=== PATIENT | female | born 1980 | race Caucasian/White ===

== ENCOUNTER 2023-04-17 06:26 | Outpatient (OUT) | payer OTHER, SELFPAY ==
[2023-04-17 06:48] LABS: Basophils Percent Auto 0.8 % (0.2-2.0); Eosinophils Absolute Auto 0.2 10^3/uL (0.0-0.7); Hematocrit 37.5 % (36.0-48.0); Hemoglobin 12.4 g/dL (12.0-16.0); Lymphocytes Absolute Auto 1.1 10^3/uL (1.2-3.8); Lymphocytes Percent Auto 27.8 % (20.5-60.0); Mean Corpuscular HGB Conc 33.1 g/dL (29.9-35.2); Mean Corpuscular Hemoglobin 28.5 pg (26.7-34.0); Mean Corpuscular Volume 86.2 fL (81.0-99.0); Mean Platelet Volume 9.6 fL (9.5-13.5); Monocytes Absolute Auto 0.3 10^3/uL (0.3-0.8); Monocytes Percent Auto 8.5 % (1.7-12.0); Neutrophils Absolute Auto 2.2 10^3/uL (1.4-6.5); Neutrophils Percent Auto 58.9 % (43.0-75.0); Platelet Count 246 10^3/uL (150-450); Red Blood Count 4.35 10^6/uL (4.20-5.40); Red Cell Distribution Width 13.4 % (11.0-15.0); White Blood Count 3.8 10^3/uL (4.0-11.0)
[2023-04-17 07:29] LABS: Free T3 2.07 pg/mL (2.18-3.98); Thyroid Stimulating Hormone 2.224 uIU/mL (0.358-3.740)
[2023-04-17 10:11] LABS: Free T4 1.04 ng/dL (0.76-1.46)
[2023-04-18 12:09] LABS: ANA Direct Negative (Negative)
== END 2023-04-17 06:27 | disposition home or self-care (01) ==
LOC: LAB 06:29
PROVIDERS: PCP Family Medicine
DX: R53.83 Other fatigue (principal); R63.5 Abnormal weight gain; Z13.21 Encounter for screening for nutritional disorder; M25.549 Pain in joints of unspecified hand
CPT/HCPCS: 36415; 82306; 82607; 84439; 84443; 84481; 85025

== ENCOUNTER 2023-04-25 06:26 | Outpatient (OUT) | payer OTHER, SELFPAY ==
--- NOTE | 2023-04-25 06:42 | MM_ITS ---
Patient: LATIA PETER Exam Date: 04/25/2023 : 1980 Gender:F Ordering : DR ILEANA INIGUEZ Admission #: [id number] Family : DR ALETHEA MCKEON M.D. Order #: [id number] CLICK HERE TO VIEW EXAM RADIOLOGY REPORT PROCEDURE: MM TOMOSYNTHESIS SCREENING BI COMPARISON: MG MAMM SCREEN 3D MARIUM CAD, 04/16/2022. INDICATIONS: Screening Calculator Name NCI Breast Cancer Risk Assessment Tool 5 Year Breast Cancer Risk 0.50% Lifetime Breast Cancer Risk 8.20% Personal Breast Cancer No Personal Ovarian Cancer No Treatments None Family Cancers Grandmother-paternal with breast cancer at age 53. LOCATION: [facility] BREAST COMPOSITION: Heterogeneously dense,which may obscure small masses. FINDINGS: DIAGNOSTIC CATEGORY 1--NEGATIVE. NO CHANGE FROM COMPARISON ASSESSMENT. Scattered benign-appearing calcifications are present. Scattered benign-appearing lymph nodes are present. RIGHT BREAST: No significant suspicious finding. LEFT BREAST: No significant suspicious finding. RECOMMENDATIONS: ROUTINE MAMMOGRAM AND CLINICAL EVALUATION IN 12 MONTHS. PLEASE NOTE: A NORMAL MAMMOGRAM DOES NOT EXCLUDE THE POSSIBILITY OF BREAST CANCER. A CLINICALLY SUSPICIOUS PALPABLE LUMP SHOULD BE BIOPSIED. Dictated by: Fede Ludwig MD on 04/25/2023 at 09:29 Approved by: Fede Ludwig MD on 04/25/2023 at 09:31
[2023-04-25 08:51] LABS: Alanine Aminotransferase 21 U/L (14-59); Albumin Globulin Ratio 1.4; Alkaline Phosphatase 55 U/L (46-116); Anion Gap 7.7; Aspartate Amino Transferase 13 U/L (15-37); BUN Creatinine Ratio 19.4; Bilirubin Total 0.4 mg/dL (0.2-1.0); Calcium 8.6 mg/dL (8.5-10.1); Carbon Dioxide 27.5 mmol/L (21.0-32.0); Chloride 104 mmol/L (98-107); Chol HDL Ratio 3.7; Cholesterol 190 mg/dL (<=200); Estimated GFR (African America >60 (>=60); Estimated GFR (Non-African Ame >60 (>=60); Globulin 2.9 g/dL; Glucose 87 mg/dL (74-106); HDL Cholesterol 51 mg/dL (40-60); LDL Cholesterol Calculated 125.6 mg/dL; Potassium 4.2 mmol/L (3.5-5.1); Sodium 135 mmol/L (136-145); Thyroid Stimulating Hormone 4.881 uIU/mL (0.358-3.740); Total Protein 6.9 g/dL (6.4-8.2); Triglycerides 67 mg/dL (<=150); VLDL CHOLESTEROL 13.4 mg/dL
[2023-04-25 09:13] LABS: Free T4 1.02 ng/dL (0.76-1.46)
== END 2023-04-25 06:27 | disposition home or self-care (01) ==
LOC: MAMMO 06:29
PROVIDERS: PCP Family Medicine; Visit Provider Physician Assistant
DX: Z12.31 Encounter for screening mammogram for malignant neoplasm of breast (principal); Z00.00 Encounter for general adult medical examination without abnormal findings; E78.00 Pure hypercholesterolemia, unspecified; R53.82 Chronic fatigue, unspecified; E87.6 Hypokalemia; E03.9 Hypothyroidism, unspecified; R03.0 Elevated blood-pressure reading, without diagnosis of hypertension; Z80.3 Family history of malignant neoplasm of breast
CPT/HCPCS: 36415; 77063; 77067; 80053; 80061; 84439; 84443; 85025

== ENCOUNTER 2024-06-26 12:53 | Emergency (ER) | payer OTHER, SELFPAY ==
[2024-06-26 12:58] VITALS: BP 146/98; PULSE 100; TEMP 36.8; O2SAT 96; BMI 21.9
--- NOTE | 2024-06-26 13:21 | ED_ITS ---
HPI HPI - General Adult General Chief complaint: Skin/Abscess/Foreign Body Stated complaint: DOG BITE Time Seen by Provider: 06/26/24 12:59 Source: patient Mode of arrival: walk-in Limitations: no limitations History of Present Illness HPI narrative: 42-year-old female presents to the emergency department for dog bite to her left arm. She was bitten by her own dog in her own home. 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 She is up-to-date on her immunizations, last tetanus shot was 2 to 3 years ago. No other injury was sustained. Related Data Home Medications ?Medication ?Instructions ?Recorded ?Confirmed alprazolam 0.25 mg tablet 0.25 mg PO DAILY 06/26/24 06/26/24 bupropion HCl 150 mg 24 hr tablet, 150 mg PO DAILY 06/26/24 06/26/24 extended release bupropion HCl 300 mg 24 hr tablet, 300 mg PO DAILY 06/26/24 06/26/24 extended release lamotrigine 100 mg tablet 200 mg PO DAILY 06/26/24 06/26/24 levothyroxine 137 mcg tablet 137 mcg PO DAILY 06/26/24 06/26/24 lurasidone 40 mg tablet 40 mg PO DAILY 06/26/24 06/26/24 naproxen 500 mg tablet 500 mg PO DAILY PRN pain 06/26/24 06/26/24 olmesartan 20 mg tablet 10 mg PO DAILY 06/26/24 06/26/24 Previous Rx's ?Medication ?Instructions ?Recorded doxycycline hyclate 100 mg capsule 100 mg PO BID 10 days #20 caps 06/26/24 Allergies Allergy/AdvReac Type Severity Reaction Status Date / Time amoxicillin [From Augmentin] AdvReac Severe Nausea Verified 06/26/24 12:58 clavulanic acid AdvReac Severe Nausea Verified 06/26/24 12:58 [From Augmentin] Opioid HPI Opioid Management Most Recent Opioid Data: No Data to Display Review of Systems ROS Narrative A ten point review of systems is negative except as noted above. PFSH PFSH Social History Little interest or pleasure in doing things: not at all Feeling down, depressed, or hopeless: not at all Exam Narrative Exam Narrative: Nurses note and vital signs reviewed and patient is not hypoxic. General: The patient appears well and in no apparent distress. Patient is res ting comfortably on cart. Skin: Warm, dry, no pallor noted. There is no rash noted. Head: Normocephalic, atraumatic Eye: Normal conjunctiva, no drainage Ears, Nose, Mouth, and Throat: oral mucosa is moist. Nares patent. Cardiovascular: Regular Rate and Rhythm Respiratory: Patient is in no distress, no accessory muscle use Back: non-tender, no CVA tenderness bilaterally to percussion. GI: Normal bowel sounds, no tenderness to palpation, no masses appreciated. No rebound, guarding, or rigidity noted. Musculoskeletal: Left arm is examined. There are 2 puncture montes near the elbow and some abrasions as well. Additionally there is a 2.5 cm gaping laceration near the left elbow. Left elbow has full range of motion. Neurological: A&O normal speech Psychiatric: Cooperative Constitutional Vital Signs, click to edit/add: Last Vital Signs Temp 98.3 F 06/26/24 12:58 Pulse 100 H 06/26/24 12:58 Resp 18 06/26/24 12:58 BP 146/98 H 06/26/24 12:58 Pulse Ox 96 06/26/24 12:58 O2 Del Method Room Air 06/26/24 12:58 Course Vital Signs Vital signs: Vital Signs Temperature 98.3 F 06/26/24 12:58 Pulse Rate 100 H 06/26/24 12:58 Respiratory Rate 18 06/26/24 12:58 Blood Pressure 146/98 H 06/26/24 12:58 Pulse Oximetry 96 06/26/24 12:58 Oxygen Delivery Method Room Air 06/26/24 12:58 Temperature 98.3 F 06/26/24 12:58 Pulse Rate 100 H 06/26/24 12:58 Respiratory Rate 18 06/26/24 12:58 Blood Pressure 146/98 H 06/26/24 12:58 Pulse Oximetry 96 06/26/24 12:58 Oxygen Delivery Method Room Air 06/26/24 12:58 Medical Decision Making MDM Narrative Medical decision making narrative: She is placed on prophylactic doxycycline because of her Augmentin allergy and the wound has now been closed. Sutures are to be removed in 10 days. Treatment diagnosis and follow-up were discussed with the patient. Discharge Plan Discharge Chief Complaint: Skin/Abscess/Foreign Body Clinical Impression: Dog bite Patient Disposition: Home, Self-Care Prescriptions / Home Meds: New doxycycline hyclate 100 mg capsule 100 mg PO BID 10 Days Qty: 20 0RF No Action alprazolam 0.25 mg tablet 0.25 mg PO DAILY bupropion HCl 150 mg tablet extended release 24 hr 150 mg PO DAILY bupropion HCl 300 mg tablet extended release 24 hr 300 mg PO DAILY lamotrigine 100 mg tablet 200 mg PO DAILY levothyroxine 137 mcg tablet 137 mcg PO DAILY lurasidone 40 mg tablet 40 mg PO DAILY naproxen 500 mg tablet 500 mg PO DAILY PRN (Reason: pain) olmesartan 20 mg tablet 10 mg PO DAILY Print Language: Tajik Instructions: Animal Bite (ED) Referrals: ALETHEA MCKEON [Primary Care Provider] - 1 week Procedures ED Procedure Instructions Procedures Procedures: The following procedure was performed by me. Local infiltration was carried out with 1% lidocaine without epinephrine resulting in complete skin anesthesia. The area was prepped with Betadine x 3 and draped sterilely and explored for foreign bodies none were found. The wound was then closed with two 4-0 sutures resulting in good skin reapproximation. Areas were left for drainage. She tolerated the procedure well
[2024-06-26] MEDS: LIDOCAINE HCL 1% 100 MG/10 ML MDV INJ (13:25)
== END 2024-06-26 13:36 | disposition home or self-care (01) ==
PROVIDERS: Emergency Provider Emergency Medicine; PCP Family Medicine
DX: S41.152A Open bite of left upper arm, initial encounter (principal); W54.0XXA Bitten by dog, initial encounter
CPT/HCPCS: 12001; 99283

== ENCOUNTER 2024-08-11 06:48 | Outpatient (OUT) | payer OTHER, SELFPAY ==
--- OUTSIDE RECORDS SUMMARY | 2024-08-11 06:53 | XMS_ITS | CCD ---
Author Organization [facility] CliniSyva Care Team Providers Care Coal Carrier Name Role Phone MISC, DR DOTSON Admitting Unavailable MISC, DR DOTSON Attending Unavailable MIKE, DR CLAIRE Primary Care Unavailable HEMMER, DR ILEANA Barger Consulting Unavailable HEMMER, DR ILEANA Barger Admitting Unavailable HEMMER, DR ILEANA Barger Attending Unavailable MIKE, DR CLAIRE Primary Care Unavailable ZIEBER, DR THOMAS Cm Consulting Unavailable HEMMER, DR ILEANA Barger Consulting Unavailable MISC, DR DOTSON Admitting Unavailable MISC, DR DOTSON Attending Unavailable MIKE, DR CLAIRE Primary Care Unavailable MISC, DR DOTSON Consulting Unavailable MIKE, DR CLAIRE Admitting Unavailable MIKE, DR CLAIRE Attending Unavailable MIKE, DR CLAIRE Primary Care Unavailable ZIEBER, DR THOMAS Cm Consulting Unavailable MIKE, DR CLAIRE Admitting Unavailable MIKE, DR CLAIRE Attending Unavailable MIKE, DR CLAIRE Primary Care Unavailable MIKE, DR CLAIRE Consulting Unavailable WEST, DR GINA Boyd Consulting Un[facility] [phone] STEPHANIE POON Admitting UnavailSTEPHANIE Rodriguez Attending UnavailCarolin Hutson MD Primary Care Provider ILEANA LEOS Attending Unavailable STEPHANIE RIGGS Referring Unavailable MIKE, [facility] Primary Care Unavailable OKSTEPHANIE WALKER Referring Unavailable MIKE, [facility] Primary Care Unavailable STEPHANIE RIGGS Referring Unavailable MIKE, [facility] Primary Care Unavailable OKSTEPHANIE WALKER R Referring Unavailable MIKE, [facility] Primary Care Unavailable STEPHANIE RIGGS R Referring Unavailable MIKE, [facility] Primary Care Unavailable STEPHANIE RIGGS R Referring Unavailable MIKE [facility] Primary Care Unavailable STEPHANIE RIGGS R Referring Unavailable MIKE, [facility] Primary Care Unavailable OKIN, STEPHANIE R Referring Unavailable CAROLIN MCKEON Primary Care Unavailable ALEXA RIGGSTHIA R Referring Unavailable CAROLIN MCKEON M Primary Care Unavailable SRAVANIN, STEPHANIE R Referring Unavailable CAROLIN MCKEON M Primary Care Unavailable OKIN STEPHANIE R Referring Unavailable CAROLIN MCKEON M Primary Care Unavailable SRAVANINALEXASTEPHANIE R Referring Unavailable CAROLIN MCKEON Primary Care Unavailable ALEXA RIGGSTHIA R Referring Unavailable CAROLIN MCKEON Primary Care Unavailable Allergies Allergy Classification Reported Allergen(s) Allergy Type Date of Onset Reaction(s) Facility (4 sources) Amoxicillin / Clavulanate; Translations: [AMOXICILLIN-POT CLAVULANATE] Drug Allergy 04-16-2023 [facility] (1 source) Amoxicillin Drug Allergy 03-14-2024 [facility] (1 source) Clavulanate Drug Allergy 03-14-2024 [facility] Medications Current Medications Medication Drug Class(es) Dates Sig (Normalized) Sig (Original) ALPRAZolam 0.25 mg oral tablet (7 sources) Benzodiazepine Start: 03-14-2024 take 0.25 mg by mouth three times daily Alprazolam Active 0.25 MG PO Three times daily March 14, 2024 12:00am take 0.25 mg by mout h once daily at bedtime ALPRAZolam (XANAX) 1 mg tablet TAKE ONE TABLET BY MOUTH DAILY AT BEDTIME ALONG WITH THE 0.25MG TABLET 0 Active take 1 tablet by mouth three jojo es daily ALPRAZolam (XANAX) 0.25 mg tablet TAKE ONE TABLET BY MOUTH THREE TIMES A DAY 0 Active 24 hr buPROPion hydrochloride 150 mg extended release oral tablet (8 sources) Aminoketone Start: 03-14-2024 take 150 mg by mouth once daily Bupropion Hcl Active 150 MG PO Daily March 14, 2024 12:00am Start: 03-14-2024 take 300 mg by mouth once chase y Bupropion Hcl Active 300 MG PO Daily March 14, 2024 12:00am take 1 tablet by angelina th every twenty-four hours in the morning buPROPion XL (WELLBUTRIN XL) 150 mg 24 hr tablet Take 1 tablet (150 mg total) by mouth in the morning. 0 Active take 1 tablet by angelina th every twenty-four hours in the morning buPROPion XL (WELLBUTRIN XL) 300 mg 24 hr tablet Take 1 tablet (300 mg total) by mouth in the morning. 0 Active ibuprofen 600 mg oral tablet (1 source) Nonsteroidal Anti-inflammatory Drug Start: 07-16-2020 take 600 mg by mouth every six hours Ibuprofen Active 600 MG PO Q6H July 16, 2020 12:00am lactobacillus acidophilus [id number] unt / pectin 100 mg oral tablet (3 sources) acidophilus-pect in, citrus 25 million cell -100 mg tablet Take by mouth 3 (three) times a day with meals. 0 Active lamoTRIgine 100 mg oral tablet (4 sources) Mood Stabilizer, Anti-epileptic Agent Start: 03-14-2024 take 200 mg by mouth once daily at bedtime Lamotrigine Active 200 MG PO Daily at bedtime March 14, 2024 12:00am Start: 04-22-2023 lamoTRIgine (L aMICtal) 100 mg tablet 1.5 tablets 0 04/22/2023 Active levothyroxine (4 sources) l-Thyroxine Start: 03-14-2024 take 137 ug by mouth once daily Levothyroxine Active 137 MCG PO Daily March 14, 2024 12:00am Start: 07-03-2023 take 1 tablet by angelina th in the morning levothyroxine (SYNTHROID, LEVOTHROID) 137 MCG tablet Take 1 tablet (137 mcg total) by mouth in the morning. 90 tablet 3 07/03/2023 Active loratadine 10 mg disintegrating oral tablet (3 sources) loratadine (CLAR ITIN REDITABS) 10 mg disintegrating tablet Dissolve 1 tablet (10 mg total) on tongue in the morning. 0 Active lurasidone hydrochloride 40 mg oral tablet (1 source) Atypical Antipsychotic Start: 03-14-20 take 40 mg by mouth once daily Lurasidone Active 40 MG PO Daily March 14, 2024 12:00am mirtazapine 15 mg oral tablet (1 source) Start: 07-15-20 take 1 tablet by mouth once daily Mirtazapine (Remeron) 15 mg Tablet Active 15 MG PO Daily July 15, 2020 12:00am naproxen 500 mg oral tablet (4 sources) Nonsteroidal Anti-inflammatory Drug Start: 03-14-20 take 500 mg by mouth once daily Naproxen Active 500 MG PO Daily March 14, 2024 12:00am take 1 tablet by angelina th in the morning, then take 1 tablet by mouth at mealtime naproxen (NAPROSYN) 500 mg tablet Take 1 tablet (500 mg total) by mouth in the morning and 1 tablet (500 mg total) in the evening. Take with meals. 0 Active olmesartan medoxomil 20 mg oral tablet (3 sources) Angiotensin 2 Receptor Rob take 1 tablet by mouth in the morning olmesartan (BENICAR) 20 mg tablet TAKE 1 TABLET (20 MG) BY MOUTH IN THE MORNING. 0 Active predniSONE 50 mg oral tablet (1 source) Start: 4 take 50 mg by mouth once daily Prednisone Active 50 MG PO Daily 5 5 March 14, 2024 12:00am tiZANidine 4 mg oral tablet (3 sources) Central alpha-2 Adrenergic Agonist Start: 3 tiZANidine (ZANAFLEX) 4 mg tablet TAKE ONE TABLET THREE TIMES A DAY NEEDED FOR 30 DAYS 0 05/21/2023 Active verapamil hydrochloride 240 mg extended release oral tablet (3 sources) Calcium Channel Rob verapamil SR (CALAN-SR) 240 mg CR tablet Take 375 mg by mouth in the morning. 0 Active Problems Active Problems Problem Classification Problem Date Documented Da te Episodic/Chronic Allergic reactions (2 sources) Urticaria; Translations: [Urticaria, unspecified] 03-14-2024 Episodic Genitourinary symptoms and ill-defined conditions (2 sources) Female stress incontinence; Translations: [Stress incontinence (female) (male)] Onset: 11-21-2023 09-19-2023 Chronic Hypertension complicating ; childbirth and the puerperium (1 source) -induced hypertension; Translations: [Gestational [-induced] hypertension without significant proteinuria, unspecified trimester] 07-16-2020 Episodic Malaise and fatigue (4 sources) Chronic fatigue, unspecified; Translations: [CHRONIC FATIGUE UNSPECIFIED] Onset: 05-07-2022 Chronic Nutritional deficiencies (1 source) Vitamin D deficiency, unspecified; Translations: [VITAMIN D DEFICIENCY UNSPECIFIED] Onset: 05-08-2022 Chronic Other connective tissue disease (1 source) Myalgia, unspecified site; Translations: [MYALGIA UNSPECIFIED SITE] Onset: 05-08-2022 Episodic Other gastrointestinal disorders (1 source) Fecal urgency; Translations: [Fecal urgency] Onset: 11-21-2023 Episodic Other non-traumatic joint disorders (1 source) Pain in unspecified joint; Translations: [PAIN IN UNSPECIFIED JOINT] Onset: 05-08-2022 Episodic Other screening for suspected conditions (not mental disorders or infectious disease) (4 sources) Encounter for screening mammogram for malignant neoplasm of breast; Translations: [ENC SCR MAMMO MALIG NEOPLASM BREAST] Onset: 04-16-2022 Episodic Previous (1 source) Vaginal delivery following previous section; Translations: [Maternal care for unspecified type scar from previous delivery] 07-16-2020 Episodic Residual codes; unclassified (1 source) Family history of malignant neoplasm of breast; Translations: [FAMILY HX MALIG NEOPLASM OF BREAST] Onset: 04-20-2022 Episodic Spondylosis; intervertebral disc disorders; other back problems (1 source) Unspecified thoracic, thoracolumbar and lumbosacral intervertebral disc disorder; Translations: [UNS THORACIC TL AND LS IV DISC D/O] Onset: 05-08-2022 Chronic Past or Other Problems Problem Classification Problem Date Documented Da te Episodic/Chronic Other complications of ; puerperium affecting management of mother (3 sources) Complication occurring during ; Translations: [ complicated by congenital heart disease, fetus 1] Onset: 03-28-2020 Resolved: 07-02-2023 07-02-2023 Episodic Other connective tissue disease (4 sources) Pain in right hand; Translations: [PAIN IN RIGHT HAND] Onset: 02-28-2022 Episodic Other connective tissue disease (4 sources) Other specified soft tissue disorders; Translations: [OTHER SPEC SOFT TISSUE DISORDERS] Onset: 09-13-2021 Episodic NEGATED: Highlighted row has been ruled out!Unclassified (3 sources) No known active problems 07-02-2023 Results Test Name Value Interpretation Reference Range Facility Lab Miscellaneous-LCon 08-07 Lab Miscellaneous COMMENT Invalid Interpretation Code [facility] Comment on above: Result Comment: Test Ordered: [id number] Q Fever IgG/IgM Antibody Scrn Q Fever IgG Phase I Negative E= Reference Range: Negative Q Fever IgG Phase II Positive [A ] E= Reference Range: Negative Q Fever IgM Phase I Negative E= Reference Range: Negative Q Fever IgM Phase II Negative E= Reference Range: Negative The performance characteristics of the listed assay was validated by [facility]. The [place] FDA has not approved or cleared this test. The results of this assay can be used for clinical diagnosis without FDA approval. [facility] is a CLIA certified, CAP accredited laboratory for performing high complexity assays such as this one. Testing Performed at: [facility] [address] [place] [address] Q Fever Phase II IgG Antibody 1:256 [A ] E= Reference Range: < 1:16 The performance characteristics of the listed assay was validated by [facility]. The [place] FDA has not approved or cleared this test. The results of this assay can be used for clinical diagnosis without FDA approval. [facility] is a CLIA certified, CAP accredited laboratory for performing high complexity assays such as this one. Testing Performed at: [facility] [address] [place] [address] Performed at: [facility] [id number] PhD Anuradha Seay Performed By: #### 1 [id number] #### [facility] [address] [place] [address] MTHFRon 08-01-2022 MTHFR gene targeted mutation analysis [facility] Nom (Bld/Tiss) Comment Invalid Interpretation Code [facility] Comment on above: Result Comment: Resu lt: c.665C>T (p. [id number]), legacy name: [id number] - Detected, homozygous c.1286A>C (p. [id number]), legacy name: [id number] - Not Detected Interpretation: This result may increase the risk for hyperhomocysteinemia. See Additional Clinical Information and Comments. Additional Clinical Information: Hyperhomocysteinemia is multifactorial involving genetic, clinical, and environmental risk factors. Reduced enzyme activity of methylenetetrahydrofolate reductase (MTHFR) is a genetic risk factor for hyperhomocysteinemia, particularly when serum folate levels are low. There are two common variants in the MTHFR gene that can decrease enzyme activity; c.665C>T (p. [id number]), legacy name [id number], and c.1286A>C (p. Ola414Sdh), legacy name [id number]. These variants do not independently increase risk of conditions related to hyperhomocysteinemia in the absence of elevated homocysteine levels. Measurement of total plasma homocysteine is recommended. Patients should share their MTHFR genotype with physicians who are making decisions regarding chemotherapy treatments that depend on folate, such as methotrexate. Guidelines do not recommend genotyping of these two MTHFR variants in the evaluation of venous thrombosis or obstetric risk due to limited evidence of clinical utility (PMID: 39710790). Comments: Genetic Coordinators are available for health care providers to discuss results at [phone]). Test Details: Variants Analyzed: c.665C>T (p. Zlb882Wmx), legacy name: C677T and c.1286A>C (p. Yzc466Svz), legacy name: [id number] Methods/Limitations: DNA analysis of the MTHFR gene was performed by PCR amplification followed by restriction enzyme analysis. The diagnostic sensitivity is >99%. Results must be combined with clinical information for the most accurate interpretation. Molecular-based testing is highly accurate, but as in any laboratory test, diagnostic errors may occur. False positive or false negative results may occur for reasons that include genetic variants, blood transfusions, bone marrow transplantation, somatic or tissue-specific mosaicism, mislabeled samples, or erroneous representation of family relationships. This test was developed and its performance characteristics determined by [employer]. It has not been cleared or approved by the Food and Drug Administration. References: Nicolás SE, Matt CJ, Jaclyn DACOSTA. [facility] Practice Guideline: lack of evidence for MTHFR polymorphism testing. Stormy Med. 2012;15(2):153-6. doi: 10.1038/gim.2012.165. Epub 2012Sep 24. PMID: 50919845. [place] [employer]' Committee on Practice Bulletins-Obstetrics. ACOG Practice Bulletin No. 197: Inherited Thrombophilias in . Obstet Gynecol. 2018 Mar;132(1):e18-e34. doi: 10.1097/AOG.1254989501890518. Erratum in: Obstet Gynecol. 2018 Jun;132(4):1069. PMID: 59224071. Latha Vasques, PhD, [facility] Dario Moya, PhD aJke Cornejo, PhD, [facility] Wade Mercer, PhD, [facility] Jack Foster, PhD, [facility] Joan Peoples, PhD, [facility] Nanci Mchugh, PhD, [facility] Yuliet Gonzalez, PhD, [facility] Performed at: [facility] [address] [facility] [place] [id number] [facility] [place] Performed By: #### 1 [id number] #### [facility] [address] [place] [id number] Coding Summary.on 07-31-2022 Coding Summary. CD:[id number] Gh0b Ww+PGhlYWQ+GN4NUCJyE52hb WVpbT6MS6hZVL0JAQJCYWBTC M6QVB5vxNU9HGacM9HabjZj SfskhRQrZJ46XBw6ZWB9mRyt HGlrkK3cbMOlA6g4XbJdHI78 oZ90GUqoWTFjFgO5FnYgsxrp bWFy F3bePfRhiMXnApb+PHRhYmxl IHdpZHRoPScxMDAlJyBzdHls XD3nQz4mXSFwLVGnfScnoUCm OiBj j0rfTYVuWEdxEL4sfBdjB9Co pFK8GXOoa7f3Dv80hYA+PHRk NSX5rRwlBKjwc228XpMml1fs IDM3 eBZaWKkjROF6V50vs6A7FYQe LPRtOWF1fGY9lG1kuEfskrcy C6HxgVKnKvE0YNV5hNFcaD0l bGln innrlW4uKkc+L88JPM3PQZFM GN2MUor7S6VtWwlzuRL+PC90 ZASuYI43vBIgcDOfo4vtnDj3 JzEw IVXcBRX5yNypDZujt1JyOKBa M85nhVInm9X0MXPlaTeocQOb PjBfeVT7kZ7bLIfjvslge3xc dzsn Wqlxv3eohc60aL20A15sMAsm YZYhCFU0DRSiNZNcbNvstj2c iL8vQj6+KQfbs6xyn9kbqDc6 IjIw SGIblzXkxEypMRN2p9HdOx88 Z6AudPzcc4WfAnm1jn72pJEa r9R8dCG6AXkmCRKlbJ3sNEod ZnQ6 AUPgTcRmaB35tWAdMVgrLc4m gHczpDzlNW3aEELwrcqsVLDp sK9iRUBoyGUspFbhHV4uIIGt bjtm m079XrMsTSC3PAEzhPDzP4Wr iD3fAkXbFGMbOIGfU1TrwWNc HQamW781GBpcZaL0CZIqxwEm Y2Fs FZSgePrbOfI5i6K0Uy1Ja0Sa conqTTG8OBnhVMXwVaD1SmTk LaZ9Y1HoFhm2ZGIdlKdsNL7c J3Bh FPTcybphqdfzoZN4ZTWnXYTw tJ36yGJkDHupVs6ti4Q8y393 TLQfVWKqeL73Qr2xfFhiHWMt dCBU dE8scykey6mezmbhYxXpTUNd VYk7KJz5SIHqmJplRlQyFOY2 MoX3TYG0iFXsoZ2eeZvjlaxe dG9w Oyc+K90rtY3xGFQ6OVW7zecc SKKqafYrEZ15OF48Q6PwEoud dGFibGU+HTOumdFfjMnfBT0r YmFj c9jnb5LuZCqrM5HgOHYlWMmm Bbz0YUYtXSJ2rOP2qB5fFHPv WRywc3I1kYU5B0GijbBafl7k b2xs XVHnLBdvI67nqUKtf6Q3CRZs rCH6ZCSouDpnLpFbhT99Pua+ FCPvpUyyw6XfIzzyh1omt3hu dGg9 JwKbMUFjwuObdLfrVDI6a2Nl Rz46S41iIMfeFWDiGROsIBJv XZXjiXtncm0lsL4uJz3+PGNv bCB3 dLB3kR2jXSFkJwZ6MUidY408 YyMllLLgKgwom2kpv0cglSb4 ToCfKVEcnkQydFxtJPX5j5Yz Lz48 M77cFFdbFRElRPHaYAJlYTOu rJwnqw9faK8qUm3+DN6ey3rk rl35rO63sFR+IGObUEV7lIuc PSdw TMXwyR7cMHebGkE2JPOtMxAr zK42rQUlNAvfZe7kkGptrUfi YE3bQDKervsan079BbXvx9kc IDEw cXRjVOfuYGL9Z43cy8J2UNKe CJGiHVD3tDT3tY6xtWkkpooj bGVmdDsgdmVydGljYWwtYWxp Z246 IHRvcDsnPlBhdGllbnQgTmFt AXv5W6LyFup8AVHjpRgvCC7r vUZdRQpoQe3frMvplBngLE9u NTBp tporv560UqAnt7npBGCdkMGh ECzpLYL3E52ug7J3RYTsWHFv KAF5kQI3qQ1icIfthtxfkJYc dDsg cjRgxZvrIKhbKBrrL181VJFc aTftPeZaujIbBWMxcWO0UA41 SJ48qEQuh9B8wYH5F0RbDOQa bmct szutmHL0QZChXVEfnV18Ir5v aJgiXl9yBXZwTIY0GVTlxCSb J8VpgH7jIrYmZTQcTRQwL9Rx eHQt KNojX237ZWpqBtW9KFKcmjFh C0MtAKWdgNyrWhT9l7W2Rh0D B1Y5WQ69HR56vZBlt3V8iME5 J3Bh ALRasqnmyeijsHY5ENPeSGRq mK19Md5mvTvjLl6wHXFvCMJ8 SFMixCJaW4UgcM0pYtOfLOPw MDAw M9OyxXCxCQndW095XHnlXhY0 YRMcbiYhD5JjTOPpeDqhUuV7 v6G5Vi3CQMv4WO40WV16oEFb c3R5 rZT7E2CoDPZiprzoxecpnFN3 SXQeWNCcgT62Mu0rxRzoZt9y ZFDwNBG4RBKymWVlV5EtuY9z OiAj DOJoHVPgW0ThlPStVBhrU265 KJajXeW6QWOglaYkT2EjZQUd gSlbVxV1b0R8Cd0IOPOhJJ68 IFR5 bSS5NH77DS06C0EeCtcwhUIz bGU+PHRhYmxlIHdpZHRoPScx MVJlBfUdmQajCO2dDt7jLRZo LWNv yLkfgVKyTrNyk2isQJRpMMlh GY4ftBchH8RmtZL2ZTFkg1o6 Od27G19zK5DprHN+PGNvbCB3 aWR0 xM4wKyQjOjD6NQfeT644MhAu vHLsPfkrg2bbe3jctBi5MtD6 WTCswoLjpUxlVCG0s5EwUj08 Y29s IHdpZHRoPSIxNSUiIHZhbGln yj1hiE8aQq5+KNRdtUX0rXO8 kO5mUkZsWbC2FOwnL874MjVa cCIv Gasnq3rzk6kajTp7RhCgZBCr ryZtrZgbALU2e7AlVi15Q1Ii fYssq7FnNfj7fj32iAKak9M1 bGU9 T3XxOAOljkwxsNAeiYriUZ8i RSLcwgcpRBQctO8jFUHcO6f6 JwOwBwX0IMzlL2BpbvA5FAFb cHQg TLluTWI5G76fy4Q5WKHuIWEq MJQ2zSF4bV5byKouvouviETl hOathgGvfMqvTCuxEKrxU693 IHRv eZdxIQDgeL7tGPBukRQzwQio YS4rVLAvhkdbRe1VArKRT41F DBLXZQ5EQYPBCmsoyVU+PHRk IHN0 kTvhHDtvXRZyaT4zZRQkA3z0 YaCfAyI0LFmlV1GiSENrlccy Gp08rC4mVfXiYyF0ZQkoT8Kn bnQ6 JHCarOAqKDnlKKJ2J59vj1A6 FUTdWVSqFJY6iLZ5gE3zeDyk bjogbGVmdDsgdmVydGljYWwt YWxp U155MYMdvKcbVxI9LnN3ScS9 BEK9H2QfPuy8JHMvsFesAF2w aATzBRngWn2abLnooJhvFA6t NTBp pktqCRPwbE4rLLBkpJYuxMed CM6fTNCczvqcf058LdRrORY3 HEUysEIhH1UgqZ7hVaUrVATv MDAw E1SydWLtOUuiL406WAccMvQ3 BGBrccUiN5BwFZNflQijBnW7 j0M7Df55VGBXFMCidnkrsMV+ PHRk OPB6iXajKQwpLRVgxA6yASKi B2k4WdGhGuJ4JKyuZ5BxWBJi dfvzIo30yB9iPzPtSzI7KUia O2Zv yxI1HNIvcUGdVIivACV5N04e q7Q7GCCkBLErEUY9fFJ9eG0v bGlnbjogbGVmdDsgdmVydGlj YWwt PBzwC108AURbbRqbJcMatVSc ZTwvdGQ+ZETbHVI1nMtgQUae AOIbtS2lWGRrL4r7MpWjOjK9 MGlu A5BuPTWtvgtqTe31kJ6tBmTz BlG5YSphS2TvwwD8IJSzxHZc HSxmXGB4F43li7G7AZEhORMj MDA7 sMA7qH7feStcuwhlvCBirGvk ggVutCezSHkfYRdrN926ZLOi aWpuZr27iMWcoAlwzrF8N5Ox Pjwv dHI+BA33OOItOP73xCXdqWLe o7balLl9ViBoHTBoWAM6eAci RQapq4AuAVXrQ98ewEHbe8S4 IGNv oXwpnTXjIiNwmGE7hY3bZRbb ijrej3qfhcjsXbhdp4ujsq33 vK13L40nOZyvFTFyMLGnIOOn IHZh fOnsee8hpP0tFl5+PGNvbCB3 dWK2mQ1qTkQuAbM4OScyN201 DeBkdBSvPdzzn3tns2kywFu9 IjIw ICCzfvWygFmpOJF1a1ChTu05 V75lAPlnTBNwVRZiNTVjXYFk eRjbcq7ueX5cHg8+FG3ss6jc cm91 fL62rXM+TNZgYBH1bCvlBYfi YBKagT3nMIbqYuP1ETIfMvPz mX38aVYdGStdIw2jqOariOrj MC4w KGSoogegf107IyNqo5sdEYQg jXUwCKzeCNP6Y33xj9H0SUJy NMMvFWB5kVX4bC7ydJjnasda bGVm aZbaxdMhoNrsIGxaRHseU644 WGQacTykPoZchEArC6qrzyKV LT6uEvxvpAF+ZOMuSEA8nHom PSdw MMIcpJ5dEDAkJ3o1WkDqEqU8 GCrjK8DwzlD8THHgdTEvZRFu rRNPpA3wjeksu8vlnvcbQaHu MDAw BHl1VNy7ODWiiBmwGmTjOKR3 MaZ4JLQ6sUJzgJ1slAounymr tK3zRba+RklOOjwvdGQ+PHRk IHN0 jXbaZXwvAEApwQ5cOXQfJ6m1 WhUgSkS5JGlmU2NiwcW8WARs fOZgLOZeyNMAzP8busqhj3ju cjog KnTdJXMkOPa5WIv6FUMykWnr JjWtFYF5GrR4UCD5oIPttG3b cTtjmkdkxU2cRqg+TVJOOjwv dGQ+ WLQmHIT2pKtpMMdiSGAuxX8g SONdQ4g2LkZpAzL4ONeeS3Gc ppY2FSLuvUCmQZIvgFLUsE1d cztj f7jlxarmChOeDLVeQFl9TCh7 OMEwrQwwDdSkMJG9TnV2RUP5 iRYkfO3ubIbrqtyriO4uLpf+ UGF5 BDH4ZS41ZZ34I1UmRbfnqPRd bGU+PHRhYmxlIHdpZHRoPScx TQKlYjOpxMbrQP4tHj2zJTLe LWNv bGxh (more content not included)... [facility] Coding Summary. CD:[id number] Gh0b Ww+PGhlYWQ+ZI6RZYAaP32yp WCfyM8RY9gDOR4NGXXCOWXSH W8WTT6kwHR2POxeG3UwknLd FpzsjOEeYG82OVb7INV9vKcx VCkdqY7bkVGmY3n1MdCwQL50 tW02DMgyVQKxHnP0NqQffhhl bWFy N2qsGxKmhEMdQjc+PHRhYmxl IHdpZHRoPScxMDAlJyBzdHls HU3vXp7iMXLoUMVlsPoydHEx OiBj v1hlNMYnIPghOM3haLrtJ5Oa nFX3GLPyd3j3Ka14bJV+PHRk QQR5fKizBLcgk223MuNus1up IDM3 xNGoLCajHDH2T62fq1T1GBMq IOTwCPY2hFV3kN7pbBpoxqsn I3DgoICpYgL4PCL5zWPbqB6w bGln mabrjH6zUdt+Q66ASQ1PULAU VM3EBqe1R1LlKbgosAV+PC90 IZEvOM22jVSlbCGav9ljxNe7 JzEw VDKrRCR7yWsgZWpdr7HlHUUk Y41bmEIma8S3VWGghJqepJIq BfNfwHF2lB0gJNsowrsqv6ca dzsn Edtbl9xovo00rH09K59iKRyn JIVyJAE2UKDnLAJtcWdccj1y qJ3gQy3+IIntu9xja4qvcYb9 IjIw TSHxccEuyCmmGXA1q0JqKv57 V8SpqGvwc3LoZfi1cy82mNLb v0E3gJP7HEbrHMHgbD8iOObl ZnQ6 HBZyVbQyaY02cCElQMfoDp0b kAurePrmNB0oGBGuiwydXRGx cS8zEIGixITynEroQH3sDSZc bjtm y329QpUsCGM3FXTifQAjK7Uc bP3sZfAcVQKdJSWoE7LheWGf XXcyR954GHotSyU0BZKuulFc Y2Fs VBZcgGliJvE9a2W3Au1Ua6Rq fibxFEE8ULfxXTWcGeTrCnHq IpZ5P1IfDhl5OMZjjDsbJH5n J3Bh HGRfiieyndhtrQV2DCCaQRDp tL39lIYhXAzaBo8zp5J2a411 DWEyBLLalC52Zy1noLmwHFHw dCBU tH3dhizxz9ezdmgwJeUcFSBq WYf8XSh1WYSxeOwvWgYeTXW5 DmV9NLM8eYPvgI2tmNqakesh dG9w Oyc+H62iuU6rQKQ8TPO1rxlu EDVffcTrVO27VO64K5UqZpbk dGFibGU+ETVfssYfdVusBC1l YmFj u8yuq8MuHBcbN6JdSPJtCSkw Gni1NOIzFTM9hMR7qC5bXECs FTwhy1R0uPM2J4ModwTves3b b2xs URElTLuvG44keBGni5E1NXOl kLN3VJNnyHxtTwEpvT54Rsr+ FPDfsCqjw0DzMebll4pcz8ir dGg9 EyAwKYSmsmNeaBhnSOV1t1Zg Sy07A14oANtnONNzXGYgZSTz RDTytAwnqp3hcX1jJh3+PGNv bCB3 aXE4fE1mLNCwKeF6RTiaF393 KeXhgKFaNorhb2cwn4cpoSl3 OhJmJHWolgTldZejFJZ0b0Lp Lz48 P41iUDcpHWSsRKDzRLOzOZEo kSmxye4wxV6bCy7+UO8xi4sm mf58qZ16jYA+VLEeBWE5cYlt PSdw GDMgfF9jJRfaKgK0ZBVsPkBr dF95jELdVGdoIr2ewIcetBpa HY3iXSZnnebrd165OrDrr0xw IDEw kRJaHVhpWNR0V30ra7V8JVRw DBWgZJN4uLE7rR5joHdvxptw bGVmdDsgdmVydGljYWwtYWxp Z246 IHRvcDsnPlBhdGllbnQgTmFt JUc3U1DvCsu8JDQqnQpyCS4f pJUyGAfiZy4hfFjtwPzgCJ1p NTBp hjwaz819GmJjm7swSROziAPl RVxbMSF3J49is8S9OFFwGFBm QZU7xWW0wD4fuFyukvrncHEt dDsg rvOknPjoERhfIRnfJ368XSUx qLcdBvZughCqSQFmiIX7FG37 YH11eVXoc8V4oHL9R3UfENKc bmct idsivDW4VXGgZUUooI02Hc2h bUdrKc9wIJTwBNH7YAAkpGFr G6XweZ3kEbBpTXLtRPDqH4Ja eHQt BRmmJ261BXyzUfP7GUBbbtCz D6SrJUNkvDnmRkJ2d4P7Aj2Y I7F4OP89NG39mUSal3W8bIL2 J3Bh XRFwtrlczqalaSS1QYMoFYSh wM58Ab7siWesVw0qRFMsPFZ1 WTRlsUOqB5NqoN9xIaYzCUGj MDAw Y2TkyDVaOXikO225NDoyOyA6 VWVmyxTcT0GhBRKiiVnnDzU8 v2E4Bq2JQUx5MR11VV71pLHi c3R5 eRP7A7XwPVCoizvssovqxRZ0 IMIaTKPleH43Nr3fcJaaWa4q LYPqOJB1RJDglQBuX1TtcX6d OiAj XAVsNNAzY0JhmJQhTQicH189 BVqmNyI0BTQxmlMyQ2SbNWTm aZbkZgV2e2B2Km9HGIBuIY37 IFR5 wMT1DR44IB99C7NaEvqvrWBl bGU+PHRhYmxlIHdpZHRoPScx EHFpRmEdbWrnJF1tJr5hTGYc LWNv kAclsGUlYbPik2onCXJuXJsa FQ4snEybF3KkyLS7LRLps7w8 Tw05U77qB2VpdMP+PGNvbCB3 aWR0 xZ3uMcRhLaO8OXdeY951WvLf rHFsKieqx4fgs7ngnMf6QvE8 JLMrvlMjrUzlPSG6g4ShUs87 Y29s IHdpZHRoPSIxNSUiIHZhbGln ft5kxH0dWr1+XIWbwRS9zME1 oK2iQbLnVlH5OLaoF397RaQu cCIv Larmj1bgc7iqjZo2IkFxNKJl boOmoFhlFWM5r1HtEp45Y0Rc xDyxh1ZjGgn5oi79hNRbn0O5 bGU9 E4LkJEZmhgweqLMmqElrGX0e KSCkeokyKWOofJ0oDDDxU3n0 XrPqKgK1BBzlR4BcxkC9WNOg cHQg FHbnQTV5R32ij3F0WRGlEEIt PUA4kUP5xV7umJrsgmqnkXVd pKtmpqAybOunTLqqGNssX481 IHRv iVmcVZJhyV3uLVLmuEXjzNhr VR3fPNYgkperKa1AMjLFL03T ZTEVMZ4ABJFVBogndHV+PHRk IHN0 uFsyZFzqHCPyiX4qYFPyM8l7 WbSwQdB5LSevN0JwBEMpecrb Cw20lK0oRqFtLaJ5GTprD0Vu bnQ6 MHGwwLSfGTlcEEC6C81vu6S8 OBReFPReGAN2qDS9pE3gwGfs bjogbGVmdDsgdmVydGljYWwt YWxp Q468KSFjpCzwFmP3EcH9WuG7 UNE5A1TpVru6HECpnTdpFW7a qROgAPkbOr4fsWevxUlmZL2n NTBp eetnZELrkG3iRSGajLCpzEqz OZ2dRZOjolnip981ZqBjOWX6 YZZqkSIcT9QicW8mAxUfAPGy MDAw B4XyjJLiWLfsY921RWkjOyM2 YQImceZyX3PtPAKjwHqiPlZ0 a1H1Hv41IXGFVNMsinmrdPB+ PHRk WSM9kAgdNEwxALVtsT8wPELn B6r2MnLnUgM5JVkbS6HtMNPh rgvrGt26cW2bFdVjJoG9EVlc O2Zv jaB2TRKtlDLsJHjwQVA0C05h a8N7RQMuBYLpEOZ4cCO2tZ5r bGlnbjogbGVmdDsgdmVydGlj YWwt LWelX494WXLytPgwCuFlbNFj ZTwvdGQ+UTQaWWV5iVwaBJmv WGTbpR9gIOWeV9r4MtRfAgP1 MGlu V0AmGQMaptmjPc28rA5fOoNy HjJ3IOjbP7NtbiM8BACoeVNh ZFslNXJ5N55ge3O0GFQtOYSi MDA7 kIG3lK3ebAlacvvaiEHbkKxi ucTieBaeLEhiLXyfB283JSRx jZkhKc38nGZezOrnavV5L4Rc Pjwv dHI+QJ46ZRAjEZ54oGWwpHUv d4whwWk2HyKqPMShUHX5sCee XLooh2SgBFEfV19srPEir9Y8 IGNv qKhnyTKtZyLukDU0eR3pFYts zjttv3yfjluaLmyeu6oqza80 hI59Y18iFWzuGGKgNUZzJBGo IHZh xUfuuz5ljT3tIt3+PGNvbCB3 aWJ5pZ3uTmFoNbH3GCubD480 DlYnuKQdPsvvt2dcl6vqiKz9 IjIw DQDzxvZpeDgzDEO8x2PrLy74 G88uUXprLZMuUJDjUIViGURf iGxqgq9dlJ6zDx6+YJ4ki5oj cm91 qT44tNH+YUJeLZQ7wSxkPOlh MHGbhA4tJTpuKwD6NKJzHpUc uL65lMGyUQtnJd9hsYbvuUxn MC4w IPHikctyy387OxSyf8aiCTHh zVRgZRqgJIG3D35il3Y3ZCFg XZGrURK5sEY9cB8pnOzksknj bGVm tZygfzOmbEzcUDmsWSxhD651 LRUdbBkgElEexWYpK7mupyQK EO0qUeofqQG+QFOfEWX9sYqc PSdw LNMqoV8yGFIrC9c8VwReYgI0 OZtqE8XqyqQ0KSYobHOfQAQp jLMKbT8kbzkfp3ejrjswFdSd MDAw LQr4UMb1NXRtnLjjArDeOIL9 TqF8MKB0tVHpkR7bzBxtngqp hG1uDof+RklOOjwvdGQ+PHRk IHN0 dJwwLXhmOBYkiD1oICQvZ2d0 QxCrRdR4GUpbI0VefaF9GLUh fTOdXJUgxRFHpN2kkyuuh5ab cjog CpRjBVBkUJs1JAd4WWItjAxd QwDyQZL9RjD3GXZ5gGAnvR4f gDrpktnssI8fKty+TVJOOjwv dGQ+ LNAuMTO4sWkfTFhcEOFdwO3n SONnY5o2KvRpGvK5IBktN1Ei wkS7OVFgaXAuBDPagCECkV2n cztj r6ggvliwQfWuEVFvZJe2GPk3 YMMfnWqeHjTqFUK7BkG3QZL0 gLHwcF8jrHzhwxvstX6dBmw+ UGF5 VYZ4BA94CI72V6KwZmuetKOi bGU+PHRhYmxlIHdpZHRoPScx YBUiTsYqfYryLM4jLb0aKWTr LWNv bGxh (more content not included)... Normal [facility] Lab Miscellaneous-LCon 07-31 Lab Miscellaneous COMMENT Invalid Interpretation Code [facility] Comment on above: Result Comment: Test Ordered: [id number] Complement C4a Complement C4a 502.4 ng/mL BN Reference Range: 0.0-650.0 Results for this test are for research purposes only by the assay's salsa dance instructor. The performance characteristics of this product have not been established. Results should not be used as a diagnostic procedure without confirmation of the diagnosis by another medically established diagnostic product or procedure. Performed at: [facility] [address], [place] [id number] PhD Anuradha Seay Performed By: #### 1 [id number] #### [facility] [address] [place] [address] Lab Miscellaneous COMMENT Invalid Interpretation Code [facility] Comment on above: Result Comment: Test Ordered: [id number] Dengue Virus IgG and IgM Dengue IgM 1.18 ISR EURKS Reference Range: <1.65 The DENV Detect IgM Capture LUCINDA is for the qualitative detection of IgM antibodies to DENV recombinant antigens (DENRA) in serum for the presumptive clinical laboratory diagnosis of Dengue virus infection. An Immune Status Ratio (ISR) value of less than 1.65 indicates there was no detectable IgM antibody present. The result does not rule out Dengue virus infection. An additional sample should be tested within 7-14 days if early infection is suspected. Other Dengue virus assays such as Dengue NS1 assays, PCR or culture should be performed to rule out early acute infection. ISR values between 1.65 and 2.84 indicate an equivocal result and Dengue virus IgM antibody cannot be determined, and should be repeated by an alternative method or another sample should be collected. ISR values greater than 2.84 indicate IgM antibodies were detected. Dengue-positive sera must take into account other clinical findings and be confirmed with other tests if indicated. A positive IgM result may not indicate a recent infection because IgM may persist for several months after infection. Serological cross-reactivity across the flavivirus group is common. Certain sera from patients infected with Zika, Cymro Encephalitis, West Nile, and/or Martin Viruses may give false positive results. This test has been cleared or approved for diagnostic use by the U.S. Food and Drug Administration. Dengue IgG 1.15 ISR EURKS Reference Range: <1.65 An Immune Status Ratio (ISR) value of less than 1.65 indicates there was no detectable IgG antibody present. ISR values between 1.65 and 2.84 indicate an equivocal result and we recommend a new sample be collected and tested. ISR values greater than 2.84 indicate IgG antibodies were detected. Dengue-positive sera must take into account other clinical findings and be confirmed with other tests if indicated. Serological cross-reactivity across the flavivirus group is common. Certain sera from patients infected with Zika, Cymro Encephalitis, West Nile, and/or Martin Viruses may give false positive results. The performance characteristics of this test have been determined by [employer]. This test has not been cleared or approved for diagnostic use by the U.S. Food and Drug Administration. Performed at: [address] [id number] PhD Anuradha Seay Performed By: #### 1 [id number] #### [facility] [address] [place] [address] 228[address] Lab Miscellaneous COMMENT Invalid Interpretation Code [facility] Comment on above: Result Comment: Test Ordered: [id number] Trans. Growth Fact. beta 1* Trans. Growth Fact. beta 1* 4033 pg/mL [facility] Reference Range: 867-6662 The result is reported in pg/mL. The assay range is approximately 150 to 50,000. The reference range for a healthy population is 867-6662. However it should be noted that these ranges are obtained from a limited population of apparently healthy adults and are not diagnostic thresholds. *This test was developed and its performance characteristics determined by [employer]. It has not been cleared or approved by the U.S. Food and Drug Administration. Performed at: [address] [id number] PhD Anuradha Seay Performed By: #### 1 [id number] #### [facility] [address] [place] [address] Lab Miscellaneous-LCon 07-30 Lab Miscellaneous COMMENT Invalid Interpretation Code [facility] Comment on above: Result Comment: Test Ordered: [id number] West Nile Virus Antibody,Serum West Nile Virus, IgG Negative BN Reference Range: Negative No detectable West Nile Virus IgG Antibody. If a recent infection is suspected, another specimen should be submitted for testing within 7-14 days. West Nile Virus, IgM Negative BN Reference Range: Negative No detectable West Nile Virus IgM Antibody. If a recent infection is suspected, another specimen should be submitted for testing within 7-14 days. Performed at: [facility] [address] [place] [address] [id number] PhD Anuradha Seay Performed By: #### 1 [id number] #### [facility] [address] [place] [address] 21934 Lab Miscellaneous COMMENT Invalid Interpretation Code [facility] Comment on above: Result Comment: Test Ordered: [id number] Ehrlichia Ab Panel E. chaffeensis ([facility]ME) IgG Titer Negative BN Reference Range: Neg:<1:64 E. chaffeensis (HME) IgM Titer Negative BN Reference Range: Neg:<1:20 IgG titers if 1:64 or greater indicate exposure or acute and convalescent samples showing a four-fold increase, and/or the presence of IgM indicate recent or current infection. HGE IgG Titer Negative BN Reference Range: Neg:<1:64 HGE IgG levels are detectable 7 to 10 days post infection and persist approximately one year. HGE IgM Titer Negative BN Reference Range: Neg:<1:20 Due to a reagent backorder, this test was performed using a different assay. The reference interval for this alternate assay is: Negative <1:64 Positive 1:64 or greater IgM levels usually rise 3 to 5 days post infection and fall to normal levels in approximately 30 to 60 days. Performed at: [address] [id number] PhD Anuradha Seay Performed By: #### 1 [id number] #### [facility] [address] [place] [address] Lab Miscellaneous COMMENT Invalid Interpretation Code [facility] Comment on above: Result Comment: Test Ordered: [id number] Peter Mtn Spotted Fev, IgG, Qn RMSF, IgG, EIA Negative BN Reference Range: Negative Performed at: [address] [id number] PhD Anuradha Seay Performed By: #### 1 [id number] #### [facility] [address] [place] [address] 725[address] Result Comment: Test Ordered: [id number] Peter Mtn Spotted Fever, IgM Peter Mtn Spotted Fever, IgM 0.98 [H ] index BN Reference Range: 0.00-0.89 Negative <0.90 Equivocal 0.90 - 1.10 Positive >1.10 Performed at: [address] [id number] PhD Anuradha Seay Lab Miscellaneous-LCon 07-29 Lab Miscellaneous COMMENT Invalid Interpretation Code [facility] Comment on above: Result Comment: Test Ordered: [id number] Bartonella Antibody Panel B. henselae IgG Negative titer BN Reference Range: Neg:<1:320 B. henselae IgM Negative titer BN Reference Range: Neg:<1:100 B. campos IgG Negative titer BN Reference Range: Neg:<1:320 B. campos IgM Negative titer BN Reference Range: Neg:<1:100 Note: Bartonella henselae is now regarded as the etiologic agent of Cat Scratch Disease, bacillary angiomatosis, endocarditis and fever with bacteremia. Bartonella campos also causes bacillary angiomatosis particularly among immunocompromised patients, and trench fever. This test was developed and its performance characteristics determined by [employer]. It has not been cleared or approved by the Food and Drug Administration. The FDA has determined that such clearance or approval is not necessary. Performed at: [address] [id number] PhD Anuradha Seay Performed By: #### 1 [id number] #### [facility] [address] [place] [address] Result Comment: Test Ordered: [id number] Babesia microti Antibody Panel Babesia microti IgM <1:10 BN Reference Range: Neg:<1:10 Babesia microti IgG <1:10 BN Reference Range: Neg:<1:10 This test was developed and its performance characteristics determined by [employer]. It has not been cleared or approved by the U.S. Food and Drug Administration. The FDA has determined that such clearance or approval is not necessary. This test is used for clinical purposes. It should not be regarded as investigational or research. Performed at: [address] [id number] PhD Anuradha Seay Lab Miscellaneous COMMENT Invalid Interpretation Code [facility] Comment on above: Result Comment: Test Ordered: [id number] Brucella Antibody IgM, EIA Brucella Antibody IgM, EIA Negative BN Reference Range: Negative This assay detects antibodies to Brucella abortus, melitensis, and suis. Performed at: [address] [id number] PhD Anuradha Seay Performed By: #### 1 [id number] #### [facility] [address] [place] [address] Result Comment: Test Ordered: [id number] Brucella Antibody IgG, EIA Brucella Antibody IgG, EIA Negative BN Reference Range: Negative This assay detects antibodies to Brucella abortus, melitensis, and suis. Performed at: [address] [id number] PhD Anuradha Seay Result Comment: Test Ordered: [id number] Coxsackie A IgG/IgM Antibody Coxsackie A7 IgG 1:200 [H ] titer BN Reference Range: Neg:<1:100 Coxsackie A9 IgG 1:200 [H ] titer BN Reference Range: Neg:<1:100 Coxsackie A16 IgG 1:200 [H ] titer BN Reference Range: Neg:<1:100 Coxsackie A24 IgG 1:200 [H ] titer BN Reference Range: Neg:<1:100 Coxsackie A7 IgM Negative titer BN Reference Range: Neg:<1:10 Coxsackie A9 IgM Negative titer BN Reference Range: Neg:<1:10 Coxsackie A16 IgM Negative titer BN Reference Range: Neg:<1:10 Coxsackie A24 IgM Negative titer BN Reference Range: Neg:<1:10 Performed at: [address] [id number] PhD Anuradha Seay Lab Miscellaneous-LCon 07-28 Lab Miscellaneous COMMENT Invalid Interpretation Code [facility] Comment on above: Result Comment: Test Ordered: [id number] Human Granulocytic Samantha-HGE HGE IgG Titer Negative BN Reference Range: Neg:<1:64 HGE IgG levels are detectable 7 to 10 days post infection and persist approximately one year. HGE IgM Titer Negative BN Reference Range: Neg:<1:20 Due to a reagent backorder, this test was performed using a different assay. The reference interval for this alternate assay is: Negative <1:64 Positive 1:64 or greater IgM levels usually rise 3 to 5 days post infection and fall to normal levels in approximately 30 to 60 days. Performed at: [address] [id number] PhD Anuradha Seay Performed By: #### 1 [id number] #### [facility] [address] [place] [address] Lab Miscellaneous-LCon 07-27 Lab Miscellaneous COMMENT Invalid Interpretation Code [facility] Comment on above: Result Comment: Test Ordered: [id number] Coxsackie Virus Group B Ab Coxsackie B-1 Ab 1:8 [H ] BN Reference Range: Neg:<1:8 Coxsackie B-2 Ab Negative BN Reference Range: Neg:<1:8 Coxsackie B-3 Ab Negative BN Reference Range: Neg:<1:8 Coxsackie B-4 Ab Negative BN Reference Range: Neg:<1:8 Coxsackie B-5 Ab Negative BN Reference Range: Neg:<1:8 Coxsackie B-6 Ab 1:16 [H ] BN Reference Range: Neg:<1:8 Performed at: [address] [id number] PhD Anuradha Seay Performed By: #### 1 [id number] #### [facility] [address] [place] [address] CMV IgGon 07-26-2022 CMV IgG IA Qn <0.60 Invalid Interpretation Code 0.00-0.59 [facility] Comment on above: Result Comment: Nega tive <0.60 Equivocal 0.60 - 0.69 Positive >0.69 Performed at: [address] [id number] PhD Anuradha Seay Performed By: #### 1 [id number] #### [facility] [address] [place] [address] CMV IgMon 07-26-2022 CMV IgM IA Qn <30.0 Invalid Interpretation Code 0.0-29.9 [facility] Comment on above: Result Comment: Nega tive <30.0 Equivocal 30.0 - 34.9 Positive >34.9 A positive result is generally indicative of acute infection, reactivation or persistent IgM production. [facility] [id number] PhD Anuradha Seay Performed By: #### 1 [id number] #### [facility] [address] [place] [address] Lab Miscellaneous-LCon 07-26 Lab Miscellaneous COMMENT Invalid Interpretation Code [facility] Comment on above: Result Comment: Test Ordered: [id number] HNK1 (CD57) Panel % CD8-/CD57+ Lymphs 8.9 % BN Reference Range: 2.0-17.0 This test was developed and its performance characteristics determined by [facility]. It has not been cleared or approved by the Food and Drug Administration. Abs.CD8-CD57+ Lymphs 107 /uL CB Reference Range: 60-360 This test was developed and its performance characteristics determined by [facility]. It has not been cleared or approved by the Food and Drug Administration. WBC 3.8 x10E3/uL CB Reference Range: 3.4-10.8 RBC 4.57 x10E6/uL CB Reference Range: 3.77-5.28 Hemoglobin 13.0 g/dL CB Reference Range: 11.1-15.9 Hematocrit 39.8 % CB Reference Range: 34.0-46.6 MCV 87 fL CB Reference Range: 79-97 MCH 28.4 pg CB Reference Range: 26.6-33.0 MCHC 32.7 g/dL CB Reference Range: 31.5-35.7 RDW 13.2 % CB Reference Range: 11.7-15.4 Platelets 280 x10E3/uL CB Reference Range: 150-450 Neutrophils 53 % CB Reference Range: Not Estab. Lymphs 31 % CB Reference Range: Not Estab. Monocytes 11 % CB Reference Range: Not Estab. Eos 4 % CB Reference Range: Not Estab. Basos 1 % CB Reference Range: Not Estab. Neutrophils (Absolute) 2.0 x10E3/uL CB Reference Range: 1.4-7.0 Lymphs (Absolute) 1.2 x10E3/uL CB Reference Range: 0.7-3.1 Monocytes(Absolute) 0.4 x10E3/uL CB Reference Range: 0.1-0.9 Eos (Absolute) 0.2 x10E3/uL CB Reference Range: 0.0-0.4 Baso (Absolute) 0.0 x10E3/uL CB Reference Range: 0.0-0.2 Immature Granulocytes 0 % CB Reference Range: Not Estab. Immature Grans (Abs) 0.0 x10E3/uL CB Reference Range: 0.0-0.1 Performed at: [facility] [place] [address], [place] [id number] PhD Anuradha Seay Performed By: #### 1 [id number] #### [facility] [address] [place] [address] Lab Miscellaneous-LCon 07-25 Test Code [id number] Invalid Interpretation Code [facility] Comment on above: Performed By: #### 1 [id number] #### [facility] [address] [place] [address] Test Name C4a Invalid Interpretation Code [facility] Comment on above: Performed By: #### 1 [id number] #### [facility] [address] [place] [address] Test Code [id number] Invalid Interpretation Code [facility] Comment on above: Performed By: #### 1 [id number] #### [facility] [address] [place] [address] Test Code [id number] Invalid Interpretation Code [facility] Comment on above: Performed By: #### 1 [id number] #### [facility] [address] [place] [address] Test Code [id number] Invalid Interpretation Code [facility] Comment on above: Performed By: #### 1 [id number] #### [facility] [address] [place] [address] Test Code [id number] Invalid Interpretation Code [facility] Comment on above: Performed By: #### 1 [id number] #### [facility] [address] [place] [address] Test Code 688324 Invalid Interpretation Code [facility] Comment on above: Performed By: #### 1 [id number] #### [facility] [address] [place] [address] Test Code [id number] Invalid Interpretation Code [facility] Comment on above: Performed By: #### 1 [id number] #### [facility] [address] [place] [address] Test Code [id number] Invalid Interpretation Code [facility] Comment on above: Performed By: #### 1 [id number] #### [facility] [address] [place] [address] Test Code [id number] Invalid Interpretation Code [facility] Comment on above: Performed By: #### 1 [id number] #### [facility] [address] [place] [address] Test Code [id number] Invalid Interpretation Code [facility] Comment on above: Performed By: #### 1 [id number] #### [facility] [address] [place] [address] Test Code [id number] Invalid Interpretation Code [facility] Comment on above: Performed By: #### 1 [id number] #### [facility] [address] [place] [address] Test Name RMSF IGG Invalid Interpretation Code [facility] Comment on above: Performed By: #### 1 [id number] #### [facility] [address] [place] [address] Test Name EHRLICHIOSIS Invalid Interpretation Code [facility] Comment on above: Performed By: #### 1 [id number] #### [facility] [address] [place] [address] Test Name BRUCELLA IGM Invalid Interpretation Code [facility] Comment on above: Performed By: #### 1 [id number] #### [facility] [address] [place] [address] Test Name WEST NILE Invalid Interpretation Code [facility] Comment on above: Performed By: #### 1 [id number] #### [facility] [address] [place] [address] Test Name RMSF IGM Invalid Interpretation Code [facility] Comment on above: Performed By: #### 1 [id number] #### [facility] [address] [place] [place] [address] Test Name TRNS GR BETA 1 Invalid Interpretation Code [facility] Comment on above: Performed By: #### 1 [id number] #### [facility] [address] [place] [address] Test Name DENGUE FEVER Invalid Interpretation Code [facility] Comment on above: Performed By: #### 1 [id number] #### [facility] [address] [place] [address] Test Name BRUCELLA IGG Invalid Interpretation Code [facility] Comment on above: Performed By: #### 1 [id number] #### [facility] [address] [place] [place] [address] Test Name Q FEVER IGG/IGM Invalid Interpretation Code [facility] Comment on above: Performed By: #### 1 [id number] #### [facility] [address] [place] [place] [address] Test Name HNK1 (CD57) Invalid Interpretation Code [facility] Comment on above: Performed By: #### 1 [id number] #### [facility] [address] [place] [address] Test Code [id number] Invalid Interpretation Code [facility] Comment on above: Performed By: #### 1 [id number] #### [facility] [address] [place] [address] Test Code 913565 Invalid Interpretation Code [facility] Comment on above: Performed By: #### 1 [id number] #### [facility] [address] [place] [address] Test Code [id number] Invalid Interpretation Code [facility] Comment on above: Performed By: #### 1 [id number] #### [facility] [address] [place] [address] Test Code 564195 Invalid Interpretation Code [facility] Comment on above: Performed By: #### 1 [id number] #### [facility] [address] [place] [address] Test Code 620224 Invalid Interpretation Code [facility] Comment on above: Performed By: #### 1 [id number] #### [facility] [address] [place] [address] Test Name BARTONELLA Invalid Interpretation Code [facility] Comment on above: Performed By: #### 1 [id number] #### [facility] [address] [place] [address] Test Name COXSACKIE A Invalid Interpretation Code [facility] Comment on above: Performed By: #### 1 [id number] #### [facility] [address] [place] [address] Test Name COXSACKIE B Invalid Interpretation Code [facility] Comment on above: Performed By: #### 1 [id number] #### [facility] [address] [place] [address] Test Name HGE Invalid Interpretation Code [facility] Comment on above: Performed By: #### 1 [id number] #### [facility] [address] [place] [address] Test Name BABESIA AB Invalid Interpretation Code [facility] Comment on above: Performed By: #### 1 [id number] #### [facility] [address] [place] [address] Consent for Treatmenton 06-23 Consent for Treatment [id number]: 127 Normal [facility] Physician Orderon 07-11-2022 Physician Order [id number] [id number] :127 Normal [facility] HUMAN HERPESVIRUS 6 ABS, IGM on 05-30-2022 Human Herpes Virus Type 6 IgM CANRGT Normal [facility] Comment on above: Result Comment: Test not performed. Unable to perform test due to current unavailability of reagents or discontinuation of test. Test not performed. Unable to perform test due to current unavailability of reagents or discontinuation of test. This test was developed and its performance characteristics determined by [employer]. It has not been cleared or approved by the Food and Drug Administration. Performed By: #### H [id number], [id number] #### [facility] [address] [place] [address] Dr. Dionte Omalley METHYLMALONIC ACID (MMA)on 0 05-12-2022 Methylmalonic Acid, Serum 124 nmol/L Normal 0-378 [facility] Comment on above: Performed By: #### M MA2 #### [facility] [address] [place] [address] Dr. Dionte Omalley COPPER, SERUM or PLASMAon Copper, Serum 98 ug/dL Normal 80-158 [facility] Comment on above: Result Comment: Dete ction Limit = 5 Performed By: #### C OPPER #### [facility] [address] [place] [address] Dr. Dionte Omalley HUMAN HERPESVIRUS 6 ABS, IGG on 05-10-2022 HHV-6 IgG Antibodies 3.63 index Critically high [facility] Comment on above: Result Comment: Nega tive <0.90 Equivocal 0.90 - 1.10 Positive >1.10 Results of this test are labeled for research purposes only by the assay's salsa dance instructor. The performance characteristics of this assay have not been established by the salsa dance instructor. The result should not be used for treatment or for diagnostic purposes without confirmation of the diagnosis by another medically established diagnostic product or procedure. The performance characteristics were determined by [employer]. Performed By: #### H OLESYA6, [id number] #### [facility] [address] [place] [address] Dr. Dionte Omalley ZINC SERUM OR PLASMAon 05-10 Zinc, Plasma or Serum 77 ug/dL Normal 44-115 [facility] Comment on above: Result Comment: Dete ction Limit = 5 Performed By: #### H SVIGM #### [facility] [address] [place] [address] Dr. Dionte Omalley ANTI-DNASE ANTIBODIESon 04-22 Anti-DNase B Strep Antibodies 115 U/mL Normal 0-120 [facility] Comment on above: Performed By: #### H SVIGM #### [facility] [address] [address] [address] Dionte Omalley CHLAMYDIA PNEUMONIAE IGG/IGM on 05-09-2022 Chlamydia pneumoniae IgG <1:16 Normal Neg:<1:16 [facility] Comment on above: Performed By: #### H SVIGM #### [facility] [address] [address] [address] Dionte Omalley Chlamydia pneumoniae IgM <1:10 Normal Neg:<1:10 [facility] Comment on above: Performed By: #### H SVIGM #### [facility] [address] [address] [address] Dionte Omalley MYCOPLASMA PNEUMONIA IGG/IGM on 05-09-2022 M pneumoniae IgG Abs 382 U/mL Critically high 0-99 [facility] Comment on above: Result Comment: Nega tive: <100 Indeterminate: 100 - 320 Positive: >320 The reference interval established is intended as a baseline only. Values >100 may indicate a recent infection with Mycoplasma pneumoniae and need to be confirmed either by a positive IgM result and/or an additional specimen drawn 2-4 weeks later showing a significant increase in antibody levels. Performed By: #### A SOAB #### [facility] [address] [place] [address] Dr. Dionte Omalley M pneumoniae IgM Abs <770 Normal 0-769 [facility] Comment on above: Result Comment: Nega tive <770 Clinically significant amount of M. pneumoniae antibody not detected. Low Positive 770 - 950 M. pneumoniae specific IgM presumptively detected. It is recommended that another sample be collected 1-2 weeks later to assure reactivity. Positive >950 Highly significant amount of M. pneumoniae specific IgM antibody detected. Performed By: #### A SOAB #### [facility] [address] [address] [address] Dionte Omalley MANDY EIA W/REFLEX 5 BIOMARKER Son 05-08-2022 MANDY Direct Negative Normal Negative [facility] Comment on above: Performed By: #### H SVIGM #### [facility] [address] [place] [address] Dr. Dionte Omalley ANTISTREPTOLYSIN O AB (ASO)o n 05-08-2022 Antistreptolysin O Ab 132.0 IU/mL Normal 0.0-200.0 [facility] Comment on above: Performed By: #### A SOAB #### [facility] [address] [place] [address] Dr. Dionte Omalley C-REACTIVE PROTEINS (HS)on 0 05-08-2022 C-Reactive Protein, Cardiac 0.41 mg/L Normal 0.00-3.00 [facility] Comment on above: Result Comment: Rela tive Risk for Future Cardiovascular Event Low <1.00 Average 1.00 - 3.00 High >3.00 Performed By: #### C RPHS #### [facility] [address] [place] [address] Dr. Dionte Omalley EBV EARLY ANTIGEN (IgG)on EBV Early Antigen Ab, IgG 51.9 U/mL Critically high 0.0-8.9 [facility] Comment on above: Result Comment: Hepa titis A, Hepatitis C and HIV antibodies may cross-react with this assay. Negative < 9.0 Equivocal 9.0 - 10.9 Positive >10.9 Performed By: #### H SVIGM #### [facility] [address] [place] [address] Dr. Dionet Omalley CA-ZIEGLER VIRUS (EBV) AB PROFILEon 05-08-2022 EBV Ab VCA, IgG 585.0 U/mL Critically high 0.0-17.9 [facility] Comment on above: Result Comment: Nega tive <18.0 Equivocal 18.0 - 21.9 Positive >21.9 Performed By: #### A SOAB #### [facility] [address] [place] [address] Dr. Dionte Omalley EBV Ab VCA, IgM <36.0 Normal 0.0-35.9 [facility] Comment on above: Result Comment: Nega tive <36.0 Equivocal 36.0 - 43.9 Positive >43.9 Performed By: #### A SOAB #### [facility] [address] [place] [address] Dr. Dionte Omalley EBV Nuclear Antigen Ab, IgG 591.0 U/mL Critically high 0.0-17.9 [facility] Comment on above: Result Comment: Nega tive <18.0 Equivocal 18.0 - 21.9 Positive >21.9 Performed By: #### A SOAB #### [facility] [address] [address] [address] Dionte Omalley Interpretation: Comment Normal [facility] Comment on above: Result Comment: EBV Interpretation Chart Sosa: Antibody Present + Antibody Absent - Interpretation VCA-IgM VCA-IgG EBNA-IgG . No previous infection/ - - - Susceptible Primary infection (new + + - or recent) Past Infection +or- + + See comment below* + - - *Results indicate infection with EBV at some time however cannot predict the timing of the infection since antibodies to EBNA usually develop after primary infection or, alternatively, approximately 5-10% of patients with EBV never develop antibodies to EBNA. Performed By: #### A SOAB #### [facility] [address] [place] [address] Dr. Dionte Omalley HERPES SIMPLEX 1/2 IGGon HSV 1 IgG, Type Spec 4.70 index Critically high 0.00-0.90 [facility] Comment on above: Result Comment: Nega tive <0.91 Equivocal 0.91 - 1.09 Positive >1.09 Note: Negative indicates no antibodies detected to HSV-1. Equivocal may suggest early infection. If clinically appropriate, retest at later date. Positive indicates antibodies detected to HSV-1. Performed By: #### H SVIGM #### [facility] [address] [address] [address] Dionte Omalley HSV 2 IgG Type Spec <0.91 Normal 0.00-0.90 [facility] Comment on above: Result Comment: Nega tive <0.91 Equivocal 0.91 - 1.09 Positive >1.09 Note: Negative indicates no HSV-2 antibodies detected. Positive indicates HSV-2 antibodies detected. Equivocal and low positive HSV-2 screens (Index 0.91-5.00) may be false positive and are reflexed to supplemental testing in accordance with CDC guidelines. Performed By: #### H SVIGM #### [facility] [address] [place] [address] Dr. Dionte Omalley HERPES SIMPLEX 1/2 IGMon HSV, IgM I/II Combination 1.30 Ratio Critically high 0.00-0.90 [facility] Comment on above: Result Comment: Nega tive <0.91 Equivocal 0.91 - 1.09 Positive >1.09 Effective June 17, 2022 HSV, IgM I/II Combination will be made non-orderable. [facility] offers [id number] HSV 1 and 2-Spec Ab, IgG w/Rfx and [id number] HSV [place]. Performed By: #### H SVIGM #### [facility] [address] [place] [address] Dr. Dionte Omalley HOMOCYSTEINEon 05-08-2022 Homocyst(e)ine, Plasma 7.2 umol/L Normal 0.0-14.5 [facility] Comment on above: Performed By: #### H OMCY #### [facility] [address] [place] [address] Dr. Dionte Omalley BOX TEST SENT OUTon 05-07-20 22 SENT TO REF LAB 05/07/2022 Normal [facility] Comment on above: Performed By: #### A SOAB #### [facility] [address] [place] [address] Dr. Dionte Omalley CPKon 05-07-2022 CK [Catalytic activity/Vol] 67 U/L Normal 26-192 [facility] Comment on above: Performed By: #### C K #### [facility] [address] [place] [address] Dr. Dionte Omalley SED RATE WESTERGRENon 2021 SED RATE 4 mm/hr Normal <=20 [facility] Comment on above: Performed By: #### H SVIGM #### [facility] [address] [place] [address] Dr. Dionte Omalley VITAMIN B12on 05-07-2022 Cobalamin (Vitamin B12) [Mass/Vol] 803.0 pg/mL Normal 193.0-986.0 [facility] Comment on above: Performed By: #### V ITB12 #### [facility] [address] [place] [address] Dr. Dionte Omalley MG MAMM SCREEN 3D MARIUM CADon 04-16-2022 MG MAMM SCREEN 3D MARIUM CAD Patient: JENNYFER PETER Exam Date: 04/16/2022 : 1980 Gender:F Ordering : DR ILEANA INIGUEZ Admission #: [id number] Family : Order #: [id number] CLICK HERE TO VIEW EXAM RADIOLOGY REPORT PROCEDURE: MAMMOGRAM SCREENING 3D BILATERAL CAD COMPARISON: None. INDICATIONS: Screening for malignant neoplasm of breast Calculator Name [facility] Breast Cancer Risk Assessment Tool 5 Year Breast Cancer Risk 0.50% Lifetime Breast Cancer Risk 8.30% Personal Breast Cancer No Personal Ovarian Cancer No Treatments None Family Cancers Grandmother-paternal with breast cancer at age 53. LOCATION: [facility] BREAST COMPOSITION: Heterogeneously dense,which may obscure small masses. FINDINGS: DIAGNOSTIC CATEGORY 1--NEGATIVE. RIGHT BREAST: No significant suspicious finding. LEFT BREAST: No significant suspicious finding. RECOMMENDATIONS: ROUTINE MAMMOGRAM AND CLINICAL EVALUATION IN 12 MONTHS. PLEASE NOTE: A NORMAL MAMMOGRAM DOES NOT EXCLUDE THE POSSIBILITY OF BREAST CANCER. A CLINICALLY SUSPICIOUS PALPABLE LUMP SHOULD BE BIOPSIED. Dictated by: Thomas Owens M.D. on 04/17/2022 at 12:39 Approved by: Thomas Owens M.D. on 04/17/2022 at 12:41 Normal [facility] XR HAND MARIUM MIN 3Von 021 XR HAND MARIUM MIN 3V EXAMINATION: XR HAND MARIUM MIN 3V HISTORY: Disorder of soft tissue ; chronic bilateral hand pain and swelling COMPARISON: No relevant comparison available. FINDINGS: RIGHT FINDINGS: BONES: No significant arthropathy or acute abnormality. SOFT TISSUES: No visible soft tissue swelling. OTHER: Negative. LEFT FINDINGS: BONES: No significant arthropathy or acute abnormality. SOFT TISSUES: No visible soft tissue swelling. OTHER: Negative. IMPRESSION: RIGHT CONCLUSION: 1. No abnormal findings. No erosive changes to suggest rheumatoid arthritis. LEFT CONCLUSION: 1. No abnormal findings. No erosive changes to suggest rheumatoid arthritis. Electronically authenticated by: THOMAS OWENS Date: 2021-09-14 07:21 Normal [facility] Vital Signs Date Time Vital Sign Value Performing Clinician Faci lity 03-14-2024 12:53-0400 Body height 170.[address] [facility] 03-14-2024 12:53-0400 Body mass index (BMI) [Ratio] 21.3 kg/m2 [facility] 03-14-2024 12:53-0400 Body temperature 97.7 [degF] [facility] 03-14-2024 12:53-0400 Body weight 61.[address] [facility] 03-14-2024 12:53-0400 Diastolic blood pressure 74 mm[Hg] [facility] 03-14-2024 12:53-0400 Heart rate 66 /min [facility] 03-14-2024 12:53-0400 Respiratory rate 16 /min [facility] 03-14-2024 12:53-0400 SaO2% (BldA) [Mass fraction] 97 % [facility] 03-14-2024 12:53-0400 Systolic blood pressure 130 mm[Hg] [facility] Encounters Encounter Date Encounter Type Care Provider Facility Start: 03-14-2024 End: 03-14-[address] [facility] Work Phone: Start: 03-14-2024 End: 03-14-2024 Patient encounter procedure [facility] Work Phone: Start: 12-22-2023 End: 01-21-2024 ambulatory [facility] Start: 12-22-2023 End: 01-21-2024 ambulatory [facility]ANIE [facility] Start: 11-24-2023 End: 12-22-2023 ambulatory STEPHANIE R [facility] Start: 11-24-2023 End: 12-22-2023 ambulatory STEPHANIE R [facility] Start: 11-21-2023 End: 12-22-2023 ambulatory STEPHANIE [facility] Start: 11-13-2023 End: 11-21-2023 ambulatory STEPHANIE [facility] Start: 10-23-2023 End: 11-21-2023 ambulatory [facility] Start: 09-26-2023 End: 10-23-2023 ambulatory [facility] Start: 09-24-2023 End: 09-24-2023 ambulatory ILEANA LEOS Not Available Start: 09-23-2023 End: 10-23-2023 ambulatory [facility] Start: 09-19-2023 Orders Only Shawnee Guillen CMA [facility] Comment on above: Stress incontinence in female (Primary Dx) Start: 09-18-2023 Orders Only Shawnee [facility] Start: 09-17-2023 End: 09-22-2023 ambulatory [facility] Start: 08-26-2023 End: 09-17-2023 ambulatory [facility] Start: 08-22-2023 End: 09-22-2023 ambulatory [facility] Start: 07-25-2022 End: 07-26-2022 ambulatory STEPHANIE POON Facility:[facility] Start: 07-11-2022 End: 07-11-2022 Patient encounter procedure [facility] POON [facility] Start: 05-15-[address] DOCTOR WALLS Facility :[facility] Start: 05-07-2022 End: 05-08-[address] DOCTOR WALLS Facility:[facility] Start: 04-16-2022 End: 04-17-[address] ILEANA LEOS Facility:[facility] Start: 02-28-2022 End: 03-01-[address] CAROLIN MCKEON Facility:[facility] Start: 09-13-2021 End: 09-14-[address] CAROLIN MCKEON Facility:[facility] Plan of Treatment Date Care Activity Detail Author Start: 08-06-2024 Adult BMI Screening Adult BMI Screen ing [facility] Start: 08-06-2024 Tobacco Screening Tobacco Screening [facility] Start: 08-01-2024 DTaP,Tdap and Td Vaccines (2 - Td or Tdap) DTaP,Tdap and Td Vaccines (2 - Td or Tdap) [facility] Start: 01-28-2024 End: 01-28-2024 Patient encounter procedure [facility] Start: 09-26-2023 End: 09-26-2023 Patient encounter procedure 09/26/2023 6:00 AM EST Appointment [facility] [address] [place] [id number] [facility] Start: 05-23-2023 COVID-19 Vaccine ( season) COVID-19 Vaccine () [facility] Start: 05-23-2023 Influenza vaccination Influenza Vacc ine [facility] Start: 2003 Screening for malign ant neoplasm of cervix Pap Smear [facility] Start: 1994 Depression Screening Depression Scre ening [facility] Start: 1980 COVID-19 Vaccine (#1) COVID-19 Vacci ne (#1) [facility] Immunizations Immunization Date Immunization Notes Care Provider Fa cility 07-06-2021 influenza virus vaccine, unspecified formulation Shawnee Guillen [facility] Payers Date Payer Category Payer Unknown [employer] [place] [employer] [id number] 2020-Present [phone] [address] [place] [address] [id number] 1980 Unknown [id number] 1980 Unknown [id number] [id number] 1980 Unknown [id number] 1980 Unknown [id number] [id number] 1980 Unknown [id number] [id number] 1980 Unknown [id number] [id number] 1980 Unknown [id number] [id number] 1980 Unknown [id number] [id number] 1980 Unknown [id number] [id number] 1980 Unknown [id number] [id number] 1980 Unknown [id number] [id number] 1980 Unknown [id number] [id number] 1980 Unknown [id number] 2.16.840.1.191386.3.579.2.128 1980 Unknown [id number] [id number] 1980 Unknown [id number] [id number] 1959 Unknown [id number] Self-pay Self Pay [id number] Unknown [place] [employer] MICHELLE [id number] Social History Date Type Detail Facility Tobacco smoking status [facility] Start: 11-02-2020 End: 08-06-2023 Sex Assigned At Female [facility] Start: 07-02-2023 End: 03-14-2024 Tobacco smoking status WIIS Never smoked tobacco [facility] Start: 07-02-2023 Tobacco use and exposure Smokeless tobacco non-user [facility] Start: 08-06-2023 Alcohol intake Current drinke r of alcohol (finding) [facility] Start: 11-02-2020 End: 08-06-2023 History of Social function [facility] Housing Instability Unknown [facility] Start: 04-16-2023 Alcohol Comment 3 drinks a week [facility] Start: 1980 Sex Assigned At Not on file [facility] Start: 1980 Sex Assigned At Female [facility] NEGATED: Highlighted rowStart: NINF History of tobacco use Passive smoker [facility] Clinical Notes 03-01-2022 to 09-19-2023 Telephone Encounter - Shawnee Guillen [facility] - 09/19/2023 1:41 PM ESTTelephone Encounter - Shawnee Guillen CMA - 09/19/2023 1:41 PM ESTTelephone Encounter - Shawnee Guillen [facility] - 09/19/2023 1:41 PM EST Note Date & Type Note Facility 09-19-2023 Miscellaneous Notes Formattin g of this note might be different from the original. ----- Message from Stephanie Riggs MD sent at 09/18/2023 12:27 PM EST ----- Regarding: FW: Dry needling Contact: ----- Message ----- From: Shawnee Guillen CMA Sent: 09/18/2023 12:19 PM EST To: Stephanie Riggs MD Subject: FW: Dry needling ----- Message ----- From: Jennyfer Peter Sent: 09/18/2023 10:26 AM EST To: Olvin Riggs Subject: Dry needling I have been receiving pelvic floor PT through [facility]. The therapist had me try dry needling and it was helpful. There is a PT closer to me at [facility] in [place] but they need a referral and the [facility] PT is not able to send referrals. Would you be able to send a referral for dry needling to [facility] PT in [place]? Referral was sent to [facility] in [facility]. fax number [phone] Telephone number [phone] documented in this encounter [facility] 09-19-2023 Telephone encount er Note ----- Message from Stephanie Riggs MD sent at 09/18/2023 12:27 PM EST ----- Regarding: FW: Dry needling Contact: ----- Message ----- From: Shawnee Guillen CMA Sent: 09/18/2023 12:19 PM EST To: Stephanie Riggs MD Subject: FW: Dry needling ----- Message ----- From: Jennyfer Peter Sent: 09/18/2023 10:26 AM EST To: Olvin Riggs Subject: Dry needling I have been receiving pelvic floor PT through [facility]. The therapist had me try dry needling and it was helpful. There is a PT closer to me at [facility] in [place] but they need a referral and the [facility] PT is not able to send referrals. Would you be able to send a referral for dry needling to [facility] PT in [place]? [facility] 09-19-2023 Telephone encount er Note Referral was sent to [facility] in [facility]. fax number [phone] Telephone number [phone] [facility] 03-01-2022 Note PROCEDURE: XR HAND R T 2 V COMPARISON: None. HISTORY: Hand pain FINDINGS: BONES:No fracture, acute abnormality, or significant arthropathy. SOFT TISSUES:Negative. No visible soft tissue swelling. EFFUSION:None visible. OTHER: Negative. IMPRESSION: No acute fracture Electronically authenticated by: GINA COTTON Date: 2022-03-01 07:33 [facility] Evaluation + Plan note No data available for this section [facility] Evaluation note Diagnosis Stress incontinence in female- Primary [facility] Onset Date Resolution Status Hives acute [facility] Work Phone: Hospital Discharge instructions No data available for this section [facility] filedocumented in this encounter [facility] filedocumented in this encounter [facility] No data available for this section [facility] Summary Purpose Family History No Family History Records FoundNo Family History Records FoundNo Family History Records FoundNo Family History Records Found Advance Directives Advance Directive Response Recorded Date/ Time Advance Directives No March 14 12:37pm Reason for Referral Specialty Diagnoses / Procedures Referred By Lynn roth Referred To Contact Rehabilitation Diagnoses Stress incontinence in female Stephanie Riggs MD [address] [place] [address], [address] [place] [address] Referral ID Status Reason Start Date Expiration Date Visits Requested Visits Authorized [id number] Pending Review Patient Preference 3 09/18/2024 10 10 Chief Complaint and Reason for Visit Chief Complaint hives all over Reason for Visit Hives Additional Source Comments INFORMATION SOURCE (unrecogn ized section and content) DATE CREATED AUTHOR [facility]03[facility]2022 [facility] DATE CREATED AUTHOR AUTHOR'S ORGANIZ ATION 08/07/2022 [facility] DATE CREATED AUTHOR AUTHOR'S ORGANIZ ATION 09/25/2023 [facility] EPIC DATE CREATED AUTHOR AUTHOR'S ORGANIZ ATION 01/21/[address] 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 Start Date End Date Carolin [place] [address] PCP - General Family Medicine 02/28/20 Team Status: Active Member Role Status Dates Carolin Mckeon MD Primary Care Provider Active Team Status: Inactive Member Role Status Dates Carolin Mckeon MD Primary Care Provider Active S tart: March 14, 2024 End: March 14, 2024 Carmen Ferraro APRN Attending Provider Active S tart: March 14, 2024 End: March 14, 2024 Goals (unrecognized section and content) Goals may be documented in a n alternate section FOR RECORDS PERTAINING TO PATIENTS WHO ARE OR HAVE BEEN ENROLLED IN A CHEMICAL DEPENDENCY/SUBSTANCEABUSE PROGRAM, SOME INFORMATION MAY BE OMITTED. This clinical summary was aggregated from multiple sources. Caution should be exercised in using it in the provision of clinical care. This summary normalizes information from multiple sources, and as a consequence, information in this document may materially change the coding, format and clinical context of patient data. In addition, data may be omitted in some cases. CLINICAL DECISIONS SHOULD BE BASED ON THE PRIMARY CLINICAL RECORDS. [facility] [employer] [facility]. provides no warranty or guarantee of the accuracy or completeness of information in this document.
[2024-08-11 07:16] LABS: Basophils Percent Auto 0.7 % (0.2-2.0); Eosinophils Absolute Auto 0.1 10^3/uL (0.0-0.7); Eosinophils Percent Auto 2.5 % (0.9-7.0); Hematocrit 38.6 % (36.0-48.0); Hemoglobin 13.3 g/dL (12.0-16.0); Immature Granulocytes Abs Auto 0.01 10^3/uL (0.00-0.03); Immature Granulocytes Pct Auto 0.2 % (0.0-0.5); Lymphocytes Absolute Auto 1.2 10^3/uL (1.2-3.8); Lymphocytes Percent Auto 27.4 % (20.5-60.0); Mean Corpuscular HGB Conc 34.5 g/dL (29.9-35.2); Mean Corpuscular Hemoglobin 30.6 pg (26.7-34.0); Mean Corpuscular Volume 88.9 fL (81.0-99.0); Mean Platelet Volume 9.4 fL (9.5-13.5); Monocytes Absolute Auto 0.4 10^3/uL (0.3-0.8); Monocytes Percent Auto 9.6 % (1.7-12.0); Neutrophils Absolute Auto 2.7 10^3/uL (1.4-6.5); Neutrophils Percent Auto 59.6 % (43.0-75.0); Platelet Count 227 10^3/uL (150-450); Red Blood Count 4.34 10^6/uL (4.20-5.40); Red Cell Distribution Width 12.4 % (11.0-15.0); White Blood Count 4.5 10^3/uL (4.0-11.0)
[2024-08-11 08:08] LABS: Alanine Aminotransferase 24 U/L (14-59); Albumin Globulin Ratio 1.2; Albumin Level 3.6 g/dL (3.4-5.0); Alkaline Phosphatase 57 U/L (46-116); Anion Gap 14.5; Aspartate Amino Transferase 15 U/L (15-37); BUN Creatinine Ratio 17.1; Bilirubin Total 0.4 mg/dL (0.2-1.0); Calcium 8.7 mg/dL (8.5-10.1); Carbon Dioxide 25.7 mmol/L (21.0-32.0); Chloride 105 mmol/L (98-107); Chol HDL Ratio 3.6; Cholesterol 178 mg/dL (<=200); Estimated GFR (African America >60 (>=60 mL/min/1.73m^2); Estimated GFR (Non-African Ame >60 (>=60 mL/min/1.73m^2); Globulin 2.9 g/dL; Glucose 82 mg/dL (74-106); HDL Cholesterol 49 mg/dL (40-60); Potassium 4.2 mmol/L (3.5-5.1); Sodium 141 mmol/L (136-145); TSH W/ REFLEX FT4 0.595 uIU/mL (0.358-3.740); Total Protein 6.5 g/dL (6.4-8.2); Triglycerides 95 mg/dL (<=150)
== END 2024-08-11 06:49 | disposition home or self-care (01) ==
LOC: LAB 06:50
PROVIDERS: PCP Family Medicine; Visit Provider Family Medicine
DX: E03.9 Hypothyroidism, unspecified (principal); I10 Essential (primary) hypertension; E78.00 Pure hypercholesterolemia, unspecified
CPT/HCPCS: 36415; 80053; 80061; 84443; 85025

== ENCOUNTER 2025-04-20 06:51 | Outpatient (OUT) | payer OTHER, SELFPAY ==
--- OUTSIDE RECORDS SUMMARY | 2025-04-20 06:55 | XMS_ITS | Encounter Summary ---
Author Organization [facility] Address [facility] [id number] [address] [place] [address] Care Team Providers Care Tester Operator Name Role Phone Carolin Small MD Primary Care Provider [phone] Encounter Details Date Type Department Care Team (Late st Contact Info) Description 04/22/2023 Orders Only [facility] Obstetrics/Gynecology [address] [place] [address] [address] [place] [phone] January, Encounter for vitamin deficiency screening; Other fatigue; Weight gain; Mood changes; Acquired hypothyroidism Social History Tobacco Use Types Packs/Day Years Used Date Smoking Tobacco: Never Smokeless Tobacco: Never Alcohol Use Standard Drinks/Week Comments Yes 0 (1 standard drink = 0.6 oz pur e alcohol) 3 drinks a week Childcare Answer Date Recorded Childcare Unknown 02/17/2020 Employment Answer Date Recorded Employment Unknown 02/17/2020 Purpose - Life Answer Date Recorded Purpose and direction in life Unknown Comments No Sex and Gender Information Value Date Recorded Sex Assigned at Not on file Legal Sex Female 10:37 AM EDT Gender Identity Not on file Sexual Orientation Not on file documented as of this encounter Plan of Treatment Not on file documented as of this encounter Procedures Procedure Name Priority Date/Time Associated Diagnosis Comments VITAMIN D 25 HYDROXY Routine 04/17/2023 1:27 PM EDT WBC Routine 04/17/2023 1:27 PM EDT T3, FREE Routine 04/17/2023 1:27 PM EDT TSH Routine 04/17/2023 1:27 PM EDT T4, FREE Routine 04/17/2023 1:27 PM EDT VITAMIN B12 Routine 04/17/2023 1:27 PM EDT CBC WITH AUTO DIFFERENTIAL Routine 04/17/2023 Other fatigue VITAMIN D 25 HYDROXY Routine 04/17/2023 Encounter for vitamin deficiency screening TSH Routine 04/17/2023 Other fatigue Weight gain Mood changes Acquired hypothyroidism T4, FREE Routine 04/17/2023 Other fatigue Weight gain Mood changes Acquired hypothyroidism VITAMIN B12 Routine 04/17/2023 Other fatigue T3, FREE Routine 04/13/2023 Other fatigue Weight gain Mood changes Acquired hypothyroidism documented in this encounter Results * (ABNORMAL) WBC (04/17/2023 1:27 PM EDT) External Wbc Count 3.8(A) 4.0 - 11.0 MANUALLY TRANSCRIBED RESULTS Stephanie Riggs MD LAB BLOOD ORDERABLES Edited [facility] Performing Organization Address [facility] de Phone Number MANUALLY TRANSCRIBED RESULTS * Vitamin B12 (04/17/2023 1:27 PM EDT) Vitamin B-12 851.0 193.0 - 986.0 MANUALLY TRANSCRIBED RESULTS Stephanie Riggs MD LAB BLOOD ORDERABLES Edited Re sult - Final Performing Organization Address [facility] de Phone Number MANUALLY TRANSCRIBED RESULTS * Vitamin D 25 hydroxy (04/17/2023 1:27 PM EDT) External Vitamin D 25-Hydroxy 80.7 30-100 ng/mL MANUALLY TRANSCRIBED RESULTS Comment:Vit D sufficient Result [facility] Stephanie Riggs MD LAB BLOOD ORDERABLES Edited Re [facility] Performing Organization Address [facility] de Phone Number MANUALLY TRANSCRIBED RESULTS * T4, free (04/17/2023 1:27 PM EDT) Pathologist [facility] External T4 Free 1.04 0.76 - 1.46 MANUALLY TRANSCRIBED RESULTS Result [facility] Stephanie Riggs MD LAB BLOOD ORDERABLES Edited Re [facility] Performing Organization Address [facility] de Phone Number MANUALLY TRANSCRIBED RESULTS * (ABNORMAL) T3, free (04/17/2023 1:27 PM EDT) [facility] External T3 Free 2.07(A) 2.18 - 3.98 MANUALLY TRANSCRIBED RESULTS Result [facility] Stephanie Riggs MD LAB BLOOD ORDERABLES Edited Re sult [facility] Performing Organization Address [facility] de Phone Number MANUALLY TRANSCRIBED RESULTS * TSH (04/17/2023 1:27 PM EDT) [facility] External Tsh 2.224 0.358 - 3.740 MANUALLY TRANSCRIBED RESULTS Result [facility] Stephanie Riggs MD LAB BLOOD ORDERABLES Edited [facility] Performing Organization Address [facility] de Phone Number MANUALLY TRANSCRIBED RESULTS * (ABNORMAL) CBC auto differential (04/17/2023) Pathologist [facility] External Wbc Count 3.8(A) 4.0 - 11.0 [facility] External Rbc Count 4.35 4.20 - 5.40 [facility] External Hemoglobin 12.4 12.0 - 16.0 [facility] External Hematocrit Hct 37.5 36.0 - 48.0 [facility] External Mcv 86.2 81.0 - 99.0 [facility] External MCH 28.5 26.7 - 34.0 [facility] External Mchc 33.1 29.9 - 35.2 [facility] External Rdw 13.4 11.0 - 15.0 [facility] External Platelet Count 246 150 - 450 [facility] External Mpv 9.6 9.5 - 13.5 [facility] External Band 58.9 43.0 - 75.0 [facility] External Seg Neutrophil 27.8 20.5 - 60.0 [facility] External Lymphocyte, Atypical 8.5 1.7 - 12.0 [facility] External Absolute Lymphocyte 4.0 0.9 - 7.0 [facility] External Monocytes 0.8 0.2 - 2.0 [facility] External % Basophils 0 0.0 - 0.5 [facility] External Absolute Neutrophils 2.2 1.4 - 6.5 [facility] External Absolute Lymphocyte 1.1(A) 1.2 - 3.8 [facility] External Absolute Monocytes 0.3 0.3 - 0.8 [facility] External Absolute Basophil 0.2 0.0 - 0.7 [facility] External Anisocytosis 0 0.0 - 0.1 [facility] External Hypochromia 0 0.0 - 0.03 [facility] 04/17/2023 Stephanie Riggs MD LAB BLOOD ORDERABLES Final Res ult Performing Organization Address City/[facility]/ZIP Co de Phone Number [facility] * TSH (04/17/2023) External Tsh 2.224 2.18 - 3.98 [facility] 04/17/2023 Stephanie Riggs MD LAB BLOOD ORDERABLES Final Res ult [facility] * T4, free (04/17/2023) External T4 Free 1.04 0.76 - 1.46 [facility] 04/17/2023 Stephanie Riggs MD LAB BLOOD ORDERABLES Final Res ult [facility] * Vitamin B12 (04/17/2023) Vitamin B-12 851.0 193.0 - 986.0 [facility] 04/17/2023 Stephanie Riggs MD LAB BLOOD ORDERABLES Final Res ult [facility] * Vitamin D 25 (04/17/2023) External Vitamin D 25-Hydroxy 80.7 30-100 ng/mL [facility] Comment:Vit D sufficient 04/17/2023 Stephanie Riggs MD LAB BLOOD ORDERABLES Final Res ult Performing Organization Address [facility] Co de Phone Number [facility] * (ABNORMAL) T3, free (04/13/2023) External T3 Free 2.07(A) 2.18 - 3.98 [facility] 04/13/2023 Stephanie Riggs MD LAB BLOOD ORDERABLES Final Res ult Performing Organization Address [facility] de Phone Number [facility] documented in this encounter Visit Diagnoses Diagnosis Encounter for vitamin deficiency screening Other fatigue Weight gain Other symptoms concerning nutrition, metabolism, and development Mood changes Unspecified episodic mood disorder Acquired hypothyroidism Unspecified hypothyroidism documented in this encounter Care Teams Tester Operator Relationship Specialty Start Date End Date Carolin Small MD [facility] [place] [address] PCP - General Family Medicine 02/28/20 documented as of this encounter
--- OUTSIDE RECORDS SUMMARY | 2025-04-20 06:55 | XMS_ITS | Encounter Summary ---
Author Organization [facility] [employer] [facility] Address [id number] [address] [place] [address] Care Team Providers Care Ball Points Inspector Name Role Phone Carolin Small MD Primary Care Provider [phone] Encounter Details Date Type Department Care Team (Late st Contact Info) Description 04/23/2023 Orders Only [facility] Obstetrics/Gynecology [address] [place] [address] [place] [phone] JanuaryTomás Arthralgia of hand, unspecified laterality Social History Tobacco Use Types Packs/Day Years [...] Procedure Name Priority Date/Time Associated Diagnosis Comments MARY SCREEN W/ REFLEX Routine 04/17/2023 Arthralgia of hand, unspecified laterality documented in this encounter Results * MARY Screen w/ Reflex (04/17/2023) Mary screen negative negative [facility] 04/17/2023 us Stephanie Riggs MD LAB BLOOD ORDERABLES Final Res ult [facility] documented in this encounter Visit Diagnoses Diagnosis Arthralgia of hand, unspecified laterality documented in this encounter Care Teams Ball Points Inspector Relationship Specialty Start Date End [place] [address] [place] [address] PCP - General Family Medicine 02/28/20 documented as of this encounter
--- OUTSIDE RECORDS SUMMARY | 2025-04-20 06:55 | XMS_ITS | Encounter Summary ---
Author Organization [employer] Address [facility]-[id number] [address] [place] [address] Care Team Providers Care Behavioral Therapist Name Role Phone Carolin Small MD Primary Care Provider [phone] Reason for Visit * Reason Comments Med Refill Encounter Details Date Type Department Care Team (Late st Contact Info) Description 07/21/2024 Refill Maternal Medicine [facility] [facility] [address] [place] [phone] Penelope Lubin MD [address] [place] [address] Social History Tobacco Use Types Packs/Day Years Used Date Smoking Tobacco: Never Passive Smoke Exposure: Never Smokeless Tobacco: Never Alcohol Use Standard Drinks/Week Comments Yes 0 (1 standard drink = 0.6 oz pur e alcohol) 3 drinks a week Childcare Answer Date Recorded Childcare Unknown 02/17/2020 Employment Answer Date Recorded Employment Unknown 02/17/2020 Hunger Screening Answer Date Recorded Within the past 12 months we worried whether our food would run out before we got money to buy more. Never True 08/06/2023 Within the past 12 months th e food we bought just didn't last and we didn't have money to get more. Never True 08/06/2023 Purpose - Life Answer Date Recorded Purpose and direction in life Unknown Comments No Sex and Gender Information Value Date Recorded Sex Assigned at Not on file Legal Sex Female 10:37 AM EDT Gender Identity Not on file Sexual Orientation Not on file documented as of this encounter Plan of Treatment Not on file documented as of this encounter Visit Diagnoses Not on filedocumented in this encounter Care Teams Behavioral Therapist Relationship Specialty Start Date End Date Carolin Small MD [facility] [place] [address] PCP - General Family Medicine 02/28/20 documented as of this encounter
--- OUTSIDE RECORDS SUMMARY | 2025-04-20 06:55 | XMS_ITS | Clinical Summary ---
Author Organization [employer] Address [facility]-[id number] [address] [place] [address] Care Team Providers Care Fur Examiner Name Role Phone Carolin Small MD Primary Care Provider Allergies Active Allergy Reactions Criticality Noted Date Comments Amoxicillin-Pot Clavulanate Vomiting 04/16/20 23 Medications buPROPion XL (WELLBUTRIN XL) 300 mg 24 hr tablet Take 1 tablet (300 mg total) by mouth in the morning. Active buPROPion XL (WELLBUTRIN XL) 150 mg 24 hr tablet Take 1 tablet (150 mg total) by mouth in the morning. Active verapamil SR (CALAN-SR) 240 mg CR tablet Take 375 mg by mouth in the morning. Active naproxen (NAPROSYN) 500 mg tablet Take 1 tablet (500 mg total) by mouth in the morning and 1 tablet (500 mg total) in the evening. Take with meals. Active loratadine (CLARITIN REDITABS) 10 mg disintegrating tablet Dissolve 1 tablet (10 mg total) on tongue in the morning. Active acidophilus-pectin, citrus 25 million cell -100 mg tablet Take by mouth 3 (three) times a day with meals. Active lamoTRIgine (LaMICtal) 100 mg tablet 1.5 tablets 3 Active tiZANidine (ZANAFLEX) 4 mg tablet TAKE ONE TABLET THREE TIMES A DAY NEEDED FOR 30 DAYS 3 Active levothyroxine (SYNTHROID, LEVOTHROID) 137 MCG tablet Take 1 tablet (137 mcg total) by mouth in the morning. 90 tablet 3 3 Active olmesartan (BENICAR) 20 mg tablet TAKE 1 TABLET (20 MG) BY MOUTH IN THE MORNING. Active ALPRAZolam (XANAX) 0.25 mg tablet TAKE ONE TABLET BY MOUTH THREE TIMES A DAY Active ALPRAZolam (XANAX) 1 mg tablet TAKE ONE TABLET BY MOUTH DAILY AT BEDTIME ALONG WITH THE 0.25MG TABLET Active Active Problems Patient Care Coordination No te Formatting of this note migh t be different from the original. Per NICU High Risk Meeting on 04/11/20 held in the [facility] and via skype with Dr. Peyman Hernandez, Dr. Smith, Dr. Sol, Silvia Barber [facility], Franny Koehler [facility], Key Brownlee [facility], RVT, Mary Interiano RN, Dr. Lakshmi Chappell, Dr. Denis, Dr. Vargas, Dr. Phillips, Dr. Savage, Alice Martin, and Rosa Gomez RN, the following recommendations were made: Félix Luke patient/Juni patient. Peds Cardiology saw patient on 04/07 see consult note in epic. Per Dr. Smith, patient has small VSD. Can deliver with Dr. Luke Please see [facility] notes for further recommendations No known active problems Resolved Problems Problem Noted Date Diagnosed Date Resolved Date complicated by fet al congenital heart disease, fetus 1 03/28/2020 07/02/2023 Family History Medical History Relation Name Comments Asthma Brother 1 Mental illness Brother 1 Multiple sclerosis Brother 1 Asthma Brother 2 Diabetes Father Heart disease Father High Cholesterol Father Hyperlipidemia Father Hypertension Father Heart attack Maternal Grandfather Heart disease Maternal Grandfather Sudden Maternal Grandfather Stroke Maternal Grandmother Asthma Mother Depression Mother Heart attack Mother Heart disease Mother Hyperlipidemia Mother Hypertension Mother Other Mother Cath Heart disease Paternal Grandfather Arrhythmia Neg Hx Clotting disorder Neg Hx Heart defect Neg Hx Seizures Neg Hx Thyroid Issues Neg Hx Relation Name Status Comments Brother 1 Alive Brother 2 Father Alive Maternal Grandfather Maternal Grandmother Alive Mother Alive Paternal Grandfather Social History Tobacco Use Types Packs/Day Years Used Date Smoking Tobacco: Never Passive Smoke Exposure: Never Smokeless Tobacco: Never Tobacco Cessation:Counseling Given: Not Answered Alcohol Use Standard Drinks/Week Comments Yes 0 [...] on file Sexual Orientation Not on file Last Filed Vital Signs Vital Sign Reading Time Taken Comments Blood Pressure 106/74 08/06/2023 1:15 PM EST Pulse 83 07/02/2023 1:02 PM EDT Temperature - - Respiratory Rate - - Oxygen Saturation 96% 04/07/2020 11:07 AM EDT hr - 104 Inhaled Oxygen Concentration - - Weight 62.4 kg (137 lb 8 oz) 08/06/2023 1:15 PM EST Height 170.2 cm (5' 7 ) 08/06/2023 1:15 PM EST Body Mass Index 21.54 08/06/2023 1:15 PM EST Plan of Treatment Health Maintenance Due Date Last Done Comments Depression Screening 1994 Pap Smear 2003 COVID-19 Vaccine ( - 2023-2 5 season) 2024 DTaP,Tdap and Td Vaccines (2 - Td or Tdap) 08/01/2024 08/01/2014 Adult BMI Screening 08/06/2024 08/06/2023 Tobacco Screening 08/06/2024 08/06/2023 Influenza Vaccine 05/23/2025 07/06/2021, , 07/01/2019, Additional history exists Medical Devices Not on file Insurance [employer] Care Teams Fur Examiner Relationship Specialty Start Date End Date Carolin [place] [address] [place] [address] PCP - General Family Medicine 02/28/20
--- OUTSIDE RECORDS SUMMARY | 2025-04-20 06:55 | XMS_ITS | Encounter Summary ---
Author Organization [facility] [employer] Address [facility]-[id number] [address] [place] [address] Care Team Providers Care Blasting Gang Miner Name Role Phone Carolin Small MD Primary Care Provider [phone] Encounter Details Date Type Department Care Team (Late st Contact Info) Description 04/22/2023 Orders Only [facility] Obstetrics/Gynecology [address] [place] [address] [address] [place] [phone] External, Scanning Provider Social History Tobacco Use Types Packs/Day Years [...] on filedocumented in this encounter Care Teams Blasting Gang Miner Relationship Specialty Start [place] [address] PCP - General Family Medicine 02/28/20 documented as of this encounter
--- OUTSIDE RECORDS SUMMARY | 2025-04-20 06:55 | XMS_ITS | CCD ---
Author Organization [facility] Care Team Providers Care [employer] Name Role Phone MISC, DR DOTSON Admitting Unavailable MISC, DR DOTSON Attending Unavailable MIKE, DR CLAIRE Primary Care Unavailable HEMMER, DR CRISELDA Barger Consulting Unavailable HEMMER, DR CRISELDA Barger Admitting Unavailable HEMMER, DR CRISELDA Barger Attending Unavailable MIKE, DR CLAIRE Primary Care Unavailable ZIEBER, DR THOMAS Cm Consulting Unavailable HEMMER, DR CRISELDA Barger Consulting Unavailable MISC, DR DOTSON Admitting [...] Unavailable WEST, DR GINA Boyd Consulting Unavailable MIKE, [facility] Primary Care Physician [phone] STEPHANIE POON Admitting UnavailSTEPHANIE Rodriguez Attending Unavailabl e WILL OSEI Referring Unavailable MIKE, [facility] Primary Care Unavailable OKINWILL Referring Unavailable MIKE, [facility] Primary Care Unavailable OKINWILL Referring Unavailable MIKE, [facility] Primary Care Unavailable OKINWILL R Referring Unavailable MIKE, [facility] Primary Care Unavailable OKIN, WILL R Referring Unavailable MIKE, [facility] Primary Care Unavailable OKDENISE, WILL R Referring Unavailable MIKE, [facility] Primary Care Unavailable OKDENISE, WILL R Referring Unavailable MIKE, [facility] Primary Care Unavailable OKIN, WILL R Referring Unavailable MIKE, [facility] Primary Care Unavailable SEA, WILL R Referring Unavailable CAROLIN MCKEON Primary Care Unavailable SRAVANIN, WILL R Referring Unavailable CAROLIN MCKEON M Primary Care Unavailable OKIN, WILL R Referring Unavailable CAROLIN MCKEON M Primary Care Unavailable SEA, WILL R Referring Unavailable CAROLIN MCKEON Primary Care Unavailable SRAVANDENISE, WILL R Referring Unavailable CAROLIN MCKEON Primary Care Unavailable Carolin Mckeon MD Primary Care Provider Trung Marcelo MD Unavailable DEBBY MONTES Attending Unavailable CRISELDA LEOS Attending Unavailable Allergies Allergy Classification Reported Allergen(s) Allergy Type Date of Onset Reaction(s) Facility (9 sources) AMOXICILLIN-POT CLAVULANATE; Translations: [AMOXICILLIN-PO T CLAVULANATE] Propensity to adverse reactions to drug (disorder) 3 GI intolerance [facility] (2 sources) Amoxicillin Drug Allergy 4 [facility] (2 sources) Clavulanate Drug Allergy 4 [facility] Medications Current Medications Medication Drug Class(es) Dates Sig (Normalized) Sig (Original) [id number] 200 actuat albuterol 0.09 mg/actuat metered dose inhaler (2 sources) beta2-Adrenergic Agonist Start: 03-30-2025 take 2 puff(s) by inhalation every four hours for wheezing albuterol HFA (ProAir HFA) 90 mcg/act inhaler Indications: Shortness of breath Inhale 2 puffs every 4 (four) hours if needed for wheezing or shortness of breath 8.5 g 03/30/2025 Active 24 hr buPROPion hydrochloride 150 mg extended release oral tablet (20 sources) Aminoketone Start: 03-14-2024 take 1 tablet by mouth once daily Bupropion Hcl 150 mg tablet extended release 24 hr Active 150 MG PO Daily March 13, 2024 11:00pm Start: 03-14-2024 take 1 tablet by angelina th once daily Bupropion Hcl 300 mg tablet extended release 24 hr Active 300 MG PO Daily March 13, 2024 11:00pm End: 03-30-2025 take 1 tablet by mouth every twenty-four hours in the morning buPROPion XL (Wellbutrin XL) 150 MG 24 hr tablet Take 150 mg by mouth in the morning. Do not crush, chew, or split. . 03/30/2025 Discontinued (Therapy completed) take 1 tablet by angelina th every twenty-four hours in the morning buPROPion XL (Wellbutrin XL) 300 MG 24 hr tablet Take 300 mg by mouth in the morning. Do not crush, chew, or split. . Active clobetasol propionate 0.5 mg/ml medicated shampoo (1 source) Corticosteroid Start: 10-29-2024 Clobetasol 0.05 % shampoo Active TOPICAL October 29, 2024 12:00am ibuprofen 600 mg oral tablet (2 sources) Nonsteroidal Anti-inflammatory Drug Start: 07-16-2020 take 1 tablet by mouth every six hours as needed for pain Ibuprofen 600 mg tablet Active 600 MG PO Q6H as needed for pain July 15, 2020 11:00pm lamoTRIgine 100 mg oral tablet (10 sources) Mood Stabilizer, Anti-epileptic Agent Start: 03-14-2024 take 2 tablets by mouth once daily at bedtime Lamotrigine 100 mg tablet Active 200 MG PO Daily at bedtime March 13, 2024 11:00pm Start: 03-14-2024 take 200 mg by mouth once daily at bedtime Lamotrigine Active 200 MG PO Daily at bedtime March 14, 2024 12:00am levothyroxine sodium 0.137 mg oral tablet (10 sources) l-Thyroxine Start: 08-12-2024 take 1 tablet by mouth before mealtime levothyroxine (Synthroid, Levoxyl) 137 MCG tablet Indications: Acquired hypothyroidism Take 137 mcg by mouth in the morning. Take before meals. 100 tablet 3 08/12/2024 Active Start: 03-14-2024 take 1 tablet by angelina th once daily Levothyroxine 137 mcg tablet Active 137 MCG PO Daily March 13, 2024 11:00pm Start: 03-14-2024 take 137 ug by mouth once chase y Levothyroxine Active 137 MCG PO Daily March 14, 2024 12:00am Start: 04-28-2023 take 1 tablet by angelina th before mealtime levothyroxine (Synthroid, Levoxyl) 137 MCG tablet Indications: Acquired hypothyroidism (CMS/HCC) Take 137 mcg by mouth in the morning. Take before meals. 100 tablet 1 04/28/2023 Active lurasidone hydrochloride 40 mg oral tablet (10 sources) Atypical Antipsychotic Start: 02-19-2024 take 1 tablet by mouth at mealtime lurasidone (Latuda) 40 MG tablet Take 40 mg by mouth in the morning. Take with meals. 02/19/2024 Active olmesartan medoxomil 20 mg oral tablet (10 sources) Angiotensin 2 Receptor Rob Start: 10-29-2024 take 10 mg by mouth once daily Olmesartan 20 mg tablet Active 10 MG PO Daily October 29, 2024 12:00am Start: 03-17-2024 End: 01-21-2025 take 0.5 tablet by mouth once daily olmesartan (BENIcar) 20 MG tablet Indications: Primary hypertension Take 0.5 tablets (10 mg) by mouth Daily 45 tablet 01/21/2025 Active saccharomyces boulardii 250 mg oral capsule (8 sources) take 1 capsule by mouth once daily Saccharomyces boulardii (probiotic) 250 MG capsule Take 1 capsule by mouth 1 (one) time each day. Active tiZANidine 4 mg oral tablet (9 sources) Central alpha-2 Adrenergic Agonist Start: 10-29-19 take 1 tablet by mouth every eight hours as needed Tizanidine 4 mg tablet Active 4 MG PO Every 8 hours as needed October 29, 2024 12:00am Start: 09-16-2024 tiZANidine (Za naflex) 4 MG tablet Indications: Myalgia TAKE ONE TABLET THREE TIMES A DAY NEEDED FOR 30 DAYS 90 tablet 09/16/2024 Active Start: 05-21-2023 tiZANidine (Za naflex) 4 MG tablet Indications: Myalgia TAKE ONE TABLET THREE TIMES A DAY NEEDED FOR 30 DAYS 90 tablet 05/21/2023 Active Completed/Discontinued Medications Medication Drug Class(es) Dates Sig (Normalized) Sig (Original) ALPRAZolam 1 mg oral tablet (18 sources) Benzodiazepine Start: 06-10-2023 End: 03-30-2025 ALPRAZolam (Xanax) 1 MG tablet Take 1 mg by mouth as needed at bedtime for sleep. Along with the 0.25 mg tablet 06/10/2023 03/30/2025 Discontinued (Therapy completed) Start: 04-22-2023 take 1 tablet by angelina th in the morning, then take 1 tablet by mouth in the evening, then take 1 tablet by mouth at bedtime ALPRAZolam (Xanax) 0.25 MG tablet Take 0.25 mg by mouth in the morning and 0.25 mg in the evening and 0.25 mg before bedtime. 04/22/2023 Active Amino Acids (8 sources) End: 03-30-2025 take 1 tablet by mouth once daily AMINO ACIDS PO Take 1 tablet by mouth 1 (one) time each day 03/30/2025 Discontinued (Therapy completed) take 1 tablet by mouth once chase y AMINO ACIDS PO Take 1 tablet by mouth 1 (one) time each day Active mirtazapine 15 mg oral tablet (2 sources) Start: 07-15-2020 End: 10-29-2024 take 1 tablet by mouth once daily Mirtazapine (Remeron) 15 mg Tablet Discontinued 15 MG PO Daily July 14, 2020 11:00pm October 29, 2024 2:25pm Multiple Vitamin (MULTIVITAMINS PO) (8 sources) End: 03-30-2025 take 1 tablet by mouth once daily Multiple Vitamin (MULTIVITAMINS PO) Take 1 tablet by mouth 1 (one) time each day. 03/30/2025 Discontinued (Other) take 1 tablet by mouth once chase y Multiple Vitamin (MULTIVITAMINS PO) Take 1 tablet by mouth 1 (one) time each day. Active naproxen 500 mg oral tablet (10 sources) Nonsteroidal Anti-inflammatory Drug Start: 03-23-2025 End: 03-30-2025 take 1 tablet by mouth once daily at mealtime as needed for pain naproxen (Naprosyn) 500 MG tablet Indications: Polyarthralgia TAKE ONE TABLET BY MOUTH ONCE DAILY WITH FOOD NEEDED FOR MILD PAIN 30 tablet 5 03/23/2025 03/30/2025 Discontinued (Therapy completed) Start: 01-22-2024 take 1 tablet by angelina th once daily as needed for pain naproxen (Naprosyn) 500 MG tablet Indications: Polyarthralgia Take 1 tablet (500 mg) by mouth Daily as needed for mild pain Take with food 30 tablet 5 10/21/2024 Active predniSONE 50 mg oral tablet (2 sources) Start: 03-14-2024 End: 10-29-2024 take 1 tablet by mouth once daily Prednisone 50 mg tablet Discontinued 50 MG PO Daily 5 March 13, 2024 11:00pm October 29, 2024 2:25pm 1 ml triamcinolone acetonide 40 mg/ml prefilled syringe (4 sources) Corticosteroid Start: 03-30-2025 End: 03-30-2025 triamcinolone acetonide (Kenalog-40) injection 40 mg Start: 03-30-2025 End: 03-30-2025 inject 40 mg by intramuscular injection once 40 mg, Intramuscular, Once, On Fri03/30/25 at 1415, For 1 dose Problems Active Problems Problem Classification Problem Date Documented Da te Episodic/Chronic Allergic reactions (5 sources) Urticaria; Translations: [Urticaria, unspecified] 03-14-2024 Episodic Anxiety disorders (20 sources) Generalized anxiety disorder; Translations: [Generalized anxiety disorder] Onset: 3 02-27-2023 Chronic Conditions associated with dizziness or vertigo (10 sources) Dizziness; Translations: [Dizziness and giddiness] Onset: 4 09-24-2023 Episodic Disorders of lipid metabolism (18 sources) Raised low density lipoprotein cholesterol; Translations: [Pure hypercholesterolemia, unspecified] Onset: 1 Resolved: 5 02-26-2023 Chronic Esophageal disorders (10 sources) Gastroesophageal reflux disease without esophagitis; Translations: [Gastro-esophageal reflux disease without esophagitis] Onset: 3 02-26-2023 Chronic Essential hypertension (11 sources) Essential hypertension; Translations: [Essential (primary) hypertension] Onset: 4 09-24-2023 Chronic Fluid and electrolyte disorders (10 sources) Hypokalemia; Translations: [Hypokalemia] Onset: 3 02-26-2023 Episodic Genitourinary symptoms and ill-defined conditions (1 source) Stress incontinence (female) (male); Translations: [Stress incontinence (female) (male)] Onset: 4 Chronic Genitourinary symptoms and ill-defined conditions (1 source) Scalding pain on urination ; Translations: [Dysuria] 02-16-2025 Episodic Headache; including migraine (10 sources) Migraine; Translations: [Migraine, unspecified, not intractable, without status migrainosus] Onset: 3 02-26-2023 Chronic Hypertension complicating ; childbirth and the puerperium (2 sources) -induced hypertension; Translations: [Gestational [-induced] hypertension without significant proteinuria, unspecified trimester] 07-16-2020 Episodic Malaise and fatigue (14 sources) Chronic fatigue, unspecified; Translations: [Fatigue] Onset: 2 Chronic Mood disorders (20 sources) Premenstrual dysphoric disorder; Translations: [Premenstrual dysphoric disorder] Onset: 3 Resolved: 3 02-26-2023 Chronic Nutritional deficiencies (1 source) Vitamin D deficiency, unspecified; Translations: [VITAMIN D DEFICIENCY UNSPECIFIED] Onset: 2 Chronic Other connective tissue disease (1 source) Myalgia, unspecified site; Translations: [MYALGIA UNSPECIFIED SITE] Onset: 2 Episodic Other connective tissue disease (10 sources) Muscle pain; Translations: [Myalgia, unspecified site] Onset: 3 02-26-2023 Episodic Other female genital disorders (10 sources) Premenstrual tension syndrome; Translations: [Premenstrual tension syndrome] Onset: 3 02-26-2023 Chronic Other gastrointestinal disorders (10 sources) Chronic idiopathic constipation; Translations: [Chronic idiopathic constipation] Onset: 3 02-27-2023 Chronic Other gastrointestinal disorders (1 source) Fecal urgency; Translations: [Fecal urgency] Onset: 4 Episodic Other inflammatory condition of skin (10 sources) Scalp psoriasis; Translations: [Psoriasis, unspecified] Onset: 4 03-17-2024 Chronic Other inflammatory condition of skin (2 sources) Psoriasis vulgaris; Translations: [Psoriasis vulgaris] 11-01-2024 Chronic Other lower respiratory disease (10 sources) Persistent cough; Translations: [Persistent cough] Onset: 4 09-24-2023 Episodic Other lower respiratory disease (2 sources) Dyspnea; Translations: [Shortness of breath] 03-30-2025 Episodic Other non-traumatic joint disorders (1 source) Pain in unspecified joint; Translations: [PAIN IN UNSPECIFIED JOINT] Onset: 2 Episodic Other non-traumatic joint disorders (10 sources) Multiple joint pain; Translations: [Pain in unspecified joint] Onset: 3 02-26-2023 Episodic Other nutritional; endocrine; and metabolic disorders (10 sources) H/O: hyperthyroidism; Translations: [Personal history of other endocrine, nutritional and metabolic disease] Onset: 1 06-19-2023 Episodic Other screening for suspected conditions (not mental disorders or infectious disease) (14 sources) Encounter for screening mammogram for malignant neoplasm of breast; Translations: [Shortened ID interval] Onset: 2 Episodic Other skin disorders (2 sources) Seborrheic keratosis; Translations: [Other seborrheic keratosis] 11-01-2024 Episodic Other skin disorders (2 sources) Lentiginosis; Translations: [Other melanin hyperpigmentation] 11-01-2024 Episodic Previous (2 sources) Vaginal delivery following previous section; Translations: [Maternal care for unspecified type scar from previous delivery] 07-16-2020 Episodic Residual codes; unclassified (1 source) Family history of malignant neoplasm of breast; Translations: [FAMILY HX MALIG NEOPLASM OF BREAST] Onset: 2 Episodic Residual codes; unclassified (2 sources) Generalized aches and pains; Translations: [Pain, unspecified] 11-01-2024 Episodic Spondylosis; intervertebral disc disorders; other back problems (1 source) Unspecified thoracic, thoracolumbar and lumbosacral intervertebral disc disorder; Translations: [UNS THORACIC TL AND LS IV DISC D/O] Onset: 2 Chronic Spondylosis; intervertebral disc disorders; other back problems (10 sources) Chronic low back pain; Translations: [Lumbago with sciatica, left side] Onset: 3 02-27-2023 Episodic Thyroid disorders (10 sources) Acquired hypothyroidism; Translations: [Hypothyroidism, unspecified] Onset: 3 02-26-2023 Chronic Viral infection (2 sources) Verruca vulgaris; Translations: [Other viral warts] 11-01-2024 Episodic Past or Other Problems Problem Classification Problem Date Documented Da te Episodic/Chronic Other circulatory disease (8 sources) Elevated blood pressure; Translations: [Elevated blood-pressure reading, without diagnosis of hypertension] Onset: 02-26-2023 Resolved: 09-24-2023 09-24-2023 Episodic Other complications of ; puerperium affecting management of mother (8 sources) Complication occurring during ; Translations: [ complicated by congenital heart disease, fetus 1] Onset: 03-28-2020 Resolved: 03-17-2024 03-17-2024 Episodic Other connective tissue disease (4 sources) Pain in right hand; Translations: [PAIN IN RIGHT HAND] Onset: 02-28-2022 Episodic Other connective tissue disease (4 sources) Other specified soft tissue disorders; Translations: [OTHER SPEC SOFT TISSUE DISORDERS] Onset: 09-13-2021 Episodic Pneumonia (except that caused by tuberculosis or sexually transmitted disease) (8 sources) Mycoplasma pneumonia; Translations: [Pneumonia due to Mycoplasma pneumoniae] Onset: 02-26-2023 Resolved: 02-27-2023 02-27-2023 Episodic Thyroid disorders (8 sources) Disorder of thyroid gland; Translations: [Disorder of thyroid, unspecified] Onset: 06-19-2016 Resolved: 03-17-2024 03-17-2024 Episodic Results Test Name Value Interpretation Reference Range Facility Urinalysis macro (dipstick) panel (U)on 02-16-2025 Bilirubin, UA Negative Negative - 4(70) +++ mg/dL [facility] Blood, UA Negative Negative - 50 Emir/mcL [facility] Glucose, UA Negative Negative - 1999(110) ++++ mg/dL [facility] Interpretation and review of laboratory results Normal [facility] Ketones, UA Negative Negative - 160(16) ++++ mg/dL [facility] Leukocytes, UA Negative Negative - 500+++ Baldo/mcL [facility] Nitrite, UA Negative Negative - Positive [facility] pH, UA 6.5 5 - 9 [facility] Protein, UA Negative Negative - 2000(20) ++++ mg/dL [facility] Spec Grav, UA 1.01 1 - 1.03 [facility] Urobilinogen, UA 1.0 0.2 - 12 mg/dL [facility] No Panel Informationon 11-01 [facility] ALL CBC WITH AUTO DIFFon BASOPHILS ABSOLUTE AUTO 0 [facility] Basophils/100 WBC (Bld) 0.7 % 0.2 - 2.0 % [facility] Eosinophils/100 WBC (Bld) 2.5 % 0.9 - 7.0 % [facility] Erythrocyte distribution width (RBC) [Ratio] 12.4 % 11.0 - 15.0 % [facility] Hematocrit (Bld) [Volume fraction] 38.6 % 36.0 - 48.0 % [facility] Hemoglobin (Bld) [Mass/Vol] 13.3 g/dL 12.0 - 16.0 g/dL [facility] IMMATURE GRANULOCYTES ABS AUTO 0.01 [facility] Immature granulocytes/100 WBC (Bld) 0.2 % 0.0 - 0.5 % [facility] Interpretation and review of laboratory results Abnormal [facility] LYMPHOCYTES ABSOLUTE AUTO 1.2 [facility] Lymphocytes/100 WBC (Bld) 27.4 % 20.5 - 60.0 % [facility] MCH (RBC) [Entitic mass] 30.6 pg 26.7 - 34.0 pg [facility] MCHC (RBC) [Mass/Vol] 34.5 g/dL 29.9 - 35.2 g/dL [facility] MCV (RBC) [Entitic vol] 88.9 fL 81.0 - 99.0 fL [facility] MONOCYTES ABSOLUTE AUTO 0.4 [facility] Monocytes/100 WBC (Bld) 9.6 % 1.7 - 12.0 % [facility] NEUTROPHILS ABSOLUTE AUTO 2.7 [facility] Neutrophils/100 WBC (Bld) 59.6 % 43.0 - 75.0 % [facility] Platelet mean volume (Bld) [Entitic vol] 9.4 fL Low 9.5 - 13.5 fL [facility] EO # 0.1 [facility] PLT 227 [facility] RBC 4.34 [facility] WBC 4.5 [facility] Lab Miscellaneous-LCon 08-07 Lab Miscellaneous COMMENT Invalid Interpretation Code [facility] Comment on above: Result Comment: Test Ordered: [id number] Q Fever IgG/IgM Antibody Scrn Q Fever IgG Phase I Negative E= Reference Range: Negative Q Fever IgG Phase II Positive [A ] E= Reference Range: Negative Q Fever IgM Phase I Negative E= Reference Range: Negative Q Fever IgM Phase II Negative E= Reference Range: Negative The performance characteristics of the listed assay was validated by [facility]. The [place] FDA has not approved or cleared this test. The results of this assay can be used for clinical diagnosis without FDA approval. [facility] is a CLIA certified, CAP accredited laboratory for performing high complexity assays such as this one. Testing Performed at: [facility] [address] [place] [address] Q Fever Phase II IgG Antibody 1:256 [A ] E= Reference Range: < 1:16 The performance characteristics of the listed assay was validated by [facility]. The [place] FDA has not approved or cleared this test. The results of this assay can be used for clinical diagnosis without FDA approval. [facility] is a CLIA certified, CAP accredited laboratory for performing high complexity assays such as this one. Testing Performed at: [facility] [address] [place] [address] Performed at: [facility] [id number] PhD Anuradha Seay Performed By: #### 1 [id number] #### [facility] [address] [place] [id number] MTHFRon 08-01-2022 MTHFR gene targeted mutation analysis [facility] (Bld/Tiss) Comment Invalid Interpretation Code [facility] Comment on above: Result Comment: Resu lt: c.665C>T (p. [id number]), legacy name: [id number] - Detected, homozygous c.1286A>C (p. [id number]), legacy name: [id number] - Not Detected Interpretation: This result may [...] that can decrease enzyme activity; c.665C>T (p. [id number]), legacy name [id number], and c.1286A>C (p. [id number]), legacy name [id number]. These variants do not independently increase risk [...] to limited evidence of clinical utility (PMID: 73244170). Comments: Genetic Coordinators are available for health care providers to discuss results at [phone] Test Details: Variants Analyzed: c.665C>T (p. [id number]), legacy name: [id number] and c.1286A>C (p. [id number]), legacy name: [id number] Methods/Limitations: DNA analysis of the MTHFR gene [...] developed and its performance characteristics determined by [employer]. It has not been cleared or approved by the Food and Drug Administration. References: Nicolás SE, Matt CJ, Jaclyn DACOSTA. [place] Practice Guideline: lack of evidence for MTHFR polymorphism testing. Stormy Med. 2012;15(2):153-6. doi: 10.1038/gim.2012.165. Epub 2012Sep 24. PMID: 99076785. [place] [employer]' Committee on Practice Bulletins-Obstetrics. ACOG Practice Bulletin No. 197: Inherited Thrombophilias in . Obstet Gynecol. 2018 Mar;132(1):e18-e34. doi: 10.1097/AOG.[id number]. Erratum in: Obstet Gynecol. 2018 Jun;132(4):1069. PMID: 82976549. Latha Vasques, PhD, [facility] Dario Moya, PhD Jake Cornejo, PhD, [facility] Wade Mercer, PhD, [facility] Jack Foster, PhD, [facility] Joan Peoples, PhD, [facility] Nanci Mchugh, PhD, [facility] Yuliet Gonzalez, PhD, [facility] Performed at: [facility] [address] [place], [place] [id number] [facility] Ganga Canales Performed By: #### 1 [id number] #### [facility] [address] [place] [id number] Coding Summary.on 07-31-2022 Coding Summary. CD:[id number] Gh0 bWw+PGhlYWQ+NM6EXOMyZ55 psWOuyK2WZ6zNIQ3PTIBEIZ QNPW0TES9wsLF5VHgwP2Ahk iAv CjarwOWfCP49UEq3VBT8cDi qKTfrtJ0atHQaQ2z3AwGaZP 89pK75NWevHFQoSvF2HyGwh jsgbWFy R8qcRwYcuXCsHxt+PHRhYmx lIHdpZHRoPScxMDAlJyBzdH vrSL3dEq0jMACrDBJetVhwn HNlOiBj w1hsBLSzQPdyBV8epYyqF5G wgFU4ZPPvc7r6Kk90kXN+PH AqDCS3oOhcKRhaj742IkAsy 8qhUUZ3 jHDlURrhEMB7D32gu4Q6JYP bYNYbUOH7fIW3yB7bbPbvri xyE5CgaYAfHoS0RZE4tDTcw D7zhLdt dfwahL8hLww+S42LUQ3MNMR NHB2DFfr3F6HcZitkyIF+PC 55LUNuII79cRMxdGKea2anb Qj5GoUu OCCeDLJ5zJmsGZeev6GtVSR lD31fxGHit5V4WGZhkAkntV XbDcRvxNQ0gK5vULjcjuayr 2hvdzsn Dqyzq1szdf23lW18W26kIXc gRLObCBN9DOMnGJRicKpehh 9dyP2bTb9+HMghf4ztx1cfo Ns1CyAl VBXjlcPueFziZPG1b3AeOq1 1K6TghPucq2ExHtl2au89aZ Ewc9X4nWP4ZRzuPCYpjO2nI WxlZnQ6 MYPbNlLhpK31sFJsOUxpGs5 hpUyxrWuwGK5jAJUuckodRQ OpqN1kDWPgtFSfoScdOP5pX TBpbjtm s168LvQhGOR6TPQqrFCbV3G jkT4oNnXmOGDxWLRmD6VijA UsYFukN852EUxmZhA8JJNqo jUhC7Gf SQMccOzoAcT9t8A4Ce5Ez2Y jycrlAHP3YIdxFIHhCoK2We MgGoQ1B2WlLgh2CSThwKnsH O7oQ1Fj KVYtdegdagyneIO9BXKcAKN odR65zZVaZWfuWx7dr3Y8d8 62DVXsDHVdvI36Wi7ujSscQ TBwdCBU nW5jaegev5zrwbjhAuLzMQE iDIy6MKn2WAKruAfcGdPaGM O9AqC2KJO5yJEajL6iaGkzc udwnG4j Oyc+L06qoL1jVNM1UVC0udr fZPViuqEzND94KX41R7GiMe wvdGFibGU+PGRpdiBzdHlsZ V1kPhGc e0lss9DoAVbbG1YwDMImBZx mIae7XUKhNMG5eWD8dJ3sPM KeBOxws0Q9pIU7L3OnvcBvi w1wa4iv KPQxQMcsZ42jsDYhx0F3PHJ dsMO0IRYnfIjuFqPotP65Rg c+VJKooMhju1WdTvqzf1mvk 5mpdOr5 SnFdXDYudbGtyUakHRY4z8U yLj61R07eXVaqGJWdTLYxYP UdLQCryLojie8uyH2dPa3+P GNvbCB3 wLO7zR2rBPZlUsX4KQzwM80 4HtCcaNDbGutrf2rfl0pqiU t2RjQgPLGiwqWddBudJZG4m 4IjCl78 S23cAJrlJDKiMJDdKOZaUPP aoUzjny4mdW9aGb9+PC9jb2 gyqi11hE75kIU+MSBcWKN7b WxlPSdw STCorO6lTSrmLvG4EDGyJoA avZ83sPWyXYdqAb0kjXafuJ diLI8pBINgtkkzs405LfMqx 2xkIDEw fLVvPUuvAYK9W95sc2Z1MNC mNVAaKFR9vAC5hT8mpShkas ogbGVmdDsgdmVydGljYWwtY NftH677 IHRvcDsnPlBhdGllbnQgTmF wEMd1E9CfPrf1MWEqzMxqRC 4xuDCsVQmtSo7kvEislYooX B6iGAUe exqly977NjIue4yyELCfrMT oQQuaPAJ5Z95px5E1CRKgGY PpUWV4oAZ8bY6wwGsitnfgr GVmdDsg phPfiNqyHUzpXOkbD140ZMG tkFmpZwAlmmRyFQGwwJJ4UZ 57FB27jEXjh1H8rOG3A4QqI GRpbmct pihicFZ5HOYbZIVznN68Tz3 plEqtVl6pLTZeCQN9CSBqsF ZgN3VccQ7eOqYjQSNpSNZqP 3RleHQt GLobO794JDupEsH2HDHewrB kD2GyXXFpcQocEhK0a9U4Mq 3FH7O8AS27QL77kYYyo8O6d RI0K5Pi OEHzcxhmmhlpuGI9GIYiBFW cpS39Kc4gaGlhIs1qGEPePQ K4FGGieBZcW4OfoO0bGbIpS DAwMDAw G6GbjVIgXWpfM055HWrzFmO 0FQYwdrWmZ9TmZFBptMnxPo M8t4R2Hj1EUJc2JG66SL03f VDjr0S2 pLF4M1NrJJGfkaewyutfaYB 9SCZqPMSrbK25Cn0nqUlsUz 9aBWMsLVP5XDEldNNtU8Gjw Y7iBbOn UOZsZEDaK1EbrSWsHGjvZ18 9JGvcGtQ8GVQtknIaD6YaVA XniSxsIaQ4o8N9Bh3CPCYsS X52JHR3 sGK5FJ78OY54S1EmJqpeeJC ibGU+PHRhYmxlIHdpZHRoPS oiOHVhVzHplPswYE2yKt8qH GVyLWNv oNsptQSkWkUbk6eqISZqMZw xLF9rhRaaW8EnhEE5WTHjv9 p3Sj16Y23cO4FmtVX+PGNvb YI7kUS3 vL9uRdJmJkF2DMhzE326AlP tjGChXwmjm7ltf1lhhDo6Vm E3XZLzbgImsOscTPM8l5LnS p50Y10g IHdpZHRoPSIxNSUiIHZhbGl gwo5pyB0jHp3+GNOkwTQ7cH C2qN6jVwVkBjI1TAxmA067P nRvcCIv Kjgcg9kfq3hjjRf8OdLaWQG xbmGwtVsoOLO7n5BiNp91V0 UoqGedl8IvXjy4sw65fHDrg 8P2vZL6 Z8CqZUYnqnjjjRUseTfmVA8 yMZOvtnahTTGfiD6iIBVhK9 j1NtWdKeX2XSjwH4GudwU4M DEwcHQg HOwlCRB5C08yv5F6SXMeTXP wQKN6sRC6kW4fpDygzjukuR VmdDsgdmVydGljYWwtYWxpZ 246IHRv gWetXSQfqD5bLVYryMSlnXe cID5qCUQtgvulFv1NVuETL6 4FHTNAMS8VONIQPsmbmAS+P HRkIHN0 iTklMFnyGYOigA0uLGIoS2x 2XbPdVdI5GVhlP9ZcDGOevm jvZm79iK2jVnEkXiH4EHlkP 4OekbK9 PMSwtTHdJCsgRAL8B54ju4L 0YECuTFHoPLM2lHF3eG3ahS lnbjogbGVmdDsgdmVydGljY WwtYWxp M161EIUjdFyvLzY9CxI0XrS 9OKN4J9GkZax9XZLujIcwSI 9giWXcVQxwSl3koSbzzQgoD T6yMENb nherREQcyV7oDOEzzGLfcWk rVY5bPQPwevdxs239YfVoFN K4ZFWgoQStX4OtfP3eQjMcF DAwMDAw D9OuuQHqOPkbO344HRteUeU 4PVZlviPwJ9LyOILdeNydSe F9c1H6Fi09HAZGCHUzgeynl GQ+PHRk TJT7vUrcCPnxJSEunL8mTGZ rF1n0HlZhKoR4GUaxQ1IcUA KwhxwnKi70mX3sUySqKtK2M NplW5Jh fjC8UREorOVhDBarHPG3P16 yt7J1ZGVfRXUcSJX1xCI4mC 1hbGlnbjogbGVmdDsgdmVyd GljYWwt QFfkV829BUVrfDxmTzThoSJ sZTwvdGQ+XRNhVJN6tPogBA ewRRBpoS7oQSXgA1k6QbMcL hY9UViw S6ElGTZftkmyDc61nY7jFlA uHtU8DTyxL0MovpN4URWrdD BwDPxjPZO2A15ar5E5BPEjK DAwMDA7 lWJ7mW8byYajxjopeHBhwPg yphUouWphELsmIPrfN427PL VeoDynXd00iWJgcVitzgC0J 3RkPjwv dHI+BE68VVYgMH37hOVhtAM sj8hkxHq7LsUpRHZiQAQ2uO egOOutu1ZlOMPcV46vsFKlf 1H2ZQXh wJeizUXwQnJxcTK9lC9mDTu gwywzj6lgqmxqHonyx0xfpt 72hZ83O96tGGejYRZuGSSbG CUiIHZh zKlexd2sxD0oCw4+PGNvbCB 9pQT3hD9hPgCnJcA5EDktS8 13NlKhgVTmDqqpn3wcz2ztt Gj0ZiXo PBFkeeWhuBvhKAP5s0BzGa1 5C63xQSuqEDIoIEXhHGEbGR EysQkxlv5kcL8oSt8+PC9jb 9zdbs42 lD55nXV+UXZsRSQ0mJscKWq dNEQvpM7vSGriMgP5AZKeUx HkqC13tSDsSKxnCw5fpQweo WvqYO7v ZEHijkmnq321YbHbd7drXBL ffBHmWZlzNZG0W31dv8E3KV BiWXTvAPY2sSW2yX8uiConi jogbGVm qGcwhuWdoTqlWRqsSVadU72 9PBJobBxgSsXhqXSjG8jqlb VFAT0bMrghoWS+DZHsXQX1d WxlPSdw HZQnkC3bBIRzD6q4KyHfXiJ 9EOruV8XvxjZ6LCPuwEVaVQ RjxNIUjP2cgwsyd5mdpfoxR zAwMDAw JSz2QTq2PLVodBsyIrRsFME 3IhZ9PTI7qURltN8ewLzjio gbbO5uWpp+RklOOjwvdGQ+P HRkIHN0 sWvdRUmqZMErxF7mARZdI3r 7XrYtFnP4OAcuQ3JihfP6AS FvwWPnUPLnyJEQuA9nreswb 2xvcjog VfGsTMFnSUy5LRu1HJLviCp wMhNkANN1AfK7HGS8qURmeX 5bvYeteozneK6fTdn+TVJOO jwvdGQ+ IGAhBQV1yCobCRmhWDKrjH4 rQTRmE4x2ArVyJhH3JNarL9 EcgoT0CMKmyRQvGNNvcIPBj L4jwefp n6nlpnzhUuVtPSDuZBz5NWe 5WNKxoPucXzLgHVL9SlU9TM X1oXBmyI6ctAqmrllqfQ4gJ yc+UGF5 FGI8TP55GC65Z1JqZrehyQP ibGU+PHRhYmxlIHdpZHRoPS mwCHGlHhKvhYtvRW4bFa6dI GVyLWNv bGxh (more content not included)... [facility] Coding Summary. CD:[id number]:[id number] Gh0 bWw+PGhlYWQ+FQ3UKJZaS41 uvFYpeD2OB6eGXT1BALEXAW OFLB6SVB0myOM1LGhwX1Qhq iAv MqaocJEbRT04OLg6ZZD2fUs aQXoawD1irQRgO8y7PkRtOO 18tB82RJrzLMJuNcJ3YvMbn jsgbWFy P6oaAcNmpIIoRlx+PHRhYmx lIHdpZHRoPScxMDAlJyBzdH qbUY7dMg0gOKFoBTDngZmvt HNlOiBj t5oiECOuKVpeEU1wxFviI0F haIC2OHEgg9c3Si19eZJ+PH TsNXB4bMoiXPwqt346LuKfm 7buKRA4 hDMjUHvmNAT1B37wg9L1MUC wVGFkZBN2bAT4kQ2bdRsrce xgV8EzoUFbYxW0EPP5kPTdh F9nbKaj ycaiqX8vDkz+H95WHE0VRBP ANC9EKuj3D4JcLkidaFI+PC 03VDDfKM76kECraVXow1cbp Yb7LvEe GDEpOXA7oBtcFTxko3AdDZB cQ77qmBQnw0X8ZVBlzMuenZ AiHmRzeHH7fS9hSAyvgheir 2hvdzsn Rnyyy3sijz02nK28H23yTTx uNZScXPY3USKeBIDviCjwua 8gdW3pVa1+GGzjx2kuj5mqc Ir3AxGa PMGqxuTofVcmHRP7j1QuFg4 4N3YmsUpei2ZvJke6tc44mC Nge0Y2sXH7IHioZKQyoY9vS WxlZnQ6 FDDkIlEoeG78oUVqBXmkRo9 xvZurdHmaEV4nQKEivxxhOK VpjP0fHYMejFOhrIvlHB9xP TBpbjtm q276EnPeOYP7OMLdjJOyQ5O coF4fMrEaIHFnTOWiW9JxsN GoQWznL688EHlqHlC1KWBvz aSmQ5Nt SZQkgSjnNaG6n4A7Wi2Zf8C tsygkFAI6UQoiATZpFxKsXp FtLxK7B1EaUrk6PTPrmJiyM K8bH6Yf OWPtlfxxuyvvnUL3OLQdELE cxW50bDFtQBajDv0gh2I7p8 88BXVjEWPhkQ01Oe1hbTitA TBwdCBU uZ5pkydbt7lbwdlvAhUeEQT vZYz3OAd3YVWvcTbrLhZjMQ Z2OnW8CSJ7nCKgmM2jiZuvu uhwgO2h Oyc+T48ipU5pDQA1DDE5jxd aSOEkppDxLL73OX19X8BtQl wvdGFibGU+PGRpdiBzdHlsZ E0uYcQq o7jor2WlFRumC0RkXCDjTVv iGxg3NSQwNYV4cCU1tX5oKC ZfKEbeb7A3zZY8P0NxqoDxq z5sd7je JCFdEKwzA54weQIap7Z9EXT kiRT0UMJeoCxjEiPvpK73Vo c+ZBQahNfqm9YhCrtup9fgo 2nxqYb0 PaNpEUEezbMzwYesNVC8o1X yCn70T52nWGlnOFBgMZTxSO InGGTawEhviz0afG9kCd4+P GNvbCB3 eDF7aI3iAKYyFpC8XCrxP80 4EkDmyEIuOjsac8wel9kmaR h4InHfXFEpspMxnYupJDE0p 4IlYj75 K32uEGnaHCWoTRLwJTUjZKR wuOqjbv9pxN3iKy4+PC9jb2 xvsp16uU06cRI+AQZdPTV0o WxlPSdw NPVlwL3fRYifJqF8VSQnZtO omV12fURyTXsdEo3fyDcwiU axIC2uOKIltvfnm406GyNmx 2xkIDEw sOJbTTrkGCH6N37cx9L5JDI lQGPxREK4yEM1oD6zzZixit ogbGVmdDsgdmVydGljYWwtY AmqN914 IHRvcDsnPlBhdGllbnQgTmF jDYv7Q8CvGff1CDLfjFmyZO 3egEJoLPabPu7zqMfbbPnoW F4oOWLv xxban146VyWqw9keDRSorHQ lGHavFIA3W95zv0I7ICNkDM YwRYQ1lDF3wW1tjNnkpmqxz GVmdDsg ysCcrWszBKiqPLayM331IIP vwAmcPkSwolAiBYUyuCD6LI 73FS14fTFqi1C2sYL2F0MvE GRpbmct vkkutOQ2UFLgCJEcaD08Zg4 csBryXh0iPGHeNMQ5HDBemA WqI5LbxM8xZoJvDTAgVUCcS 3RleHQt SXxaX909CLhtKlX1XNGetqQ oQ0WtGOMydFrfOfL5g1Z8Xf 7RU4U1DG92UL09gLMyb3K1q UT8C1Jg ZXBlbyuyjjwtfZG8HFVsIGP bjZ92Wl7cbAujVi0mLPXnPX I8KLDlfHMdB4RlmK2pQdJqE DAwMDAw E2ZvxVDpUHffK866TOgrFqM 0BBWquhRpG7KcJEFnhDtwNk F6c5A0Do8CQVp2RF25NH42v GIhe1B5 mVM1D4CeSYYxnztqdowfwNR 3VTAgVJEdgL18Ic1auJtqMm 4dPIGaAIJ0TDNmoWLiH8Ryv Q0aKmAm WQEoYQBlT0QxnSUvNSvxX09 4HVagWtD5BFYpxnGaA5HnBL FuxVwjQpI2b1G1Ip5BCYKaI R70JLS5 cFY0AS40RW65W6PlVskclYI ibGU+PHRhYmxlIHdpZHRoPS dbYKZwMtDhkQqjBQ5pTn2lD GVyLWNv qJscoDHuXxFnz7jjBPYpWQg pOO2tiBgaS6HjeEW6ZOWtd7 t3Rw36P22sO8CvbEH+PGNvb SU0lUK9 lM1hEdJaVsM2IRzlZ265LyI zeHYtFuahu5etw7zkaDb0Us E4OJJsnfVkcBelCOA6a4AuV n86W04e IHdpZHRoPSIxNSUiIHZhbGl zwc9nfN5bXi2+ISKqeDA4pV N7mG1hJxKrEpS0UXayV530X nRvcCIv Otdfm5vta7puzAl6LfNmOQV koqXbnYqzZGK7e3HdOd47E8 QxsRsnl2CrKbc7pi35wGBjl 8Z6xBA8 Q4FoSPKvlwuuxNReqWkwSE9 gTAFukjicRITccU0fEVVyG0 a5FdVvYcQ4ESkpJ4VjgbC4G DEwcHQg WVukTFI4Z77ln7Z1GIIvSBM aHAE9xFM3qB5mxDthqbnwgN VmdDsgdmVydGljYWwtYWxpZ 246IHRv cXrjOGZfqP2rIXZwzJJriRt xXA4lXBQktsmdEc6VHiEWM8 1AMJIGFC5SWGWSVkwgfQX+P HRkIHN0 eXwdPQhsOLAliE9xFMQqO8q 0SpReTmW5VUlhI8SuMCZiiu uhUl66dO2eXtYyUhT0RZsmM 2XafcY0 LTZghLIwNRvjIKQ7B62jk5M 8NDUuILRtMOW1nHQ2nZ0neF lnbjogbGVmdDsgdmVydGljY WwtYWxp G737ZOFwgGpzAwA5SpE8YjF 7GER7B1OpRvw5YRSeyWtwYC 6gbMPkXSheIn9ctNtmsFmsI I5sUHAi xezbHPHkdC2gEPLxoIQxtEy eOG3iGVSbmkxiv727JvSnZI Q0SBAfvIShR7VtwA3lLlHaS DAwMDAw U9PgvMUwVJvqZ302HGpoAoB 0PJVinnYrF9HiHYIkpCdoNh M3w2O4Ts13JHISQQFbqfehx GQ+PHRk GNB5jLdqKNckBSHzdG9gGFI aU6b7ZxDcPaA3PAoyZ2XxWK LvooauZx77tO5uBzLfOyV6T SyhB1Yu xmS7CQYbxMEvXJwdDSF3Z72 vl8Y5QZBoKTJnEQE0wWA1gZ 1hbGlnbjogbGVmdDsgdmVyd GljYWwt QUubR352BRVsiFgyWoZtzSP sZTwvdGQ+ODPuXUC5iKbwIK kyRCExyP1tOBVfB9t6QaCbE vA0IAlu J0SuBEPpeytzDj94dK2vNqZ xXfN7JQfvZ1PnejJ6JQZwiJ TxBJykTIH7R27ql8B6KQHjZ DAwMDA7 wAT2zL5szUrxuyheyOWyhRz mkpZltBnhINcjNZdeO365KW RubJggVs09nOGdnSrptbC8Y 3RkPjwv dHI+OJ72RTDtMW86oMXxvRR qf6nvtNc7RvDpJIDjEHB1cE aeWYben4JrCJPqP48jkBIob 1P0FVWf wTryyRNnWyHimDM6oO8qGBf cvafbi8nyufvvShtwb8dfxb 20qC93I55sCTviUITjZMOaT CUiIHZh rFgasy0koT7jZl9+PGNvbCB 5pUG6jF8lScImGlN8BZdpK6 91QpVtoHZiGnkdb3nix4fcv Or5HyHh VBLxyuSleCceLGB7g0SnVp8 8C63dDSkwFWPwDBUgBYSqLP OiwZpwro8qpP0eSm5+PC9jb 1xsvv84 hZ20oCJ+WVVsSXW0cIyoVEx aNUFlxE6bOTaxNbH9JBZrZw YbbF28bIXbTEbyYt7gnLayv YwfIA8o NNXapdodc661UvYhh4vhVID hlZOvXGzeWEQ0G16do3Q4TP RlUQHbVII1kFZ0yA5dfGswn jogbGVm dIdgnvEpcXwbDZivGRduE89 8VVZduWpoRtJqpMMnM5ymuv FSAG1iKgftlXR+IDFxFVN9g WxlPSdw LOPhqE6vGBUzI5x7TdJfJjY 6ENurL8DmwbA2UMDwkGYfEW KmvSTKoC7ixsplo7iuqvxxD zAwMDAw JNz0LJy6UYQuoLpzCoNgYBU 9IdQ7KUY7qOXsjZ8nmEjrwi wdtJ0wYli+RklOOjwvdGQ+P HRkIHN0 lAvbXEfjNURxkF0pAJSwB3k 6HhSjZaR4UHmtE2IgmhN1VC OfqTLhRNXbuIBYxN0bhwmwi 2xvcjog WdAtNTGkQFt6ABq7CCGegWb dJaCrQSO3HnK9QWK6pBQopZ 8ojIrrkjmsfP3gYgu+TVJOO jwvdGQ+ MFIpHZZ8iEwuGUdzPPSiqW9 qROKdT4s4AoUlDkU6PRyzD5 EaygO5GDSfyYIvYDNbxNCMn G9cnpkz q0mvzjezBcIiEBHiFXw1PXh 4KGDawWxeTcRnHLG2DtH6JW X5cPJkcX3eeOpvokqxiJ8lN yc+UGF5 OUT5XH94LC24G4FkTvftyZS ibGU+PHRhYmxlIHdpZHRoPS ezSWUfJgCswSumCU1qEl3dH GVyLWNv bGxh (more content not included)... Normal [facility] Lab Miscellaneous-LCon 07-31 Lab Miscellaneous COMMENT Invalid Interpretation Code [facility] Comment on above: Result Comment: Test Ordered: [id number] Complement C4a Complement C4a 502.4 ng/mL BN Reference Range: 0.0-650.0 Results for this test are for research purposes only by the assay's foot specialist. The performance characteristics of this product have not been established. Results should not be used as a diagnostic procedure without confirmation of the diagnosis by another medically established diagnostic product or procedure. Performed at: [facility] [id number] PhD Anuradha Seay Performed By: #### 1 [id number] #### [facility] [address] [place] [address] Lab Miscellaneous COMMENT Invalid Interpretation Code [facility] Comment on above: Result Comment: Test Ordered: [id number] Dengue Virus IgG and IgM Dengue IgM [...] Certain sera from patients infected with Zika, Urdu Encephalitis, West Nile, and/or Martin Viruses may [...] Certain sera from patients infected with Zika, Urdu Encephalitis, West Nile, and/or Martin Viruses may give false positive results. The performance characteristics of this test have been determined by [employer]. This test has not been cleared or approved for diagnostic use by the U.S. Food and Drug Administration. Performed at: [address] [id number] PhD Anuradha Seay Performed By: #### 1 [id number] #### [facility] [address] [place] [address] Lab Miscellaneous COMMENT Invalid Interpretation Code [facility] Comment on above: Result Comment: Test Ordered: [id number] Trans. Growth Fact. beta 1* Trans. Growth Fact. beta 1* 4033 pg/mL [facility] Reference Range: 867-6662 The result is reported in pg/mL. The assay range is approximately 150 to 50,000. The reference range for a healthy population is 867-6662. However it should be noted that these ranges are obtained from a limited population of apparently healthy adults and are not diagnostic thresholds. *This test was developed and its performance characteristics determined by [employer]. It has not been cleared or approved by the U.S. Food and Drug Administration. Performed at: [address] [id number] PhD Anuradha Seay Performed By: #### 1 [id number] #### [facility] [address] [place] [address] Lab Miscellaneous-LCon 07-30 Lab Miscellaneous COMMENT Invalid Interpretation Code [facility] Comment on above: Result Comment: Test Ordered: [id number] West Nile Virus Antibody,Serum West Nile Virus, [...] for testing within 7-14 days. Performed at: [address] [id number] PhD Anuradha Seay Performed By: #### 1 [id number] #### [facility] [address] [place], [place] [address] Lab Miscellaneous COMMENT Invalid Interpretation Code [facility] Comment on above: Result Comment: Test Ordered: [id number] Ehrlichia Ab Panel E. chaffeensis (HME) IgG [...] approximately one year. HGE IgM Titer Negative Reference Range: Neg:<1:20 Due to a reagent backorder, this test was performed using a different assay. The reference interval for this alternate assay is: Negative <1:64 Positive 1:64 or greater IgM levels usually rise 3 to 5 days post infection and fall to normal levels in approximately 30 to 60 days. Performed at: [address] [id number] PhD Anuradha Seay Performed By: #### 1 [id number] #### [facility] [address] [place] [address] Lab Miscellaneous COMMENT Invalid Interpretation Code [facility] Comment on above: Result Comment: Test Ordered: [id number] Peter Mtn Spotted Fev, IgG, Qn RMSF, IgG, EIA Negative BN Reference Range: Negative Performed at: [address] [id number] PhD Anuradha Seay Performed By: #### 1 [id number] #### [facility] [address] [place] [address] Result Comment: Test Ordered: [id number] Peter Mtn Spotted Fever, IgM Pteer Mtn Spotted Fever, IgM 0.98 [H ] index BN Reference Range: 0.00-0.89 Negative <0.90 Equivocal 0.90 - 1.10 Positive >1.10 Performed at: [address] [id number] PhD Anuradha Seay Lab Miscellaneous-LCon 07-29 Lab Miscellaneous COMMENT Invalid Interpretation Code [facility] Comment on above: Result Comment: Test Ordered: [id number] Bartonella Antibody Panel B. henselae IgG Negative [...] developed and its performance characteristics determined by [employer]. It has not been cleared or approved by the Food and Drug Administration. The FDA has determined that such clearance or approval is not necessary. Performed at: [address] [id number] PhD Anuradha Seay Performed By: #### 1 [id number] #### [facility] [address] [place] [address] Result Comment: Test Ordered: [id number] Babesia microti Antibody Panel Babesia microti IgM <1:10 BN Reference Range: Neg:<1:10 Babesia microti IgG <1:10 BN Reference Range: Neg:<1:10 This test was developed and its performance characteristics determined by [employer]. It has not been cleared or approved by the U.S. Food and Drug Administration. The FDA has determined that such clearance or approval is not necessary. This test is used for clinical purposes. It should not be regarded as investigational or research. Performed at: [address] [id number] PhD Anuradha Seay Lab Miscellaneous COMMENT Invalid Interpretation Code [facility] Comment on above: Result Comment: Test Ordered: [id number] Brucella Antibody IgM, EIA Brucella Antibody IgM, EIA Negative BN Reference Range: Negative This assay detects antibodies to Brucella abortus, melitensis, and suis. Performed at: [address] [id number] PhD Anuradha Seay Performed By: #### 1 [id number] #### [facility] [address] [place] [address] Result Comment: Test Ordered: [id number] Brucella Antibody IgG, EIA Brucella Antibody IgG, EIA Negative BN Reference Range: Negative This assay detects antibodies to Brucella abortus, melitensis, and suis. Performed at: [address] [id number] PhD Anuradha Seay Result Comment: Test Ordered: [id number] Coxsackie A IgG/IgM Antibody Coxsackie A7 IgG [...] titer BN Reference Range: Neg:<1:10 Performed at: [address] [id number] PhD Anuradha Seay Lab Miscellaneous-LCon 07-28 Lab Miscellaneous COMMENT Invalid Interpretation Code [facility] Comment on above: Result Comment: Test Ordered: [id number] Human Granulocytic Samantha-HGE HGE IgG Titer Negative [...] approximately 30 to 60 days. Performed at: [address] [id number] PhD Anuradha Seay Performed By: #### 1 [id number] #### [facility] [address] [place] [address] Lab Miscellaneous-LCon 07-27 Lab Miscellaneous COMMENT Invalid Interpretation Code [facility] Comment on above: Result Comment: Test Ordered: [id number] Coxsackie Virus Group B Ab Coxsackie B-1 Ab 1:8 [H ] BN Reference Range: Neg:<1:8 Coxsackie B-2 Ab Negative BN Reference Range: Neg:<1:8 Coxsackie B-3 Ab Negative BN Reference Range: Neg:<1:8 Coxsackie B-4 Ab Negative BN Reference Range: Neg:<1:8 Coxsackie B-5 Ab Negative BN Reference Range: Neg:<1:8 Coxsackie B-6 Ab 1:16 [H ] BN Reference Range: Neg:<1:8 [facility] [id number] PhD Anuradha Seay Performed By: #### 1 [id number] #### [facility] [address] [place] [address] CMV IgGon 07-26-2022 CMV IgG IA Qn <0.60 Invalid Interpretation Code 0.00-0.59 [facility] Comment on above: Result Comment: Nega tive <0.60 Equivocal 0.60 - 0.69 Positive >0.69 Performed at: [address] [id number] PhD Anuradha Seay Performed By: #### 1 [id number] #### [facility] [address] [place] [address] CMV IgMon 07-26-2022 CMV IgM IA Qn <30.0 Invalid Interpretation Code 0.0-29.9 [facility] Comment on above: Result Comment: Nega tive <30.0 Equivocal 30.0 - 34.9 Positive >34.9 A positive result is generally indicative of acute infection, reactivation or persistent IgM production. [facility]formed [facility]: [facility] [id number] PhD Anuradha Seay Performed By: #### 1 [id number] #### [facility] [address] [place] [address] Lab Miscellaneous-LCon 07-26 Lab Miscellaneous COMMENT Invalid Interpretation Code [facility] Comment on above: Result Comment: Test Ordered: [id number] HNK1 (CD57) Panel % CD8-/CD57+ Lymphs 8.9 % BN Reference Range: 2.0-17.0 This test was developed and its performance characteristics determined by [employer]. It has not been cleared or approved [...] x10E3/uL CB Reference Range: 0.0-0.1 Performed at: [facility] [address] [id number] PhD Anuradha Seay Performed By: #### 1 [id number] #### [facility] [address] [place] [address] Lab Miscellaneous-LCon 07-25 Test Code 226972 Invalid Interpretation Code [facility] Comment on above: Performed By: #### 1 [id number] #### [facility] [address] [place] [address] Test Name C4a Invalid Interpretation Code [facility] Comment on above: Performed By: #### 1 [id number] #### [facility] [address] [place] [address] Test Code [id number] Invalid Interpretation Code [facility] Comment on above: Performed By: #### 1 [id number] #### [facility] [address] [place] [address] Test Code 420555 Invalid Interpretation Code [facility] Comment on above: Performed By: #### 1 [id number] #### [facility] [address] [place] [address] Test Code 148984 Invalid Interpretation Code [facility] Comment on above: Performed By: #### 1 [id number] #### [facility] [address] [place] [address] Test Code [id number] Invalid Interpretation Code [facility] Comment on above: Performed By: #### 1 [id number] #### [facility] [address] [place] [address] Test Code [id number] Invalid Interpretation Code [facility] Comment on above: Performed By: #### 1 [id number] #### [facility] [address] [place] [address] Test Code 394147 Invalid Interpretation Code [facility] Comment on above: Performed By: #### 1 [id number] #### [facility] [address] [place] [address] Test Code 745895 Invalid Interpretation Code [facility] Comment on above: Performed By: #### 1 [id number] #### [facility] [address] [place] [address] Test Code 800396 Invalid Interpretation Code [facility] Comment on above: Performed By: #### 1 [id number] #### [facility] [address] [place] [address] Test Code 226125 Invalid Interpretation Code [facility] Comment on above: Performed By: #### 1 [id number] #### [facility] [address] [place] [address] Test Code [id number] Invalid Interpretation Code [facility] Comment on above: Performed By: #### 1 [id number] #### [facility] [address] [place] [address] Test Name RMSF IGG Invalid Interpretation Code [facility] Comment on above: Performed By: #### 1 [id number] #### [facility] [address] [place] [address] Test Name EHRLICHIOSIS Invalid Interpretation Code [facility] Comment on above: Performed By: #### 1 [id number] #### [facility] [address] [place] [address] Test Name BRUCELLA IGM Invalid Interpretation Code [facility] Comment on above: Performed By: #### 1 [id number] #### [facility] [address] [place] [address] Test Name WEST NILE Invalid Interpretation Code [facility] Comment on above: Performed By: #### 1 [id number] #### [facility] [address] [place] [address] Test Name RMSF IGM Invalid Interpretation Code [facility] Comment on above: Performed By: #### 1 [id number] #### [facility] [address] [place] [place] [address] Test Name TRNS GR BETA 1 Invalid Interpretation Code [facility] Comment on above: Performed By: #### 1 [id number] #### [facility] [address] [place] [place] [address] Test Name DENGUE FEVER Invalid Interpretation Code [facility] Comment on above: Performed By: #### 1 [id number] #### [facility] [address] [place] [place] [address] Test Name BRUCELLA IGG Invalid Interpretation Code [facility] Comment on above: Performed By: #### 1 [id number] #### [facility] [address] [place] [place] [address] Test Name Q FEVER IGG/IGM Invalid Interpretation Code [facility] Comment on above: Performed By: #### 1 [id number] #### [facility] [address] [place] [place] [address] Test Name HNK1 (CD57) Invalid Interpretation Code [facility] Comment on above: Performed By: #### 1 [id number] #### [facility] [address] [place] [place] [address] Test Code [id number] Invalid Interpretation Code [facility] Comment on above: Performed By: #### 1 [id number] #### [facility] [address] [place] [place] [address] Test Code 172131 Invalid Interpretation Code [facility] Comment on above: Performed By: #### 1 [id number] #### [facility] [address] [place] [place] [address] Test Code 746603 Invalid Interpretation Code [facility] Comment on above: Performed By: #### 1 [id number] #### [facility] [address] [place] [address] Test Code [id number] Invalid Interpretation Code [facility] Comment on above: Performed By: #### 1 [id number] #### [facility] [address] [facility] [place] [address] Test Code [id number] Invalid Interpretation Code [facility] Comment on above: Performed By: #### 1 [id number] #### [facility] [address] [place] [address] Test Name BARTONELLA Invalid Interpretation Code [facility] Comment on above: Performed By: #### 1 [id number] #### [facility] [address] [place] [address] Test Name COXSACKIE A Invalid Interpretation Code [facility] Comment on above: Performed By: #### 1 [id number] #### [facility] [address] [place] [address] Test Name COXSACKIE B Invalid Interpretation Code [facility] Comment on above: Performed By: #### 1 [id number] #### [facility] [address] [place] [address] Test Name HGE Invalid Interpretation Code [facility] Comment on above: Performed By: #### 1 [id number] #### [facility] [address] [place] [address] Test Name BABESIA AB Invalid Interpretation Code [facility] Comment on above: Performed By: #### 1 [id number] #### [facility] [address] [place] [address] Consent for Treatmenton 2 Consent for Treatment [id number] D:127 Normal [facility] Physician Orderon 07-11-2022 Physician Order [id number] CD:127 Normal [facility] HUMAN HERPESVIRUS 6 ABS, IGM on 05-30-2022 Human Herpes Virus Type 6 IgM CANRGT Normal [facility] Comment on above: Result Comment: Test not performed. Unable to perform test due to current unavailability of reagents or discontinuation of test. Test not performed. Unable to perform test due to current unavailability of reagents or discontinuation of test. This test was developed and its performance characteristics determined by [employer]. It has not been cleared or approved by the Food and Drug Administration. Performed By: #### H HV6, [id number] #### [facility] [address] [place] [address] Dr. Dionte Omalley METHYLMALONIC ACID (MMA)on 0 05-12-2022 Methylmalonic Acid, Serum 124 nmol/L Normal 0-378 [facility] Comment on above: Performed By: #### M MA2 #### [facility] [address] [place] [address] Dr. Dionte Omalley COPPER, SERUM or PLASMAon Copper, Serum 98 ug/dL Normal 80-158 [facility] Comment on above: Result Comment: Dete ction Limit = 5 Performed By: #### C OPPER #### [facility] [address] [place] [address] Dr. Dionte Omalley HUMAN HERPESVIRUS 6 ABS, IGG on 05-10-2022 HHV-6 IgG Antibodies 3.63 index Critically high [facility] Comment on above: Result Comment: Nega tive <0.90 Equivocal 0.90 - 1.10 Positive >1.10 Results of this test are labeled for research purposes only by the assay's foot specialist. The performance characteristics of this assay have not been established by the foot specialist. The result should not be used for treatment or for diagnostic purposes without confirmation of the diagnosis by another medically established diagnostic product or procedure. The performance characteristics were determined by [facility]. Performed By: #### H HV6, [id number] #### [facility] [address] [place] [address] Dr. Dionte Omalley ZINC SERUM OR PLASMAon 05-10 Zinc, Plasma or Serum 77 ug/dL Normal 44-115 [facility] Comment on above: Result Comment: Dete ction Limit = 5 Performed By: #### H SVIGM #### [facility] [address] [place] [address] Dr. Dionte Omalley ANTI-DNASE ANTIBODIESon 04-22 Anti-DNase B Strep Antibodies 115 U/mL Normal 0-120 [facility] Comment on above: Performed By: #### H SVIGM #### [facility] [address], [place] [address] Dr. Dionte Omalley CHLAMYDIA PNEUMONIAE IGG/IGM on 05-09-2022 Chlamydia pneumoniae IgG <1:16 Normal Neg:<1:16 [facility] Comment on above: Performed By: #### H SVIGM #### [facility] [address] [place], [place] [address] Dr. Dionte Omalley Chlamydia pneumoniae IgM <1:10 Normal Neg:<1:10 [facility] Comment on above: Performed By: #### H SVIGM #### [facility] [address] [place] [address] [address] Dionte Omalley MYCOPLASMA PNEUMONIA IGG/IGM on 05-09-2022 M pneumoniae IgG Abs 382 U/mL Critically high 0-99 [facility] Comment on above: Result Comment: Nega [...] levels. Performed By: #### A SOAB #### [facility] [address] [place] [address] Dr. Dionte Omalley M pneumoniae IgM Abs <770 Normal 0-769 [facility] Comment on above: Result Comment: Nega tive <770 Clinically significant amount of M. pneumoniae antibody not detected. Low Positive 770 - 950 M. pneumoniae specific IgM presumptively detected. It is recommended that another sample be collected 1-2 weeks later to assure reactivity. Positive >950 Highly significant amount of M. pneumoniae specific IgM antibody detected. Performed By: #### A SOAB #### [facility] [address] [place] [address] Dr. Dionte Omalley MANDY EIA W/REFLEX 5 BIOMARKER Son 05-08-2022 MANDY Direct Negative Normal Negative [facility] Comment on above: Performed By: #### H SVIGM #### [facility] [address] [place] [address] [address] [address] Dionte Omalley ANTISTREPTOLYSIN O AB (ASO)o n 05-08-2022 Antistreptolysin O Ab 132.0 IU/mL Normal 0.0-200.0 [facility] Comment on above: Performed By: #### A SOAB #### [facility] [address] [address] [address] Dionte Omalley C-REACTIVE PROTEINS (HS)on 0 05-08-2022 C-Reactive Protein, Cardiac 0.41 mg/L Normal 0.00-3.00 [facility] Comment on above: Result Comment: Rela tive Risk for Future Cardiovascular Event Low <1.00 Average 1.00 - 3.00 High >3.00 Performed By: #### C RPHS #### [facility] [address] [address] [address] Dionte Omalley EBV EARLY ANTIGEN (IgG)on EBV Early Antigen Ab, IgG 51.9 U/mL Critically high 0.0-8.9 [facility] Comment on above: Result Comment: Hepa titis A, Hepatitis C and HIV antibodies may cross-react with this assay. Negative < 9.0 Equivocal 9.0 - 10.9 Positive >10.9 Performed By: #### H SVIGM #### [facility] [address] [place] [address] Dr. Dionte Omalley CA-ZIEGLER VIRUS (EBV) AB PROFILEon 05-08-2022 EBV Ab VCA, IgG 585.0 U/mL Critically high 0.0-17.9 [facility] Comment on above: Result Comment: Nega tive <18.0 Equivocal 18.0 - 21.9 Positive >21.9 Performed By: #### A SOAB #### [facility] [address] [place] [address] Dr. Dionte Omalley EBV Ab VCA, IgM <36.0 Normal 0.0-35.9 [facility] Comment on above: Result Comment: Nega tive <36.0 Equivocal 36.0 - 43.9 Positive >43.9 Performed By: #### A SOAB #### [facility] [address] [place] [address] Dr. Dionte Omalley EBV Nuclear Antigen Ab, IgG 591.0 U/mL Critically high 0.0-17.9 [facility] Comment on above: Result Comment: Nega tive <18.0 Equivocal 18.0 - 21.9 Positive >21.9 Performed By: #### A SOAB #### [facility] [address] [address] [address] Dionte Omalley Interpretation: Comment Normal [facility] Comment on above: Result Comment: EBV Interpretation [...] EBNA. Performed By: #### A SOAB #### [facility] [address] [address] [address] Dionte Omalley HERPES SIMPLEX 1/2 IGGon HSV 1 IgG, Type Spec 4.70 index Critically high 0.00-0.90 [facility] Comment on above: Result Comment: Nega tive <0.91 Equivocal 0.91 - 1.09 Positive >1.09 Note: Negative indicates no antibodies detected to HSV-1. Equivocal may suggest early infection. If clinically appropriate, retest at later date. Positive indicates antibodies detected to HSV-1. Performed By: #### H SVIGM #### [facility] [address] [address] [address] Dionte Omalley HSV 2 IgG Type Spec <0.91 Normal 0.00-0.90 [facility] Comment on above: Result Comment: Nega tive <0.91 Equivocal 0.91 - 1.09 Positive >1.09 Note: Negative indicates no HSV-2 antibodies detected. Positive indicates HSV-2 antibodies detected. Equivocal and low positive HSV-2 screens (Index 0.91-5.00) may be false positive and are reflexed to supplemental testing in accordance with CDC guidelines. Performed By: #### H SVIGM #### [facility] [address] [address] [address] Dionte Omalley HERPES SIMPLEX 1/2 IGMon HSV, IgM I/II Combination 1.30 Ratio Critically high 0.00-0.90 [facility] Comment on above: Result Comment: Nega tive <0.91 Equivocal 0.91 - 1.09 Positive >1.09 Effective June 17, 2022 HSV, IgM I/II Combination will be made non-orderable. [facility] offers [id number] HSV 1 and 2-Spec Ab, IgG w/Rfx and [id number] HSV [place]. Performed By: #### H SVIGM #### [facility] [address] [place] [address] Dr. Dionte Omalley HOMOCYSTEINEon 05-08-2022 Homocyst(e)ine, Plasma 7.2 umol/L Normal 0.0-14.5 [facility] Comment on above: Performed By: #### H OMCY #### [facility] [address] [place] [address] Dr. Dionte Omalley BOX TEST SENT OUTon 05-07-20 22 SENT TO REF LAB 05/07/2022 Normal [facility] Comment on above: Performed By: #### A SOAB #### [facility] [address] [place] [address] Dr. Dionte Omalley CPKon 05-07-2022 CK [Catalytic activity/Vol] 67 U/L Normal 26-192 [facility] Comment on above: Performed By: #### C K #### [facility] [address] [place] [address] Dr. Dionte Omalley SED RATE WESTERGRENon 2021 SED RATE 4 mm/hr Normal <=20 [facility] Comment on above: Performed By: #### H SVIGM #### [facility] [address] [place] [address] Dr. Dionte Omalley VITAMIN B12on 05-07-2022 Cobalamin (Vitamin B12) [Mass/Vol] 803.0 pg/mL Normal 193.0-986.0 [facility] Comment on above: Performed By: #### V ITB12 #### [facility] [address] [place] [address] Dr. Dionte Omalley MG MAMM SCREEN 3D MARIUM CADon 04-16-2022 MG MAMM SCREEN 3D MARIUM CAD Patient: JENNYFER PETER Exam Date: 04/16/2022 : 1980 Gender:F Ordering : DR CRISELDA INIGUEZ Admission #: [id number] Family : Order #: [id number] CLICK HERE TO VIEW EXAM RADIOLOGY REPORT PROCEDURE: MAMMOGRAM SCREENING 3D BILATERAL CAD COMPARISON: None. INDICATIONS: Screening for malignant neoplasm of breast Calculator Name NCI Breast Cancer Risk Assessment Tool 5 Year Breast Cancer Risk 0.50% Lifetime Breast Cancer Risk 8.30% Personal Breast Cancer No Personal Ovarian Cancer No Treatments None Family Cancers Grandmother-paternal with breast cancer at age 53. LOCATION: [facility] BREAST COMPOSITION: Heterogeneously dense,which may obscure [...] Owens M.D. on 04/17/2022 at 12:41 Normal [facility] XR HAND MARIUM MIN 3Von 09-14-2 021 XR HAND MARIUM MIN 3V EXAMINATION: [...] by: THOMAS OWENS Date: 2021-09-14 07:21 Normal [facility] Vital Signs Date Time Vital Sign Value Performing Clinician Facility 03-30-2025 14:01-0400 Body height 170.2 cm Criselda INIGUEZ Work Phone: [facility] 03-30-2025 14:01-0400 Body mass index (BMI) [Ratio] 21.65 kg/m2 Criselda Hemmer PA Work Phone: [facility] 03-30-2025 14:01-0400 Body temperature 98.29 [degF] Criselda Hemmer PA Work Phone: [facility] 03-30-2025 14:01-0400 Body weight 62.69 kg Criselda Hemmer PA Work Phone: [facility] 03-30-2025 14:01-0400 Diastolic blood pressure 78 mm[Hg] Criselda Hemmer PA Work Phone: [facility] 03-30-2025 14:01-0400 Heart rate 70 /min Criselda Hemmer PA Work Phone: [facility] 03-30-2025 14:01-0400 Respiratory rate 16 /min Criselda Hemmer PA Work Phone: [facility] 03-30-2025 14:01-0400 SaO2% (BldA) [Mass fraction] 96 % Criselda Hemmer PA Work Phone: [facility] 03-30-2025 14:01-0400 Systolic blood pressure 120 mm[Hg] Criselda Hemmer PA Work Phone: [facility] 10-29-2024 14:23-0500 Body height 170.18 cm [facility] 10-29-2024 14:23-0500 Body mass index (BMI) [Ratio] 21.1 kg/m2 [facility] 10-29-2024 14:23-0500 Body temperature 98.6 [degF] [facility] 10-29-2024 14:23-0500 Body weight 61.23 kg [facility] 10-29-2024 14:23-0500 Diastolic blood pressure 92 mm[Hg] [facility] 10-29-2024 14:23-0500 Heart rate 78 /min [facility] 10-29-2024 14:23-0500 Respiratory rate 16 /min [facility] 10-29-2024 14:23-0500 SaO2% (BldA) [Mass fraction] 97 % [facility] 10-29-2024 14:23-0500 Systolic blood pressure 128 mm[Hg] [facility] 03-14-2024 12:53-0400 Body height 170.18 cm [facility] 03-14-2024 12:53-0400 Body mass index (BMI) [Ratio] 21.3 kg/m2 [facility] 03-14-2024 12:53-0400 Body temperature 97.7 [degF] [facility] 03-14-2024 12:53-0400 Body weight 61.85 kg [facility] 03-14-2024 12:53-0400 Diastolic blood pressure 74 mm[Hg] [facility] 03-14-2024 12:53-0400 Heart rate 66 /min [facility] 03-14-2024 12:53-0400 Respiratory rate 16 /min [facility] 03-14-2024 12:53-0400 SaO2% (BldA) [Mass fraction] 97 % [facility] 03-14-2024 12:53-0400 Systolic blood pressure 130 mm[Hg] [facility] Encounters Encounter Date Encounter Type Care Provider Facility Start: 03-30-2025 End: 03-30-2025 Bamboo flowsheet Criselda INIGUEZ Work Phone: [facility] Start: 03-30-2025 End: 03-30-2025 Bamboo flowsheet Criselda INIGUEZ Work Phone: [facility] Start: 03-30-2025 End: 03-30-2025 Patient encounter status Criselda INIGUEZ Work Phone: [facility] Work Phone: Start: 03-30-2025 End: 03-30-2025 Periodic preventive med est patient 40-64yrs Criselda INIGUEZ Work Phone: [facility] Comment on above: Wellness examination (Primary Dx); Rhus dermatitis; Shortness of breath; Acquired hypothyroidism ; Chronic fatigue; Elevated LDL cholesterol level ; Gastroesophageal reflux disease without esophagitis; Hypokalemia; Chronic migraine without aura without status migrainosus, not intractable ; Myalgia; PMDD (premenstrual dysphoric disorder) ; Polyarthralgia; Premenstrual tension syndrome; Shortened ID interval; Generalized anxiety disorder ; MDD (major depressive disorder), recurrent episode, mild ; Panic disorder ; Chronic idiopathic constipation; Chronic bilateral low back pain with bilateral sciatica; History of hyperthyroidism; Primary hypertension ; Dizziness; Persistent cough; Bipolar disorder, current episode hypomanic (HCC); Psoriasis of scalp Start: 03-30-2025 End: 03-30-2025 ambulatory CRISELDA LEOS Not Available Start: 02-16-2025 End: 02-16-2025 Patient encounter procedure [facility] Comment on above: Burning with urinati on Start: 02-16-2025 End: 02-16-2025 ambulatory DEBBY MONTES Not Available Start: 01-21-2025 End: 01-25-2025 Refill Arabella Banks LPN Work Phone: [facility] Comment on above: Primary hypertension (CMS/HCC) Start: 11-01-2024 End: 11-01-2024 Office outpatient visit 15 minutes Debby Montes MD Work Phone: [facility] Comment on above: Seborrheic keratosis (Primary Dx); Lentigines; Psoriasis vulgaris (CMS/HCC); Common wart; Pain, generalized Start: 11-01-2024 End: 11-01-2024 ambulatory DEBBY MONTES Not Available Start: 10-29-2024 End: 10-29-2024 ambulatory [facility] Work Phone: Start: 10-29-2024 End: 10-29-2024 Patient encounter procedure [facility] Work Phone: Start: 08-11-2024 End: 08-11-2024 Clinisync Result Encounter Carolin Mckeon MD Work Phone: [facility] Unsolicited Start: 08-11-2024 End: 08-11-2024 Clinisync Result Encounter Carolin Mckeon MD Work Phone: [facility] Unsolicited Start: 03-14-2024 End: 03-14-2024 ambulatory [facility] Work Phone: Start: 03-14-2024 End: 03-14-2024 Patient encounter procedure [facility] Work Phone: Start: 12-22-2023 End: 01-21-2024 ambulatory [facility] Start: 12-22-2023 End: 01-21-2024 ambulatory [facility] Start: 11-24-2023 End: 12-22-2023 ambulatory [facility] Start: 11-24-2023 End: 12-22-2023 ambulatory [facility] Start: 11-21-2023 End: 12-22-2023 ambulatory [facility] Start: 11-13-2023 End: 11-21-2023 ambulatory [facility] Start: 10-23-2023 End: 11-21-2023 ambulatory [facility] Start: 09-26-2023 End: 10-23-2023 ambulatory [facility] Start: 09-23-2023 End: 10-23-2023 ambulatory [facility] Start: 09-17-2023 End: 09-22-2023 ambulatory [facility] Start: 08-26-2023 End: 09-17-2023 ambulatory [facility] Start: 08-22-2023 End: 09-22-2023 ambulatory [facility] Start: 07-25-2022 End: 07-26-2022 ambulatory STEPHANIE POON Facility:[facility] Start: 07-11-2022 End: 07-11-2022 Patient encounter procedure STEPHANIE Luna CLEEV [facility] Start: 05-15-[address] DOCTOR WALLS Facility :[facility] Start: 05-07-2022 End: 05-08-[address] DOCTOR WALLS Facility:[facility] Start: 04-16-2022 End: 04-17-[address] CRISELDA LEOS Facility:[facility] Start: 02-28-2022 End: 03-01-[address] CAROLIN MCKEON Facility:[facility] Start: 09-13-2021 End: 09-14-[address] CAROLIN MCKEON Facility:[facility] Procedures Date Procedure Procedure Detail Performing Clinician Start: 02-16-2025 Urnls dip stick/tabl et rgnt non-auto w/o micrscp Criselda Leos PA Work Phone: Start: 11-01-2024 CRYOTHERAPY SKIN LESION Debby Montes MD Work Phone: Start: 08-11-2024 ALL CBC WITH AUTO DIFF Carolin Mckeon MD Work Phone: Start: 10-31-2022 Mammography Carolin Mckeon MD Work Phone: Plan of Treatment Date Care Activity Detail Author Start: 11-01-2027 Screening for malign ant neoplasm of cervix [facility] Start: 05-23-2025 Influenza vaccination N [facility] Start: 03-30-2025 End: 08-15-2025 25-hydroxyvitamin D3 [Mass/volume] in Serum or Plasma Vitamin D 25 hydroxy Total Lab Routine Wellness examination Chronic fatigue Myalgia Polyarthralgia Expected: 03/30/2025 (Approximate), Expires: 08/15/2025 [facility] Comment on above: Expected: 03/30/2025 (Approximate), Expires: 08/15/2025 Start: 03-30-2025 End: 08-15-2025 CBC W Auto Differential panel - Blood CBC and differential Lab Routine Wellness examination Primary hypertension Dizziness Expected: 03/30/2025 (Approximate), Expires: 08/15/2025 [facility] Work Phone: Comment on above: Expected: 03/30/2025 (Approximate), Expires: 08/15/2025 Start: 03-30-2025 End: 08-15-2025 Comprehensive metabolic 2000 panel - Serum or Plasma Comprehensive metabolic panel Lab Routine Wellness examination Elevated LDL cholesterol level Hypokalemia Primary hypertension Expected: 03/30/2025 (Approximate), Expires: 08/15/2025 [facility] Comment on above: Expected: 03/30/2025 (Approximate), Expires: 08/15/2025 Start: 03-30-2025 End: 08-15-2025 Lipid 1996 panel - Serum or Plasma Lipid panel Lab Routine Wellness examination Elevated LDL cholesterol level Primary hypertension Expected: 03/30/2025 (Approximate), Expires: 08/15/2025 [facility] Comment on above: Expected: 03/30/2025 (Approximate), Expires: 08/15/2025 Start: 03-30-2025 End: 03-30-2025 Patient encounter procedure [facility] Comment on above: Arrived Start: 03-30-2025 End: 08-15-2025 TSH W/REFLEX TO FT4 TSH W/REFLEX TO FT4 Lab Routine Wellness examination Acquired hypothyroidism Chronic fatigue History of hyperthyroidism Dizziness Expected: 03/30/2025 (Approximate), Expires: 08/15/2025 [facility] Comment on above: Expected: 03/30/2025 (Approximate), Expires: 08/15/2025 Start: 12-14-2024 End: 12-14-2024 Patient encounter procedure 12/14/2024 2:15 PM EDT Office Visit [facility] [address] [place] [address] Debby Montes MD [address] [place] [address] [facility] Start: 05-23-2024 Influenza vaccination Influenza Vacc ine (#1) [facility] Start: 10-31-2023 Screening for malign ant neoplasm of breast Mammogram [facility] Start: 2003 Screening for malign ant neoplasm of cervix Pap Smear [facility] Immunizations Immunization Date Immunization Notes Care Provider Fa cility 07-08-2023 influenza, injectabl e, quadrivalent, preservative free Carolin Mckeon MD Work Phone: [facility] 07-08-2023 SARS-COV-2 (COVID-19 ) vaccine, mRNA, spike protein, LNP, PF, 50 mcg/0.5 mL Carolin Mckeon MD Work Phone: [facility] 07-08-2023 influenza virus vacc ine, unspecified formulation Carolin Mckeon MD Work Phone: [facility] 07-06-2021 influenza, injectabl e, quadrivalent, preservative free Carolin Mckeon MD Work Phone: [facility] 06-28-2020 influenza, injectabl e, quadrivalent, preservative free Carolin Mckeon MD Work Phone: [facility] 07-01-2019 seasonal influenza, intradermal, preservative free Carolin Mckeon MD Work Phone: [facility] 06-25-2018 seasonal influenza, intradermal, preservative free Carolin Mckeon MD Work Phone: [facility] 06-11-2016 influenza, injectabl e, quadrivalent, preservative free Carolin Mckeon MD Work Phone: [facility] 08-01-2014 tetanus toxoid, redu curt diphtheria toxoid, and acellular pertussis vaccine, adsorbed Carolin Mckeon MD Work Phone: [facility] Payers Date Payer Category Payer Private Health Insurance [employer] [id number] 1980 Unknown [id number] 2.840.1.308982.3.579.2. 593 1980 Unknown [id number] 2.840.1.555119.3.579.2. 593 1980 Unknown [id number] 2.840.1.630064.3.579.2. 59 1980 Unknown [id number] 2.840.1.308885.3.579.2. 59 1980 Unknown [id number] 2.840.1.443650.3.579.2. 59 1980 Unknown [id number] 2.840.1.972863.3.579.2. 727 1980 Unknown [id number] 2.840.1.139742.3.579.2. 1285 1980 Unknown [id number] 2.840.1.355202.3.579.2. 1285 1980 Unknown [id number] 2.840.1.228382.3.579.2. 1285 1982 Unknown [id number] 2840.1.559807.3.579.2. 1285 1982 Unknown [id number] 840.1.553312.3.579.2. 1285 1982 Unknown [id number] 2.840.1.712514.3.579.2. 1285 1982 Unknown [id number] 2840.1.535731.3.579.2. 1285 1982 Unknown [id number] 2.840.1.126019.3.579.2. 1285 1982 Unknown [id number] 2840.1.956060.3.579.2. 1259 1980 Unknown [id number] 2.16.840.1.120694.3.579.2. 1259 1980 Unknown [id number] 2.16.840.1.883448.3.579.2. 1259 1959 Unknown [id number] Self-pay Self Pay [id number] Unknown Georgina BC/BS MICHELLE [id number] Social History Date Type Detail Facility Tobacco smoking status [facility] Start: 03-17-2024 End: 03-30-2025 Sex Assigned At Female [facility] Start: 02-26-2023 End: 03-14-2024 Tobacco smoking status AZIS Never smoked tobacco (finding) [facility] Start: 1980 Sex Assigned At Female [facility] Start: 02-26-2023 Tobacco use and exposure Smokeless tobacco non-user [facility] Start: 03-17-2024 End: 03-30-2025 Alcoholic beverage intake Ex-drinker (finding) [facility] Start: 03-17-2024 End: 03-30-2025 History of Social function [facility] Start: 06-19-2023 Alcohol Comment Caffeine intake: 2-3 cups per day; 1 cup coffee qd [facility] Start: 06-17-2023 Gender identity Identifies as female gender (finding) [facility] Start: 06-17-2023 Sexual orientation Heterosexual (finding) [facility] Start: 10-29-2024 Sex Female (finding) [facility] Functional Status Date Assessment Result Facility 03-30-2025 Patient Health Quest ionnaire 2 item (PHQ-2) [Reported] [facility] Clinical Notes 03-01-2022 to 03-30-2025 GEETHA Carlton - 03/30/2025 2:00 PM Dionicio Frank MA - 02/16/2025 1:00 PM EDTTelephone Encounter - Sydni Sutton - 01/25/2025 10:26 AM Carol Montes MD - 11/01/2024 2:30 PM EST Note Date & Type Note Facility 03-30-2025 History of Presen t illness Narrative Images from the original note were not included. Subjective Patient ID: Jennyfer Peter is a 45 y.o. female who presents for wellness. Subjective Jennyfer Peter is a 45 y.o. female and is here for a comprehensive physical exam. The patient reports dry cough for 2 weeks, SOB. She has been taking an OTC antihistamine but not really helping. She also has poison siddharth all over and has been taking Bendryl for that . Over the past 2 weeks, how often have you been bothered by any of the following problems? Little interest or pleasure in doing things: Not at all (currently on medication) Feeling down, depressed, or hopeless: Not at all (currently on medication) Patient Health Questionnaire-2 Score: 0 Current Outpatient Medications on File Prior to Visit Medication Sig Dispense Refill ALPRAZolam (Xanax) 0.25 MG tablet Take 0.25 mg by mouth in the morning and 0.25 mg in the evening and 0.25 mg before bedtime. buPROPion XL (Wellbutrin XL) 300 MG 24 hr tablet Take 300 mg by mouth in the morning. Do not crush, chew, or split. . lamoTRIgine (LaMICtal) 100 MG tablet Take 2 tablets by mouth in the morning. levothyroxine (Synthroid, Levoxyl) 137 MCG tablet Take 137 mcg by mouth in the morning. Take before meals. 100 tablet 3 lurasidone (Latuda) 40 MG tablet Take 40 mg by mouth in the morning. Take with meals. olmesartan (BENIcar) 20 MG tablet Take 0.5 tablets (10 mg) by mouth Daily 45 tablet 0 Saccharomyces boulardii (probiotic) 250 MG capsule Take 1 capsule by mouth 1 (one) time each day. tiZANidine (Zanaflex) 4 MG tablet TAKE ONE TABLET THREE TIMES A DAY NEEDED FOR 30 DAYS 90 tablet 0 [DISCONTINUED] ALPRAZolam (Xanax) 1 MG tablet Take 1 mg by mouth as needed at bedtime for sleep. Along with the 0.25 mg tablet [DISCONTINUED] AMINO ACIDS PO Take 1 tablet by mouth 1 (one) time each day [DISCONTINUED] buPROPion XL (Wellbutrin XL) 150 MG 24 hr tablet Take 150 mg by mouth in the morning. Do not crush, chew, or split. . [DISCONTINUED] Multiple Vitamin (MULTIVITAMINS PO) Take 1 tablet by mouth 1 (one) time each day. [DISCONTINUED] naproxen (Naprosyn) 500 MG tablet TAKE ONE TABLET BY MOUTH ONCE DAILY WITH FOOD NEEDED FOR MILD PAIN 30 tablet 5 No current facility-administered medications on file prior to visit. I have reviewed and reconciled the history and medication list with the patient today. Allergies Allergen Reactions Augmentin [Amoxicillin-Pot Clavulanate] GI intolerance Social History Tobacco Use Smoking status: Never Smokeless tobacco: Never Vaping Use Vaping status: Never Used Substance Use Topics Alcohol use: Not Currently Alcohol/week: 5.0 - 6.0 standard drinks of alcohol Types: 5 - 6 Standard drinks or equivalent per week Comment: Caffeine intake: 2-3 cups per day; 1 cup coffee qd Drug use: Never Family History Problem Relation Name Age of Onset Hypertension Mother Heart disease Mother Arthritis Mother Diabetes Father Hypertension Father Heart disease Father Bipolar disorder Brother Brother 1 Multiple sclerosis Brother Brother 2 Rheum arthritis Brother Brother 2 Stroke Maternal Grandmother Heart disease Maternal Grandfather Heart disease Paternal Grandfather No Known Problems Daughter No Known Problems Son Multiple sclerosis Sibling Past Medical History: Diagnosis Date Anxiety Depression MARLYS (generalized anxiety disorder) Gastric ulcer High blood pressure Lyme disease Migraine Mycoplasma pneumonia 02/26/2023 Panic attack PMDD (premenstrual dysphoric disorder) complicated by congenital heart disease, fetus 1 ([facility]) 03/28/2020 Suspected COVID-19 virus infection 09/26/2021 Suspected COVID J and J and Moderna Booster was positive Thyroid nodule Past Surgical History: Procedure Laterality Date SECTION, LOW TRANSVERSE 2007 ESOPHAGOGASTRODUODENOSCOPY 2017 IR FINE NEEDLE ASPIRATION THYROID 07/23/2016 ID LAP,CHOLECYSTECTOMY 2017 TOTAL THYROIDECTOMY 11/19/2016 VAGINAL AFTER SECTION 07/15/2020 VAGINAL AFTER SECTION 2014 VAGINAL DELIVERY x2- 2003, 2006 Visit Vitals BP 120/78 Pulse 70 Temp 98.3 F Resp 16 Ht 5' 7 Wt 138 lb 3.2 oz SpO2 96% BMI 21.65 kg/m Smoking Status Never BSA 1.72 m Review of Systems Constitutional: Negative for chills, fatigue and fever. HENT: Negative for congestion, ear pain, rhinorrhea and sore throat. Eyes: Negative for pain, discharge and visual disturbance. Respiratory: Positive for cough and shortness of breath. Negative for wheezing. Cardiovascular: Negative for chest pain, palpitations and leg swelling. Gastrointestinal: Negative for abdominal pain, constipation, diarrhea, nausea and vomiting. Genitourinary: Negative for difficulty urinating, dysuria and frequency. Musculoskeletal: Negative for arthralgias and back pain. Skin: Positive for rash. Neurological: Negative for dizziness and numbness. Psychiatric/Behavioral: Negative for sleep disturbance. The patient is not nervous/anxious. Objective Physical Exam Constitutional: General: She is not in acute distress. Appearance: Normal appearance. She is well-developed. HENT: Head: Normocephalic and atraumatic. Right Ear: Tympanic membrane and ear canal normal. Left Ear: Tympanic membrane and ear canal normal. Nose: Nose normal. Mouth/Throat: Mouth: Mucous membranes are moist. Pharynx: No posterior oropharyngeal erythema. Eyes: General: No scleral icterus. Extraocular Movements: Extraocular movements intact. Conjunctiva/sclera: Conjunctivae normal. Pupils: Pupils are equal, round, and reactive to light. Cardiovascular: Rate and Rhythm: Normal rate and regular rhythm. Heart sounds: Normal heart sounds. No murmur heard. Pulmonary: Effort: Pulmonary effort is normal. No respiratory distress. Breath sounds: Normal breath sounds. No wheezing, rhonchi or rales. Abdominal: General: Bowel sounds are normal. There is no distension. Palpations: Abdomen is soft. Tenderness: There is no abdominal tenderness. There is no guarding. Musculoskeletal: General: No swelling or deformity. Normal range of motion. Cervical back: Normal range of motion and neck supple. No tenderness. Skin: General: Skin is warm and dry. Capillary Refill: Capillary refill takes less than 2 seconds. Findings: Rash present. Comments: Linear clusters of erythematous papules on forearms, right upper arm, left lower anterior leg, abdomen, and between breasts. Neurological: General: No focal deficit present. Mental Status: She is alert and oriented to person, place, and time. Cranial Nerves: No cranial nerve deficit. Sensory: No sensory deficit. Motor: No weakness. Gait: Gait normal. Deep Tendon Reflexes: Reflexes normal. Psychiatric: Mood and Affect: Mood normal. Behavior: Behavior normal. Thought Content: Thought content normal. Judgment: Judgment normal. Assessment/Plan Diagnoses and all orders for this visit: Wellness examination Wellness form reviewed in detail with the patient. Encouraged patient to stay up to date on immunizations and preventative testing. Fasting labs ordered for pt to have drawn in July. Encouraged healthy diet, stay active. Will continue with yearly wellness exams. Rhus dermatitis - triamcinolone acetonide (Kenalog-40) injection 40 mg Provided patient with Kenalog injection today, 40 mg IM, patient tolerated this well. Can continue to use Calamine lotion or Benadryl cream prn. Can take Benadryl as needed for itching, cautioned it may cause drowsiness. Contact office if does not gradually improve. Shortness of breath - albuterol HFA (ProAir HFA) 90 mcg/act inhaler; Inhale 2 puffs every 4 (four) hours if needed for wheezing or shortness of breath Reassurance given that her lungs are clear today. Provided pt with Rx for Albuterol to use as needed for SOB. Acquired hypothyroidism This is a chronic medical condition that is stable since last assessment. No changes in treatment are suggested at this time. Continue Levothyroxine as prescribed. Will continue to monitor with routine labs. Chronic fatigue This is a chronic medical condition that is stable since last assessment. Elevated LDL cholesterol level This is a chronic medical condition that is stable since last assessment. Will continue to monitor with routine labs. Gastroesophageal reflux disease without esophagitis This is a chronic medical condition that is stable since last assessment. Hypokalemia This is a chronic medical condition that is stable since last assessment. Will continue to monitor with routine labs. Chronic migraine without aura without status migrainosus, not intractable This is a chronic medical condition that is stable since last assessment. Myalgia This is a chronic medical condition that is stable since last assessment. PMDD (premenstrual dysphoric disorder) The patient is seeing a medical administrator for this condition, treatment is deferred to that specialist. Correspondence from that specialist and any available testing were reviewed during today's visit. Polyarthralgia This is a chronic medical condition that is stable since last assessment. Premenstrual tension syndrome The patient is seeing a medical administrator for this condition, treatment is deferred to that specialist. Correspondence from that specialist and any available testing were reviewed during today's visit. Shortened ID interval This is a chronic medical condition that is stable since last assessment. Generalized anxiety disorder This is a chronic medical condition that is stable since last assessment. Continue Xanax prn. OARRS report generated and reviewed. MDD (major depressive disorder), recurrent episode, mild This is a chronic medical condition that is stable since last assessment. No changes in treatment are suggested at this time. Continue current medications as prescribed. Panic disorder This is a chronic medical condition that is stable since last assessment. Continue Xanax prn. Chronic idiopathic constipation This is a chronic medical condition that is stable since last assessment. No changes in treatment are suggested at this time. Continue probiotic daily. Stay hydrated. Chronic bilateral low back pain with bilateral sciatica This is a chronic medical condition that is stable since last assessment. No changes in treatment are suggested at this time. Continue Tizanidine as needed. History of hyperthyroidism This is a chronic medical condition that is stable since last assessment. No changes in treatment are suggested at this time. Continue Levothyroxine as prescribed. Will continue to monitor with routine labs. Primary hypertension Patient's blood pressure is currently well controlled. Continue with current medications and I will continue to monitor. Goal BP remains less than 130/80. Dizziness This is a chronic medical condition that is stable since last assessment. No current symptoms. Will monitor. Persistent cough Reassurance given that her lungs are clear today. Provided pt with Rx for Albuterol to use as needed. Bipolar disorder, current episode hypomanic (HCC) This is a chronic medical condition that is stable since last assessment. No changes in treatment are suggested at this time. Continue current medications as prescribed. Psoriasis of scalp This is a chronic medical condition that is stable since last assessment. No changes in treatment are suggested at this time. Can use Clobetasol as needed. Follow up in about 1 year (around 03/30/2026) for Wellness. documented in this encounter [facility] 02-16-2025 History of Presen t illness Narrative Pt came in due to having UTI symptoms burning , hurts to sit for too long urgency documented in this encounter [facility] 01-25-2025 Telephone encounter Note Appt scheduled [facility] 01-25-2025 Miscellaneous Notes Appt scheduled Sent. Please let pt know that a 90 day supply of her BP med was sent [facility] but will be due for wellness appt sometime after 03/17/25 and will need that appt for further refills of her medication. documented in this encounter [facility] 01-21-2025 Telephone encounter Note Sent. Please let pt know that a 90 day supply of her BP med was sent to [facility] but will be due for wellness appt sometime after 03/17/25 and will need that appt for further refills of her medication. [facility] 11-01-2024 History of Presen t illness Narrative Skin Check Location: Patient requests a full body skin examination Dermatologic history: no history of skin cancer, no history of atypical moles, family history of melanoma (mom and grandmother) Last visit: 11/2022 Rash Location: scalp Duration: 6 months Quality: scaly Current treatments: Clobetasol Shampoo Patient states PCP diagnosed her with Psoriasis. Lesions: Location: right thumb Duration: years Quality: painful Modifying factors: aggravated by picking Associated symptoms: non-healing Treatments: 1 session of cryotherapy Established patient All pertinent medical history, medications, and allergies were reviewed. General Exam: alert, oriented to person, place, and time, normal affect, well appearing Accompanied by daughter Scalp, Examined , exam limited by hair Right leg Examined Head, Face Examined Left leg Examined Neck Examined Right foot Examined Chest Examined Left foot Examined Back Examined Buttocks Examined Abdomen Examined Digits,nails: Examined Right arm Examined Left arm Examined Lymphatics: Not examined Hands Examined 1. Seborrheic keratosis Stuck on verrucous, chang-brown papules and plaques. Patient was counseled regarding these benign growths. Removal is normally not necessary, but they may be removed if they are symptomatic or for cosmetic reasons. 2. Lentigines Scattered chang macules in sun-exposed areas. The patient was informed that lentigines are benign pigmented lesions that occur on sun-exposed and sun-damaged skin. No treatment is necessary. Recommended regular use of broad spectrum sunscreen SPF 30 or higher 3. Psoriasis vulgaris (CMS/HCC) Scalp Mild scale today, stable with treatment The patient was informed that psoriasis is a chronic condition that can be controlled but not cured. Continue Clobetasol Shampoo as prescribed. Instructed to contact office if psoriasis worsens or fails to improve despite treatment. 4. Common wart Right Thumb Tip Erythematous verrucous papule(s). Patient was counseled regarding warts. Treatment options were discussed including cryotherapy, jessica antigen injections, and topical Cantharidin. It was explained that it typically requires multiple treatments before the wart(s) completely resolve. The importance of following up every 3-4 weeks was emphasized. Encouraged OTC wart removers in between appointments to hasten resolution. Patient elected for cryotherapy today, see procedure note. Diagnosis: Verruca Indication: Inflamed Consent: Verbal consent was obtained and risks were discussed, including, but not limited to risks of scarring, darker or viscosity tester pigmentary changes, recurrence, incomplete removal and infection. Method: Liquid nitrogen was used to treat the lesion(s) with two 5-10 second freeze-thaw cycles Number of lesions treated: 1 Post-procedure instructions: Instructions were given orally and in writing. The office will be contacted if the lesion fails to resolve despite treatment, or if a side effect develops such as abnormal crusting, scabbing, redness or tenderness. Also, start Fluowart, apply to affected area once daily. Hold if lesion is irritated. Plan to follow up in 4-6 weeks. Cryotherapy, skin lesion - Right Thumb Tip 5. Pain, generalized Next Visit: 4-6 weeks, wart follow up documented in this encounter [facility] 03-01-2022 Note PROCEDURE: XR HAND R T 2 V COMPARISON: None. HISTORY: Hand pain FINDINGS: BONES:No fracture, acute abnormality, or significant arthropathy. SOFT TISSUES:Negative. No visible soft tissue swelling. EFFUSION:None visible. OTHER: Negative. IMPRESSION: No acute fracture Electronically authenticated by: GINA COTTON Date: 2022-03-01 07:33 [facility] Evaluation + Plan note No data available for this section [facility] Evaluation note Diagnosis Onset Date Hives acute [facility] Work Phone: Evaluation noteNo assessment information available [facility] Work Phone: Evaluation note* Diagnosis Seborrheic keratosis- Primary Lentigines Psoriasis vulgaris (CMS/HCC) Other psoriasis Common wart Other specified viral warts Pain, generalized Generalized pain documented in this encounter [facility] HealthcareEvaluation note* Diagnosis Primary hypertension (CMS/HCC) Unspecified essential hypertension documented in this encounter [facility] note* Diagnosis Burning with urination Dysuria documented in this encounter [facility] note* Diagnosis Wellness examination- Primary Rhus dermatitis Shortness of breath Acquired hypothyroidism Unspecified hypothyroidism Chronic fatigue Other malaise and fatigue Elevated LDL cholesterol level Gastroesophageal reflux disease without esophagitis Esophageal reflux Hypokalemia Hypopotassemia Chronic migraine without aura without status migrainosus, not intractable Myalgia Unspecified myalgia and myositis PMDD (premenstrual dysphoric disorder) Premenstrual tension syndromes Polyarthralgia Pain in joint, multiple sites Premenstrual tension syndrome Premenstrual tension syndromes Shortened ID interval Generalized anxiety disorder Generalized anxiety disorder MDD (major depressive disorder), recurrent episode, mild Panic disorder Panic disorder without agoraphobia Chronic idiopathic constipation Unspecified constipation Chronic bilateral low back pain with bilateral sciatica History of hyperthyroidism Primary hypertension Unspecified essential hypertension Dizziness Dizziness and giddiness Persistent cough Bipolar disorder, current episode hypomanic (HCC) Psoriasis of scalp documented in this encounter [facility] Discharge instructions No data available for this section [facility] No data available for this section [facility] Summary Purpose Family History No Family History Records FoundNo Family History Records FoundNo Family History Records FoundNo Family History Records Found Advance Directives No Advanced Directives Records Found Advance Directive Response Recorded Date/ Time Advance Directives No March 14 12:37pm Advance Directive Response Recorded Date/ Time Advance Directives No March 14 11:37am Chief Complaint and Reason for Visit Chief Complaint hives all over Reason for Visit Hives Chief Complaint Admit Date Cough, congestion October 29, 2024 1 :36pm Additional Source Comments INFORMATION SOURCE (unrecogn ized section and content) DATE CREATED AUTHOR 06/03/2022 [facility] DATE CREATED AUTHOR AUTHOR'S ORGANIZ ATION 08/07/2022 [facility] DATE CREATED AUTHOR AUTHOR'S ORGANIZ ATION 01/21/2024 [facility] DATE CREATED AUTHOR AUTHOR'S ORGANIZ ATION 04/03/2025 [facility] EPIC Patient Care team informatio n (unrecognized section and content) Team Status: Active Member Role Status Dates Carolin Mckeon MD Primary Care Provider Active Team Status: Inactive Member Role Status Dates Carolin Mckeon MD Primary Care Provider Active S tart: March 14, 2024 End: March 14, 2024 Carmen Ferraro APRN Attending Provider Active S tart: March 14, 2024 End: March 14, 2024 [employer] Relationship Specialty Start Date End Date Carolin Mckeon MD [address] [id number] PCP - General Family Medicine 02/20/23 Trung Marcelo MD [address] [facility] [address] [place] [address] PCP - Medical [employer] 02/19/20 09/21/99 Team Status: Inactive Member Role Status Dates Carolin Mckeon MD Primary Care Provider Active S tart: October 29, 2024 End: October 29, 2024 Carmen Ferraro APRN Attending Provider Active S tart: October 29, 2024 End: October 29, 2024 [employer] Relationship Specialty Start Date End Date Carolin Mckeon MD [address] [facility] [address] [place] [address] PCP - General Family Medicine 02/20/23 Trung Marcelo MD [address] [facility] [address] [place] [address] PCP - Medical [employer] 02/19/20 09/21/99 [employer] Relationship Specialty Start Date End Date Carolin Mckeon MD [address] [facility] [address] [place] [address] PCP - General Family Medicine 02/20/23 Trung Marcelo MD [address] [facility] [address] [place] [address] PCP - Medical [employer] 02/19/20 09/21/99 [employer] Relationship Specialty Start Date End Date Carolin Mckeon MD [address] [facility] [address] [place] [address] PCP - General Family Medicine 02/20/23 Trung Marcelo MD [address] [facility] [address] [place] [address] PCP - Medical [employer] 02/19/20 09/21/99 [employer] Relationship Specialty Start Date End Date Carolin Mckeon MD [address] [facility] [address] [place] [address] PCP - General Family Medicine 02/20/23 Trung Marcelo MD [address] [facility] [address] [place] [address] PCP - Medical [employer] 02/19/20 09/21/99 [employer] Relationship Specialty Start Date End Date Carolin Mckeon MD [address] [facility] [address] [place] [address] PCP - General Family Medicine 02/20/23 Trung Marcelo MD [address] [place] [id number] PCP - Medical [employer] 02/19/20 09/21/99 Goals (unrecognized section and content) Goals may be documented in a n alternate section Reason for Visit (unrecogniz ed section and content) Reason Comments Skin Check Rash Suspicious Skin Lesion Reason Onset Date Comments Med Refill 01/21/2025 Reason Comments urine sample FOR RECORDS PERTAINING TO PATIENTS WHO ARE [...] BE BASED ON THE PRIMARY CLINICAL RECORDS. [employer] provides no warranty or guarantee of the accuracy or completeness of information in this document.
--- NOTE | 2025-04-20 06:56 | MM_ITS ---
Patient Name: LATIA PETER MR#: [id number] : 1980 Exam Date: 04/20/2025 Ordering Doctor: DR ILEANA INIGUEZ RADIOLOGY REPORT PROCEDURE: MM TOMOSYNTHESIS SCREENING BI COMPARISON: MM TOMOSYNTHESIS SCREENING BI, 04/25/2023. MG MAMM SCREEN 3D MARIUM CAD, 04/16/2022. INDICATIONS: screening for malignant neoplasm of breast Calculator Name NCI Breast Cancer Risk Assessment Tool 5 Year Breast Cancer Risk 0.60% Lifetime Breast Cancer Risk 8.00% Personal Breast Cancer No Personal Ovarian Cancer No Treatments None Family Cancers Grandmother-paternal with breast cancer at age 53. LOCATION: [facility] BREAST COMPOSITION: The breasts are heterogeneously dense, which may obscure small masses. FINDINGS: DIAGNOSTIC CATEGORY 1--NEGATIVE. RIGHT BREAST: No significant suspicious finding. LEFT BREAST: No significant suspicious finding. RECOMMENDATIONS: ROUTINE MAMMOGRAM AND CLINICAL EVALUATION IN 12 MONTHS. PLEASE NOTE: A NORMAL MAMMOGRAM DOES NOT EXCLUDE THE POSSIBILITY OF BREAST CANCER. A CLINICALLY SUSPICIOUS PALPABLE LUMP SHOULD BE BIOPSIED. Dictated by: Jake Johnson DO on 04/20/2025 at 16:21 Approved by: Jake Johnson DO on 04/20/2025 at 16:23
== END 2025-04-20 06:52 | disposition home or self-care (01) ==
LOC: MAMMO 06:53
PROVIDERS: PCP Family Medicine; Visit Provider Physician Assistant
DX: Z12.31 Encounter for screening mammogram for malignant neoplasm of breast (principal); Z80.3 Family history of malignant neoplasm of breast
CPT/HCPCS: 77063; 77067

== ENCOUNTER 2025-08-31 06:33 | Outpatient (OUT) | payer OTHER, SELFPAY ==
--- OUTSIDE RECORDS SUMMARY | 2025-08-31 06:38 | XMS_ITS | CCD ---
Author Organization [facility] Care Team Providers Care Front End Alignment Specialist Name Role Phone MISC, DR DOTSON Admitting Unavailable MISC, DR DOTSON Attending Unavailable MIKE, DR CLAIRE Primary Care Unavailable HEMMER, DR CRISELDA Barger Consulting Unavailable HEMMER, DR CRISELDA Barger Admitting Unavailable HEMMER, DR CRISELDA Barger Attending Unavailable MIKE, DR CLAIRE Primary Care Unavailable ZIEBER, DR LAKE Cm Consulting Unavailable HEMMER, DR CRISELDA Barger Consulting Unavailable MISC, DR DOTSON Admitting Unavailable MISC, DR DOTSON Attending Unavailable MIKE, DR CLAIRE Primary Care Unavailable MISC, DR DOTSON Consulting Unavailable MIKE, DR CLAIRE Admitting Unavailable MIKE, DR CLAIRE Attending Unavailable MIKE, DR CLAIRE Primary Care Unavailable ZIEBER, DR LAKE Cm Consulting Unavailable MIKE, DR CLAIRE Admitting Unavailable MIKE, DR CLAIRE Attending Unavailable MIKE, DR CLAIRE Primary Care Unavailable MIKE, DR CLAIRE Consulting Unavailable WEST, DR GINA Boyd Consulting Unavailable MIKE, [facility] Primary Care Physician STEPHANIE POON Admitting UnavailSTEPHANIE Rodriguez Attending Unavailabl e WILL OSEI Referring Unavailable MIKE, [facility] Primary Care Unavailable OKINWILL Referring Unavailable MIKE, [facility] Primary Care Unavailable OKINWILL Referring Unavailable MIKE, [facility] Primary Care Unavailable OKINWILL R Referring Unavailable MIKE, [facility] Primary Care Unavailable OKIN, WILL R Referring Unavailable MIKE, [facility] Primary Care Unavailable OKDENISE, WILL R Referring Unavailable MIKE, [facility] Primary Care Unavailable OKDENISE, WILL R Referring Unavailable MIKE, [facility] Primary Care Unavailable OKIN, WILL R Referring Unavailable MIKE, [facility] Primary Care Unavailable OKIN, WILL R Referring Unavailable ALETHEA MCKEON Primary Care Unavailable OKIN, WILL R Referring Unavailable ALETHEA MCKEON Primary Care Unavailable OKIN, WILL R Referring Unavailable ALETHEA MCKEON Primary Care Unavailable SRAVANIN, WILL R Referring Unavailable ALETHEA MCKEON Primary Care Unavailable SRAVANIN, WILL R Referring Unavailable ALETHEA MCKEON Primary Care Unavailable Alethea Mckeon MD Primary Care Provider [phone] Trung Marcelo MD Unavailable Alethea Mckeon MD Primary Care Provider Anita Peralta APRN Attending Provider [phone] PABLO MONTES Attending Unavailable CRISELDA LEOS Attending Unavailable JANEY ORO Attending Unavailable JANEY ORO Referring Unavailable CRISELDA LEOS Attending Unavailable JANEY ORO Attending Unavailable JANEY ORO Referring Unavailable JANEE CALVERT Attending Unavailable Criselda Jones Unavailable Allergies Allergy ClassificationReported Allergen(s)Allergy TypeDate of OnsetReaction(s) Facility (20 sources)AMOXICILLIN-POT CLAVULANATE; Translations: [AMOXICILLIN-POT CLAVULANATE]Propensity to adverse reactions to drug (disorder)35-01-6656ER intoleranceProMedica Repository (3 sources)AmoxicillinDrug Tammukm74-90-7464AavmahlrCjvhhflvfBrown [facility] (3 sources)ClavulanateDrug Zzbywdn33-72-3474XzajhvmpQjaqmnlafUpper Valley Medical Center Medications Current Medications MedicationDrug Class(es)DatesSig (Normalized)Sig (Original)[id number] 200 actuat albuterol 0.09 mg/actuat metered dose inhaler (8 sources)beta2-Adrenergic AgonistStart: 03-30-2025 End: 06-46-7505tkqq 2 puff(s) by inhalation every four hours for wheezing albuterol HFA (ProAir HFA) 90 mcg/act inhaler Indications: Shortness of breath Inhale 2 puffs every4 (four) hours if needed for wheezing or shortness of breath 8.5 g 03/30/2025 04/21/2025 Discontinued (Therapy completed)Albuterol-Budesonide (Airsupra) 90-80 MCG/ACT aerosol (11 sources)Start: 04-21-2025 End: 09-06-6586yreo 2 puff(s) by inhalation every four hoursAlbuterol-Budesonide (Airsupra) 90-80 MCG/ACT aerosol Indications: Persistent cough Inhale 2 puffs e very 4 (four) hours if needed (SOB or Wheeze) 32.1 g 3 04/21/2025 04/21/2025 DiscontinuedStart: 79-81-4600uzsc 2 puff(s) by inhalation every four hours Albuterol-Budesonide (Airsupra) 90-80 MCG/ACT aerosol Indications: Persistent cough Inhale 2 puffs every 4 (four) hours if needed (SOB or Wheeze) 32.1 g 3 04/21/2025 ActiveALPRAZolam 0.25 mg oral tablet (20 sources)BenzodiazepineStart: 06-10-2023 End: 47-27-8133FQCHMDqzex (Xanax) 1 MG tablet Take 1 mg by mouth as needed at bedtime for sleep. Along with the 0.25 mg tablet 06/10/2023 03/30/2025 Discontinued (Therapy completed)Start: 90-65-8179qqgb 1 tablet by mouth in the morning, then take 1 tablet by mouth in the evening, then take 1 tablet by mouth at bedtimeALPRAZolam (Xanax) 0.25 MG tablet Take 0.25 mg by mouth in the morning and 0.25 mg in the evening and 0.25 mg before bedtime. 04/22/2023 Lrxhax49 actuat budesonide 0.16 mg/actuat / formoterol fumarate 0.0045 mg/actuat metered dose inhaler (13 sources)Corticosteroid, beta2-Adrenergic AgonistStart: 05-12-2025 End: 08-22-2620wqxd 2 puff(s) by inhalation in the morningbudesonide-formoterol (Symbicort) 160-4.5 MCG/ACT inhaler Indications: Persistent cough Inhale 2 puffs in the morning and 2 puffs before bedtime. Do all this for 14 days. Rinse mouth with water afteruse to reduce aftertaste and incidence of candidiasis. Do not swallow. 1 each 2 05/12/2025 ActiveStart: 04-07-2025 End: 77-12-0636iaaz 2 puff(s) by inhalation in the morningbudesonide-formoterol (Symbicort) 160-4.5 MCG/ACT inhaler Indications: Persistent cough Inhale 2 puffs in the morning and 2 puffs before bedtime. Do all this for 14 days. Rinse mouth with water afteruse to reduce aftertaste and incidence of candidiasis. Do not swallow. 1 each 04/07/2025 Ywkhlx92 hr buPROPion hydrochloride 300 mg extended release oral tablet (20 sources)AminoketoneStart: 63-78-2221jjyg 1 tablet by mouth once daily Bupropion Hcl 300 mg tablet extended release 24 hr Active 300 MG PO Daily March 14, 2024 12:00am Complies with drug therapyStart: 03-14-2024 End: 51-62-9965ckzc 1 tablet by mouth once dailyBupropion Hcl 150 mg tablet extended release 24 hr Discontinued 150 MG PO Daily March 14, 2024 12:00am June 15, 2025 5:13pmtake 1 tablet by mouth every twenty-four hours in the morningbuPROPion XL (Wellbutrin XL) 300 MG 24 hr tablet Take 300 mg by mouth in the morning. Do not crush,chew, or split. . Active End: 55-57-7183qlhm 1 tablet by mouth every twenty-four hours in the morning buPROPion XL (Wellbutrin XL) 150 MG 24 hr tablet Take 150 mg by mouth in the morning. Do not crush,chew, or split. . 03/30/2025 Discontinued (Therapy completed)cefdinir 300 mg oral capsule (1 source)Cephalosporin AntibacterialStart: 09-41-6079rrqk 1 capsule by mouth every twelve hoursCefdinir 300 mg capsule Active 300 MG PO Every 12 hours 11 07June 15, 2025 12:00am Complieswith drug therapyHormone Cream Base (HRT Base) cream (9 sources)Start: 89-04-3653Izfiqaz Cream Base (HRT Base) cream Apply 0.5 mL topically Daily W-Biest/Prog Crm 3/150 mg/mL, Estradiol/Estriol/Progesterone Cream 04/06/2025 ActivelamoTRIgine 100 mg oral tablet (20 sources)Mood Stabilizer, Anti-epileptic AgentStart: 27-13-0530sqqb 2 tablets by mouth once daily at bedtimeLamotrigine 100 mg tablet Active 200 MG PO Daily at bedtime March 14, 2024 12:00am Complies with drug therapyStart: 03-14-2024 take 200 mg by mouth once daily at bedtimeLamotrigine Active 200 MG PO Daily at bedtime March 14, 2024 12:00amlevothyroxine sodium 0.137 mg oral tablet (20 sources)l-ThyroxineStart: 45-58-6683acnd 1 tablet by mouth once daily Levothyroxine 137 mcg tablet Active 137 MCG PO Daily March 13, 2024 11:00pm Start: 94-53-9231wlhv 137 ug by mouth once dailyLevothyroxine Active 137 MCG PO Daily March 14, 2024 12:00amStart: 05-55-9749syid 1 tablet by mouth before mealtimelevothyroxine (Synthroid, Levoxyl) 137 MCG tablet Indications: Acquired hypothyroidism Take 137 mcgby mouth in the morning. Take before meals. 100 tablet 3 08/12/2024 Activelurasidone hydrochloride 40 mg oral tablet (20 sources)Atypical AntipsychoticStart: 67-25-0431fijh 1 tablet by mouth at mealtimelurasidone (Latuda) 40 MG tablet Take 40 mg by mouth in the morning. Take with meals. 02/19/2024 Activeolmesartan medoxomil 20 mg oral tablet (20 sources)Angiotensin 2 Receptor BlockerStart: 90-12-5859uktx 10 mg by mouth once dailyOlmesartan 20 mg tablet Active 10 MG PO Daily October 29, 2024 1:00am Complies with drug therapyStart: 03-17-2024 End: 47-08-6657ttsk 0.5 tablet by mouth once dailyolmesartan (BENIcar) 20 MG tablet Indications: Primary hypertension TAKE 1/2 TABLET (10MG) BY MOUTHONCE DAILY 15 tablet 2 04/21/2025 Activerimegepant 75 mg disintegrating oral tablet (1 source)Start: 24-01-3483nrvt 1 tablet by mouth once daily as neededRimegepant Sulfate (Nurtec) 75 MG tablet dispersible Indications: Intractable migraine with aura with status migrainosus Take 1 tablet by mouth Daily as needed (migraine) 15 tablet 07/12/2025 ActiveStart: 91-31-0325xrce 1 tablet by mouth once daily as neededRimegepant Sulfate (Nurtec) 75 MG tablet dispersible Indications: Intractable migraine with aura with status migrainosus Take 1 tablet by mouth Daily as needed (migraine) 15 tablet 07/12/2025 Activesaccharomyces boulardii 250 mg oral capsule (20 sources)take 1 capsule by mouth once dailySaccharomyces boulardii (probiotic) 250 MG capsule Take 1 capsule by mouth 1 (one) time each day. Active tiZANidine 4 mg oral tablet (20 sources)Central alpha-2 Adrenergic AgonistStart: 08-01-8781lxpw 1 tablet by mouth every eight hours as neededTizanidine 4 mg tablet Active 4 MG PO Every 8 hours as needed October 29, 2024 1:00am Complies with drug therapyStart: 75-31-3604nwZCGmgmmg (Zanaflex) 4 MG tablet Indications: Myalgia TAKE ONE TABLET THREE TIMES A DAY NEEDED FOR 30 DAYS 90 tablet 09/16/2024 ActiveStart: 69-90-8619gaNGLtlcfh (Zanaflex) 4 MG tablet Indications: Myalgia TAKE ONE TABLET THREE TIMES A DAY NEEDED FOR 30 DAYS 90 tablet 05/21/2023 Active Completed/Discontinued Medications MedicationDrug Class(es)DatesSig (Normalized)Sig (Original)Amino Acids (8 sources) End: 06-45-3608dodf 1 tablet by mouth once dailyAMINO ACIDS PO Take 1 tablet by mouth 1 (one) time each day 03/30/2025 Discontinued (Therapy completed)take 1 tablet by mouth once dailyAMINO ACIDS PO Take 1 tablet by mouth 1 (one) time each day Activeclobetasol propionate 0.5 mg/ml medicated shampoo (2 sources)CorticosteroidStart: 10-29-2024 End: 20-69-8774Wqqfzvoquc 0.05 % shampoo Discontinued TOPICAL October 29, 2024 1:00am June 15, 2025 5:13pmibuprofen 600 mg oral tablet (3 sources)Nonsteroidal Anti-inflammatory DrugStart: 07-16-2020 End: 50-55-3404xffg 1 tablet by mouth every six hours as needed for pain Ibuprofen 600 mg tablet Discontinued 600 MG PO Q6H as needed for pain July 16, 2020 12:00amS2024 5:13pmmirtazapine 15 mg oral tablet (3 sources)Start: 07-15-2020 End: 49-79-4857odla 1 tablet by mouth once dailyMirtazapine (Remeron) 15 mg Tablet Discontinued 15 MG PO Daily July 15, 2020 12:00am October 29, 2024 3:25pmMultiple Vitamin (MULTIVITAMINS PO) (8 sources) End: 95-60-8712xqou 1 tablet by mouth once dailyMultiple Vitamin (MULTIVITAMINS PO) Take 1 tablet by mouth 1 (one) time each day. 03/30/2025 Discontinued (Other)take 1 tablet by mouth once dailyMultiple Vitamin (MULTIVITAMINS PO) Take 1 tablet by mouth 1 (one) time each day. Activenaproxen 500 mg oral tablet (11 sources)Nonsteroidal Anti-inflammatory DrugStart: 01-22-2024 End: 01-52-4094kktv 1 tablet by mouth once daily at mealtime as needed for pain naproxen (Naprosyn) 500 MG tablet Indications: Polyarthralgia TAKE ONE TABLET BY MOUTH ONCE DAILY WITH FOOD NEEDED FOR MILD PAIN 30 tablet 5 03/23/2025 03/30/2025 Discontinued (Therapy completed)predniSONE 50 mg oral tablet (3 sources)Start: 03-14-2024 End: 43-25-4516zslp 1 tablet by mouth once dailyPrednisone 50 mg tablet Discontinued 50 MG PO Daily 5 March 14, 2024 12:00am October 29, 2024 3 :25pm1 ml triamcinolone acetonide 40 mg/ml prefilled syringe (4 sources)CorticosteroidStart: 03-30-2025 End: 75-78-5986twbofsvgpmxat acetonide (Kenalog-40) injection 40 mgStart: 03-30-2025 End: 76-19-6615otmpbo 40 mg by intramuscular injection once40 mg, Intramuscular, Once, On Fri03/30/25 at 1415, For 1 dose Problems Active Problems Problem ClassificationProblemDateDocumented DateEpisodic/ChronicAllergic reactions (6 sources)Urticaria; Translations: [Urticaria, unspecified]04-81-7113Obwevbvz Anxiety disorders (20 sources)Generalized anxiety disorder; Translations: [Generalized anxiety disorder]Onset: 308961-73-1149IubcixsMxjrbtctm of lipid metabolism (20 sources)Raised low density lipoprotein cholesterol; Translations: [Pure hypercholesterolemia, unspecified]Onset: 03-20-2021 Resolved: 303922-77-0453SxmbewfNmgrhqchfz disorders (20 sources)Gastroesophageal reflux disease without esophagitis; Translations: [Gastro-esophageal reflux disease without esophagitis]Onset: 02-26-2023 60-21-4412FbxkjpkIiknfwrdk hypertension (20 sources)Essential hypertension; Translations: [Essential (primary) hypertension]Onset: 168099-27-7869IepkaamLmbytjmf of lower limb (6 sources)Closed fracture proximal phalanx, toe ; Translations: [Displaced fracture of proximal phalanx of left lesser toe(s), initial encounter for closed fracture]54-90-6652OpdtzhwzLbtxmlhcvefwm symptoms and ill-defined conditions (1 source)Stress incontinence (female) (male); Translations: [Stress incontinence (female) (male)]Onset: 21-45-7298YgmooinFqtrxwglpswiw symptoms and ill-defined conditions (1 source)Scalding pain on urination ; Translations: [Dysuria]40-46-9985Todosgie Headache; including migraine (20 sources)Migraine; Translations: [Migraine, unspecified, not intractable, without status migrainosus]Onset: 332130-63-4700TdjmybvCfrzfxhsznhh complicating ; childbirth and the puerperium (3 sources)-induced hypertension; Translations: [Gestational [-induced] hypertension withoutsignificant proteinuria, unspecified trimester]90-01-2099ZiltvqogRdqsrjs and fatigue (20 sources)Chronic fatigue, unspecified; Translations: [Fatigue]Onset: 70-61-8741FydxgrhJjif disorders (20 sources)Premenstrual dysphoric disorder; Translations: [Premenstrual dysphoric disorder]Onset: 02-26-2023 Resolved: 400953-58-7502ZsxnsobPfrxauwjgoa deficiencies (1 source)Vitamin D deficiency, unspecified; Translations: [VITAMIN D DEFICIENCY UNSPECIFIED]Onset: 04-95-2171YbunjyqDlqlv connective tissue disease (1 source)Myalgia, unspecified site; Translations: [MYALGIA UNSPECIFIED SITE] Onset: 69-83-0306IjlegpooVdlyc connective tissue disease (4 sources)Pain in left foot; Translations: [Pain in left foot]04-19-2025 EpisodicOther female genital disorders (20 sources)Premenstrual tension syndrome; Translations: [Premenstrual tension syndrome]Onset: 915853-42-8200VblyfcwJpwrq gastrointestinal disorders (20 sources)Chronic idiopathic constipation; Translations: [Chronic idiopathic constipation]Onset: 382152-82-8683WdmakicXkirz gastrointestinal disorders (1 source)Fecal urgency; Translations: [Fecal urgency]Onset: 56-79-8445Jsrkpkml Other inflammatory condition of skin (20 sources)Scalp psoriasis; Translations: [Psoriasis, unspecified]Onset: 664489-03-0318PiuddhpJtxrh inflammatory condition of skin (2 sources)Psoriasis vulgaris; Translations: [Psoriasis vulgaris]11-01-2024 ChronicOther lower respiratory disease (2 sources)Dyspnea; Translations: [Shortness of breath]11-41-9498FvvzcbsiRspup non-traumatic joint disorders (1 source)Pain in unspecified joint; Translations: [PAIN IN UNSPECIFIED JOINT] Onset: 02-34-9744MnmvthbwEfjyv skin disorders (2 sources)Seborrheic keratosis; Translations: [Other seborrheic keratosis] 18-90-0846SbtatwbmCtttu skin disorders (2 sources)Lentiginosis; Translations: [Other melanin hyperpigmentation] 32-80-1054UzvrinjaRatqp upper respiratory infections (3 sources)Viral upper respiratory tract infection; Translations: [Acute upper respiratory infection, unspecified]10-14-5961TuumdtvtMjarkpvi (3 sources)Vaginal delivery following previous section; Translations: [Maternal care for unspecified type scar from previous delivery] 07-24-0965QhgpatzzGnkvgsxg codes; unclassified (1 source)Family history of malignant neoplasm of breast; Translations: [FAMILY HX MALIG NEOPLASM OF BREAST]Onset: 60-86-1971ZqaveudeHaethfxk codes; unclassified (2 sources)Generalized aches and pains; Translations: [Pain, unspecified] 54-66-7468RkxbyvhzUxjzjhdcfod; intervertebral disc disorders; other back problems (1 source)Unspecified thoracic, thoracolumbar and lumbosacral intervertebral disc disorder; Translations: [UNS THORACIC TL AND LS IV DISC D/O]Onset: 86-53-5453RdpyrjzVnciert disorders (20 sources)Acquired hypothyroidism; Translations: [Hypothyroidism, unspecified] Onset: 160832-80-6043NmwhjzxVdtqi infection (2 sources)Verruca vulgaris; Translations: [Other viral warts]47-91-6697Emuixgqh Past or Other Problems Problem ClassificationProblemDateDocumented DateEpisodic/ChronicConditions associated with dizziness or vertigo (20 sources)Dizziness; Translations: [Dizziness and giddiness]Onset: 09-24-2023 05-53-0495ZonarjraRzmpu and electrolyte disorders (20 sources)Hypokalemia; Translations: [Hypokalemia]Onset: EpisodicOther circulatory disease (20 sources)Elevated blood pressure; Translations: [Elevated blood-pressure reading, without diagnosis of hypertension]Onset: 02-26-2023 Resolved: 118441-11-6011BfvnrsbbRvvrq complications of ; puerperium affecting management of mother (20 sources)Complication occurring during ; Translations: [ complicated by congenital heart disease, fetus 1]Onset: 03-28-2020 Resolved: 613417-57-5611GqompvulHyapc connective tissue disease (4 sources)Pain in right hand; Translations: [PAIN IN RIGHT HAND]Onset: 70-37-9551FuixmdtbCqrvt connective tissue disease (4 sources)Other specified soft tissue disorders; Translations: [OTHER SPEC SOFT TISSUE DISORDERS]Onset: 04-71-3814EolngkczQxujz connective tissue disease (20 sources)Muscle pain; Translations: [Myalgia, unspecified site]Onset: 725681-82-6612EorvvefsJgjzh lower respiratory disease (20 sources)Persistent cough; Translations: [Persistent cough]Onset: 09-24-2023 69-82-0271ZfvjzbcvMtymd non-traumatic joint disorders (20 sources)Multiple joint pain; Translations: [Pain in unspecified joint]Onset: 842864-07-0268HzjrpvpyMfurl nutritional; endocrine; and metabolic disorders (20 sources)H/O: hyperthyroidism; Translations: [Personal history of other endocrine, nutritional and metabolicdisease]Onset: 213040-00-6811Xxrpaajz Other screening for suspected conditions (not mental disorders or infectious disease) (20 sources)Encounter for screening mammogram for malignant neoplasm of breast; Translations: [Shortened [place] interval]Onset: 51-55-6195NrqcpboaXmfoxhiqg (except that caused by tuberculosis or sexually transmitted disease) (20 sources)Mycoplasma pneumonia; Translations: [Pneumonia due to Mycoplasma pneumoniae]Onset: 02-26-2023 Resolved: 622669-38-7157UolgufhiGxdfvsosdbl; intervertebral disc disorders; other back problems (20 sources)Chronic low back pain; Translations: [Lumbago with sciatica, left side]Onset: 902212-49-9540SlgoftohXtbmwfo disorders (20 sources)Disorder of thyroid gland; Translations: [Disorder of thyroid, unspecified]Onset: 06-19-2016 Resolved: 179122-61-3550Nxcnmlhg Results Test NameValueInterpretationReference RangeFacilityXR Foot - left 3 Viewson 40-26-8842Tfmhlpe Result: AP Lateral and oblique left foot, Oblique fracture midshaft of 3rd proximal phalanx with evidence of bridging callus. Unchanged position and alignment. No new fracture seen. No soft tissue swelling. remaining foot with appropriate bony alignment Impression: healing 3rd toe proximal phalanx fracture.[facility] HealthcareRadiology Study observation (narrative)[facility] TOMOSYNTHESIS SCREENING BIon 05-48-8073[address] [address] Mammography Report Signed Patient: JENNYFER PETER MR#: [id number] : 1980 Acct:[id number] Age/Sex: 45 / F ADM Date: 04/20/25 Loc: MAMMO Attending Dr: CRISELDA LEOS Ordering Physician: CRISELDA LEOS Results: Date of Service: 04/20/25 Follow Up: Procedure(s): MM tomosynthesis screening BI Accession Number(s): [id number] cc: MIKEALETHEA ; CRISELDA LEOS Patient Name: JENNYFER PETER MR#: [id number] : 1980 Exam Date: 04/20/2025 Ordering Doctor: DR CRISELDA LEOS PA RADIOLOGY REPORT PROCEDURE: MM TOMOSYNTHESIS SCREENING BI COMPARISON: MM TOMOSYNTHESIS SCREENING BI, 04/25/2023. MG MAMM SCREEN 3D MARIUM CAD, 04/16/2022. INDICATIONS: screening for malignant neoplasm of breast Calculator Name [facility] Breast Cancer Risk Assessment Tool 5 Year Breast Cancer Risk 0.60% Lifetime Breast Cancer Risk 8.00% Personal Breast Cancer No Personal Ovarian Cancer No Treatments None Family Cancers Grandmother-paternal with breast cancer at age 53. LOCATION: [facility] BREAST COMPOSITION: The breasts are heterogeneously dense, which may obscure small masses. FINDINGS: DIAGNOSTIC CATEGORY 1--NEGATIVE. RIGHT BREAST: No significant suspicious finding. LEFT BREAST: No significant suspicious finding. RECOMMENDATIONS: ROUTINE MAMMOGRAM AND CLINICAL EVALUATION IN 12 MONTHS. PLEASE NOTE: A NORMAL MAMMOGRAM DOES NOT EXCLUDE THE POSSIBILITY OF BREAST CANCER. A CLINICALLY SUSPICIOUS PALPABLE LUMP SHOULD BE BIOPSIED. Dictated by: Jake Johnson DO on 04/20/2025 at 16:21 Approved by: Jake Johnson DO on 04/20/2025 at 16:23 Dictated By: Jake Johnson M.D. Signed By: 04/20/25 1625 DD/ 1624 TD/TT: Water Taxi Operator:TBHRadiology, Radiologist, MD - 04/20/2025 [place] [address] Mammography Report Signed Patient: JENNYFER PETER MR#: [id number] : 1980 Acct:[id number] Age/Sex: 45 / F ADM Date: 04/20/25 Loc: MAMMO Attending Dr: CRISELDA LEOS Ordering Physician: CRISELDA LEOS Results: Date of Service: 04/20/25 Follow Up: Procedure(s): MM tomosynthesis screening BI Accession Number(s): [id number] cc: ALETHEA MCKEON ; CRISELDA LEOS Patient Name: JENNYFER PETER MR#: [id number] : 1980 Exam Date: 04/20/2025 Ordering Doctor: DR CRISELDA INIGUEZ RADIOLOGY REPORT PROCEDURE: MM TOMOSYNTHESIS SCREENING BI COMPARISON: MM TOMOSYNTHESIS SCREENING BI, 04/25/2023. MG MAMM SCREEN 3D MARIUM CAD, 04/16/2022. INDICATIONS: screening for malignant neoplasm of breast Calculator Name [facility] Breast Cancer Risk Assessment Tool 5 Year Breast Cancer Risk 0.60% Lifetime Breast Cancer Risk 8.00% Personal Breast Cancer No Personal Ovarian Cancer No Treatments None Family Cancers Grandmother-paternal with breast cancer at age 53. LOCATION: [facility] BREAST COMPOSITION: The breasts are heterogeneously dense, which may obscure small masses. FINDINGS: DIAGNOSTIC CATEGORY 1--NEGATIVE. RIGHT BREAST: No significant suspicious finding. LEFT BREAST: No significant suspicious finding. RECOMMENDATIONS: ROUTINE MAMMOGRAM AND CLINICAL EVALUATION IN 12 MONTHS. PLEASE NOTE: A NORMAL MAMMOGRAM DOES NOT EXCLUDE THE POSSIBILITY OF BREAST CANCER. A CLINICALLY SUSPICIOUS PALPABLE LUMP SHOULD BE BIOPSIED. Dictated by: Jake Johnson DO on 04/20/2025 at 16:21 Approved by: Jake Johnson DO on 04/20/2025 at 16:23 Dictated By: Jake Johnson M.D. Signed By: 04/20/255 DD/ 23 TD/TT: Water Taxi Operator: [facility] HealthcareRadiology Study observation (narrative)[facility] Healthcare TOMOSYNTHESIS SCREENING BIOrdered By: Radiologist Radiology on 09-50-4168MGOQCenter[facility] Work Phone: No [facility] Informationon 04-78-2735FsgiibnGEETHA Graves 04/20/2025 9:38 PM Cast / Splint / Fx Date/Time: 04/20/2025 3:59 PM Performed by: GEETHA Graves Authorized by: GEETHA Graves Consent given by: patient Timeout: Immediately prior to procedure a time out was called to verify the correct patient, procedure, equipment, litigation support analyst and site/side marked as required Injury Location details: left third toe Fracture type: proximal phalanx fracture Pre-procedure assessment neurovascularly intact Range of motion: normal Procedure Manipulation performed? no manipulation performed Immobilization: splint Splint/Brace type: cam boot Post-procedure assessment neurovascularly intact Range of motion: unchanged Patient tolerance: patient tolerated the procedure well with no immediate complicationsMission Family Health CenterXR Foot - left 3 Viewson 04-20-2025 Imaging Result: AP Lateral and oblique left foot, Oblique fracture midshaft of 3rd proximal phalanx, does not appear to intersect there articular cartilage Mild soft tissue swelling to 3rd digit. Remaining foot bone with appropriate alignment Impression: 3rd toe proximal phalanx fracture.[facility] Radiology Study observation (narrative)[facility] CenterUrinalysis macro (dipstick) panel (U)on 93-39-8243Yakdxvbaw, UANegativeNegative - 4(70) +++ mg/dL [facility] HealthcareBlood, UANegativeNegative - 50 Emir/[facility] HospitalNOTN HealthcareGlucose, UA NegativeNegative - 1999(110) ++++ mg/dLNOTN HealthcareInterpretation and review of laboratory resultsNormalNOTN HealthcareKetones, UANegativeNegative - 160(16) ++++ mg/dLNOTN HealthcareLeukocytes, UANegativeNegative - 500+++ Baldo/mcLNOTN HealthcareNitrite, UANegativeNegative - PositiveNOMS HealthcarepH, UA6.55 - 9 NOMS HealthcareProtein, UANegativeNegative - 2000(20) ++++ mg/dLSHRINERS HOSPITALS FOR CHILDREN Healthcare Spec Grav, UA1.011 - 1.03NOTN HealthcareUrobilinogen, UA1.00.2 - 12 mg/dLCenterpoint Medical CenterNOTN HealthcareNo Panel Informationon [id number] HealthcareALL CBC WITH AUTO DIFFon 73-55-9815TNUBDMZEA ABSOLUTE UJHA0XCVW HealthcareBasophils/100 WBC (Bld)0.7 %0.2 - 2.0 %NOMS HealthcareEosinophils/100 WBC (Bld)2.5 %0.9 - 7.0 %NOMS HealthcareErythrocyte distribution width (RBC) [Ratio]12.4 %11.0 - 15.0 % [facility] CenterHematocrit (Bld) [Volume fraction]38.6 %36.0 - 48.0 %[facility] CenterHemoglobin (Bld) [Mass/Vol]13.3 g/dL12.0 - 16.0 g/dLCenterpoint Medical Center IMMATURE GRANULOCYTES ABS AUTO0.01NOMercy Hospital JoplinImmature granulocytes/100 WBC (Bld)0.2 %0.0 - 0.5 %[facility] Medical CenterInterpretation and review of laboratory resultsAbnormalCenterpoint Medical CenterLYMPHOCYTES ABSOLUTE AUTO1.2NOMS [facility] Lymphocytes/100 WBC (Bld)27.4 %20.5 - 60.0 %[facility] HospitalH (RBC) [Entitic mass]30.6 pg26.7 - 34.0 pgCooper County Memorial HospitalHC (RBC) [Mass/Vol]34.5 g/dL29.9 - 35.2 g/dLCenterpoint Medical CenterMCV (RBC) [Entitic vol]88.9 fL81.0 - 99.0 fLCenterpoint Medical CenterMONOCYTES ABSOLUTE AUTO0.4NOMercy Hospital JoplinMonocytes/100 WBC (Bld)9.6 % 1.7 - 12.0 %[facility] CenterNEUTROPHILS ABSOLUTE AUTO2.7NOMS [facility] Neutrophils/100 WBC (Bld)59.6 %43.0 - 75.0 %[facility] Medical CenterPlatelet mean volume (Bld) [Entitic vol]9.4 fLLow9.5 - 13.5 fLCenterpoint Medical CenterTBH EO #0.1NOMS [facility] HospitalTB GPI146YHKD [place] RBC4.34NOMS [place] WBC4.5NOMercy Hospital JoplinCLINISYNCNWashington County Memorial HospitalLab Miscellaneous-LCon 15-14-7142Tnt MiscellaneousCOMMENTInvalid Interpretation [facility] Comment on above:Result Comment: Test Ordered: [id number] Q Fever IgG/IgM Antibody Scrn Q Fever IgG Phase I Negative E= Reference Range: Negative Q Fever IgG Phase II Positive [A ] E= Reference Range: Negative Q Fever IgM Phase I Negative E= Reference Range: Negative Q Fever IgM Phase II Negative E= Reference Range: Negative The performance characteristics of the listed assay was validated by [facility]. The [place] FDA has not approved or cleared this test. The results of this assay can be used for clinical diagnosis without FDA approval. [facility] is a CLIA certified, CAP accredited laboratory for performing high complexity assays such as this one. Testing Performed at: [facility] [address] [place] [address] Q Fever Phase II IgG Antibody 1:256 [A ] E= Reference Range: < 1:16 The performance characteristics of the listed assay was validated by [facility]. The [place] FDA has not approved or cleared this test. The results of this assay can be used for clinical diagnosis without FDA approval. [facility] is a CLIA certified, CAP accredited laboratory for performing high complexity assays such as this one. 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 Sfn246Rcf), legacy name: [id number] - Not Detected Interpretation: This result may [...] that can decrease enzyme activity; c.665C>T (p. Llh366Rys), legacy name C677T, and c.1286A>C (p. Zdi858Cpb), legacy name [id number]. These variants do not independently increase risk [...] to limited evidence of clinical utility (PMID: 84502674). Comments: Genetic Coordinators are available for health care providers to discuss results at [phone]). Test Details: Variants Analyzed: c.665C>T (p. Ubp487Gsw), legacy name: C677T and c.1286A>C (p. Szf600Krj), legacy name: [id number] Methods/Limitations: DNA analysis of the MTHFR gene [...] developed and its performance characteristics determined by [employer]. It has not been cleared or approved by the Food and Drug Administration. References: Nicolás SE, Matt CJ, Jaclyn DACOSTA. ACMG Practice Guideline: lack of evidence for MTHFR polymorphism testing. Stormy Med. 2012;15(2):153-6. doi: 10.1038/gim.2012.165. Epub 2012Sep 24. PMID: 98585056. [place] [employer] Gynec[employer]' Committee on Practice Bulletins-Obstetrics. ACOG Practice Bulletin No. 197: Inherited Thrombophilias in . Obstet Gynecol. 2018 Mar;132(1):e18-e34. doi: 10.1097/AOG.5655582659356314. Erratum in: Obstet Gynecol. 2018 Jun;132(4):1069. PMID: 46560656. Latha Vasques, PhD, [facility] Dario Moya, PhD Jake Cornejo, PhD, [facility] Wade Mercer, PhD, [facility] Jack Foster, PhD, [facility] Joan Peoples, PhD, [employer] Nanci Mchugh, PhD, [employer] Yuliet Gonzalez, PhD, [facility] Performed at: [facility] [address] [facility] [place], [place] [id number] [facility] Ganga Chandlerformed By: #### [id number] #### [facility] [address] [place] [address] [place], [place] [address]Whhcev Summary.on 62-83-6458Omddyf Summary. CD:[id number]:9521177LRg3cOk+PGhlYWQ+XK7JKGVqV14qvOPewD5QO1rTIJ1STVKVCEDZBR0WVI6bc JA3NPlpX4GbusZq [file] bGxh (more content not included)...[facility] HospitalCoding Summary. CD:628100WI:9614207IDd8pKm+PGhlYWQ+DS6LBIEuC90alCDgaK7DK4hVVP1WUMBKWESTHT5RDK1qp UT5MWywU3JocbZj [file] bGxh (more content not included)...NormalTuscarawas HospitalLab Miscellaneous-LCon 12-99-8651Okg MiscellaneousCOMMENTInvalid Interpretation Code [facility] HospitalComment on above:Result Comment: Test Ordered: [id number] Complement C4a Complement C4a 502.4 ng/mL BN Reference Range: 0.0-650.0 Results for this test are for research purposes only by the assay's ecommerce manager. The performance characteristics of this product have not been established. Results should not be used as a diagnostic procedure without confirmation of the diagnosis by another medically established diagnostic product or procedure. Performed at: [facility] [id number] PhD Anuradha Chappellformed By: #### [id number] #### [facility] [address] [place] [address]Owg [facility] CitycellaneousCOMMENTInvalid Interpretation [facility] HospitalComment on above:Result Comment: Test Ordered: [id number] Dengue Virus IgG and IgM Dengue IgM [...] Certain sera from patients infected with Zika, Amharic Encephalitis, West Nile, and/or Martin Viruses may [...] Certain sera from patients infected with Zika, Amharic Encephalitis, West Nile, and/or Martin Viruses may give false positive results. The performance characteristics of this test have been determined by [employer]. This test has not been cleared or approved for diagnostic use by the U.S. Food and Drug Administration. Performed at: [address] [id number] PhD Anuradha Chappellformed By: #### [id number] #### [facility] [address] [place] [address] 119[address]Fjr MiscellaneousCOMMENTInvalid Interpretation [facility] HospitalComment on above:Result Comment: Test Ordered: [id number] Trans. Growth Fact. beta 1* Trans. Growth Fact. beta 1* 4033 pg/mL [facility] Reference Range: 867-6662 The result is reported in pg/mL. The assay range is approximately 150 to 50,000. The reference range for a healthy population is 867-6662. However it should be noted that these ranges are obtained from a limited population of apparently healthy adults and are not diagnostic thresholds. *This test was developed and its performance characteristics determined by [employer]. It has not been cleared or approved by the U.S. Food and Drug Administration. Performed at: [address] [id number] PhD Anuradha SeayPerformed By: #### [id number] #### [facility] [address] [place] [address] 38[address]Dug Miscellaneous-LCon 47-99-1256Lyd MiscellaneousCOMMENT Invalid Interpretation [facility] HospitalComment on above:Result Comment: Test Ordered: [id number] West Nile Virus Antibody,Serum West Nile Virus, [...] for testing within 7-14 days. Performed at: [address] [id number] PhD Anuradha SeayPerformed By: #### [id number] #### [facility] [address] [place] [address] 43037Hrk MiscellaneousCOMMENTInvalid Interpretation [facility] HospitalComment on above:Result Comment: Test Ordered: [id number] Ehrlichia Ab Panel E. chaffeensis (HME) IgG Titer Negative BN Reference Range: Neg:<1:64 E. chaffeensis (HME) IgM Titer Negative BN Reference Range: Neg:<1:20 IgG titers if 1:64 or greater indicate exposure or acute and convalescent samples showing a four-fold increase, and/or the presence of IgM indicate recent or current infection. HGE IgG Titer Negative Reference Range: Neg:<1:64 HGE IgG levels are [...] approximately 30 to 60 days. Performed at: [address] [id number] PhD Anuradha Chappellformed By: #### [id number] #### [facility] [address] [place] [address] 10596Tag MiscellaneousCOMMENTInvalid Interpretation [facility] HospitalComment on above:Result Comment: Test Ordered: [id number] Peter Mtn Spotted Fev, IgG, Qn RMSF, IgG, EIA Negative Reference Range: Negative Performed at: [address] [id number] PhD Anuradha Chappellformed By: #### [id number] #### [facility] [address] [place] [address] 88736Xrygvh Comment: Test Ordered: [id number] Peter Mtn Spotted Fever, IgM Peter Mtn Spotted Fever, IgM 0.98 [H ] index BN Reference Range: 0.00-0.89 Negative <0.90 Equivocal 0.90 - 1.10 Positive >1.10 Performed at: [address] [id number] PhD Anuradha Mariecellaneous-LCon 63-61-5064Rkv MiscellaneousCOMMENTInvalid Interpretation [facility] Comment on above:Result Comment: Test Ordered: [id number] Bartonella Antibody Panel B. henselae IgG Negative [...] developed and its performance characteristics determined by [employer]. It has not been cleared or approved by the Food and Drug Administration. The FDA has determined that such clearance or approval is not necessary. Performed at: [address] [id number] PhD Anuradha Chappellformed By: #### [id number] #### [facility] [address] [place] [address] 47[address]Ujkaxo Comment: Test Ordered: [id number] Babesia microti Antibody Panel Babesia microti IgM <1:10 BN Reference Range: Neg:<1:10 Babesia microti IgG <1:10 BN Reference Range: Neg:<1:10 This test was developed and its performance characteristics determined by [employer]. It has not been cleared or approved by the U.S. Food and Drug Administration. The FDA has determined that such clearance or approval is not necessary. This test is used for clinical purposes. It should not be regarded as investigational or research. Performed at: [address] [id number] PhD Anuradha Skaggs MiscellaneousCOMMENTInvalid Interpretation [facility] HospitalComment on above:Result Comment: Test Ordered: [id number] Brucella Antibody IgM, EIA Brucella Antibody IgM, EIA Negative BN Reference Range: Negative This assay detects antibodies to Brucella abortus, melitensis, and suis. Performed at: [address] [id number] PhD Anuradha Chappellformed By: #### [id number] #### [facility] [address] [place], [place] [address]Rypsne Comment: Test Ordered: [id number] Brucella Antibody IgG, EIA Brucella Antibody IgG, EIA Negative BN Reference Range: Negative This assay detects antibodies to Brucella abortus, melitensis, and suis. Performed at: [address] [id number] PhD Anuradha Samaniego Comment: Test Ordered: [id number] Coxsackie A IgG/IgM Antibody Coxsackie A7 IgG [...] titer BN Reference Range: Neg:<1:10 Performed at: [address] [id number] PhD Anuradha kSaggs Miscellaneous-LCon 70-93-4367Zmu MiscellaneousCOMMENTInvalid Interpretation [facility] Comment on above:Result Comment: Test Ordered: [id number] Human Granulocytic Samantha-HGE HGE IgG Titer Negative Reference Range: Neg:<1:64 HGE IgG levels are [...] approximately 30 to 60 days. Performed at: [address] [place] [id number] PhD Anuradha SeayPerformed By: #### [id number] #### [facility] [address] [place] [address]Qns Miscellaneous-LCon 08-92-3361Cvp MiscellaneousCOMMENT Invalid Interpretation CodeTuscarawas HospitalComment on above:Result Comment: Test Ordered: [id number] Coxsackie Virus Group B Ab Coxsackie B-1 Ab 1:8 [H ] BN Reference Range: Neg:<1:8 Coxsackie B-2 Ab Negative BN Reference Range: Neg:<1:8 Coxsackie B-3 Ab Negative BN Reference Range: Neg:<1:8 Coxsackie B-4 Ab Negative BN Reference Range: Neg:<1:8 Coxsackie B-5 Ab Negative BN Reference Range: Neg:<1:8 Coxsackie B-6 Ab 1:16 [H ] BN Reference Range: Neg:<1:8 Performed at: [address] [id number] PhD Anuradha SeayPerformed By: #### [id number] #### [facility] [address] [place] [address] 62834UWW IgGon 65-34-0609JDB IgG IA Qn<0.60Invalid Interpretation Code0.00-0.59Tuscarawas HospitalComment on above:Result Comment: Negative <0.60 Equivocal 0.60 - 0.69 Positive >0.69 Performed at: [address] [id number] PhD Anuradha SeayPerformed By: #### [id number] #### [facility] [address] [place] [address] 20201FYR IgMon 78-77-4413YNU IgM IA Qn<30.0Invalid Interpretation Code0.0-29.9Tuscarawas HospitalComment on above:Result Comment: Negative <30.0 Equivocal 30.0 - 34.9 Positive >34.9 A positive result is generally indicative of acute infection, reactivation or persistent IgM production. Performed at: [facility] [address] [id number] PhD Anuradha Chappellformed By: #### [id number] #### [facility] [address], [place] [address]Kns Miscellaneous-LCon 46-45-9552Dji MiscellaneousCOMMENT Invalid Interpretation CodeFisher Brandenburg CenterComment on above:Result Comment: Test Ordered: [id number] HNK1 (CD57) Panel % CD8-/CD57+ Lymphs 8.9 % BN Reference Range: 2.0-17.0 This test was developed and its performance characteristics determined by [employer]. It has not been cleared or [...] Reference Range: 0.0-0.1 Performed at: [facility] [address] [id number] PhD Anuradha SeayPerformed By: #### [id number] #### [facility] [address] [place] [address] 94453Rmx Miscellaneous-LCon 63-03-2607Zdjy Wzgb746091Kdpppvg Interpretation [facility] HospitalComment on above:Performed By: #### [id number] #### [facility] [address] [place] [address] 46552Ovrk QlroX4gDsjkeub Interpretation [facility] HospitalComment on above:Performed By: #### [id number] #### [facility] [address] [place] [address] 476[address]Vsiz Qqhy372025Yigutcy Interpretation [facility] HospitalComment on above:Performed By: #### [id number] #### [facility] [address], [place] [address]Qgmc Icay333989Biiicix Interpretation [facility] HospitalComment on above:Performed By: #### [id number] #### [facility] [address], [place] [address]Sdmf Bevc890356Uhnalqi Interpretation [facility] HospitalComment on above:Performed By: #### [id number] #### [facility] [address], [place] [address]Qbgf Wqre310848Adxhlcf Interpretation [facility] HospitalComment on above:Performed By: #### [id number] #### [facility] [address], [place] [address]Hmaa Apxi268166Erynusp Interpretation [facility] HospitalComment on above:Performed By: #### [id number] #### [facility] [address], [place] [address]Rdst Cxmz252794Vocmobq Interpretation [facility] HospitalComment on above:Performed By: #### [id number] #### [facility] [address], [place] [address]Rvjk Eqmp066757Gknqsee Interpretation [facility] HospitalComment on above:Performed By: #### [id number] #### [facility] [address], [place] [address]Ekru Aiqi633260Ljappip Interpretation [facility] HospitalComment on above:Performed By: #### [id number] #### [facility] [address], [place] [address]Bofh Imht931419Hofedrh Interpretation [facility] HospitalComment on above:Performed By: #### [id number] #### [facility] [address], [place] [address]Cogj Tamm879638Nhjqhhh Interpretation [facility] HospitalComment on above:Performed By: #### [id number] #### [facility] [address], [place] [address]Qwou NameRMSF IGGInvalid Interpretation [facility] HospitalComment on above:Performed By: #### [id number] #### [facility] [address], [place] [address]Bwcv NameEHRLICHIOSISInvalid Interpretation [facility] HospitalComment on above:Performed By: #### [id number] #### [facility] [address], [place] [address]Xghl NameBRUCELLA IGMInvalid Interpretation [facility] HospitalComment on above:Performed By: #### [id number] #### [facility] [address], [place] [address]Mfsf NameWEST NILEInvalid Interpretation [facility] HospitalComment on above:Performed By: #### [id number] #### [facility] [address], [place] [address]Qblc NameRMSF IGMInvalid Interpretation [facility] HospitalComment on above:Performed By: #### [id number] #### [facility] [address], [place] [address]Itbt NameTRNS GR BETA 1Invalid Interpretation [facility] HospitalComment on above:Performed By: #### [id number] #### [facility] [address], [place] [address]Wvun NameDENGUE FEVERInvalid Interpretation [facility] HospitalComment on above:Performed By: #### [id number] #### [facility] [address], [place] [address]Ueej NameBRUCELLA IGGInvalid Interpretation [facility] HospitalComment on above:Performed By: #### [id number] #### [facility] [address], [place] [address]Bsth NameQ FEVER IGG/IGMInvalid Interpretation [facility] HospitalComment on above:Performed By: #### [id number] #### [facility] [address], [place] [address]Znnf NameHNK1 (CD57)Invalid Interpretation [facility] HospitalComment on above:Performed By: #### [id number] #### [facility] [address], [place] [address]Ysaz Hnou055351Tmsufoq Interpretation [facility] HospitalComment on above:Performed By: #### [id number] #### [facility] [address], [place] [address]Vvlk Icdy512264Bcctbmn Interpretation [facility] HospitalComment on above:Performed By: #### [id number] #### [facility] [address], [place] [address]Ibfx Eieb127010Rxylaem Interpretation [facility] HospitalComment on above:Performed By: #### [id number] #### [facility] [address], [place] [address]Fbos Iirq830894Kftvaqj Interpretation [facility] HospitalComment on above:Performed By: #### [id number] #### [facility] [address], [place] [address]Jzxc Cqrz112704Yvpzdur Interpretation [facility] HospitalComment on above:Performed By: #### [id number] #### [facility] [address], [place] [address]Ymcy NameBARTONELLAInvalid Interpretation [facility] HospitalComment on above:Performed By: #### [id number] #### [facility] [address], [place] [address]Lvqh NameCOXSACKIE AInvalid Interpretation [facility] HospitalComment on above:Performed By: #### [id number] #### [facility] [address], [place] [address]Tlwu NameCOXSACKIE BInvalid Interpretation [facility] HospitalComment on above:Performed By: #### [id number] #### [facility] [address], [place] [address]Cpib NameHGEInvalid Interpretation [facility] HospitalComment on above:Performed By: #### [id number] #### [facility] [address], [place] [address]Bflx NameBABESIA ABInvalid Interpretation [facility] HospitalComment on above:Performed By: #### [id number] #### [facility] [address], [place] [address]Kgvqnxg for Treatmenton 00-33-3628Umnvvxp for Treatment [id number]#1.00CD:127[facility] HospitalPhysician Orderon 17-84-9376Nhrnuxrcc Order [id number]#1.00CD:127[facility] HERPESVIRUS 6 ABS, IGMon 09-47-0415Lpvpl Herpes Virus Type 6 IgM CANRGTNoTrumbull Regional Medical CenterComaspirus iron [facility] hospital on above:Result Comment: Test not performed. Unable to perform test due to current unavailability of reagents or discontinuation of test. Test not performed. Unable to perform test due to current unavailability of reagents or discontinuation of test. This test was developed and its performance characteristics determined by [employer]. It has not been cleared or approved by the Food and Drug Administration.Performed By: #### HHV6, [id number] #### [facility] [address] [place] [address] Dr. Dionte OmalleyMETHYLMALONIC ACID (MMA)on 81-76-6801Hidpewxqrfoeo Acid, Xfton792 nmol/LNormal0-378[facility] HealthComaspirus [facility] on above:Performed By: #### MMA2 #### [facility] [address] [place] [address] Dr. Dionte OmalleyCOPBASSEM, SERUM or PLASMAon 24-75-6170Ihhksg, Serum98 ug/dLNormal 80-158[facility] HealthComaspirus [facility] on above:Result Comment: Detection Limit = 5 Performed By: #### COPPER #### [facility] [address] [place] [address] Dr. Dionte Lowe HERPESVIRUS 6 ABS, IGGon 65-03-3662JQN-6 IgG Antibodies3.63 indexCritically highUniversity Hospitals Ahuja Medical Center on above:Result Comment: Negative <0.90 Equivocal 0.90 - 1.10 Positive >1.10 Results of this test are labeled for research purposes only by the assay's ecommerce manager. The performance characteristics of this assay have not been established by the ecommerce manager. The result should not be used for treatment or for diagnostic purposes without confirmation of the diagnosis by another medically established diagnostic product or procedure. The performance characteristics were determined by [employer].Performed By: #### HHV6, [id number] #### [facility] [address] [place] [address] Dr. iDonte Aguilar SERUM OR PLASMAon 57-83-3749Uvnn, Plasma or Serum77 ug/dL Ftakkp31-841BppWexner Medical Centerment on above:Result Comment: Detection Limit = 5Performed By: #### HSVIGM #### [facility] [address] [place] [address] Dr. Dionte OmalleyANTI-DNASE ANTIBODIESon 75-80-7918Kaex-DNase B Strep Antibodies 115 U/mLNormal0-120The [facility] HospitalComment on above:Performed By: #### HSVIGM #### [facility] [address] [place] [address] Dr. Dionte OmalleyCHLAMYDIA PNEUMONIAE IGG/IGMon 09-73-5023Nrokcjfbj pneumoniae IgG <1:16NormalNeg:<1:16The [facility] HospitalComment on above:Performed By: #### HSVIGM #### [facility] [address] [place] [address] Dr. Dionte OmalleyChlamydia pneumoniae IgM<1:10NormalNeg:<1:10[facility] Comment on above:Performed By: #### HSVIGM #### [facility] [facility] [address] [place] [address] Dr. Dionte OmalleyMYCOPLASMA PNEUMONIA IGG/IGMon 05-09-2022M pneumoniae IgG Tnd974 U/mLCritically high0-99[facility] on above:Result Comment: Negative: <100 Indeterminate: 100 - 320 Positive: >320 The reference interval established is intended as a baseline only. Values >100 may indicate a recent infection with Mycoplasma pneumoniae and need to be confirmed either by a positive IgM result and/or an additional specimen drawn 2-4 weeks later showing a significant increase in antibody levels.Performed By: #### ASOAB #### [facility] [address] [place] [address] Dr. Dionte OmalleyM pneumoniae IgM Abs<431Qreugy4-884Ypu [facility] HospitalComment on above:Result Comment: Negative <770 Clinically significant amount of M. pneumoniae antibody not detected. Low Positive 770 - 950 M. pneumoniae specific IgM presumptively detected. It is recommended that another sample be collected 1-2 weeks later to assure reactivity. Positive >950 Highly significant amount of M. pneumoniae specific IgM antibody detected.Performed By: #### ASOAB #### [facility] [address] [place] [address] Dr. Dionte Otero EIA W/REFLEX 5 BIOMARKERSon 20-19-1629KEF DirectNegative NormalNegativeThe Newark HospitalComment on above:Performed By: #### HSVIGM #### [facility] [address] [place] [address] Dr. Dionte OmalleyANTISTREPTOLYSIN O AB (ASO)on 56-50-3217Pikqznhmeiulxqgf O Ab 132.0 IU/mLNormal0.0-200.0The [facility] HospitalComment on above:Performed By: #### ASOAB #### [facility] [address] [place] [address] Dr. Dionte OmalleyC-REACTIVE PROTEINS (HS)on 58-40-9031I-Reactive Protein, Cardiac 0.41 mg/LNormal0.00-3.00The [facility] HospitalComment on above:Result Comment: Relative Risk for Future Cardiovascular Event Low <1.00 Average 1.00 - 3.00 High >3.00Performed By: #### CRPHS #### [facility] [address] [place] [address] Dr. Dionte CaceresBV EARLY ANTIGEN (IgG)on 27-98-6553LNA Early Antigen Ab, IgG51.9 U/mLCritically high0.0-8.9The [facility] HospitalComment on above:Result Comment: Hepatitis A, Hepatitis C and HIV antibodies may cross-react with this assay. Negative < 9.0 Equivocal 9.0 - 10.9 Positive >10.9Performed By: #### HSVIGM #### [facility] [address] [place] [address] Dr. Dionte CaceresPSTEIN-ZIEGLER VIRUS (EBV) AB PROFILEon 24-89-3484SJN Ab VCA, IgG 585.0 U/mLCritically high0.0-17.9The [facility] Centerment on above:Result Comment: Negative <18.0 Equivocal 18.0 - 21.9 Positive >21.9Performed By: #### ASOAB #### [facility] [address] [place] [address] Dr. Dionte Catalan Ab VCA, IgM<36.6Komqkn1.0-35.9The [facility] on above:Result Comment: Negative <36.0 Equivocal 36.0 - 43.9 Positive >43.9Performed By: #### ASOAB #### [facility] [address] [place] [address] Dr. Dionte Catalan Nuclear Antigen Ab, KbS289.0 U/mLCritically high0.0-17.9The [facility] on above:Result Comment: Negative <18.0 Equivocal 18.0 - 21.9 Positive >21.9Performed By: #### ASOAB #### [place] [address] [address] Dionte OmalleyInterpretation:CommentNormalThe [facility] on above:Result Comment: EBV Interpretation Chart Sosa: Antibody Present [...] patients with EBV never develop antibodies to EBNA.Performed By: #### ASOAB #### [facility] [address] [place] [address] Dr. Dionte OmalleyHERPES SIMPLEX 1/2 IGGon 26-17-2171PGK 1 IgG, Type Spec4.70 index Critically high0.00-0.90The [facility] on above:Result Comment: Negative <0.91 Equivocal 0.91 - 1.09 Positive >1.09 Note: Negative indicates no antibodies detected to HSV-1. Equivocal may suggest early infection. If clinically appropriate, retest at later date. Positive indicates antibodies detected to HSV-1.Performed By: #### HSVIGM #### [facility] [address] [place] [address] Dr. Dionte SpearV 2 IgG Type Spec<0.08Svgdem2.00-0.90[facility] Comment on above:Result Comment: Negative <0.91 Equivocal 0.91 - 1.09 Positive >1.09 Note: Negative indicates no HSV-2 antibodies detected. Positive indicates HSV-2 antibodies detected. Equivocal and low positive HSV-2 screens (Index 0.91-5.00) may be false positive and are reflexed to supplemental testing in accordance with CDC guidelines.Performed By: #### HSVIGM #### [facility] [address] [place] [address] Dr. Dionte OmalleyHERPES SIMPLEX 1/2 IGMon 80-23-5377DDE, IgM I/II Combination1.30 RatioCritically high0.00-0.90The [facility] HospitalComment on above:Result Comment: Negative <0.91 Equivocal 0.91 - 1.09 Positive >1.09 Effective June 17, 2022 HSV, IgM I/II Combination will be made non-orderable. [facility] offers 950310 HSV 1 and 2-Spec Ab, IgG w/Rfx and 302203 HSV [place].Performed By: #### HSVIGM #### [facility] [address] [place] [address] Dr. Dionte OmalleyHOMOCYSTEINEon 22-44-8121Rusqksap(e)ine, Plasma7.2 umol/LNormal 0.0-14.5The [facility] HospitalComment on above:Performed By: #### HOMCY #### [facility] [address] [place] [address] Dr. Dionte OmalleyBOX TEST SENT OUTon 65-84-5160RVJK TO REF LAB05/07/2022NormalThCleveland Clinic Avon HospitalComment on above:Performed By: #### ASOAB #### [facility] [address] [place] [address] Dr. Dionte OmalleyCPKon 84-63-1740HV [Catalytic activity/Vol]67 U/YYznlvo21-571Dxs [facility] HospitalComment on above:Performed By: #### CK #### [facility] [address] [address] [address] Dionte OmalleySED RATE WESTERGRENon 66-24-6178EPI RATE4 mm/hrNormal<=20The [facility] HospitalComment on above:Performed By: #### HSVIGM #### [facility] [address] [address] [address] Dionte OmalleyVITAMIN B12on 02-13-2070Zuitcnqqo (Vitamin B12) [Mass/Vol]803.0 pg/vLTecszn058.0-986.0The [facility] HospitalComment on above:Performed By: #### VITB12 #### [facility] [address] [address] [address] Dionte OmalleyMG MAMM SCREEN 3D MARIUM CADon 64-93-1089UO MAMM SCREEN 3D MARIUM CAD Patient: JENNYFER PETER Exam Date: 04/16/2022 : 1980 Gender:F Ordering : DR CRISELDA LEOS PA Admission #: [id number] Family : Order #: [id number] CLICK HERE TO VIEW EXAM RADIOLOGY REPORT PROCEDURE: MAMMOGRAM SCREENING 3D BILATERAL CAD COMPARISON: None. INDICATIONS: Screening for malignant neoplasm of breast Calculator Name NCI Breast Cancer Risk Assessment Tool 5 Year Breast Cancer Risk 0.50% Lifetime Breast Cancer Risk 8.30% Personal Breast Cancer No Personal Ovarian Cancer No Treatments None Family Cancers Grandmother-paternal with breast cancer at age 53. LOCATION: [facility] BREAST COMPOSITION: Heterogeneously dense,which may obscure small masses. FINDINGS: DIAGNOSTIC CATEGORY 1--NEGATIVE. RIGHT BREAST: No significant suspicious finding. LEFT BREAST: No significant suspicious finding. RECOMMENDATIONS: ROUTINE MAMMOGRAM AND CLINICAL EVALUATION IN 12 MONTHS. PLEASE NOTE: A NORMAL MAMMOGRAM DOES NOT EXCLUDE THE POSSIBILITY OF BREAST CANCER. A CLINICALLY SUSPICIOUS PALPABLE LUMP SHOULD BE BIOPSIED. Dictated by: Lake Owens M.D. on 04/17/2022 at 12:39 Approved by: Lake Owens M.D. on 04/17/2022 at 12:41NormalThCleveland Clinic Avon HospitalXR HAND MARIUM MIN 3Von 64-92-9942MV HAND MARIUM MIN 3VEXAMINATION: XR HAND MARIUM MIN 3V HISTORY: Disorder [...] to suggest rheumatoid arthritis. Electronically authenticated by: LAKE OWENS Date: 2021-09-14 07:21[facility] Vital Signs Date TimeVital SignValuePerforming TmlisbnxdDvauprlg99-76-0001 09:01-0400Body xgiqri838.2 cmSjumana Calvert PROGRAM HOST Work Phone: [phone] JoplinIthadmvqco74-65-0448 09:01-0400Body mass index (BMI) [Ratio]21.93 kg/k1LnhgboJanee Calvert PROGRAM HOST Work Phone: [phone] JoplinBfbwdjowal97-98-4003 09:01-0400Body pbyymn54.5 kg Janee Calvert PROGRAM HOST Work Phone: [phone] JoplinHyfkseiabr06-01-6874 09:01-0400Diastolic blood clfwwcem01 mm[Hg]Janee Calvert PROGRAM HOST Work Phone: [phone] JoplinEolilapsjr99-50-4763 09:01-0400Heart rate70 /min Janee Calvert PROGRAM HOST Work Phone: [phone] Hospital JoplinUgipfrywjp19-58-8515 09:01-0400Respiratory rate16 /minSjumana Calvert PROGRAM HOST Work Phone: [phone] Hospital JoplinUrrbyxzfhl60-17-4727 09:01-9980PoE1% (BldA) [Mass fraction]98 %Janee Calvert PROGRAM HOST Work Phone: [phone] Hospital JoplinMgdniczdsj94-55-1711 09:01-0400Systolic blood mm[Hg]Janee Calvert PROGRAM HOST Work Phone: [phone] Hospital JoplinRfdgcspdrj83-33-7060 17:10-0400Body .18 Filemon Mckeon MD Work Phone: [phone] [place], [place] 8565009-24-2025 17:10-0400 Body mass index (BMI) [Ratio]22.1 kg/w6ZktsbAlethea Mckeon MD Work Phone: [phone] [place], [place] 8565009-24-2025 17:10-0400 Body auiijujwlzn76.4 [degF]Alethea Mckeon MD Work Phone: [phone] [place], [place] 8565009-24-2025 17:10-0400 Body keuzte18.95 kgAlethea Mckeon MD Work Phone: [phone] [place], [place] 8565009-24-2025 17:10-0400 Diastolic blood drzgmyvc24 mm[Hg]Alethea Mckeon MD Work Phone: [phone] [place], [place] 8565009-24-2025 17:10-0400 Heart rate62 /minAlethea Mckeon MD Work Phone: [phone] [place], [place] 8565009-24-2025 17:10-0400 Respiratory rate16 /minAlethea Mckeon MD Work Phone: [phone] [place], [place] 8565009-24-2025 17:10-0400 SaO2% (BldA) [Mass fraction]98 %Alethea Mckeon MD Work Phone: [phone] [place], [place] 8565009-24-2025 17:10-0400 Systolic blood bqmhocur847 mm[Hg]Alethea Mckeon MD Work Phone: [phone] [place], [place] 8565007-31-2025 08:03-0400 Body uknrtd538.2 cmCriselda INIGUEZ Work Phone: [phone] [place], [place] 0105307-31-2025 08:03-0400Body mass index (BMI) [Ratio]22.71 kg/b5LzlzzCriselda INIGUEZ Work Phone: [phone] [place], [place] 0105307-31-2025 08:03-0400Body .77 kgCriselda INIGUEZ Work Phone: [phone] [place], [place] 0105307-31-2025 08:03-0400Diastolic blood xlfyhmjg26 mm[Hg]Criselda Hemmer PA Work Phone: noMercy Hospital JoplinRtytxlzeqj42-93-7298 08:03-0400Heart rate67 /min Criselda Hemmer PA Work Phone: noMercy Hospital JoplinColeirpcxy63-91-4833 08:03-0400Respiratory rate16 /minKaren Hemmer PA Work Phone: noMercy Hospital JoplinPrehbwhdxf55-59-1568 08:03-0863FvQ6% (BldA) [Mass fraction]98 %Criselda Hemmer PA Work Phone: noMercy Hospital JoplinKpicdanbac34-18-6329 08:03-0400Systolic blood wjuoujpe886 mm[Hg]Criselda Hemmer PA Work Phone: [facility] CenterZeosfpxzpj12-28-0548 14:01-0400Body loscjy963.2 cmEden Hemmer PA Work Phone: [phone] CenterZtxrsfssjo82-98-1058 14:01-0400Body mass index (BMI) [Ratio]21.65 kg/g2Fpulu Hemmer PA Work Phone: noMer[facility] JoplinGykexqfgph99-26-4641 14:01-0400Body temperature 98.29 [degF]Criselda Hemmer PA Work Phone: [facility] CenterQychivbyge11-09-2967 14:01-0400Body kpjyyu04.69 kgEden Hemmer PA Work Phone: noMer[facility] JoplinRudekitfku76-01-3881 14:01-0400Diastolic blood bsqysneu35 mm[Hg]Criselda Hemmer PA Work Phone: noMercy [facility] JoplinQqxhyzpxfx42-08-3810 14:01-0400Heart rate70 /min Criselda Hemmer PA Work Phone: noMer[facility] JoplinFkinmyzmpa68-51-8860 14:01-0400Respiratory rate16 /minKaren Hemmer PA Work Phone: noMer[facility] JoplinRyqigcbaqu62-34-6329 14:01-1326NlH4% (BldA) [Mass fraction]96 %Criselda Hemmer PA Work Phone: [facility] CenterGoicpdkcle90-97-4960 14:01-0400Systolic blood rzmyicen465 mm[Hg]Criselda INIGUEZ Work Phone: [facility] CenterFelrbzyhtv13-42-6697 14:23-0500Body .18 [facility]02-07-2025 14:23-0500Body mass index (BMI) [Ratio]21.1 kg/c1AgabjigwwTuscarawas Hospital02-07-2025 14:23-0500Body msduxiqfdvx93.6 [degF][facility]02-07-2025 14:23-0500Body .23 kgTuscarawas Hospital02-07-2025 14:23-0500Diastolic blood hclfwciy55 mm[Hg][facility]02-07-2025 14:23-0500 Heart rate78 /[facility]02-07-2025 14:23-0500 Respiratory rate16 /[facility]02-07-2025 14:23-0500 SaO2% (BldA) [Mass fraction]97 %[facility]02-07-2025 14:23-0500Systolic blood tkopuiab474 mm[Hg][facility] 03-14-2024 12:53-0400Body omlwou434.18 cmTuscarawas Hospital 03-14-2024 12:53-0400Body mass index (BMI) [Ratio]21.3 kg/u5PuqqohnbpTuscarawas Hospital06-23-2024 12:53-0400Body opqwparxgto88.7 [degF][facility]06-23-2024 12:53-0400Body ivuvlu82.85 kgTuscarawas Hospital06-23-2024 12:53-0400Diastolic blood nmemzcmg20 mm[Hg][facility]06-23-2024 12:53-0400Heart rate66 /[facility]06-23-2024 12:53-0400Respiratory rate16 /[facility]06-23-2024 12:53-6380FqA9% (BldA) [Mass fraction]97 %[facility]06-23-2024 12:53-0400Systolic blood oioruibu102 mm[Hg] [facility] Encounters Encounter DateEncounter TypeCare ProviderFacilityStart: 07-11-2025 End: 65-95-3814Hilgoglvm encounterSjumana Calvert PROGRAM HOST Work Phone: NOBN [place] Vaughn MedinceStart: 06-21-2025 End: 61-34-7864Xrogev flowsRain Calvert PROGRAM HOST Work Phone: NOAH [place] Vaughn MedinceStart: 06-21-2025 End: 73-80-5700Sdvkke Rhona Calvert PROGRAM HOST Work Phone: NOOO [place] Vaughn MedinceStart: 06-21-2025 End: 99-38-6502Nhndka outpatient visit 15 minutesJanee Calvert PROGRAM HOST Work Phone: noms [place] Vaughn MedinceComment on above:Acute non- recurrent pansinusitis (Primary Dx)Start: 06-21-2025 End: 60-73-8119kpsgnlypauJFZJBB M SHIVELYNot AvailableStart: 06-15-2025 End: 26-19-5152ytciajeifhRbctk M Alda MD Work Phone: [facility] Work Phone: Start: 06-15-2025 End: 86-33-0506Wojzxtf encounter procedureLaalfred Barger PT [facility] [place] Work Phone: Start: 05-18-2025 End: 84-08-7708ssxvosinrpMDWPPVN J MEYERNot AvailableStart: 05-18-2025 End: 87-22-1847Gpzqxp outpatient visit 10 minutesJaney INIGUEZ Work Phone: noms [facility] OrthopaedicsComment on above:Left foot pain (Primary Dx); Closed displaced fracture of proximal phalanx of lesser toe of left foot with routine healing, subsequent encounterStart: 05-18-2025 End: 16-23-2803Rzvluumiryam INIGUEZ Work Phone: NOEX [facility]opaedicsStart: 05-18-2025 End: 38-17-7090Kfhdjg Portillo INIGUEZ Work Phone: NOOT [facility] OrthopaedicsStart: 04-21-2025 End: 05-25-8189Tzgwof outpatient visit 15 minutesCriselda INIGUEZ Work Phone: NOLG [facility] MedinceComment on above:Primary hypertension (Primary Dx); Closed displaced fracture of proximal phalanx of lesser toe of left foot with routine healing, subsequent encounter; Panic disorder ; Persistent coughStart: 04-21-2025 End: 51-81-4939orzemzphxoVEBFZ M HEMMERNot AvailableStart: 04-20-2025 End: 64-58-7484Gpvgob outpatient new 30 minutesMatthaylie INIGUEZ Work Phone: NOMD [facility] OrthopaedicsComment on above:Left foot pain (Primary Dx); Closed displaced fracture of proximal phalanx of lesser toe of left foot, initial encounterStart: 04-20-2025 End: 89-79-6188kuikksqgivDZLOFWY J MEYERNot AvailableStart: 04-20-2025 End: 00-70-6596Duowdn Portillo INIGUEZ Work Phone: NOXD [facility]opaedicsStart: 04-20-2025 End: 88-03-4535Btrfitmiryam INIGUEZ Work Phone: NOGI [facility]opaedicsStart: 04-20-2025 End: 85-10-5793Umzvzzloo Result EncounterCriselda INIGUEZ Work Phone: NOMS External Department UnsolicitedStart: 03-30-2025 End: 24-53-7078Fuhidv Sharyn INIGUEZ Work Phone: NOMS CI FMStart: 03-30-2025 End: 23-84-3059Rqvbtt Sharyn INIGUEZ Work Phone: NOMS CI FMStart: 03-30-2025 End: 24-25-8376Fwyiryp encounter statusCriselda INIGUEZ Work Phone: [facility] Work Phone: Start: 03-30-2025 End: 27-89-7756Smrasnda preventive med est patient 40-64yrsKbrian Charbel INIGUEZ Work Phone: noms CI FMComment on above:Wellness examination (Primary Dx); Rhus dermatitis; Shortness of breath; Acquired hypothyroidism ; Chronic fatigue; Elevated LDL cholesterol level ; Gastroesophageal reflux disease without esophagitis; Hypokalemia; Chronic migraine without aura without status migrainosus, not intractable ; Myalgia; PMDD (premenstrual dysphoric disorder) ; Polyarthralgia; Premenstrual tension syndrome; Shortened [place] interval; Generalized anxiety disorder ; MDD (major depressive disorder), recurrent episode, mild ; Panic disorder ; Chronic idiopathic constipation; Chronic bilateral low back pain with bilateral sciatica; History of hyperthyroidism; Primary hypertension ; Dizziness; Persistent cough; Bipolar disorder, current episode hypomanic (HCC); Psoriasis of scalpStart: 03-30-2025 End: 42-65-3592mfuflbixafWXTSD M HEMMERNot AvailableStart: 02-16-2025 End: 84-35-8732Koxtofq encounter procedureNoms Ci Fm Ls NurseNOMS CI FMComment on above:Burning with urinationStart: 02-16-2025 End: 31-71-9110nlzbojobsfKUINR PETITTINot AvailableStart: 01-21-2025 End: 29-94-5313CuhwcmFaplyqu Voss LPN Work Phone: NOMS CI FMComment on above:Primary hypertension (CMS/HCC)Start: 11-01-2024 End: 36-98-2219Dlvnoz outpatient visit 15 minutesEmily Gabriella Montes MD Work Phone: NOPJ SWS DERMComment on above:Seborrheic keratosis (Primary Dx); Lentigines; Psoriasis vulgaris (CMS/HCC); Common wart; Pain, generalizedStart: 11-01-2024 End: 92-53-5153npudydoebqKBETJ A PETITTINot AvailableStart: 10-29-2024 End: 52-92-7201obaxqgpvqhVioijlxzaSt. [facility] Work Phone: Start: 10-29-2024 End: 44-54-9906Dixljdj encounter procedurePsychiatric [facility] [place] Work Phone: Start: 08-11-2024 End: 29-29-5279Rsobhvqnb Result EncounterAlethea Mckeon MD Work Phone: noms External Department UnsolicitedStart: 08-11-2024 End: 07-57-6409Dplvtnhmy Result EncounterAlethea Mckeon MD Work Phone: noms External Department UnsolicitedStart: 03-14-2024 End: 87-59-7752ufslskarosLtoladazjSt. [facility] Work Phone: Start: 03-14-2024 End: 00-43-2603Jkqjsco encounter procedurePsychiatric Hospital Physician [facility] [place] Work Phone: Start: 12-22-2023 End: 07-14-6165rkxvfedikaHAKUFJD R [facility] HospitalStart: 12-22-2023 End: 48-39-1609jatyjogngfNEJJIPD R [facility] HospitalStart: 11-24-2023 End: 57-85-9271mxtazlacdsXDADFHH R [facility] HospitalStart: 11-24-2023 End: 74-61-9259zpqpawtelvUCCJSFR R OKINCleveland Clinic [facility] HospitalStart: 11-21-2023 End: 81-77-4303zcbodpshxxUBEFPTO R [facility] HospitalStart: 11-13-2023 End: 68-60-2000jgzhzqgxcvIUFXLLZ R [facility] HospitalStart: 10-23-2023 End: 87-00-9615fpnjihtxgtPIXGDRB R [facility] HospitalStart: 09-26-2023 End: 15-84-7631ibmseykkepVQGESJM R OKINProRegency Hospital Company HospitalStart: 09-23-2023 End: 88-10-5347qjekxsvvgjPOIMVHL R OKINCleveland Clinic [facility] HospitalStart: 09-17-2023 End: 73-53-6694vwuknczxvxTGEXKNH R OKINCleveland Clinic [facility] HospitalStart: 08-26-2023 End: 53-59-4450uephfvvrrcZUSUNNQ R OKINCleveland Clinic [facility] HospitalStart: 08-22-2023 End: 53-47-4681rwmbkhdjnoXNHVXKB R OKINCleveland Clinic [facility] HospitalStart: 07-25-2022 End: 30-24-6916dhbifrafufLNUATCY L BAZYLEWICZFacility:FTMCStart: 07-11-2022 End: 37-40-9338Ukyirkh encounter procedureEAST ORANGE VA MEDICAL CENTERFrancisco Luna RosaBIGFORK VALLEY HOSPITALRICKEYCleveland Clinic [facility] Start: 82-76-7553cltgplpgemLG DOCTOR MISCFacility:H1 Start: 05-07-2022 End: 02-38-8364nrwydwmyopVS DOCTOR MISCFacility:S6Kfdzg: 04-16-2022 End: 75-18-1772jvdgrxhpknWL CRISELDA LEOSFacility:N9Iwqbn: 02-28-2022 End: 67-43-6959ahddgfbaevBL RUGEN ALDAFacility:O8Jfyvc: 09-13-2021 End: 10-06-8164khmjqbmfbwNP RUGEN ALDAFacility:H1 Procedures DateProcedureProcedure DetailPerforming ClinicianStart: 68-32-3982Hsnoc foot complete minimum 3 viewsJaney INIGUEZ Work Phone: Start: 63-64-2925AJ TOMOSYNTHESIS SCREENING Malik INIGUEZ Work Phone: Start: 78-89-4695MDDJ / SPLINT / FXJaney INIGUEZ Work Phone: Start: 29-87-7006Ikrns foot complete minimum 3 views Janey INIGUEZ Work Phone: Start: 91-74-1201LxpqannifsgUmbhp Hemmer PA Work Phone: Start: 42-13-2541Upkzk dip stick/tablet rgnt non-auto w/o micrscpCriselda Charbel Bhavik INIGUEZ Work Phone: Start: 95-00-0861CKHGQPEECRS SKIN LESIONEmily A Jose D DURBIN Work Phone: Start: 05-92-7022NDZ CBC WITH AUTO DIFFRugen Charbel Mckeon MD Work Phone: Start: 93-49-7134SwtisylsiasQbggy Alda MD Work Phone: Plan of Treatment DateCare ActivityDetailAuthorStart: 89-53-7851Ixqkduzog for malignant neoplasm of cervixNOMS HealthcareStart: 21-98-5616Nqimneass for malignant neoplasm of breastMammogramNOMS HealthcareStart: 06-21-2025 End: 53-68-6164Rncdfpe encounter orzoufhzd72/30/2025 9:00 AM EDT Office Visit [facility] [address] [place] [phone] Janee Calvert, PROGRAM HOST [address] [place] [address] ArrivedSHRINERS HOSPITALS FOR CHILDREN [place] Family MedinceComment on above:ArrivedStart: 72-02-4249Eozvqujqa vaccinationNOMS HealthcareStart: 05-18-2025 End: 00-06-3003Xcjshpz encounter zmtivvmcf45/27/2025 3:00 PM EDT Office Visit [facility] [address] [place] [phone] Janey Oro PA [address] [place] [address] NOMPeyman Pel[facility]o OrthopaedicsStart: 04-21-2025 End: 65-82-1351Uwqlerc encounter ydrjprmeu76/31/2025 8:00 AM EDT Office Visit RADHA [facility] [address] [facility] [address] [place] [phone] Criselda Leos PA [address] [facility] [address] [place] [address] RADHA Vaughn MedinceStart: 04-20-2025 End: 62-58-6924Wfxnqxn encounter ytsmizhuz79/30/2025 3:00 PM EDT Office Visit [facility] [address] [place] [phone] Janey Oro PA [address] [facility] [place] [address] Left foot pain (Primary Dx)NOMKaiser [facility]erman[facility] Center OrthopaedicsComment on above:Left foot pain (Primary Dx)Start: 03-30-2025 End: 645450-pbozqfgoinvoxi D3 [Mass/volume] in Serum or PlasmaVitamin D 25 hydroxy Total Lab Routine Wellness examination Chronic fatigue Myalgia Polyarthralgia Expected: 03/30/2025 (Approximate), Expires: 08/15/2025NOTN HealthcareComment on above:Expected: 03/30/2025 (Approximate), Expires: 08/15/2025Start: 03-30-2025 End: 18-03-0068JTF W Auto Differential panel - BloodCBC and differential Lab Routine Wellness examination Primary hypertension Dizziness Expected: 03/30/2025 (Approximate), Expires: 08/15/2025[facility] Work Phone: Comment on above:Expected: 03/30/2025 (Approximate), Expires: 08/15/2025Start: 03-30-2025 End: 38-43-9863Cniiwggawroxq metabolic 2000 panel - Serum or PlasmaComprehensive metabolic panel Lab Routine Wellness examination Elevated LDL cholesterol level Hypokalemia Primary hypertension Expected: 03/30/2025 (Approximate), Expires: 08/15/2025NOMS HealthcareComment on above:Expected: 03/30/2025 (Approximate), Expires: 08/15/2025Start: 03-30-2025 End: 41-36-4748Hfqbh 1996 panel - Serum or PlasmaLipid panel Lab Routine Wellness examination Elevated LDL cholesterol level Primary hypertension Exp ected: 03/30/2025 (Approximate), Expires: 08/15/2025NOTN HealthcareComment on above:Expected: 03/30/2025 (Approximate), Expires: 08/15/2025Start: 03-30-2025 End: 51-51-5014Swdlddz encounter procedureNOTN CI FMComment on above:Arrived Start: 03-30-2025 End: 99-35-8848JSL W/REFLEX TO FT4TSH W/REFLEX TO FT4 Lab Routine Wellness examination Acquired hypothyroidism Chronic fatigue History of hyperthyroidism Dizziness Expected: 03/30/2025 (Approximate), Expires: 08/15/2025[facility] Comment on above:Expected: 03/30/2025 (Approximate), Expires: 08/15/2025Start: 12-14-2024 End: 30-95-2146Jdtutnx encounter egnsuuhtl72/25/2025 2:15 PM EDT Office Visit [facility] [address] [place] [id number] Pablo Montes MD [address] [place] [address] [facility]: 68-30-1080Xnaqgddgu vaccination Influenza Vaccine (#1)[facility] HealthcareStart: 45-37-1884Xbczmmemk for malignant neoplasm of breastMammogramSHRINERS HOSPITALS FOR CHILDREN HealthcareStart: 72-44-9465Jwdhlorks for malignant neoplasm of cervixPap SmearCenterpoint Medical Center Immunizations Immunization DateImmunizationNotesCare XhiwumxpQyxjuukq05-88-3799iaihhbnak, injectable, quadrivalent, preservative Kelsea Mckeon MD Work Phone: [facility] CenterAunyytrpvk26-87-5086CACV-XHU-0 (COVID-19) vaccine, mRNA, spike protein, LNP, PF, 50 mcg/0.5 Soco Mckeon MD Work Phone: [phone] [place], [place] [address]Pfbcrvwzih61-77-3248qeyxcmgby virus vaccine, unspecified formulationAlethea Mckeon MD Work Phone: [phone] [place], [place] [address]Mygtliaqnt77-25-3061zsxdvfwrj, injectable, quadrivalent, preservative freeAlethea Mckeon MD Work Phone: [phone] [place], [place] [address]Xtqfjbpthn82-14-9205tzyundwdq, injectable, quadrivalent, preservative freeAlethea Mckeon MD Work Phone: [phone] [place], [place] [address]Ibaidpobpl05-10-8021adlmiymv influenza, intradermal, preservative freeAlethea Mckeon MD Work Phone: [phone]-[address] [place], [place] [address]Xfubdrpizr99-89-3650vnkadgwy influenza, intradermal, preservative freeAlethea Mckeon MD Work Phone: [phone] [place], [place] [address]Gznzylbmfx32-42-2315dxdmzbjpu, injectable, quadrivalent, preservative freeAlethea Mckeon MD Work Phone: [phone] [place], [place] [address]Ppsjxifpzc08-77-9894gyjwsbj toxoid, reduced diphtheria toxoid, and acellular pertussis vaccine, adsorbedAlethea Mckeon MD Work Phone: [phone] [place] [address] Payers DatePayer CategoryPayerPolicy [id number] Health InsuranceMEDICAL MUTUAL [id number] .1.510769.3.57[id number] .1.404501.3.57[id number] 2.840.1.566898.3.57[id number] 2.840.1.045318.3.57[id number] 2.840.1.245264.3.57[id number] 2.840.1.017226.3.57[id number] 2..1.449471.3.57[id number] 2..1.563109.3.57[id number] 2..1.076862.3.57[id number] 2..1.547984.3.57[id number] 2..1.654996.3.57[id number] 2..1.719618.3.57[id number] 2..1.593212.3.579.2.098539-42-4515Pzeljcw7936424 2..1.865338.3.57[id number] 2.840.1.728924.3.579.[id number] 2.0.1.422734.3.57[id number] 2.840.1.506383.3.579.2.[id number] 2..840.1.198942.3.57[id number] 2..840.1.831320.3.579.[id number] 2..0.1.408920.3.57[id number] 2..0.1.973123.3.579.2.349107-14-2621Truyqdj1535239 2.840.1.756151.3.579.[id number] 2.0.1.491310.3.579.2.0[id number]-xheJqtm Pay rar0g29c-[id number] / [id number] Social History DateTypeDetailFacilityTobacco smoking statusSelect Medical Specialty Hospital - Akrontart: 03-17-2024 End: 64-98-0695Ssv Assigned At [facility]Fe[facility] CenterStart: 02-26-2023 End: 90-74-2272Orgpkfm smoking status NHISNever smoked tobacco (finding) [facility]tart: 81-66-9320Crw Assigned At [facility]: 02-96-7453Qxuavcl use and exposure Smokeless tobacco non-userNOMS HealthcareStart: 03-17-2024 End: 70-90-1501Hudkfwtbs beverage intakeEx-drinker (finding)[facility] Healthcare Start: 03-17-2024 End: 14-98-8285Lubnlrm of Social functionNOMS HealthcareStart: 38-94-4902Zygkwel CommentCaffeine intake: 2-3 cups per day; 1 cup coffee qdSHRINERS HOSPITALS FOR CHILDREN HealthcareStart: 47-76-7445Iflirw identityIdentifies as female gender (finding)[facility] Start: 64-51-8744Kzwwjb orientationHeterosexual (finding)[facility] CenterStart: 99-61-8542GcmBehhvd (finding)[facility] Hospitaltart: 12-04-2022 [facility] Functional Status SxjwNjfpfnunmyXcxpetUbxiivnm03-80-7158Kxdebcs Health Questionnaire 2 item (PHQ- 2) [Reported][facility] Medical CenterXbamcagmip20-71-2152Obyoahw Health Questionnaire 2 item (PHQ- 2) [Reported][facility] Medical CenterEfzafuoqlr92-35-6442Aprdkvm Health Questionnaire 2 item (PHQ- 2) [Reported][facility] Clinical Notes 03-01-2022 to 07-11-2025 Note Date & TmduAsscXtluaguo17-09-0438 Telephone encounter Note* Telephone Encounter - TORSTEN MCKEON - 07/11/2025 3:05 PM EDT Patient called asking for an RX or the migraine medication that you gave her a sample of. She states that it worked really good for her. Please send to [facility] in [place]. [facility] CenterJjmtbnzhbp88-06-9715 Miscellaneous Notes* Telephone Encounter - TORSTEN MCKEON - 07/11/2025 3:05 PM EDT Patient called asking for an RX or the migraine medication that you gave her a sample of. She states that it worked really good for her. Please send to [facility] in [place]. documented in this encounterCenterpoint Medical CenterOmkqdyonbq89-60-1116 History of Present illness Narrative* Janee Calvert NP - 06/21/2025 9:00 AM EDT Images from the original note were not included. Subjective Patient ID: Jennyfer Peter is a 45 y.o. female who presents for sinus issues Jennyfer presents today for sinus issues. She was seen at Urgent Care last week and was told she had a migraine and it wasn't sinus. She does have sinus drainage and headache with pressure in the eyes and forehead. She also says she has been feeling dizzy and lite headed at work. Sinus Problem This is a new problem. The current episode started 1 to 4 weeks ago. The problem has been graduallyworsening since onset. Her pain is at a severity of 5/10. The pain is moderate. Associated symptomsinclude headaches and sinus pressure. Past treatments include oral decongestants. The treatment provided no relief. Over the past 2 weeks, how often have you been bothered by any of the following problems? Little interest or pleasure in doing things: Not at all Feeling down, depressed, or hopeless: Not at all Patient Health Questionnaire-2 Score: 0 Current Outpatient Medications on File Prior to Visit Medication Sig Dispense Refill Albuterol-Budesonide (Airsupra) 90-80 MCG/ACT aerosol Inhale 2 puffs every 4 (four) hours if needed(SOB or Wheeze) 32.1 g 3 ALPRAZolam (Xanax) 0.25 MG [...] and incidence of candidiasis. Do not swallow. 1 each 2 buPROPion XL (Wellbutrin XL) [...] mcg by mouth in the morning. Take beforemeals. 100 tablet 3 lurasidone (Latuda) 40 MG tablet Take 40 mg by mouth in the morning. Take with meals. olmesartan (BENIcar) 20 MG tablet TAKE 1/2 TABLET (10MG) BY MOUTH ONCE DAILY 15 tablet 2 Saccharomyces boulardii (probiotic) 250 MG capsule Take [...] complicated by congenital heart disease, fetus 1 ([facility] 03/28/2020 Suspected COVID-19 virus infection 09/26/2021 Suspected COVID J and J and Moderna Booster was positive Thyroid nodule Past Surgical History: Procedure Laterality Date SECTION, LOW TRANSVERSE 2008 ESOPHAGOGASTRODUODENOSCOPY 2017 IR FINE NEEDLE ASPIRATION THYROID 07/23/2016 [place] LAP,CHOLECYSTECTOMY 2017 TOTAL THYROIDECTOMY 11/19/2016 VAGINAL AFTER SECTION 07/15/2020 VAGINAL AFTER SECTION 2014 VAGINAL DELIVERY x2- 2003, 2006 Visit Vitals Smoking Status Never Review of Systems HENT: Positive for sinus pressure. Neurological: Positive for headaches. Objective Physical Exam Vitals reviewed. Constitutional: Appearance: Normal appearance. HENT: Head: Normocephalic. Right Ear: Tympanic membrane normal. Left Ear: Tympanic membrane normal. Nose: Right Sinus: Frontal sinus tenderness present. Left Sinus: Frontal sinus tenderness present. Mouth/Throat: Lips: [place]. Mouth: Mucous membranes are moist. Pharynx: Posterior oropharyngeal erythema and uvula swelling present. Cardiovascular: Rate and Rhythm: Normal rate and regular rhythm. Pulmonary: Effort: Pulmonary effort is normal. Breath sounds: Normal breath sounds. Musculoskeletal: General: Normal range of motion. Cervical back: Neck supple. Skin: General: Skin is warm and dry. Neurological: General: No focal deficit present. Mental Status: She is alert and oriented to person, place, and time. Psychiatric: Mood and Affect: Mood normal. Behavior: Behavior normal. Thought Content: Thought content normal. Judgment: Judgment normal. Assessment/Plan Diagnoses and all orders for this visit: Acute non-recurrent pansinusitis Take Cefdinir as prescribed by urgent care. Encouraged probiotic while on antibiotic. Increase water intake, get plenty of rest. Can take OTC allergy medication for symptomatic relief. Tylenol/Motrinprn. Follow up if no improvement in one week. No follow-ups on file. documented in this encounterCenterpoint Medical CenterKeestgzhka01-00-3368 History of Present illness Narrative* GEETHA Graves - 05/18/2025 3:00 PM EDT Images from the original note were not included. Orthopedic Office note: NAME: Jennyfer Peter : 1980 (EST PT) LT FOOT PAIN ~5 1/2 WKS (MID 03/2025)- S/P CAM BOOT FWB XRAY TODAY EPIC 05/18/25 XRAY EPIC 04/20/25 DOING WELL- MINIMAL DISCOMFORT- +IBUPROFEN PRN JUSTINE: MID 03/2025, PT HIT HER FOOT ON THE CORNER OF A WALL- PT THEN NOTICED INCREASE PAIN AFTER RUNNING 2 MILES Physical Exam General Appearance: Normal. Respiratory: No acute distress. Cardiovascular: Capillary refill is less than 2 seconds and the posterior tibial pulse is 2+. Musculoskeletal: Upon visual inspection of the left foot, no joint warmth or erythema is observed. There is no significant swelling. The patient's third toe exhibits minimal soreness on very deep palpation of the proximal phalanx. No pain is detected in the MTP joint or third metatarsal ray. A slight angulation at the DIP joint with the toe venturing ulnarly is noted, similar in appearance to thecontralateral foot. Her second digits overlap her big toes bilaterally with symmetric flexion and extension, but there is no significant rubbing or irritation of the third phalanx on the fourth. No reproducible pain to the ankle on gentle stressing or palpation of the calf. Negative Homans' sign. Skin: No nail injury or significant bruising is present. Neurological: Normal. Orders Placed This Encounter Procedures XR foot 3+ views left Is the patient ?: No Reason for exam:: fx Procedures Results - Imaging: - X-ray performed today showing evidence of callus at her fracture ICD-10-CM 1. Left foot pain M79.672 XR foot 3+ views left 2. Closed displaced fracture of proximal phalanx of lesser toe of left foot with routine healing, subsequent encounter S92.512D Assessment & Plan Left foot fracture An x-ray performed today shows evidence of callus formation at the fracture site. Significant improvement in toe condition is reported. Treatment plan: Gradually discontinue the use of the boot, engage in calf and ankle stretching exercises, and resume regular exercise routine. Further visits are not necessary unless increased pain or discomfort develops. Option to request a formal therapy referral if needed. Questions answered in laymen terms at the bedside. The diagnosis, home exercise plan and any ongoing restrictions/ recommendations reviewed. If unable to be reached in office, I recommend evaluation at nearest Emergency Room if any symptoms worsened or new symptoms develop for requiring urgent evaluation. Visit was preformed using [employer]-private pilot speech recognition. documented in this encounterCenterpoint Medical CenterUjiotgkizd88-61-1637 History of Present illness Narrative* GEETHA Carlton - 04/21/2025 8:00 AM EDT Images from the original note were not included. Subjective Patient ID: Jennyfer Peter is a 45 y.o. female who presents for foot injury. Jennyfer is present today for evaluation of a foot injury. Admits she did accidentally kick a wall and broke one of her toes. She has already seen ortho so does not need a referral anymore. She is nicky boot. Taking Tylenol/Ibuprofen prn. Using light therapy at work and is taping it. States she is still coughing. The AC aggravates her cough, using the Albuterol 2-4 times a day. Over the past 2 weeks, how often have you been bothered by any of the following problems? Little interest or pleasure in doing things: (currently on medication) Feeling down, depressed, or hopeless: (currently on medication) Patient Health Questionnaire-2 Score: 0 Current Outpatient Medications on File Prior to Visit Medication Sig Dispense Refill Hormone Cream Base (HRT Base) cream Apply 0.5 mL topically Daily W-Biest/Prog Crm 3/150 mg/mL, Estradiol/Estriol/Progesterone Cream albuterol HFA (ProAir HFA) 90 mcg/act inhaler Inhale 2 puffs every 4 (four) hours if needed for wheezing or shortness of breath 8.5 g 0 ALPRAZolam (Xanax) 0.25 MG tablet Take 0.25 mg by mouth in the morning and 0.25 mg in the evening and 0.25 mg before bedtime. budesonide-formoterol (Symbicort) 160-4.5 MCG/ACT inhaler Inhale 2 puffs in the morning and 2 puffsbefore bedtime. Do all this for 14 days. Rinse mouth with water after use to reduce aftertaste and incidence of candidiasis. Do not swallow. 1 each 0 buPROPion XL (Wellbutrin XL) 300 MG 24 hr tablet Take 300 mg by mouth in the morning. Do not crush,chew, or split. . lamoTRIgine (LaMICtal) 100 MG tablet Take 2 tablets by mouth in the morning. levothyroxine (Synthroid, Levoxyl) 137 MCG tablet Take 137 mcg by mouth in the morning. Take beforemeals. 100 tablet 3 lurasidone (Latuda) 40 MG tablet Take 40 mg by mouth in the morning. Take with meals. olmesartan (BENIcar) 20 MG tablet TAKE 1/2 TABLET (10MG) BY MOUTH ONCE DAILY 15 tablet 2 Saccharomyces boulardii (probiotic) 250 MG capsule Take 1 capsule by mouth 1 (one) time each day. tiZANidine (Zanaflex) 4 MG tablet TAKE ONE TABLET THREE TIMES A DAY NEEDED FOR 30 DAYS 90 tablet0 [DISCONTINUED] olmesartan (BENIcar) 20 MG tablet Take 0.5 tablets (10 mg) by mouth Daily 45 tablet 0 No current facility-administered medications on file prior [...] complicated by congenital heart disease, fetus 1 ([facility]) 03/28/2020 Suspected COVID-19 virus infection 09/26/2021 Suspected COVID J and J and Moderna Booster was positive Thyroid nodule Past Surgical History: Procedure Laterality Date SECTION, LOW TRANSVERSE 2008 ESOPHAGOGASTRODUODENOSCOPY 2016 IR FINE NEEDLE ASPIRATION THYROID 07/23/2016 [place] LAP,CHOLECYSTECTOMY 2017 TOTAL THYROIDECTOMY 11/19/2016 VAGINAL AFTER SECTION 07/15/2020 VAGINAL AFTER SECTION 2014 VAGINAL DELIVERY x2- 2003, 2006 Visit Vitals BP 136/78 Pulse 67 Resp 16 Ht 5' 7 Wt 145 lb SpO2 98% BMI 22.71 kg/m Smoking Status Never BSA 1.76 m Review of Systems Constitutional: Negative for chills, fatigue and fever. Respiratory: Negative for cough, shortness of breath and wheezing. Cardiovascular: Negative for chest pain, palpitations and leg swelling. Gastrointestinal: Negative for abdominal pain, constipation, diarrhea, nausea and vomiting. Musculoskeletal: Positive for arthralgias. Skin: Negative for rash. Objective Physical Exam [...] breath sounds. No wheezing, rhonchi or rales. Musculoskeletal: Comments: Walking boot in place on left Skin: General: Skin is warm and dry. Neurological: General: No focal deficit present. Mental Status: She is alert and oriented to person, place, and time. Psychiatric: Mood and Affect: Mood normal. Behavior: Behavior normal. Assessment/Plan Diagnoses and all orders for this visit: Primary hypertension Patient's blood pressure is currently stable. Continue with current medications and I will continueto monitor. Goal BP remains less than 130/80. Closed displaced fracture of proximal phalanx of lesser toe of left foot with routine healing, subsequent encounter Following with Martin Alcala PA-C. Wearing walking boot. Panic disorder Stable on Alprazolam as needed. Following with Dr. Douglas Marcum. OARRS report generated and reviewed. Persistent cough - Albuterol-Budesonide (Airsupra) 90-80 MCG/ACT aerosol; Inhale 2 puffs every 4 (four) hours if needed (SOB or Wheeze) Albuterol has not been sufficient for patient. Will change to Airsupra to see if symptoms improve. New Rx sent to pt's pharmacy. Reminded pt to rinse her mouth out after each use. If symptoms do not improve, will plan on PFT for further evaluation. She is currently able to run without SOB, but Air Conditioning bothers her. Follow up in about 3 months (around 07/22/2025) for Medication Follow Up. documented in this encounterCenterpoint Medical [id number] History of Present illness Narrative* GEETHA Graves - 04/20/2025 3:00 PM EDTAssociated Order(s): Cast / Splint / Fx Post-Procedure Diagnose(s): Closed displaced fracture of proximal phalanx of lesser toe of left foot, initial encounter Images from the original note were not included. Orthopedic Office note: NAME: Jennyfer Peter : 1980 (NEW PT) LT FOOT PAIN ~10DAYS- PT HIT HER FOOT ON THE CORNER OF A WALL- PT THEN NOTICED INCREASE PAIN AFTER RUNNING 2 MILES 3DAYS AGO XRAY TODAY EPIC 04/20/25 PT C/O PAIN 3RD TOE- +BRUISING/SWELLING- PT HAS BEEN NIMA TAPING- INCREASE PAIN WITH WB ACTIVITY- +IBUPROFEN/TYLENOL Physical Exam General Appearance: Normal. Respiratory: No acute distress. Cardiovascular: Distal posterior tibial pulses are 2+ and present. Musculoskeletal: Localized swelling and bruising noted on the third proximal phalanx of her left foot involving the toe with no evidence of nail injury. Alignment is satisfactory with only slight external angulation, which is near symmetric to her contralateral foot upon visual inspection, except for the swelling in the left third toe. Compartments are soft. Skin: Warm and dry, no rash. Neurological: Normal. Orders Placed This Encounter Procedures Cast / Splint / Fx This order was created via procedure documentation XR foot 3+ views left Is the patient ?: No Reason for exam:: pain Cast / Splint / Fx Date/Time: 04/20/2025 3:59 PM Performed by: GEETHA Graves Authorized by: GEETHA Graves Consent given by: patient Timeout: Immediately prior to procedure a time out was called to verify the correct patient, procedure, equipment, litigation support analyst and site/side marked as required Injury Location details: left third toe Fracture type: proximal phalanx fracture Pre-procedure assessment neurovascularly intact Range of motion: normal Procedure Manipulation performed? no manipulation performed Immobilization: splint Splint/Brace type: cam boot Post-procedure assessment neurovascularly intact Range of motion: unchanged Patient tolerance: patient tolerated the procedure well with no immediate complications Results - Imaging: - X-ray shows a proximal phalanx fracture in the third toe of the left foot, which appears to miss the articular surface and is grossly well aligned. ICD-10-CM 1. Left foot pain M79.672 XR foot 3+ views left 2. Closed displaced fracture of proximal phalanx of lesser toe of left foot, initial encounter S92.512A Assessment & Plan Proximal phalanx fracture of the third toe on the left foot An x-ray was discussed at the bedside, revealing a proximal phalanx fracture that appears to miss the articular surface and is grossly well aligned. The need for activity modification and offloading the foot when possible was discussed. 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 The importance of immobilization was emphasized, and the boot may be removed to ice and elevate the foot when at home, keeping the toe nima taped at almost all times. Diagnostic plan: An x-ray was discussed at the bedside. Treatment plan: The need for activity modification and offloading the foot when possible was discussed. The use of a boot to limit toe flexion and extension was recommended. The importance of immobilization was emphasized, and the boot may be removed to ice and elevate the foot when at home, keeping the toe nima taped at almost all times. Follow-up: The patient will follow up in 4 weeks for a repeat x-ray and to consider weaning out of the boot if pain is improved at that time. Questions answered in laymen terms at the bedside. The diagnosis, home exercise plan and any ongoing restrictions/ recommendations reviewed. If unable to be reached in office, I recommend evaluation at nearest Emergency Room if any symptoms worsened or new symptoms develop for requiring urgent evaluation. Visit was preformed using [employer]-private pilot speech recognition. documented in this encounterCenterpoint Medical [id number] History of Present illness Narrative* GEETHA Carlton - 03/30/2025 2:00 PM EDT Images from the original note were not [...] morning. Do not crush,chew, or split. . lamoTRIgine (LaMICtal) 100 MG tablet Take 2 tablets by mouth in the morning. levothyroxine (Synthroid, Levoxyl) 137 MCG tablet Take 137 mcg by mouth in the morning. Take beforemeals. 100 tablet 3 lurasidone (Latuda) 40 MG [...] DAY NEEDED FOR 30 DAYS 90 tablet0 [DISCONTINUED] ALPRAZolam (Xanax) 1 MG tablet Take [...] complicated by congenital heart disease, fetus 1 ([facility]) 03/28/2020 Suspected COVID-19 virus infection 09/26/2021 Suspected COVID J and J and Moderna Booster was positive Thyroid nodule Past Surgical History: Procedure Laterality Date SECTION, LOW TRANSVERSE 2007 ESOPHAGOGASTRODUODENOSCOPY 2016 IR FINE NEEDLE ASPIRATION THYROID 07/23/2016 [place] LAP,CHOLECYSTECTOMY 2017 TOTAL THYROIDECTOMY 11/19/2016 VAGINAL AFTER [...] on forearms, right upper arm, left lower anteriorleg, abdomen, and between breasts. Neurological: General: No [...] dysphoric disorder) The patient is seeing a quality engineer medical device for this condition, treatment is deferred to that specialist. Correspondence from that specialist and any available testing were reviewed during today's visit. Polyarthralgia This is a chronic medical condition that is stable since last assessment. Premenstrual tension syndrome The patient is seeing a quality engineer medical device for this condition, treatment is deferred to that specialist. Correspondence from that specialist and any available testing were reviewed during today's visit. Shortened [place] interval This is a chronic medical condition that is stable since last assessment. Generalized anxiety disorder This is a chronic medical condition that is stable since last assessment. Continue Xanax prn. OARRSreport generated and reviewed. MDD (major depressive disorder), [...] controlled. Continue with current medications and I willcontinue to monitor. Goal BP remains less than 130/80. Dizziness This is a chronic medical condition that is stable since last assessment. No current symptoms. Willmonitor. Persistent cough Reassurance given that her lungs [...] (around 03/30/2026) for Wellness. documented in this [facility]05-28-2025 History of Present illness Narrative* Khloe Frank MA - 02/16/2025 1:00 PM EDT Pt came in due to having UTI symptoms burning , hurts to sit for too long urgency documented in this [facility]05-06-2025 Telephone encounter Note* Telephone Encounter - Sydni Sutton - 01/25/2025 10:26 AM EDT Appt scheduled [facility] CenterUbicqbvmld01-50-3818 Miscellaneous Notes* Telephone Encounter - Sydni Sutton - 01/25/2025 10:26 AM EDT Appt scheduled * Telephone Encounter - Arabella Banks LPN - 01/21/2025 8:49 AM EDT Sent. Please let pt know that a 90 day supply of her BP med was sent [facility] but will bedue for wellness appt sometime after 03/17/25 and will need that appt for further refills of her medication. documented in this encounterCenterpoint Medical [id number] Telephone encounter Note* Telephone Encounter - Arabella Banks LPN - 01/21/2025 8:49 AM EDT Sent. Please let pt know that a 90 day supply of her BP med was sent to [facility] but will bedue for wellness appt sometime after 03/17/25 and will need that appt for further refills of her medication. [facility] CenterOckfmyqjap93-06-1831 History of Present illness Narrative* Pablo Montes MD - 11/01/2024 2:30 PM EST Skin Check Location: Patient requests a full [...] benign pigmented lesions that occur on sun-exposed andsun-damaged skin. No treatment is necessary. Recommended regular [...] limited to risks of scarring, darker or plasterer spray gun pigmentary changes, recurrence, incomplete removal and infection. [...] weeks, wart follow up documented in this encounterCenterpoint Medical CenterGmnqjlqyyf35-03-2327 NotePROCEDURE: XR HAND RT 2 V COMPARISON: None. HISTORY: Hand pain FINDINGS: BONES:No fracture, acute abnormality, or significant arthropathy. SOFT TISSUES:Negative. No visible soft tissue swelling. EFFUSION:None visible. OTHER: Negative. IMPRESSION: No acute fracture Electronically authenticated by: GINA COTTON Date: 2022-03-01 07:33[facility] note No data available for this section [facility]* Diagnosis Onset Date Resolution Status Hives acute [facility] Work Phone: Evaluation noteNo assessment information available [facility] Work Phone: Evaluation note* Diagnosis Seborrheic keratosis- Primary Lentigines Psoriasis vulgaris (CMS/HCC) Other psoriasis Common wart Other specified viral warts Pain, generalized Generalized pain [facility] Diagnosis Primary hypertension (CMS/HCC) Unspecified essential hypertension [facility]* Diagnosis Burning with urination Dysuria [facility]* Diagnosis Wellness examination- Primary Rhus [...] Premenstrual tension syndrome Premenstrual tension syndromes Shortened [place] interval Generalized anxiety disorder Generalized anxiety disorder MDD (major depressive disorder), recurrent episode, mild Panic disorder Panic disorder without agoraphobia Chronic idiopathic constipation Unspecified constipation Chronic bilateral low back pain with bilateral sciatica History of hyperthyroidism Primary hypertension Unspecified essential hypertension Dizziness Dizziness and giddiness Persistent cough Bipolar disorder, current episode hypomanic (HCC) Psoriasis of scalp [facility]* Diagnosis Left foot pain- Primary Pain in soft tissues of limb Closed displaced fracture of proximal phalanx of lesser toe of left foot, initial encounter [facility]* Diagnosis Primary hypertension- Primary Unspecified essential hypertension Closed displaced fracture of proximal phalanx of lesser toe of left foot with routine healing, subsequent encounter Panic disorder Panic disorder without agoraphobia Persistent cough documented in this encounter [facility]* Diagnosis Left foot pain- Primary Pain in soft tissues of limb Closed displaced fracture of proximal phalanx of lesser toe of left foot with routine healing, subsequent encounter documented in this encounter [facility] HealthcareEvaluation note* Diagnosis Acute non-recurrent pansinusitis- Primary documented in this encounter [facility] HealthcareEvaluation note* Diagnosis Intractable migraine with aura with status migrainosus- Primary Migraine with aura, with intractable migraine, so stated, with status migrainosus documented in this encounter [facility] HealthcareHospital Discharge instructions No data available for this section [facility] No data available for this section [facility] HospitalReason for referral (narrative)No reason for referral information availableA[facility]c [facility] Work Phone: Summary Purpose Family History No Family History [...] Cough, congestion October 29, 2024 1 :36pm Chief Complaint Admit Date sinus congestion June 15, 2025 5:01pm Additional Source Comments INFORMATION SOURCE (unrecogn ized section and content) DATE CREATED AUTHOR 06/03/2022 [facility] DATE CREATED AUTHOR AUTHOR'S ORGANIZ ATION 08/07/2022 [facility] DATE CREATED AUTHOR AUTHOR'S ORGANIZ ATION 01/21/2024 [facility] DATE CREATED AUTHOR AUTHOR'S ORGANIZ ATION 06/26/2025 [facility] EPIC Patient Care team informatio n (unrecognized section and content) Team Status: Active Member Role Status Dates Alethea Mckeon MD Primary Care Provider Active Team Status: Inactive Member Role Status Dates Alethea Mckeon MD Primary Care Provider Active S tart: March 14, 2024 End: March 14adrian Ferraro , APRNAttending ProviderActiveStart: March 14, 2024 End: March 14, 2024Team MemberRelationshipSpecialtyStart DateEnd Date Alethea Mckeon MD [address] [place] [address] [facility]02/20/23 Trung Marcelo MD [address] [place] [address] [facility]02/19/2012 Team Status: Inactive Member Role Status Dates Alethea Mckeon MD Primary Care Provider Active S tart: October 29, 2024 End: October 29adrian Ferraro APRNAtpatricio ProviderActiveStart: October 29, 2024 End: October 29, 2024Team MemberRelationshipSpecialtyStart DateEnd Date Alethea Mckeon MD [address] [place] [address] [facility] - [facility]02/20/23 Trung Marcelo MD [address] [place] [address] [facility] - [facility]02/19/2012Team MemberRelationshipSpecialty Start DateEnd Date Alethea Mckeon MD [address] [place] [address] [facility] - [facility]02/20/23 Trung Marcelo MD [address] [place] [address] [facility] - [facility]02/19/2012Team MemberRelationshipSpecialty Start DateEnd Date Alethea Mckeon MD [address] [place] [address] PCP - [facility]02/20/23 Trung Marcelo MD [address] [place] [address] PCP - [facility] [place] [employer]02/19/2012Team MemberRelationshipSpecialty Start DateEnd Date Alethea Mckeon MD [address] [place] [address] PCP - [facility]02/20/23 Trung Marcelo MD [address] [place] [address] PCP - [facility]02/19/2012Team MemberRelationshipSpecialty Start DateEnd Date Alethea Mckeon MD [address] [place] [address] PCP - [facility]02/20/23 Trung Marcelo MD [address] [place] [address] PCP - [facility] [place] [employer]02/19/2012Team MemberRelationshipSpecialty Start DateEnd Date Alethea Mckeon MD [address] [place] [address] PCP - [facility]02/20/23 Trung Marcelo MD [address] [place] [address] PCP - [facility]02/19/2012Team MemberRelationshipSpecialty Start DateEnd Date Alethea Mckeon MD [address] [place] [address] PCP - [facility]02/20/23 Trung Marcelo MD [address] [facility] [address] [place] [address] [facility] - [facility]02/19/2012 Team Status: Inactive Member Role Status Dates Alethea Mckeon MD Primary Care Provider Active S tart: June 15, 2025 End: June 15, 2025Anita Peralta APRNAtpatrciio ProviderActiveStart: June 15, 2025 End: June 15, 2025Team MemberRelationshipSpecialtyStart DateEnd Date Alethea Mckeon MD [address] [place] [address] PCP - [facility]02/20/23 Criselda Leos PA [address] [place] [address] [facility] - [facility]02/19/2012 Goals (unrecognized section and content) Goals may be documented in a n alternate section Reason for Visit (unrecogniz ed section and content) ReasonCommentsSkin CheckRashSuspicious Skin LesionReasonOnset DateCommentsMed Djwdxq4101/21/2025ReasonCommentsurine sampleReasonCommentsPain FOR RECORDS PERTAINING TO PATIENTS WHO ARE [...] BE BASED ON THE PRIMARY CLINICAL RECORDS. [employer] [facility]. provides no warranty or guarantee of the accuracy or completeness of information in this document.
[2025-08-31 06:59] LABS: Hematocrit 41.8 % (36.0-48.0); Hemoglobin 14.4 g/dL (12.0-16.0); Immature Granulocytes Abs Auto 0.01 10^3/uL (0.00-0.03); Immature Granulocytes Pct Auto 0.2 % (0.0-0.5); Lymphocytes Absolute Auto 1.4 10^3/uL (1.2-3.8); Mean Corpuscular HGB Conc 34.4 g/dL (29.9-35.2); Mean Corpuscular Hemoglobin 30.8 pg (26.7-34.0); Mean Corpuscular Volume 89.3 fL (81.0-99.0); Platelet Count 248 10^3/uL (150-450); Red Blood Count 4.68 10^6/uL (4.20-5.40); White Blood Count 5.2 10^3/uL (4.0-11.0)
[2025-08-31 07:46] LABS: Alanine Aminotransferase 24 U/L (14-59); Albumin Globulin Ratio 1.2; Albumin Level 3.9 g/dL (3.4-5.0); Alkaline Phosphatase 70 U/L (46-116); Anion Gap 10.3; Aspartate Amino Transferase 13 U/L (15-37); Blood Urea Nitrogen 15.0 mg/dL (7.0-18.0); Calcium 9.0 mg/dL (8.5-10.1); Carbon Dioxide 29.1 mmol/L (21.0-32.0); Chloride 104 mmol/L (98-107); Cholesterol 197 mg/dL (<=200); Estimated GFR (African America >60 (>=60 mL/min/1.73m^2); Estimated GFR (Non-African Ame >60 (>=60 mL/min/1.73m^2); Globulin 3.3 g/dL; Glucose 93 mg/dL (74-106); HDL Cholesterol 59 mg/dL (40-60); Potassium 4.4 mmol/L (3.5-5.1); Sodium 139 mmol/L (136-145); Thyroid Stimulating Hormone 1.359 uIU/mL (0.358-3.740); Total Protein 7.2 g/dL (6.4-8.2); Triglycerides 34 mg/dL (<=150); VLDL CHOLESTEROL 6.8 mg/dL
== END 2025-08-31 06:34 | disposition home or self-care (01) ==
LOC: LAB 06:35
PROVIDERS: PCP Family Medicine; Visit Provider Physician Assistant
DX: H10.13 Acute atopic conjunctivitis, bilateral (principal); J30.9 Allergic rhinitis, unspecified; I10 Essential (primary) hypertension; E78.00 Pure hypercholesterolemia, unspecified; E87.6 Hypokalemia; M79.10 Myalgia, unspecified site; R53.82 Chronic fatigue, unspecified; E03.9 Hypothyroidism, unspecified
CPT/HCPCS: 36415; 80053; 80061; 82306; 84439; 84443; 85025; 88175

== ENCOUNTER 2025-08-31 20:32 | Outpatient (REF) | payer OTHER, SELFPAY ==
--- OUTSIDE RECORDS SUMMARY | 2025-08-23 13:30 | XMS_ITS | Encounter Summary ---
Author Organization [facility] Address [address] [place] [address] Care Team Providers Care Education Department Registrar Name Role Phone Carolin Small MD Primary Care Provider [phone] Arnold Oro Unavailable [phone] Reason for Referral * Consultation (Routine) - AuthorizedSpecialtyDiagnoses / ProceduresReferred By ContactReferred To ContactAllergy Diagnoses Allergic conjunctivitis of both eyes and rhinitis Procedures IN OFFICE/OUTPATIENT [facility] 60 MINUTES Criselda Gutierres PA [address] [facility] [address] [place] [address] Phone: tel: fax: Simon Barba MD [address] [facility] [address] [place] [address] Phone: tel: fax: Referral IDStatusReasonStart DateExpiration DateVisits RequestedVisits [id number] Specialty Services Required Encounter Details DateTypeDepartmentCare Team (Latest Contact Info)Zpxfudzzlpm97/02/2025 1:30 PM ESTOffice Visit NOMPeyman Vaughn Medince [address] [facility] [address] [place] [address] Criselda Gutierres PA [address] [facility] [address] [place] [address] Allergic conjunctivitis of both eyes and rhinitis (Primary Dx); Primary hypertension; Myalgia; Acquired hypothyroidism; Elevated LDL cholesterol level; Chronic fatigue; Hypokalemia Social History Tobacco UseTypesPacks/DayYears UsedDateSmoking Tobacco: NeverSmokeless Tobacco: NeverAlcohol UseStandard Drinks/WeekCommentsNot Currently5 (1 standard drink = 0.6 oz pure alcohol)Caffeine intake: 2-3 cups per day; 1 cup coffee qdPHQ-2 AnswerDate RecordedPatient Health Questionnaire-2 Ilwcl77610/24/2024 CommentsUnknownSex and Gender InformationValueDate RecordedSex Assigned at Vqzqcb0906/17/2023 1:51 PM EDTLegal BoqPazzzk20/15/2023 7:04 PM EDTGender Identity Nmqyvn8406/17/2023 1:51 PM EDTSexual SubnrrgkcjfTdxdefuo11/26/2023 1:51 PM EDT 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 Start DateJob End DateDoctor of veterinary medicineNot on fileNot on fileNot on filedocumented as of this encounter Last Filed Vital Signs Vital SignReadingTime TakenCommentsBlood Drfmplgu701/8608/23/2025 1:36 PM EST Dozyd558108/23/2025 1:36 PM ESTTemperature--Respiratory Pmgp695910/24/2024 1:36 PM ESTOxygen Kczeircetj19%08/23/2025 1:36 PM ESTInhaled Oxygen Concentration-- Ydkpif42.3 kg (144 lb)08/23/2025 1:36 PM ZOMLlqirl768.2 cm (5' 7 )08/23/2025 1:36 PM ESTBody Mass Index22.5508/23/2025 1:36 PM ESTdocumented in this encounter Functional Status * Over the past 2 weeks, how often have you been bothered by any of the following problems?QuestionAnswerDate of AssessmentAuthorLittle interest or pleasure in doing thingsNot at all08/23/2025 1:29 PM Arabella Lyman LPN Feeling down, depressed, or hopelessNot at all08/23/2025 1:29 PM Arabella Lyman LPNPatient Health Questionnaire-2 Wqlda28010/24/2024 1:29 PM Arabella Lyman LPN documented as of this encounter Progress Notes * GEETHA Carlton - 08/23/2025 1:30 PM EST Images from the original note were not included. Subjective Patient ID: Jennyfer Sanchez is a 45 y.o. female who presents for allergies. Jennyfer is present today for evaluation of allergies. Admits sneezing, nasal congestion, runny nose, post nasal drainage, sinuses feel swollen, eyes dry itchy. She has tried all of the OTC meds and sprays. She had allergies as a child and is allergic to cats but does have cats at home and she is avet so is around animals all the time. This has been going on for 6 weeks and she feels the kenalogshot will help temporarily and then the symptoms will just come back again. Currently taking Allergra and a Triamcinolone nasal spray. Over the past 2 weeks, how often have you been bothered by any of the following problems? Little interest or pleasure in doing things: Not at all Feeling down, depressed, or hopeless: Not at all Patient Health Questionnaire-2 Score: 0 Current Outpatient Medications on File Prior to Visit Medication Sig Dispense Refill buPROPion XL (Wellbutrin XL) 150 MG 24 hr tablet Take 150 mg by mouth in the morning. levothyroxine (Synthroid, Levoxyl) 137 MCG tablet TAKE ONE TABLET BY MOUTH DAILY IN THE MORNING BEFORE MEALS 30 tablet 12 olmesartan (BENIcar) 20 MG tablet TAKE 1/2 TABLET (10MG) BY MOUTH ONCE DAILY 15 tablet 2 Albuterol-Budesonide (Airsupra) 90-80 MCG/ACT aerosol Inhale 2 puffs every 4 (four) hours if needed(SOB or Wheeze) (Patient not taking: Reported on 08/23/2025) 32.1 g 3 ALPRAZolam (Xanax) 0.25 MG tablet Take 0.25 mg by mouth in the morning and 0.25 mg in the evening and 0.25 mg before bedtime. budesonide-formoterol (Symbicort) 160-4.5 MCG/ACT inhaler Inhale 2 puffs in the morning and 2 puffsbefore bedtime. Do all this for 14 days. Rinse mouth with water after use to reduce aftertaste and incidence of candidiasis. Do not swallow. (Patient not taking: Reported on 08/23/2025) 1 each 2 buPROPion XL (Wellbutrin XL) 300 MG 24 hr tablet Take 300 mg by mouth in the morning. Do not crush,chew, or split. . Hormone Cream Base (HRT Base) cream Apply 0.5 mL topically Daily W-Biest/Prog Crm 3/150 mg/mL, Estradiol/Estriol/Progesterone Cream lamoTRIgine (LaMICtal) 100 MG tablet Take 2 tablets by mouth in the morning. lurasidone (Latuda) 40 MG tablet Take 40 mg by mouth in the morning. Take with meals. Rimegepant Sulfate (Nurtec) 75 MG tablet dispersible Take 1 tablet by mouth Daily as needed (migraine) 8 tablet 3 Saccharomyces boulardii (probiotic) 250 MG capsule Take 1 capsule by mouth 1 (one) time each day. tiZANidine (Zanaflex) 4 MG tablet TAKE ONE TABLET THREE TIMES A DAY NEEDED FOR 30 DAYS 90 tablet0 No current facility-administered medications on file prior [...] complicated by congenital heart disease, fetus 1 ([facility] 03/28/2020 Suspected COVID-19 virus infection 09/26/2021 Suspected COVID J and J and Moderna Booster was positive Thyroid nodule Past Surgical History: Procedure Laterality Date SECTION, LOW TRANSVERSE 2008 ESOPHAGOGASTRODUODENOSCOPY 2017 IR FINE NEEDLE ASPIRATION THYROID 07/23/2016 IN LAP,CHOLECYSTECTOMY 2017 TOTAL THYROIDECTOMY 11/19/2016 VAGINAL AFTER SECTION 07/15/2020 VAGINAL AFTER SECTION 2014 VAGINAL DELIVERY x2- 2003, 2006 Visit Vitals BP 120/86 Pulse 79 Resp 16 Ht 5' 7 Wt 144 lb SpO2 97% BMI 22.55 kg/m?? Smoking Status Never BSA 1.76 m?? Review of Systems Constitutional: Negative for chills, fatigue and fever. HENT: Positive for congestion, postnasal drip, rhinorrhea and sneezing. Eyes: Positive for itching. Respiratory: Negative for cough, shortness of breath and wheezing. Cardiovascular: Negative for chest pain, palpitations and leg swelling. Gastrointestinal: Negative for abdominal pain, constipation, diarrhea, nausea and vomiting. Skin: Negative for rash. Objective Physical Exam Constitutional: General: She is not in acute distress. Appearance: Normal appearance. She is well-developed. HENT: Head: Normocephalic and atraumatic. Eyes: General: No scleral icterus. Conjunctiva/sclera: Conjunctivae normal. Cardiovascular: Rate and Rhythm: Normal rate and regular rhythm. Heart sounds: Normal heart sounds. No murmur heard. Pulmonary: Effort: Pulmonary effort is normal. No respiratory distress. Breath sounds: Normal breath sounds. No wheezing, rhonchi or rales. Skin: General: Skin is warm and dry. Neurological: General: No focal deficit present. Mental Status: She is alert and oriented to person, place, and time. Psychiatric: Mood and Affect: Mood normal. Behavior: Behavior normal. Assessment/Plan Diagnoses and all orders for this visit: Allergic conjunctivitis of both eyes and rhinitis - Azelastine HCl 137 MCG/SPRAY solution; Administer 1 spray into affected nostril(s) in the morningand 1 spray before bedtime. - Ketotifen Fumarate 0.035 % solution; Administer 1 drop into affected eye(s) in the morning and 1 drop before bedtime. - Ambulatory referral to Allergy; Future - CBC and differential -Will provide pt with a referral to Dr. Barba for further evaluation, consideration for allergy testing. -Continue Lilibeth daily. Continue Triamcinolone nasal spray in the morning. Start Azelastine nasal spray before bed. -Start Ketotifen eye drops as prescribed. Can continue to use rewetting drops in between Ketotifen doses, wait at least 30 minutes after Ketotifen before using the rewetting drops. -Patient can contact the office if she would like to come in for a nurse visit to have a Kenalog 40mg injection. Primary hypertension - CBC and differential - Comprehensive metabolic panel - Lipid panel Updated labs ordered. Myalgia - Vitamin D 25 hydroxy Total Updated labs ordered. Acquired hypothyroidism - TSH - T4, free Updated labs ordered. Elevated LDL cholesterol level - CBC and differential - Comprehensive metabolic panel - Lipid panel Updated labs ordered. Chronic fatigue - Vitamin D 25 hydroxy Total - TSH - T4, free Updated labs ordered. Hypokalemia - Comprehensive metabolic panel Updated labs ordered. No follow-ups on file. documented in this encounter Plan of Treatment DateTypeDepartmentCare Team (Latest Contact Info)Kllvjyzzpkb16/07/2026 10:40 AM ESTOffice Visit [facility] [address] [facility] [address] [place] [phone] Simon Barba MD [address] [facility] [address] [place] [address] 10/05/2025 1:00 PM ESTAncillary Procedure NOMPeyman ALVAREN[facility] [address] [place] [address] 10/18/2025 10:20 AM ESTOffice Visit [facility] [address] [facility] [address] [place] [phone] Debby Jeffery MD [address] [facility] [address] [place] [address] 11/08/2025 9:30 AM ESTProcedure Visit RADHA ALVARENGA [address] [place] [address] Dharmesh Milner DO [address] [place] [address] NameTypePriorityAssociated DiagnosesOrder ScheduleCBC and differentialLabRoutine Allergic conjunctivitis of both eyes and rhinitis Primary hypertension Elevated LDL cholesterol level Ordered: 08/23/2025omprehensive metabolic panelLabRoutine Primary hypertension Elevated LDL cholesterol level Hypokalemia Ordered: 08/23/2025Lipid panelLabRoutine Primary hypertension Elevated LDL cholesterol level Ordered: 08/23/2025Vitamin D 25 hydroxy TotalLabRoutine Myalgia Chronic fatigue Ordered: 08/23/2025TSHLabRoutine Acquired hypothyroidism Chronic fatigue Ordered: 08/23/2025T4, freeLabRoutine Acquired hypothyroidism Chronic fatigue Ordered: 08/23/2025NameTypePriorityAssociated DiagnosesOrder ScheduleAmbulatory referral to AllergyOutpatient ReferralRoutine Allergic conjunctivitis of both eyes and rhinitis Expected: 08/23/2025 (Approximate), Expires: 02/21/2026documented as of this encounter Visit Diagnoses Diagnosis Allergic conjunctivitis of both eyes and rhinitis- Primary Primary hypertension Unspecified essential hypertension Myalgia Unspecified myalgia and myositis Acquired hypothyroidism Unspecified hypothyroidism Elevated LDL cholesterol level Chronic fatigue Other malaise and fatigue Hypokalemia Hypopotassemia documented in this encounter Care Teams Team MemberRelationshipSpecialtyStart DateEnd Date Carolin Small MD [address] [facility] [address] [place] [address] PCP - GeneralFamily Medicine02/20/23 Arnold Oro PA [address] [place] [address] PCP - Medical [place] [employer]02/19/2012/documented as of this encounter
--- OUTSIDE RECORDS SUMMARY | 2025-08-31 13:00 | XMS_ITS | Encounter Summary ---
Author Organization [facility] Address [address] [place] [address] Care Team Providers Care Convention Services Director Name Role Phone Carolin Small MD Primary Care Provider [phone] Arnold Oro Unavailable [phone] Reason for Visit * ReasonCommentsWell Women Visit Encounter Details DateTypeDepartmentCare Team (Latest Contact Info)Nqaicyxzrif41/10/2025 1:00 PM ESTProcedure Visit [facility] [address] [place] [address] Key Douglas PA [address] [facility] [place] [address] Well woman exam with routine gynecological exam; Encounter for screening mammogram for malignant neoplasm of breast; Hormone disorder; Menorrhagia with regular cycle Social History Tobacco UseTypesPacks/DayYears UsedDateSmoking Tobacco: NeverSmokeless Tobacco: NeverAlcohol UseStandard Drinks/WeekCommentsNot Currently5 (1 standard drink = 0.6 oz pure alcohol)Caffeine intake: 2-3 cups per day; 1 cup coffee qdPHQ-2 AnswerDate RecordedPatient Health Questionnaire-2 Ywuci08710/24/2024 CommentsUnknownSex and Gender InformationValueDate RecordedSex Assigned at Bqmuht0406/17/2023 1:51 PM EDTLegal BqgUeogej73/15/2023 7:04 PM EDTGender Identity Uxydwo7106/17/2023 1:51 PM EDTSexual NiusmlaqnwxTcwrwiph70/26/2023 1:51 PM EDT 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 Start DateJob End DateDoctor of veterinary medicineNot on fileNot on fileNot on filedocumented as of this encounter Last Filed Vital Signs Vital SignReadingTime TakenCommentsBlood Dqkdckxc248/8608/31/2025 12:52 PM EST Pulse--Temperature--Respiratory Rate--Oxygen Saturation--Inhaled Oxygen Concentration--Bjudza46.6 kg (142 lb 8 oz)08/31/2025 12:52 PM ESTHeight--Body Mass Index22.32110/24/2024 1:36 PM ESTdocumented in this encounter Progress Notes * GEETHA Mg - 08/31/2025 1:00 PM EST Reason for Appointment: Patient ID: Jennyfer Sanchez is a 45 y.o. female who presents for Well Women Visit Patient presents today for Annual Exam. MEDICATIONS Current Outpatient Medications Medication Instructions ALPRAZolam (XANAX) 0.25 mg, 3 times daily Azelastine HCl 137 MCG/SPRAY solution 1 spray, Nasal, 2 times daily buPROPion XL (WELLBUTRIN XL) 300 mg, Daily buPROPion XL (WELLBUTRIN XL) 150 mg, Every morning Hormone Cream Base (HRT Base) cream 0.5 mL, Daily Ketotifen Fumarate 0.035 % solution 1 drop, Ophthalmic, 2 times daily lamoTRIgine (LaMICtal) 100 MG tablet 2 tablets, Daily levothyroxine (Synthroid, Levoxyl) 137 MCG tablet TAKE ONE TABLET BY MOUTH DAILY IN THE MORNING BEFORE MEALS lurasidone (LATUDA) 40 mg, Daily with breakfast olmesartan (BENICAR) 10 mg, Oral, Daily Rimegepant Sulfate (Nurtec) 75 MG tablet dispersible 1 tablet, Oral, Daily PRN Saccharomyces boulardii (probiotic) 250 MG capsule 1 capsule, Daily tiZANidine (Zanaflex) 4 MG tablet TAKE ONE TABLET THREE TIMES A DAY NEEDED FOR 30 DAYS ALLERGIES Allergies Allergen Reactions Augmentin [Amoxicillin-Pot Clavulanate] GI intolerance PROBLEMS Active Ambulatory Problems Diagnosis Date Noted Acquired hypothyroidism 02/26/2023 Chronic fatigue 02/26/2023 Elevated LDL cholesterol level 02/26/2023 Gastroesophageal reflux disease without esophagitis 02/26/2023 Hypokalemia 02/26/2023 Migraine 02/26/2023 Myalgia 02/26/2023 PMDD (premenstrual dysphoric disorder) 02/26/2023 Polyarthralgia 02/26/2023 Premenstrual tension syndrome 02/26/2023 Shortened AZ interval 02/26/2023 Generalized anxiety disorder 02/27/2023 MDD (major depressive disorder), recurrent episode, mild 02/27/2023 Panic disorder 02/27/2023 Chronic idiopathic constipation 02/27/2023 Chronic bilateral low back pain with bilateral sciatica 02/27/2023 History of hyperthyroidism 03/16/2021 Primary hypertension 09/24/2023 Dizziness 09/24/2023 Persistent cough 09/24/2023 Bipolar disorder, current episode hypomanic (HCC) 03/17/2024 Psoriasis of scalp 03/17/2024 Hives 08/23/2025 -induced hypertension ([facility]) 08/23/2025 Vaginal after ([facility]) 08/23/2025 Allergic conjunctivitis of both eyes and rhinitis 08/23/2025 Resolved Ambulatory Problems Diagnosis Date Noted Finding of above normal blood pressure 02/26/2023 Manic bipolar I disorder (HCC) 02/26/2023 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, fetus 1 ([facility]) 03/28/2020 Pure hypercholesterolemia 03/20/2021 Thyroid disorder 06/19/2016 Viral URI 08/23/2025 Past Medical History: Diagnosis Date Anxiety Depression MARLYS (generalized anxiety disorder) Gastric ulcer High blood pressure Lyme disease Panic attack Suspected COVID-19 virus infection 09/26/2021 Thyroid nodule HISTORY PAST MEDICAL HISTORY SOCIAL HISTORY Past Medical History: Diagnosis Date Anxiety Depression MARLYS (generalized anxiety disorder) Gastric ulcer High blood pressure Lyme disease Migraine Mycoplasma pneumonia 02/26/2023 Panic attack PMDD (premenstrual dysphoric disorder) complicated by congenital heart disease, fetus 1 ([facility]) 03/28/2020 Suspected COVID-19 virus infection 09/26/2021 Suspected COVID [employer] and Moderna Booster was positive Thyroid nodule Social History Tobacco Use Smoking status: Never Smokeless tobacco: Never Vaping Use Vaping status: Never Used Substance Use Topics Alcohol use: Not Currently Alcohol/week: 5.0 - 6.0 standard drinks of alcohol Types: 5 - 6 Standard drinks or equivalent per week Comment: Caffeine intake: 2-3 cups per day; 1 cup coffee qd Drug use: Never FAMILY HISTORY Family History Problem Relation Name Age of Onset Hypertension Mother Heart disease Mother Arthritis Mother Diabetes Father Hypertension Father Heart disease Father Bipolar disorder Brother Brother 1 Multiple sclerosis Brother Brother 2 Rheum arthritis Brother Brother 2 Stroke Maternal Grandmother Heart disease Maternal Grandfather Heart disease Paternal Grandfather No Known Problems Daughter No Known Problems Son Multiple sclerosis Sibling SURGICAL HISTORY Past Surgical History: Procedure Laterality Date SECTION, LOW TRANSVERSE 2007 ESOPHAGOGASTRODUODENOSCOPY 2017 IR FINE NEEDLE ASPIRATION THYROID 07/23/2016 [place] LAP,CHOLECYSTECTOMY 2017 TOTAL THYROIDECTOMY 11/19/2016 VAGINAL AFTER SECTION 07/15/2020 VAGINAL AFTER SECTION 2014 VAGINAL DELIVERY x2- 2003, 2006 REVIEW OF SYSTEMS Review of Systems: Review of Systems Constitutional: Negative. HENT: Negative. Eyes: Negative. Respiratory: Negative. Cardiovascular: Negative. Gastrointestinal: Negative. Genitourinary: Negative. Musculoskeletal: Negative. Skin: Negative. Neurological: Negative. All other systems reviewed and are negative. Hematological: Negative. Endocrine: Negative. Allergic/Immunologic: Negative. OBJECTIVE Objective: Physical Exam Constitutional: Appearance: Normal appearance. She is well-developed. Genitourinary: Vulva normal. Right Adnexa: not tender and no mass present. Left Adnexa: not tender and no mass present. No cervical discharge. Breasts: Breasts are soft. Right: Normal. Left: Normal. HENT: Head: Normocephalic. Nose: Nose normal. Mouth/Throat: Mouth: Mucous membranes are moist. Cardiovascular: Rate and Rhythm: Normal rate and regular rhythm. Pulmonary: Effort: Pulmonary effort is normal. Breath sounds: Normal breath sounds. Abdominal: General: Bowel sounds are normal. There is no distension. Palpations: Abdomen is soft. Tenderness: There is no abdominal tenderness. There is no guarding or rebound. Musculoskeletal: General: No swelling. Normal range of motion. Cervical back: Normal range of motion. Right lower leg: No edema. Left lower leg: No edema. Neurological: General: No focal deficit present. Mental Status: She is alert and oriented to person, place, and time. Skin: General: Skin is warm and dry. Psychiatric: Mood and Affect: Mood normal. Behavior: Behavior normal. Vitals and nursing note reviewed. Exam conducted with a access service representative present. Vitals: Estimated body mass index is 22.32 kg/m?? as calculated from the following: Height as of 08/23/25: 5' 7 . Weight as of this encounter: 142 lb 8 oz. BP: 128/86 No LMP recorded. Assessment/Plan ICD-10-CM 1. Well woman exam with routine gynecological exam Z01.419 2. Encounter for screening mammogram for malignant neoplasm of breast Z12.31 Assessment/Plan Annual: Patient presents today for an annual exam. Patient states she is doing well and has no complaints. Pap was obtained without difficulty and patient given mammogram order to have scheduled/obtained. Discussed ablation/tubal with patient as she does have heavy periods. Patient does hormone replacementthrough online service. Patient will do the Buderer packet and labs to see where her levels are. Orders Placed This Encounter Procedures Bilateral screening mammogram Follow Up: Patient is to return in one year for annual unless needed otherwise. Documented by Namrata Israel LPN on behalf of: GEETHA Mg documented in this encounter Plan of Treatment DateTypeDepartmentCare Team (Latest Contact Info)Tysskiojxri81/07/2026 10:40 AM ESTOffice Visit [facility] [address] [place] [phone] Simon Barba MD [address] [place] [address] 10/05/2025 1:00 PM ESTAncillary Procedure [facility] [address] [place] [address] [place] [address] 10/18/2025 10:20 AM ESTOffice Visit [facility] [address] [place] [phone] Debby Jeffery MD [address] [place] [address] 11/08/2025 9:30 AM ESTProcedure Visit [facility] [address] [place] [address] Dharmesh Milner DO [address] [facility] [place] [address] NameTypePriorityAssociated DiagnosesOrder ScheduleBilateral screening mammogram ImagingRoutine Encounter for screening mammogram for malignant neoplasm of breast Expected: 08/31/2025 (Approximate), Expires: 11/01/2026THIN PREP TIS PAP AND HR HPV DNAPathology and CytologyRoutine Well woman exam with routine gynecological exam Ordered: 08/31/2025EstradiolLabRoutine Hormone disorder Ordered: 08/31/2025EstroneLabRoutine Hormone disorder Ordered: 08/31/2025ortisol, freeLabRoutine Hormone disorder Expected: 08/31/2025 (Approximate), Expires: 08/31/2026DHEA-sulfateLabRoutine Hormone disorder Ordered: 08/31/2025Sex hormone binding globulinLabRoutine Hormone disorder Ordered: 08/31/2025Insulin, totalLabRoutine Hormone disorder Expected: 08/31/2025 (Approximate), Expires: 08/31/2026Serotonin serumLabRoutine Hormone disorder Expected: 08/31/2025 (Approximate), Expires: 08/31/2026TSHLabRoutine Hormone disorder Ordered: 08/31/2025T4, freeLabRoutine Hormone disorder Ordered: 08/31/2025T3, reverseLabRoutine Hormone disorder Ordered: 08/31/2025ProgesteroneLabRoutine Hormone disorder Ordered: 08/31/2025Vitamin D 1,25 dihydroxyLabRoutine Hormone disorder Ordered: 08/31/2025FerritinLabRoutine Hormone disorder Ordered: 08/31/2025T3, freeLabRoutine Hormone disorder Ordered: 08/31/2025ThyroglobulinLabRoutine Hormone disorder Expected: 08/31/2025 (Approximate), Expires: 08/31/2026Thyroglobulin AntibodyLab Routine Hormone disorder Expected: 08/31/2025 (Approximate), Expires: 08/31/2026Thyroid peroxidase antibodyLabRoutine Hormone disorder Ordered: 08/31/20251127P3LaiQvofrsy Hormone disorder Expected: 08/31/2025 (Approximate), Expires: 08/31/2026TESTOSTERONE, FREELab Routine Hormone disorder Ordered: 08/31/2025Testosterone, free, totalLabRoutine Hormone disorder Ordered: 08/31/2025Hemoglobin O9lEozIupcuhp Hormone disorder Ordered: 08/31/2025Glucose, randomLabRoutine Hormone disorder Expected: 08/31/2025 (Approximate), Expires: 08/31/2026-peptideLabRoutine Hormone disorder Expected: 08/31/2025 (Approximate), Expires: 08/31/2026US Pelvis w/ TVImaging Routine Menorrhagia with regular cycle Expected: 08/31/2025, Expires: 03/01/2026documented as of this encounter Procedures Procedure NamePriorityDate/TimeAssociated DiagnosisCommentsPAP TEST, EXTERNAL Ywpljje3111/01/2022 12:00 AM ESTdocumented in this encounter Results * PAP TEST, EXTERNAL (11/01/2022 12:00 AM EST) Narrative Authorizing ProviderResult TypeResult StatusFazio Nurse [facility] Ob[facility] CYTOLOGY ORDERABLESFinal ResultPerforming OrganizationAddressCity/State/ZIP CodePhone Number EXTERNAL LAB documented in this encounter Visit Diagnoses Diagnosis Well woman exam with routine gynecological exam Routine gynecological examination Encounter for screening mammogram for malignant neoplasm of breast Hormone disorder Unspecified endocrine disorder Menorrhagia with regular cycle documented in this encounter Care Teams Team MemberRelationshipSpecialtyStart DateEnd Date Carolin Small MD [address] [place] [address] PCP - GeneralFamily Medicine02/20/23 Arnold Oro PA [address] [place] [phone] PCP - Medical [place] [employer]02/19/2012/documented as of this encounter
--- OUTSIDE RECORDS SUMMARY | 2025-08-31 20:38 | XMS_ITS | Encounter Summary ---
Author Organization [facility] Address [address] [facility] [place] [address] Care Team Providers Care Bulk Truck Driver Name Role Phone Carolin Small MD Primary Care Provider [phone] Arnold Oro Unavailable [phone] Encounter Details DateTypeDepartmentCare Team (Latest Contact Info)Arfxjyqkmlk11/02/2025Bamboo flowsheet [facility] [place] [facility] [address] [place] [address] Criselda Gutierres PA [address] [place] [address] Social History Tobacco UseTypesPacks/DayYears UsedDateSmoking Tobacco: NeverSmokeless Tobacco: NeverAlcohol UseStandard Drinks/WeekCommentsNot Currently5 (1 standard drink = 0.6 oz pure alcohol)Caffeine intake: 2-3 cups per day; 1 cup coffee qdPHQ-2 AnswerDate RecordedPatient Health Questionnaire-2 Tuayt91510/24/2024 CommentsUnknownSex and Gender InformationValueDate RecordedSex Assigned at Fcgwnn5606/17/2023 1:51 PM EDTLegal AzfNicfdq97/15/2023 7:04 PM EDTGender Identity Qiulxv5306/17/2023 1:51 PM EDTSexual ScvjzabsqbmCmbdlaye23/26/2023 1:51 PM EDT 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 Start DateJob End DateDoctor of veterinary medicineNot on fileNot on fileNot on filedocumented as of this encounter Plan of Treatment DateTypeDepartmentCare Team (Latest Contact Info)Qdjyjpivgdt74/07/2026 10:40 AM ESTOffice Visit [facility] [place] [facility] [address] [place] [address] Simon Barba MD [address] [place] [address] 10/05/2025 1:00 PM ESTAncillary Procedure [facility] [address] [facility] [place] [phone] 10/18/2025 10:20 AM ESTOffice Visit [facility] [place] [facility] [address] [place] [address] Debby Jeffery MD [address] [place], [place] [phone] 11/08/2025 9:30 AM ESTProcedure Visit [facility] [address] [place] [address] Dharmesh Milner DO [address] [facility] [address] [place], [place] [phone] documented as of this encounter Visit Diagnoses Not on filedocumented in this encounter Care Teams Team MemberRelationshipSpecialtyStart DateEnd Date Carolin Small MD [address] [facility] [address] [place] [address] PCP - GeneralFamily Medicine02/20/23 Arnold Oro PA [address] [place] [address] PCP - Medical [place] [employer]02/19/2012documented as of this encounter
--- OUTSIDE RECORDS SUMMARY | 2025-08-31 20:38 | XMS_ITS | Continuity of Care Document ---
Author Organization [facility] Address [address] [place] [address] Care Team Providers Care Senior Marketing Specialist Name Role Phone Alethea Mckeon MD Primary Care Provider [phone] Arnold Oro Unavailable [phone] Encounters DateTypeDepartmentCare IjfxMyosxtjlazl16/10/2025bstract [facility] [address] [place] [address] Alethea Mckeon MD 08/31/2025bstract [facility] [address] [place] [address] Alethea Mckeon MD 08/31/2025linisync Result Encounter [facility] External Department Unsolicited Criselda Leos PA 08/31/2025 1:00 PM ESTProcedure Visit [facility] [address] [place] [address] [place] [address] Key Douglas PA Well woman exam with routine gynecological exam; Encounter for screening mammogram for malignant neoplasm of breast; Hormone disorder; Menorrhagia with regular cycle08/23/2025amboo flowsheet [facility] [address] [place] [address] Criselda Leos PA 08/23/20253704Kkrkhl08/02/2025 1:30 PM ESTOffice Visit [facility] [address] [place] [address] Criselda Leos, PA Allergic conjunctivitis of both eyes and rhinitis (Primary Dx); Primary hypertension; Myalgia; Acquired hypothyroidism; Elevated LDL cholesterol level; Chronic fatigue; Ogzyisisgkg70/31/2025Refill [facility] [address] [place] [address] Criselda Leos PA Primary hypertension; Acquired mfycwazblxsykk58/22/2025Refill [facility] [address] [facility] [address] [place] [address] Khloe Frank MA Intractable migraine with aura with status cmlhycahbkh31/22/2025bstract [facility] [address] [facility] [address] [place] [address] Alethea Mckeon MD 07/13/2025bstract [facility] [address] [facility] [address] [place] [address] Alethea Mckeon MD 07/11/2025Telephone [facility] [address] [facility] [address] [place] [address] Janee Calvert NP 06/21/2025amboo flowsheet [facility] [address] [facility] [address] [place] [address] Janee Calvert NP 06/21/20255867Ointzs90/30/2025 9:00 AM EDTOffice Visit [facility] [address] [facility] [address] [place] [address] Janee Calvert, MELINA Acute non-recurrent pansinusitis (Primary Dx)06/16/2025bstract [facility] [address] [facility] [address] [place] [address] Alethea Mckeon MD 05/18/2025 3:15 PM EDTAncillary Procedure [facility] [address] [place] [address] 5Bamboo flowsheet [facility] [address] [place] [address] Arnold Oro PA 05/18/20253499Tuevcg93/27/2025 3:00 PM EDTOffice Visit [facility] [address] [place] [address] Arnold Oro, PA Left foot pain (Primary Dx); Closed displaced fracture of proximal phalanx of lesser toe of left foot with routine healing, subsequent lvgyladqz17/21/2025[facility]ill [facility] [address] [facility] [address] [place] [address] Jackeline Mathew LPN Persistent cough04/21/20251584Ritiyk07/31/2025 8:00 AM EDTOffice Visit [facility] [address] [facility] [address] [place] [address] Criselda Leos PA Primary hypertension (Primary Dx); Closed displaced fracture of proximal phalanx of lesser toe of left foot with routine healing, subsequent encounter; Panic disorder ; Persistent cough04/20/2025Refill [facility] [address] [facility] [address] [place] [address] Criselda Leos PA Primary pjirofafwuiy14/30/2025Results Follow-Up [facility] [address] [facility] [address] [place] [address] Criselda Leos PA MM TOMOSYNTHESIS SCREENING BI04/20/2025linisync Result Encounter [facility] External Department Unsolicited Criselda Leos PA 04/20/2025 3:15 PM EDTAncillary Procedure [facility] [address] [place] [address] 5Bamboo flowsheet [facility] [address] [place] [address] Arnold Oro PA 04/20/20252711Pviwpv56/30/2025 3:00 PM EDTOffice Visit [facility] [place] [address] Arnold Oro PA Left foot pain (Primary Dx); Closed displaced fracture of proximal phalanx of lesser toe of left foot, initial chiualeht37/17/2025Telephone [facility] [address] [facility] [address] [place] [address] Criselda Leos PA 03/31/2025bstract [facility] [address] [facility] [address] [place] [address] Alethea Mckeon MD 03/30/2025amboo flowsheet [facility] [address] [facility] [address] [place] [address] Criselda Leos PA 03/30/20257129Aggmyo78/09/2025 2:00 PM EDTOffice Visit [facility] [address] [facility] [address] [place] [address] Crisedla Leos PA Wellness examination (Primary Dx); Rhus dermatitis; Shortness [...] disorder, current episode hypomanic (HCC); Psoriasis of scalp03/23/2025Refill [facility] [address] [facility] [address] [place] [address] Criselda Leos PA Wdsdmexidgrkvh34/28/2025Results Follow-Up [facility] [address] [facility] [address] [place] [address] Criselda Leos PA POCT Urinalysis rhhtfeob24/28/2025Telephone [facility] [address] [place] [address] Criselda Leos PA 02/16/20256469Yosjej26/28/2025 1:00 PM EDTOffice Visit [facility] [address] [facility] [address] [place] [address] Burning with gmwcuamxf59/02/2025Refill [facility] [address] [facility] [address] [place] [address] Arabella Banks LPN Primary iyjqhpivknlc25/10/2263Grzdej59/10/2025bstract [facility] [address] [facility] [address] [place] [address] Alethea Mckeon MD 11/01/2024 2:30 PM ESTOffice Visit [facility] [address] [place] [address] Debby Jeffery MD Seborrheic keratosis (Primary Dx); Lentigines; Psoriasis vulgaris ; Common wart; Pain, yzsrrownyqk19/30/2025Refill [facility] [address] [facility] [address] [place] [address] Arabella Banks LPN Jsaxokspgbneeu21/02/2025Orders Only [facility] [address] [facility] [address] [place] [address] Arabella Banks LPN Persistent cough4Refill [facility] [address] [facility] [address] [place] [address] Alethea Mckeon MD Ojdwbwp37/21/2024Refill [facility] [address] [facility] [address] [place] [address] Arabella Banks, MAGNETIC RESONANCE IMAGING COORDINATOR Acquired xnjrjiewopqfgl27/20/2024linisync Result Encounter [facility] External Department Unsolicited Alethea Mckeon MD 07/28/2024Telephone [facility] [address] [place] [address] Alethea Mckeon MD Lab Rvsmsp7506/30/2024atient Outreach [facility] [place] [address] Friday, Leighann, MAGNETIC RESONANCE IMAGING COORDINATOR 06/29/2024bstract [facility] [address] [place] [address] Alethea Mckeon MD 4Refill [facility] [address] [place] [address] Virginie Jiménez MA 03/23/2024bstract [facility] [address] [place] [address] Alethea Mckeon MD 03/22/2024Telephone [facility] [address] [place] [address] Arabella Banks, MAGNETIC RESONANCE IMAGING COORDINATOR 03/18/2024bstract [facility] [address] [place] [address] Alethea Mckeon MD 03/17/2024amboo flowsheet [facility] [address] [place] [address] Criselda Leos PA 03/17/20248255Yzqxoo70/26/2024 10:00 AM EDTOffice Visit [facility] [address] [place] [address] Criselda Leos PA Wellness examination (Primary Dx); Encounter for screening mammogram for malignant neoplasm of breast; Primary hypertension ; Shortened [place] interval; Chronic idiopathic constipation; Gastroesophageal reflux disease without esophagitis; Persistent cough; Myalgia; Polyarthralgia; Acquired hypothyroidism ; Chronic bilateral low back pain with bilateral sciatica; Chronic fatigue; Dizziness; Elevated LDL cholesterol level ; Generalized anxiety disorder ; History of hyperthyroidism; Hypokalemia; MDD (major depressive disorder), recurrent episode, mild ; Chronic migraine without aura without status migrainosus, not intractable ; Panic disorder ; PMDD (premenstrual dysphoric disorder) ; Premenstrual tension syndrome; Pure hypercholesterolemia ; Bipolar disorder, current episode hypomanic (HCC); Psoriasis of scalp ; Fqlomfsek75/24/2024bstract [facility] [address] [facility] [address] [place] [address] Alethea Mckeon MD 02/20/2024Telephone [facility] [address] [facility] [address] [place] [address] Criselda Leos PA 4Refill [facility] [address] [facility] [address] [place] [address] Criselda Leos PA Fpgclulnnkzjet92/06/2024Refill [facility] [address] [facility] [address] [place] [address] Alethea Mckeon MD Primary dntfszlufojm41/14/2024Telephone [facility] [address] [facility] [address] [place] [address] Eddie Sánchez, PT RS PT Eval (Contacted and offered to rs PT Eval that was cx on 10/29/23. I noted we were 1-2 weeks out and she said she'll keep that noted and look at her calendar and contact back w/ her availability.); FU (Contacted and recommended scheduling but she noted w/ [facility] 09/24/20237260Luctpi52/03/2024bstract [facility] [address] [facility] [address] [place] [address] Criselda Leos, GEETHA 09/24/2023 1:00 PM ESTOffice Visit [facility] [address] [place] [address] Criselda Leos, GEETHA Primary hypertension (Primary Dx); Persistent cough; Bpasicjbs82/28/2023Telephone [facility] [address] [place] [address] Jackeline Mathew LPN 08/27/2023Telephone [facility] [address] [place] [address] Alethea Mckeon MD 07/21/2023Refill [facility] [address] [place] [address] Alethea Mckeon MD Primary plmcyqugojuw53/11/2023bstract [facility] [address] [place] [address] Alethea Mckeon MD 06/30/2023Telephone [facility] [address] [place] [address] Criselda Leos, GEETHA 06/30/2023Telephone [facility] [address] [place] [address] Criselda Leos, PA 06/25/2023bstract [facility] [address] [place] [address] Alethea Mckeon MD 06/23/2023Telephone [facility] [address] [place] [address] Khloe Frank MA 06/23/2023Orders Only [facility] [address] [place] [address] A, Unknown Practice 06/20/2023Telephone [facility] [address] [place] [address] Criselda Leos, PA 06/19/20234447Jthzuz41/28/2023 9:00 AM EDTOffice Visit [facility] [address] [place] [address] Criselda Leos, PA Acute cystitis with hematuria (Primary Dx); Dysuria; Primary hypertension ; Acute URI; Chronic idiopathic xnzghgdiflku61/30/2023Refill [facility] [address] [place] [address] Criselda Leos, PA Gsivooz9004/28/2023Telephone [facility] [address] [place] [address] Criselda Leos, PA 04/28/2023Telephone [facility] [address] [place] [address] Criselda Leos PA 04/25/2023bstract [facility] [address] [place] [address] Alethea Mckeon MD 04/25/2023bstract [facility] [address] [place] [address] Alethea Mckeon MD 04/25/2023Orders Only [facility] [address] [place] [address] A, Unknown Practice 03/24/2023Refill [facility] [address] [place] [address] Criselda Leos, PA Finding of above normal blood pressure (Primary Dx)03/24/2023Refill [facility] [address] [place] [address] Alethea Mckeon MD Acquired hypothyroidism (Primary Dx)03/04/2023bstract [facility] [address] [facility] [address] [place] [address] Criselda Leos PA 03/03/2023Telephone [facility] [address] [facility] [address] [place] [address] Criselda Leos PA 03/03/2023Orders Only [facility] [address] [facility] [address] [place] [address] Criselda Leos PA 03/03/2023Refill [facility] [address] [facility] [address] [place] [address] Jackeline Mathew LPN Chronic idiopathic qpijqoqriakt35/08/2023bstract [facility] [address] [facility] [address] [place] [address] Criselda Leos PA 02/27/2023 8:00 AM EDTOffice Visit [facility] [address] [facility] [address] [place] [address] Criselda Leos, PA Urine frequency (Primary Dx); Wellness examination; Generalized anxiety disorder ; MDD (major depressive disorder), recurrent episode, mild ; Panic disorder ; Chronic idiopathic constipation; Chronic bilateral low back pain with bilateral sciatica; Finding of above normal blood pressure; Shortened [place] interval; Gastroesophageal reflux disease without esophagitis; Myalgia; Polyarthralgia; Acquired hypothyroidism ; Chronic fatigue; Hypokalemia; Elevated LDL cholesterol level ; Chronic migraine without aura without status migrainosus, not intractable ; PMDD (premenstrual dysphoric disorder) ; Premenstrual tension lnqvsiyc06/07/2023bstract [facility] [address] [facility] [address] [place] [address] Arabella Banks LPN 12/23/2022Legacy Non Patient Presenting [facility] DATA CONVERSION LEGACY Criselda Leos PA 11/06/2022Legacy Non Patient Presenting [facility] DATA CONVERSION LEGACY Criselda Leos PA Pain in unspecified joint10/31/2022 Non Patient Presenting [facility] DATA CONVERSION LEGACY Criselda Leos PA Fvwmtlecadu78/01/2023eCW [facility] Documentation [facility] DATA CONVERSION LEGACY 10/15/2022eCW [facility] Documentation [facility] DATA CONVERSION LEGACY 08/22/2022 Non Patient Presenting [facility] DATA CONVERSION LEGACY Denice Luke, DO 08/20/2022 Non Patient Presenting [facility] DATA CONVERSION LEGACY Alethea Mckeon MD 07/31/2022eCW [facility] Documentation [facility] DATA CONVERSION LEGACY 07/29/2022eCW [facility] Documentation [facility] DATA CONVERSION LEGACY 07/29/2022 Non Patient Presenting [facility] DATA CONVERSION LEGACY Alethea Mckeon MD Pain in unspecified joint07/25/2022eCW [facility] Documentation [facility] DATA CONVERSION LEGACY 06/25/2022eCW [facility] Documentation [facility] DATA CONVERSION LEGACY 06/25/2022 Non Patient Presenting [facility]OM[facility] DATA CONVERSION LEGACY Criselda Leos PA 06/24/2022eCW [facility] Documentation [facility] DATA CONVERSION LEGACY 06/19/2022 Lab [facility] DATA CONVERSION LEGACY Criselda Leos PA Hypokalemia; Dizziness and giddiness; Syncope and collapse; Abnormal electrocardiogram (ECG) (EKG)06/17/2022eCW Legacy Documentation [facility] DATA CONVERSION LEGACY 06/17/2022 Non Patient Presenting [facility] DATA CONVERSION LEGACY Alethea Mckeon MD 06/16/2022[facility] DATA CONVERSION LEGACY Alethea Mckeon MD 05/28/2022 Non Patient Presenting NOMS DATA CONVERSION Criselda Cunha PA Essential (primary) twkjcrmeobqj25/23/2022 Non Patient Presenting NOMS DATA CONVERSION LEGCriselda Esquivel PA Essential (primary) vzovqpvivtba74/16/2022[facility] Lab NOM[facility] DATA CONVERSION Alethea Petit MD 04/18/2022 Non Patient Presenting NOMS DATA CONVERSION LEGACY Bhavik, Criselda M, PA Essential (primary) yxuekawliumy94/27/2022[facility] Non Patient Presenting NOMS DATA CONVERSION Criselda Cunha PA 04/16/2022[facility]OM[facility] DATA CONVERSION Criselda Cunha PA 04/05/2022[facility] Non Patient Presenting NOMS DATA CONVERSION Criselda Cunha PA 04/05/2022[facility] DATA CONVERSION Criselda Cunha PA Bipolar disorder, current episode hypomanic (HCC); Migraine, unspecified, not intractable, without status migrainosus ; Essential (primary) hypertension ; Premenstrual tension syndrome; Chronic fatigue, unspecified; Hypothyroidism, unspecified ; Gastro-esophageal reflux disease without esophagitis; Pain in unspecified joint; Personal history of other endocrine, nutritional and metabolic disease; Encounter for general adult medical examination without abnormal findings; Pure hypercholesterolemia, unspecified ; Myalgia, unspecified site; Encounter for screening mammogram for malignant neoplasm [facility] hbetdo4204/05[facility] Criselda Cunha PA Bipolar disorder, current episode hypomanic (HCC); Migraine, unspecified, not intractable, without status migrainosus ; Essential (primary) hypertension ; Premenstrual tension syndrome; Chronic fatigue, unspecified; Hypothyroidism, unspecified ; Gastro-esophageal reflux disease without esophagitis; Pain in unspecified joint; Personal history of other endocrine, nutritional and metabolic disease; Encounter for general adult medical examination without abnormal findings; Pure hypercholesterolemia, unspecified ; Myalgia, unspecified site; Encounter for screening mammogram for malignant neoplasm of tufkud0104/05/2022 [facility] DATA CONVERSION [facility] Criselda Leos PA Bipolar disorder, current episode hypomanic (HCC); Migraine, unspecified, not intractable, without status migrainosus ; Essential (primary) hypertension ; Premenstrual tension syndrome; Chronic fatigue, unspecified; Hypothyroidism, unspecified ; Gastro-esophageal reflux disease without esophagitis; Pain in unspecified joint; Personal history of other endocrine, nutritional and metabolic disease; Encounter for general adult medical examination without abnormal findings; Pure hypercholesterolemia, unspecified ; Myalgia, unspecified site; Encounter for screening mammogram for malignant neoplasm of vaypob1004/05/2022 [facility] Criselda Le[facility] PA Bipolar disorder, current episode hypomanic (HCC); Migraine, unspecified, not intractable, without status migrainosus ; Essential (primary) hypertension ; Premenstrual tension syndrome; Chronic fatigue, unspecified; Hypothyroidism, unspecified ; Gastro-esophageal reflux disease without esophagitis; Pain in unspecified joint; Personal history of other endocrine, nutritional and metabolic disease; Encounter for general adult medical examination without abnormal findings; Pure hypercholesterolemia, unspecified ; Myalgia, unspecified site; Encounter for screening mammogram for malignant neoplasm of fgnsqa3204/05/2022 [facility] Criselda Leos PA Bipolar disorder, current episode hypomanic (HCC); Migraine, unspecified, not intractable, without status migrainosus ; Essential (primary) hypertension ; Premenstrual tension syndrome; Chronic fatigue, unspecified; Hypothyroidism, unspecified ; Gastro-esophageal reflux disease without esophagitis; Pain in unspecified joint; Personal history of other endocrine, nutritional and metabolic disease; Encounter for general adult medical examination without abnormal findings; Pure hypercholesterolemia, unspecified ; Myalgia, unspecified site; Encounter for screening mammogram for malignant neoplasm of nchkdp8504/05/2022 [facility] Criselda Leos PA Bipolar disorder, current episode hypomanic (HCC); Migraine, unspecified, not intractable, without status migrainosus ; Essential (primary) hypertension ; Premenstrual tension syndrome; Chronic fatigue, unspecified; Hypothyroidism, unspecified ; Gastro-esophageal reflux disease without esophagitis; Pain in unspecified joint; Personal history of other endocrine, nutritional and metabolic disease; Encounter for general adult medical examination without abnormal findings; Pure hypercholesterolemia, unspecified ; Myalgia, unspecified site; Encounter for screening mammogram for malignant neoplasm of uinowh7703/21/2022 [facility] Non Patient Presenting [facility]OM[facility] DATA CONVERSION Alethea Petit MD 03/19/2022gac Non Patient Presenting NOMS DATA CONVERSION Alethea Petit MD 03/01/2022gac Non Patient Presenting NOMS DATA CONVERSION Alethea Petit MD 02/28/2022gac Non Patient Presenting NOMS DATA CONVERSION Alethea Petit MD Pain in unspecified hand06/ Non Patient Presenting NOMS DATA CONVERSION Alethea Petit MD 02/20/2022 Non Patient Presenting NOMS DATA CONVERSION LEGCriselda Esquivel, PA 11/05/2021 Non Patient Presenting NOMS DATA CONVERSION Alethea Petit MD 10/08/2021 Non Patient Presenting NOMS DATA CONVERSION Alethea Petit MD 09/28/2021eCW [facility] Documentation [facility] DATA CONVERSION LEGACY 09/26/2021 Non Patient Presenting NOMS DATA CONVERSION LEGAlethea Lopez MD 09/17/2021 Non Patient Presenting NOMS DATA CONVERSION Alethea Petit MD 09/13/2021 Lab NOMS DATA CONVERSION Alethea Petit MD 08/23/2021 Non Patient Presenting NOMS DATA CONVERSION LEGCriselda Esquivel, PA 08/23/2021 Non Patient Presenting NOMS DATA CONVERSION LEGCriselda Esquivel, PA 06/27/2021 Non Patient Presenting NOMS DATA CONVERSION LEGCriselda Esquivel PA 06/08/2021 Non Patient Presenting NOMS DATA CONVERSION Alethea Petit MD 06/05/2021 Non Patient Presenting NOMS DATA CONVERSION Alethea Petit MD Acute cystitis without vgumgquem72/19/2021 Non Patient Presenting NOMS DATA CONVERSION Alethea Petit MD 03/20/2021 Non Patient Presenting NOMS DATA CONVERSION LEGCriselda Esquivel, PA 03/16/2021 Non Patient Presenting NOMS DATA CONVERSION LEGDenice Kuo, DO 03/16/2021 Non Patient Presenting NOMS DATA CONVERSION LEGCriselda Esquivel PA Cervicalgia; Pain in unspecified joint03/05/2021 Non Patient Presenting NOMS DATA CONVERSION Alethea Petit MD 02/15/2021 Non Patient Presenting NOMS DATA CONVERSION Alethea Petit MD 12/18/2020ega Non Patient Presenting NOMS DATA CONVERSION Alethea Petit MD 11/21/2020 Non Patient Presenting NOMS DATA CONVERSION LEGAlethea Lopez MD 10/17/2020 Non Patient Presenting NOMS DATA CONVERSION LEGAlethea Lopez MD 07/27/2020 Non Patient Presenting NOMS DATA CONVERSION LEGACY Marly, Denice E, DO 07/24/2020 Non Patient Presenting NOMS DATA CONVERSION LEGACY Rinkevyn, Denice E, DO 07/17/2020eCW [facility] Documentation [facility] DATA CONVERSION LEGACY 07/17/2020 Non Patient Presenting NOMS DATA CONVERSION Alethea Petit MD 07/17/2020 Non Patient Presenting NOMS DATA CONVERSION LEGACY Rinkes, Denice E, DO 07/15/2020 Lab NOMS DATA CONVERSION LEGACY Rinkes, Denice E, DO 07/11/2020 PNC NOMS DATA CONVERSION LEGACY Rinkes, Denice E, DO 07/06/2020 PN NOMS DATA CONVERSION LEGACY Rinkes, Denice E, DO 06/28/2020 Non Patient Presenting NOMS DATA CONVERSION LEGACY Rinkes, Denice E, DO 06/27/2020 PNC NOMS DATA CONVERSION LEGACY Rinkes, Denice E, DO Abnormal levels of other serum tqsbvbf7706/20/2020 [facility] NOMS DATA CONVERSION LEGACY Rinkes, Denice E, DO 06/13/2020 [facility] NOMS DATA CONVERSION LEGACY Rinkes, Denice E, DO 36 weeks gestation of ([facility]); Encounter for screening for Streptococcus B ([facility])06/12/2020eCW Legacy Documentation NOMS DATA CONVERSION LEGACY 06/01/2020 Non Patient Presenting NOMS DATA CONVERSION Alethea Petit MD 06/01/2020 Non Patient Presenting NOMS DATA CONVERSION LEGACY Rinkes, Denice E, DO 05/30/2020 Non Patient Presenting NOMS DATA CONVERSION LEGACY Rinkes, Denice E, DO 05/30/2020 Non Patient Presenting NOMS DATA CONVERSION LEGACY Rinkes, Denice E, DO Cough; Encounter for screening for other viral aobonbxn04/04/2020 Non Patient Presenting NOMS DATA CONVERSION LEGACY Denice Luke E, DO 05/23/2020 Non Patient Presenting NOMS DATA CONVERSION LEGACY Criselda Leos, PA 05/18/2020 [facility] NOMS DATA CONVERSION LEGACY Denice Luke E, DO 05/04/2020 [facility] NOMS DATA CONVERSION LEGACY RinDenice bagley E, DO 05/01/2020 Non Patient Presenting NOMS DATA CONVERSION LEGACY Criselda Leos, PA 04/18/2020 [facility] NOMS DATA CONVERSION LEGACY Davi Greene MD 04/10/2020eCW Legacy Documentation NOMS DATA CONVERSION LEGACY 03/29/2020eCW Legacy Documentation NOMS DATA CONVERSION LEGACY 03/22/2020W Legacy Documentation NOMS DATA CONVERSION LEGACY 03/22/2020 Lab NOMS DATA CONVERSION LEGACY Denice Luke E, DO 03/22/2020 Non Patient Presenting NOMS DATA CONVERSION LEGACY Denice Luke E, DO 03/21/2020 [facility]NC NOMS DATA CONVERSION LEGACY Denice Luke E, DO 24 weeks gestation of ([facility]); Encounter for screening for diabetes jijfkhfq80/26/2020 Lab NOMS DATA CONVERSION LEGACY Denice Luke E, DO 03/13/2020 Non Patient Presenting NOMS DATA CONVERSION LEGACY Denice Luke E, DO Abnormal levels of other serum enzymes; Upper abdominal pain, ummddkkixuc38/19/2020 Lab NOMS DATA CONVERSION LEGACY Alethea Mckeon MD Hypothyroidism, zteecssfkke65/12/2020 Non Patient Presenting NOMS DATA CONVERSION LEGAlethea Lopez MD 02/28/2020eCW Legacy Documentation NOMS DATA CONVERSION LEGACY 02/23/2020 Non Patient Presenting NOMS DATA CONVERSION LEGACY Denice Luke E, DO 02/22/2020eCW Legacy Documentation NOMS DATA CONVERSION LEGACY 02/22/2020 [facility] NOMS DATA CONVERSION LEGACY Denice Luke E, DO 02/18/2020eCW Legacy Documentation NOMS DATA CONVERSION LEGACY 02/18/2020 Lab NOMS DATA CONVERSION LEGACY Rinkes, Denice E, DO 02/17/2020 Non Patient Presenting NOMS DATA CONVERSION LEGACY Rinkes, Denice E, DO Abnormal levels of other serum enzymes; Tachycardia, dfloagikibf73/27/2020W Legacy Documentation NOMS DATA CONVERSION LEGACY 02/16/2020 Non Patient Presenting NOMS DATA CONVERSION LEGACY Rinkes, Denice E, DO 19 weeks gestation of ([facility]); Abnormal levels of other serum cqxnhsv3202/16/2020 Non Patient Presenting NOMS DATA CONVERSION LEGACY Rinkes, Denice E, DO 19 weeks gestation of ([facility]); Abnormal levels of other serum hfqzjif0002/15/2020 Legacy Documentation NOMS DATA CONVERSION LEGACY 02/15/2020 Non Patient Presenting NOMS DATA CONVERSION LEGAlethea Lopez MD 02/11/2020 Lab NOMS DATA CONVERSION LEGACY Rinkevyn, Denice E, DO 02/09/2020 Non Patient Presenting NOMS DATA CONVERSION LEGAlethea Lopez MD 02/08/2020 Non Patient Presenting NOMS DATA CONVERSION LEGACY Denice Luke E, DO Tachycardia, dmdqnztizfl33/08/2020 Non Patient Presenting NOMS DATA CONVERSION LEGAlethea Lopez MD Hypothyroidism, ytyjyjhmumq32/07/2020 Lab NOMS DATA CONVERSION Alethea Petit MD 01/25/2020 [facility] NOMS DATA CONVERSION LEGACY RinIvelisse bagleyhleen E, DO 01/05/2020 Non Patient Presenting NOMS DATA CONVERSION LEGACY Rinkevyn, Denice E, DO 01/04/2020 Legacy Documentation NOMS DATA CONVERSION LEGACY 01/04/2020 Non Patient Presenting NOMS DATA CONVERSION LEGAlethea Lopez MD Chronic sinusitis, wwvbfbyrvmo13/01/2020W Legacy Documentation NOMS DATA CONVERSION LEGACY 12/13/2019 Non Patient Presenting NOMS DATA CONVERSION LEGACY RinIvelisse balgeyhleen E, DO 12/09/2019 Non Patient Presenting NOMS DATA CONVERSION LEGACY RinDenice bagley E, 11/01/2019 Non Patient Presenting NOMS DATA CONVERSION LEGAlethea Lopez MD 10/01/2019 Non Patient Presenting NOMS DATA CONVERSION LEGAlethea Lopez MD 08/16/2019 Non Patient Presenting NOMS DATA CONVERSION LEGAlethea Lopez MD 08/16/2019 Non Patient Presenting NOMS DATA CONVERSION LEGAlethea Lopez MD 06/15/2019 Non Patient Presenting NOMS DATA CONVERSION LEGAlethea Lopez MD Migraine, unspecified, not intractable, without status xoyycpsgahf65/13/2019eCW Legacy Documentation NOMS DATA CONVERSION LEGACY 02/22/2019 Non Patient Presenting NOMS DATA CONVERSION LEGAlethea Lopez MD Migraine, unspecified, not intractable, without status aaroglffefh99/16/2019 [facility] Non Patient Presenting NOMS DATA CONVERSION LEGAlethea Lopez MD Hypothyroidism, geujsdisgzy01/01/2019 Non Patient Presenting NOMS DATA CONVERSION LEGAlethea Lopez MD 08/24/2018 Non Patient Presenting NOMS DATA CONVERSION LEGAlethea Lopez MD 07/21/2018 Non Patient Presenting NOMS DATA CONVERSION LEGAlethea Lopez MD 04/26/2018eCW Legacy Documentation NOMS DATA CONVERSION LEGACY 03/26/2018 Non Patient Presenting NOMS DATA CONVERSION LEGAlethea Lopez MD 02/09/2018 Non Patient Presenting NOMS DATA CONVERSION LEGACY Alethea Mckeon MD Thyrotoxicosis, unspecified without thyrotoxic crisis or storm2018 Non Patient Presenting NOMS DATA CONVERSION LEGAlethea Lopez MD Other fatigue; Thyrotoxicosis, unspecified without thyrotoxic crisis or storm01/09/2018 Non Patient Presenting NOMS DATA CONVERSION Alethea Petit MD 10/10/2017 Non Patient Presenting NOMS DATA CONVERSION LEGACY Ayaan Child MD 10/02/2017 Non Patient Presenting NOMS DATA CONVERSION LEGAlethea Lopez MD 01/10/2018Legacy Non Patient Presenting NOMS DATA CONVERSION Alethea Petit MD 09/29/2017Legacy Non Patient Presenting NOMS DATA CONVERSION Alethea Petit MD Allergies Active AllergyReactionsCriticalityNoted DateCommentsAmoxicillin-Pot Clavulanate GI wkxwskarulg41/08/2023 Medications MedicationSigDispense QuantityRefillsLast FilledStart DateEnd DateStatus Saccharomyces boulardii (probiotic) 250 MG capsule Take 1 capsule by mouth 1 (one) time each day.Active buPROPion XL (Wellbutrin XL) 300 MG 24 hr tablet Take 300 mg by mouth in the morning. Do not crush, chew, or split. .Active ALPRAZolam (Xanax) 0.25 MG tablet Take 0.25 mg by mouth in the morning and 0.25 mg in the evening and 0.25 mg before bedtime.3Active lamoTRIgine (LaMICtal) 100 MG tablet Take 2 tablets by mouth in the morning.Active lurasidone (Latuda) 40 MG tablet Take 40 mg by mouth in the morning. Take with meals.02/19/2024ctive tiZANidine (Zanaflex) 4 MG tablet Indications:MyalgiaTAKE ONE TABLET THREE TIMES A DAY NEEDED FOR 30 DAYS 90 tablet 4Active Hormone Cream Base (HRT Base) cream Apply 0.5 mL topically Daily W-Biest/Prog Crm 3/150 mg/mL, Estradiol/Estriol/Progesterone Cream5Active Rimegepant Sulfate (Nurtec) 75 MG tablet dispersible Indications:Intractable migraine with aura with status migrainosusTake 1 tablet by mouth Daily as needed (migraine) 8 tablet 5Active olmesartan (BENIcar) 20 MG tablet Indications:Primary hypertensionTAKE 1/2 TABLET (10MG) BY MOUTH ONCE DAILY 15 tablet 5Active levothyroxine (Synthroid, Levoxyl) 137 MCG tablet Indications:Acquired hypothyroidismTAKE ONE TABLET BY MOUTH DAILY IN THE MORNING BEFORE MEALS 30 tablet 1215Active buPROPion XL (Wellbutrin XL) 150 MG 24 hr tablet Take 150 mg by mouth in the morning.5Active Azelastine HCl 137 MCG/SPRAY solution Indications:Allergic conjunctivitis of both eyes and rhinitisAdminister 1 spray into affected nostril(s) in the morning and 1 spray before bedtime. 30 mL 5Active Ketotifen Fumarate 0.035 % solution Indications:Allergic conjunctivitis of both eyes and rhinitisAdminister 1 drop into affected eye(s) in the morning and 1 drop before bedtime. 10 mL 5Active Albuterol-Budesonide (Airsupra) 90-80 MCG/ACT aerosol Indications:Persistent coughInhale 2 puffs every 4 (four) hours if needed (SOB or Wheeze) 32.1 g Discontinued budesonide-formoterol (Symbicort) 160-4.5 MCG/ACT inhaler Indications:Persistent coughInhale 2 puffs in the morning and 2 puffs before bedtime. Do all this for 14 days. Rinse mouth withwater after use to reduce aftertaste and incidence of candidiasis. Do not swallow. 1 each Discontinued(Therapy completed) Active Problems ProblemNoted DateDiagnosed YqlaItnvm87/02/2025Pregnancy-induced hypertension ([facility])08/23/2025Vaginal after ([facility])08/23/2025llergic conjunctivitis of both eyes and mgcqculr09/02/2025ipolar disorder, current episode fgfcpzvpy60/26/2024soriasis of scalp03/17/2024rimary hypertension 09/24/20239112Rqevnoeeh99/03/2024ersistent cough09/24/2023Generalized anxiety kjkwirnw28/08/2023MDD (major depressive disorder), recurrent episode, mild 02/27/2023anic pazuxubc83/08/2023hronic idiopathic fuzjifmysaxf03/08/2023 Chronic bilateral low back pain with bilateral bdwnaajk63/08/2023cquired ddkoicncrxaueg69/07/2023hronic xlklpwq5602/26/2023Elevated LDL cholesterol level 02/26/2023astroesophageal reflux disease without xhxexioiayj14/07/2023 Kphqemedicy02/07/3400Ijtnlvap85/07/5017Qbfqjne19/07/2023MDD (premenstrual dysphoric disorder)02/26/20239017Ffuskdpiydacoh42/07/2023remenstrual tension ksohkciu46/07/2023Shortened [place] aulbvkvq87/07/2023History of hyperthyroidism 03/16/2021 Resolved Problems ProblemNoted DateDiagnosed DateResolved DateViral URI1Finding of above normal blood /11/2023Manic bipolar I disorder /04/2023Mycoplasma neilegmbq45/ure nnjseevvrnexxxxjavlf36/29/202107/05/2025Pregnancy complicated by congenital heart disease, fetus 1 ([facility])Thyroid disorder Immunizations ImmunizationAdministration DatesNext DueInfluenza, injectable, quadrivalent, preservative free07/08/2023,07/06/2021,06/28/2020,06/11/2016Influenza, seasonal, intradermal, preservative free07/01/2019,06/25/20187364OQHN-ZZN-9 (COVID-19) vaccine, mRNA, spike protein, LNP, PF, 50 mcg/0.5 mL07/08/2023Tdap110/01/2013 Family History Medical HistoryRelationNameCommentsBipolar disorderBrotherBrother 1Multiple sclerosisBrotherBrother 2Rheum arthritisBrotherBrother 2No Known Problems DaughterDiabetesFatherHeart diseaseFatherHypertensionFatherHeart diseaseMaternal GrandfatherStrokeMaternal GrandmotherArthritisMotherHeart diseaseMother HypertensionMotherHeart diseasePaternal GrandfatherMultiple sclerosisSiblingNo Known ProblemsSonRelationNameStatusCommentsBrotherAlive2 brothersDaughter1 daughterFatherAliveMaternal GrandfatherDeceasedMaternal GrandmotherDeceased MotherAlivePaternal GrandfatherDeceasedPaternal GrandmotherAliveSiblingAliveSon3 sons Social History Tobacco UseTypesPacks/DayYears UsedDateSmoking Tobacco: Never AssessedPHQ-2 AnswerDate RecordedPatient Health Questionnaire-2 Qbdob59010/24/2024Sex and Gender InformationValueDate RecordedSex Assigned at SzbjgNhumie20/26/2023 1:51 PM EDT Legal IjsMdunsc59/15/2023 7:04 PM EDTGender ImuwokwkIlwtas55/26/2023 1:51 PM EDT Sexual TahuowmmdzaUaunkzwc10/26/2023 1:51 PM EDT Last Filed Vital Signs Vital SignReadingTime TakenCommentsBlood Tixcxhkq670/8608/31/2025 12:52 PM EST Qeihg270308/23/2025 1:36 PM CQLFzpaqxqmvac07.8 ??C (98.3 ??F)03/30/2025 2:01 PM EDTRespiratory Avvs236510/24/2024 1:36 PM ESTOxygen Uqhfiptiya29%08/23/2025 1:36 PM ESTInhaled Oxygen Concentration--Kkfugj03.6 kg (142 lb 8 oz)08/31/2025 12:52 PM DYSFpvmkp698.2 cm (5' 7 )08/23/2025 1:36 PM ESTBody Mass Index22.32110/24/2024 1:36 PM EST Plan of Treatment DateTypeDepartmentCare Team (Latest Contact Info)Jwhnplyuddl49/07/2026 10:40 AM ESTOffice Visit [facility] [address] [place] [address] Simon Barba MD [address] [place] [address] 10/05/2025 1:00 PM ESTAncillary Procedure NOMS Maggie [address] [place] [address] 10/18/2025 10:20 AM ESTOffice Visit [facility] [address] [place] [address] Debby Jeffery MD [address] [place] [address] 11/08/2025 9:30 AM ESTProcedure Visit NOMS Maggie [facility] [address] [place] [address] AlfDharmesh, DO [address] [place] [address] Procedures Procedure NamePriorityDate/TimeAssociated DiagnosisCommentsALL THYROXINE (T4) KJMJFhjvxyz43/10/2025 6:47 AM EST TBH VITAMIN D 25 BGMwtgjus59/10/2025 6:47 AM EST ALL THYROID STIM NCOWMGCAptezoc01/10/2025 6:47 AM EST ALL LIPID PROFILE (FASTING)Hocuhqf5908/31/2025 6:47 AM EST [facility] CMP (CMP) (FOR REMOTE [facility] USE)Girbbnr1408/31/2025 6:47 AM EST ALL CBC WITH AUTO QSENMwvydiq52/10/2025 6:47 AM EST XR FOOT 3+ VIEWS BTLUQxcbwjt00/27/2025 3:11 PM EDT Left foot pain MM TOMOSYNTHESIS SCREENING BI04/20/2025 4:24 PM EDT CAST / SPLINT / NASsiaaar89/30/2025 3:59 PM EDT Closed displaced fracture of proximal phalanx of lesser toe of left foot, initial encounter XR FOOT 3+ VIEWS WNTSShmqpzb75/30/2025 3:14 PM EDT Left foot pain POCT URINALYSIS CRMFZIQGLovqnya81/28/2025 12:34 PM EDT Burning with urination CRYOTHERAPY SKIN CRYHIVNtxngyq55/10/2025 3:00 PM EST Common wart TSH W/REFLEX W5Zjeyabe92/20/2024 7:07 AM EST ALL LIPID PROFILE (FASTING)Tnbdvwa5408/11/2024 7:07 AM EST CCF CMP (CMP) (FOR REMOTE [facility] USE)Citregh6508/11/2024 7:07 AM EST ALL CBC WITH AUTO GAUEJunsnez73/20/2024 7:07 AM EST SCANNED SKWDEoluqjx71/29/2023 8:03 AM EDTPOCT URINALYSIS DIPSTICKRoutine 06/19/2023 8:48 AM EDT Dysuria SCANNED TBZMFkwueyq57/04/2023 9:44 AM EDTTSH W/REFLEX TO UL8Pxkgmhk22/04/2023 Wellness examination Acquired hypothyroidism Chronic fatigue LIPID KDPADRzgqkky05/04/2023 Wellness examination Elevated LDL cholesterol level COMPREHENSIVE METABOLIC ORSETDjxbmpn19/04/2023 Wellness examination Chronic fatigue Hypokalemia Elevated LDL cholesterol level SCANNED ASVGFyizfrg28/09/2023 10:39 AM EDTPOCT URINALYSIS DIPSTICKRoutine 02/27/2023 8:56 AM EDT Urine frequency PAP TEST, EIZPRUXXKznidrn20/10/2023 12:00 AM ESTTHINPREP TIS PAP REFLEX HPV MRNA E6/E7 (00821)Nfwbhga0911/01/2022 BI MAMMOGRAM SCREENING TOMOSYNTHESIS DCRROYBPFDhotdrq96/09/2023 12:00 PM EST Encounter for screening for malignant neoplasm of cervix Encounter for gynecological examination (general) (routine) without abnormal findings Encounter for screening mammogram for malignant neoplasm of breast Menopausal and female climacteric states TROPONIN, HIGH XLHCCQCALKXGczubqk09/25/2022 CARDIAC MARIE ISRZQYvrbyoh60/25/2022 BASIC METABOLIC DJJPTXqilctj74/25/2022 D-CVFCJOhkhnob77/25/2022 CBC WITH AUTO XUSYVWOSIBKZLijotxb15/25/2022 VLNBZuqylbv96/16/2022 HUMAN HERPESVIRUS 6 ABS, FZSDemixtj87/16/2022 MYCOPLASMA PNEUMONIA IGG/CPYUhvpixj23/16/2022 CHLAMYDIA PNEUMONIAE ABS IGG/IYbydewb71/16/2022 ANTI-DNASE OWBIOPFZGJSdmfhee69/16/2022 METHYLMALONIC UPXGGxfuecf38/16/2022 UKJQHFAcqukgn23/16/2022 EBV EARLY ANTIGEN (IGG)Lbmmedm0105/07/2022 CA-ZIEGLER VIRUS (EBV) AB TXNUGMRBqzrrpp70/16/2022 HERPES SIMPLEX 1/2 RJVJxyftpe90/16/2022 MANDY W/SIUVBRLfybpha77/16/2022 HERPES SIMPLEX 1/2 VPCZcydttj90/16/2022 ANTISTREPTOLYSIN O AB (ASO)Jbcluoe9705/07/2022 COEBYZUCWENVMwcndkp22/16/2022 C-REACTIVE PROTEINS (HS)Qzopmzv1405/07/2022 HINZtkgpgm52/16/2022 VITAMIN P79Bhirojl41/16/2022 SED QZZQPbcampg28/16/2022 BOX TEST SENT FYJQutflig45/16/2022 BI MAMMOGRAM SCREENING TOMOSYNTHESIS WTUXZHSWVPqkxqba03/26/2022 VITAMIN B12/FOLATE, SERUM PANEL (7065)Iqoswxy2704/05/2022 VITAMIN D,25-OH,TOTAL,IA (64702)Duttfrd2404/05/2022 LIPID GZQKMRbpzwkx76/14/2022 COMPREHENSIVE METABOLIC XGWYFVuqrofq93/14/2022 CBC WITH AUTO OONVJMLKMJUUHoyevtz52/14/2022 TSH+FREE X4Kajmewb76/14/2022 XR HAND RT 2 IZsypamx66/09/2022 Pain in unspecified hand XR HAND MARIUM MIN 5LRwihvwj37/23/2021 URINALYSIS, PUYDTGMNPxdswms90/14/2021 12:00 PM EDT CULTURE, URINE, WWKEGMRCfqnonq76/14/2021 VITAMIN B12/TUELTMGvabnss73/25/2021 CBC WITH AUTO MHZNCICYLSAKGorflth08/25/2021 VITAMIN D JOZBLVgvikqh68/25/2021 TSH+FREE V9Teectyk40/25/2021 COMPREHENSIVE METABOLIC OKROZKdwidpk47/25/2021 LIPID JWTJXLwuqahq43/25/2021 RHEUMATOID DLEUKJPstolze43/ COMPREHENSIVE METABOLIC RRXJIRjuhmpq83/26/2021 Q - LUPUS ANTICOAGULANT EVAL W/DDUDnjeduv97/26/2021 RBC SEDIMENTATION KCTHZcvnycc32/26/2021 AMNISURE(PAMG-1)Iyzzkkt5007/15/2020 OB URINE DRUG SCREEN (NO THC)Bqqhwyx1707/15/2020 URINALYSIS, COMPLETE W/AUWWSURJHTEnohuko62/24/2020 COMPREHENSIVE METABOLIC INXWTJmjdevo31/06/2020 CBC WITH AUTO DCLDLGOTMQQNCcsjimi88/06/2020 ULTRASOUND : OB COMPLETE F/U AFTER 1ST SNQFoahsum71/22/2020 12:00 PM EDT Other specified related conditions, third trimester ([facility]) Supervision of elderly multigravida, third trimester ([facility]) Maternal care for low transverse scar from previous delivery ([facility]) Maternal care for other (suspected) abnormality and damage, not applicable or unspecified ([facility]) STREP B HDBAVTDTyjfgfl61/22/2020 COVID-19 DRIVE IZSJYsmcqmp35/08/2020 Q - HEMOGLOBIN AND PXXZTWLOAGCgbuaju47/13/2020 Q - GLUCOSE,GESTATIONAL SCREEN(50G)-135 NWECYSXnkgvtp85/13/2020 INPATIENT CONSULT TO DIAGNOSTIC OOAZTLWJWAotijqw36/01/2020 TORCH IGM KNIVYHHEbsizxw95/26/2020 GWOACMUbumlqw24/26/2020 MITOCHONDRIAL AB DKRZAVjtnmga54/26/2020 SMOOTH MUSCLE AB TJJGLUqhmqbf89/26/2020 TORCH IGG FEUGWUMQdqkclt20/26/2020 GMWRNUQATTACPVknryyf83/26/2020 THYROID PKWUMOVBzaubpr60/26/2020 FLKXNBDeccluv83/26/2020 IRON PROFILE (FE, TIBC)Ejcyfmh5803/17/2020 COMPREHENSIVE METABOLIC YHCLWCkgmvdi62/26/2020 AMYLASE ACGTWJygxbxm24/26/2020 CBC AND AUTOMATED GZTTLONQDPNUPvtyftp78/26/2020 AMMONIA TDULTSgusutt43/26/2020 US ABDOMEN ESROUEWBgcfobu72/26/2020 ULTRASOUND : OB COMPLETE AFTER 1ST TRIMES 1ST PBWAMbjnzkj76/02/2020 12:00 PM EDT Supervision of elderly multigravida, second trimester ([facility]) HEPATITIS PANEL, DBOAGJrlymvk65/29/2020 HEPATITIS PANEL, RSKCOZpyqyss82/29/2020 PROTEIN 24HR RQKOQQqbzkxt30/29/2020 COMPREHENSIVE METABOLIC GJMUNZrdcwbn28/29/2020 TSH W REFLEX TO FREE Z8Mkffazn93/22/2020 12:00 PM EDT T4, SWPUEclqwwb31/22/2020 UA W/O LHXNEDzrzfcj69/22/2020 CBC AUTO XSPJWjebelq31/22/2020 PZATgpoikr06/22/2020 COMPREHENSIVE METABOLIC LTXRKCsyhovw48/22/2020 CDHUjyytni82/07/2020 T3, TJRWYwghkun66/07/2020 CHLAMYDIA/N. GONORRHOEAE RNA, TMA, UROGENITAL (76358)Mzztebv4212/22/2019 THINPREP TIS PAP REFLEX HPV MRNA E6/E7 (17735)Rgwtiyo1412/22/2019 OBSTETRIC PANEL ()Yqtexwg4012/09/2019 CULTURE, URINE, JIEICZQGntacvc32/19/2020 Q - TSH WITH REFLEX TO FREE K4Tkawplm08/04/2019 COMPREHENSIVE METABOLIC ZCFLJUvahccc56/18/2018 CNYMwwvyag33/18/2018 CBC WITH AUTO RHGQTWLIHLHBKuydxsn86/18/2018 Results * TB[facility] VITAMIN D 25 [place] (08/31/2025 6:47 AM EST)ComponentValueRef RangeTest Method Analysis TimePerformed AtPathologist SignatureVITAMIN D100.1ng/mLTBHComment: <20 ng/mL Vit D deficient 20-<30 ng/mL Vit D insufficient 30-100 ng/mL ??Vit D sufficient >100 ng/mL Potential Toxicity Specimen (Source)Anatomical Location / LateralityCollection Method / Volume Collection TimeReceived Time08/31/2025 6:47 AM EST08/31/2025 6:48 AM EST Narrative CLINISYNC - 08/31/2025 10:48 AM EST Authorizing ProviderResult TypeResult StatusCriselda Leos PACLINISYNCFinal ResultPerforming OrganizationAddressCity/State/ZIP CodePhone Number CLINISYNC TBH * (ABNORMAL) [facility]CF CMP (CMP) (FOR REMOTE [facility] USE) (08/31/2025 6:47 AM EST) Only the most recent of2 resultswithin the time period is included. ComponentValueRef RangeTest MethodAnalysis TimePerformed AtPathologist Signature UXRCVQ163249 - 145 mmol/LTBHPOTASSIUM4.43.5 - 5.1 mmol/XHMRFBGKXAWW94122 - 107 mmol/LTBHCARBON TUVADCX17.121.0 - 32.0 mmol/LTBHANION GAP10.9OOXBNIEAIR6878 - 106 mg/dLTBHBLOOD UREA YORZKQZW03.07.0 - 18.0 mg/dLTBHCREATININE0.820.55 - 1.02 mg/dLTBHTBH EGFR-AF MICRONESIAN>60>=60 mL/min/1.73m 2TBHTBH EGFR-NON AF MICRONESIAN>60 >=60 mL/min/1.73m 2TBHBUN CREATININE RATIO18.9YTYIKVHMZV9.08.5 - 10.1 mg/dLTBH BILIRUBIN TOTAL0.40.2 - 1.0 mg/dLTBHASPARTATE AMINO HKRQMBMUMZC89(L)15 - 37 U/L TBHALANINE HMQDCOBMCKNEWTAA9401 - 59 U/LTBHALKALINE WLFQVUAPOSQ1691 - 116 U/LTBH TOTAL PROTEIN7.26.4 - 8.2 g/dLTBHALBUMIN LEVEL3.93.4 - 5.0 g/dLTBHGLOBULIN3.3 g/dLTBHALBUMIN GLOBULIN RATIO1.2TBHSpecimen (Source)Anatomical Location / LateralityCollection Method / VolumeCollection TimeReceived Time08/31/2025 6:47 AM EST08/31/2025 6:48 AM EST Narrative CLINISYNC - 08/31/2025 7:48 AM EST Authorizing ProviderResult TypeResult StatusEden M Hemmer PACLINISYNCFinal ResultPerforming OrganizationAddressCity/State/ZIP CodePhone Number CLINISYNC TB * ALL THYROXINE (T4) FREE (08/31/2025 6:47 AM EST)ComponentValueRef RangeTest MethodAnalysis TimePerformed AtPathologist SignatureFREE T40.940.76 - 1.46 ng/dLTBHSpecimen (Source)Anatomical Location / LateralityCollection Method / VolumeCollection TimeReceived Time08/31/2025 6:47 AM EST08/31/2025 6:48 AM EST Narrative CLINISYNC - 08/31/2025 10:48 AM EST Authorizing ProviderResult TypeResult StatusCriselda Leos PACLINISYNCFinal ResultPerforming OrganizationAddressCity/State/ZIP CodePhone Number [facility] * ALL THYROID STIM HORMONE (08/31/2025 6:47 AM EST)ComponentValueRef RangeTest MethodAnalysis TimePerformed AtPathologist SignatureTHYROID STIMULATING HORMONE1.3590.358 - 3.740 uIU/mLTBHSpecimen (Source)Anatomical Location / LateralityCollection Method / VolumeCollection TimeReceived Time08/31/2025 6:47 AM EST08/31/2025 6:48 AM EST Narrative CLINISYID - 08/31/2025 7:48 AM EST Authorizing ProviderResult TypeResult StatusCriselda Leos PACLINISYNCFinal ResultPerforming OrganizationAddressCity/State/ZIP CodePhone Number [facility] * ALL LIPID PROFILE (FASTING) (08/31/2025 6:47 AM EST) Only the most recent of2 resultswithin the time period is included. ComponentValueRef RangeTest MethodAnalysis TimePerformed AtPathologist Signature YSUTWMARXQCWB78<=150 mg/cSUVMPKHMYSOHYXN864<=200 mg/dLTBHHDL ZZYQEJACHUI6166 - 60 mg/dLTBHComment: > or =60 mg/dl - LOW CARDIOVASCULAR RISK <40 mg/dl - HIGH CARDIOVASCULAR RISK LDL CHOLESTEROL ERXDFXXDBG257.2mg/dLTBHComment: <100 mg/dl OPTIMAL 100-129 mg/dl NEAR OR ABOVE OPTIMAL 130-159 mg/dl BORDERLINE HIGH 160-189 mg/dl HIGH >190 mg/dl VERY HIGH VLDL CHOLESTEROL6.8mg/dLTBHCHOL HDL RATIO3.3TBHComment: 3.3 - 4.4 ?? LOW RISK 4.4 - 7.1 ?? AVERAGE RISK 7.1 - 11.0 ??MODERATE RISK >11.0 HIGH RISK Specimen (Source)Anatomical Location / LateralityCollection Method / Volume Collection TimeReceived Time08/31/2025 6:47 AM EST08/31/2025 6:48 AM EST Narrative [facility]INISY[facility] - 08/31/2025 7:48 AM EST Authorizing ProviderResult TypeResult StatusKaren M Hemmer PACLINISYNCFinal ResultPerforming OrganizationAddressCity/State/ZIP CodePhone Number [facility] * (ABNORMAL) ALL CBC WITH AUTO DIFF (08/31/2025 6:47 AM EST) Only the most recent of2 resultswithin the time period is included. ComponentValueRef RangeTest MethodAnalysis TimePerformed AtPathologist Signature TBH WBC5.24.0 - 11.0 10 3/uLTBHTBH RBC4.684.20 - 5.40 10 6/uLTBHTBH HGB14.412.0 - 16.0 g/dLTBHTBH HCT41.836.0 - 48.0 %TBHTBH MCV89.381.0 - 99.0 fLTBHTBH MCH30.8 26.7 - 34.0 pgTBHTBH MCHC34.429.9 - 35.2 g/dLTBHTBH RDW12.511.0 - 15.0 %TBHTBH [id number] - 450 10 3/uLTBHTBH MPV9.79.5 - 13.5 fLTBHNEUTROPHILS PERCENT AUTO56.1 43.0 - 75.0 %TBHLYMPHOCYTES PERCENT AUTO26.320.5 - 60.0 %TBHMONOCYTES PERCENT AUTO13.4(H)1.7 - 12.0 %TBHTBH EO %3.20.9 - 7.0 %TBHBASOPHILS PERCENT AUTO0.80.2 - 2.0 %TBHIMMATURE GRANULOCYTES PCT AUTO0.20.0 - 0.5 %TBHNEUTROPHILS ABSOLUTE AUTO2.91.4 - 6.5 10 3/uLTBHLYMPHOCYTES ABSOLUTE AUTO1.41.2 - 3.8 10 3/uLTBH MONOCYTES ABSOLUTE AUTO0.70.3 - 0.8 10 3/uLTBHTBH EO #0.20.0 - 0.7 10 3/uLTBH BASOPHILS ABSOLUTE AUTO0.00.0 - 0.1 10 3/uLTBHIMMATURE GRANULOCYTES ABS AUTO0.01 0.00 - 0.03 10 3/uLTBHSpecimen (Source)Anatomical Location / Laterality Collection Method / VolumeCollection TimeReceived Time08/31/2025 6:47 AM EST 08/31/2025 6:48 AM EST Narrative CLINISYNC - 08/31/2025 7:02 AM EST Authorizing ProviderResult TypeResult StatusCriselda Barger Hemmer PACLINISYNCFinal ResultPerforming OrganizationAddressCity/State/ZIP CodePhone Number [facility] * XR foot 3+ views left (05/18/2025 3:11 PM EDT) Only the most recent of2 resultswithin the time period is included. Anatomical RegionLateralityModalityLower Extremities, FootLeftRadiographic ImagingSpecimen (Source)Anatomical Location / LateralityCollection Method / VolumeCollection TimeReceived Time Narrative 05/18/2025 3:51 PM EDT Imaging Result: AP Lateral and oblique left foot, Oblique fracture midshaft of 3rd proximal phalanx with evidence of bridging callus. Unchanged position and alignment. No new fracture seen. No soft tissue swelling. remaining foot with appropriate bony alignment Impression: healing 3rd toe proximal phalanx fracture. Authorizing ProviderResult TypeResult StatusMatthaylie Oro PAIMG XR PROCEDURES Final Result * MM TOMOSYNTHESIS SCREENING BI (04/20/2025 4:24 PM EDT)Anatomical Region LateralityModalityOtherSpecimen (Source)Anatomical Location / Laterality Collection Method / VolumeCollection TimeReceived Time04/20/2025 4:24 PM EDT Narrative 04/20/2025 4:[address] [facility] ?[address] ? [place] [address] ? Mammography Report ? Signed ? Patient: JENNYFER PETER ?MR#: [id number] ?? : 1980 ?Acct:[id number] ?? Age/Sex: 45 / F ?ADM Date: /30/25 ?? Loc: MAMMO ? Attending Dr: CRISELDA Barger HEMMER ? Ordering Physician: LISANDROMER,CRISELDA M ? Results: ? Date of Service: 07/30/25 ?Follow Up: ? Procedure(s): MM tomosynthesis screening BI ?? Accession Number(s): [id number] ? cc: ALETHEA MCKEON ; CRISELDA LEOS ? Patient Name: ? JENNYFER PETER ? MR#: [id number] ? : 1980 ? Exam Date: 04/20/2025 ?? Ordering Doctor: DR CRISELDA INIGUEZ ? RADIOLOGY REPORT ? PROCEDURE: ? MM TOMOSYNTHESIS SCREENING BI ? COMPARISON: ? MM TOMOSYNTHESIS SCREENING BI, 04/25/2023. ??MG MAMM SCREEN 3D ?? MARIUM CAD, 04/16/2022. ? INDICATIONS: ? screening for malignant neoplasm of breast ? Calculator Name ? NCI Breast Cancer Risk Assessment Tool ?? 5 Year Breast Cancer Risk ? 0.60% ?? Lifetime Breast Cancer Risk ? 8.00% ?? Personal Breast Cancer ?No ?? Personal Ovarian Cancer ? No ?? Treatments ? None ?? Family Cancers ? Grandmother-paternal with breast cancer at age 53. ? LOCATION: ? [facility] ? BREAST COMPOSITION: ? The breasts are heterogeneously dense, which may ?? obscure small masses. ? FINDINGS: ? DIAGNOSTIC CATEGORY 1--NEGATIVE. ? RIGHT BREAST: ??No significant suspicious finding. ? LEFT BREAST: ??No significant suspicious finding. ? RECOMMENDATIONS: ? ROUTINE MAMMOGRAM AND CLINICAL EVALUATION IN 12 MONTHS. ? PLEASE NOTE: ??A NORMAL MAMMOGRAM DOES NOT EXCLUDE THE POSSIBILITY OF BREAST ?? CANCER. ??A CLINICALLY SUSPICIOUS PALPABLE LUMP SHOULD BE BIOPSIED. ? Dictated by: Jake Johnson DO on 04/20/2025 at 16:21 ? Approved by: Jake Johnson DO on 04/20/2025 at 16:23 ? Dictated By: ?Jake Johnson M.D. ? Signed By: ?04/20/25 1625 ? DD/ 1624 ? TD/TT: ? Sample Collector: Procedure Note Radiology, Radiologist, MD - 04/20/2025 [place] [address] Mammography Report Signed Patient: JENNYFER PETER KMR#: [id number] : 1980Acct:[id number] Age/Sex: 45 / FADM Date: 04/20/25 Loc: MAMMO Attending Dr: CRISELDA LEOS Ordering Physician: CRISELDA LEOS MResults: Date of Service: 04/20/25Follow Up: Procedure(s): MM tomosynthesis screening BI Accession Number(s): [id number] cc: ALETHEA MCKEON ; CRISELDA LEOS Patient Name: JENNYFER PETER MR#: [id number] : 1980 Exam Date: 04/20/2025 Ordering Doctor: DR CRISELDA LEOS PA RADIOLOGY REPORT PROCEDURE: MM TOMOSYNTHESIS SCREENING BI COMPARISON: MM TOMOSYNTHESIS SCREENING BI, 04/25/2023. MG MAMM FHVVWC3P MARIUM CAD, 04/16/2022. INDICATIONS: screening for malignant neoplasm of breast Calculator Name NCI Breast Cancer Risk Assessment Tool 5 Year Breast Cancer Risk 0.60% Lifetime Breast Cancer Risk 8.00% Personal Breast Cancer No Personal Ovarian Cancer No Treatments None Family Cancers Grandmother-paternal with breast cancer at age 53. LOCATION: [facility] BREAST COMPOSITION: The breasts are heterogeneously dense, which may obscure small masses. FINDINGS: DIAGNOSTIC CATEGORY 1--NEGATIVE. RIGHT BREAST: No significant suspicious finding. LEFT BREAST: No significant suspicious finding. RECOMMENDATIONS: ROUTINE MAMMOGRAM AND CLINICAL EVALUATION IN 12 MONTHS. PLEASE NOTE: A NORMAL MAMMOGRAM DOES NOT EXCLUDE THE POSSIBILITY OFBREAST CANCER. A CLINICALLY SUSPICIOUS PALPABLE LUMP SHOULD BE BIOPSIED. Dictated by: Jake Johnson DO on 04/20/2025 at 16:21 Approved by: Jake Johnson DO on 04/20/2025 at 16:23 Dictated By: Jake Johnson M.D. 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 Pre-procedure assessment neurovascularly intact Range of motion: normal ?? Procedure Manipulation performed? no manipulation performed Immobilization: splint Splint/Brace type: cam boot Post-procedure assessment neurovascularly intact Range of motion: unchanged Patient tolerance: patient tolerated the procedure well with no immediate complications Authorizing ProviderResult TypeResult Carlitos Oro PAIN CLINIC/BEDSIDE ORDERABLESFinal Result * POCT Urinalysis dipstick (02/16/2025 12:34 PM EDT) Only the most recent of3 resultswithin the time period is included. ComponentValueRef RangeTest MethodAnalysis TimePerformed AtPathologist Signature Glucose, UANegativeNegative - 1999(110) ++++ mg/dLBilirubin, UANegativeNegative - 4(70) +++ mg/dLKetones, UANegativeNegative - 160(16) ++++ mg/dLSpec Grav, UA 1.0101 - 1.03Blood, UANegativeNegative - 50 Emir/mcLpH, UA6.55 - 9Protein, UA NegativeNegative - 2000(20) ++++ mg/dLUrobilinogen, UA1.00.2 - 12 mg/dL Leukocytes, UANegativeNegative - 500+++ Baldo/mcLNitrite, UANegativeNegative - PositiveSpecimen (Source)Anatomical Location / LateralityCollection Method / VolumeCollection TimeReceived ZdjnUxmpl91/28/2025 12:34 PM EDT Narrative Authorizing ProviderResult TypeResult StatusCriselda Charbel Bhavik PAPOINT OF CARE TEST ENTER/EDIT ORDERABLESFinal Result * Cryotherapy, skin lesion (11/01/2024 3:00 PM EST) Narrative Authorizing ProviderResult TypeResult StatusEmily A Petitti MDDERM PROCEDURE ORDERABLESFinal Result * TSH W/REFLEX T4 (08/11/2024 7:07 AM EST)ComponentValueRef RangeTest Method Analysis TimePerformed AtPathologist SignatureTSH0.5950.358 - 3.740 uIU/mLTBH Specimen (Source)Anatomical Location / LateralityCollection Method / Volume Collection TimeReceived Time08/11/2024 7:07 AM EST08/11/2024 7:08 AM EST Narrative [facility] - 08/11/2024 9:10 AM EST Authorizing ProviderResult TypeResult StatusAlethea Charbel Staci MDLAB BLOOD ORDERABLES Final ResultPerforming OrganizationAddressCity/State/ZIP CodePhone Number [facility] * SCANNED LABS (06/20/2023 8:03 AM EDT) Only the most recent of3 resultswithin the time period is included. Narrative Authorizing ProviderResult TypeResult StatusUnknown Practice ALAB CHG PERFORMABLESFinal Result * (ABNORMAL) TSH W/REFLEX TO FT4 (04/25/2023)Specimen (Source)Anatomical Location / LateralityCollection Method / VolumeCollection TimeReceived Time 04/25/2023 Narrative Authorizing ProviderResult TypeResult StatusCriselda Barger Bhavik PALAB BLOOD ORDERABLESFinal ResultPerforming OrganizationAddressCity/State/ZIP CodePhone Number [facility] * Lipid panel (04/25/2023) Only the most recent of3 resultswithin the time period is included. ComponentValueRef RangeTest MethodAnalysis TimePerformed AtPathologist Signature CHOLESTEROL, SHYSU918LNDSIALZ-D077.6QUESTHDL-Y20KGALIONTDRKYGFOAJT67WTXKPSHYR LBDTOQDEZWO90.4QUESTCHOL/HDL RATIO3.7QUESTSpecimen (Source)Anatomical Location / LateralityCollection Method / VolumeCollection TimeReceived TimeBloodVenous blood specimen / Qvqldaz5404/25/2023 Narrative Authorizing ProviderResult TypeResult StatusCriselda Barger [employer] Technologiesv[facility] PALAB BLOOD ORDERABLESFinal ResultPerforming OrganizationAddressCity/State/ZIP CodePhone Number [facility] * Comprehensive metabolic panel (04/25/2023) Only the most recent of9 resultswithin the time period is included. ComponentValueRef RangeTest MethodAnalysis TimePerformed AtPathologist Signature CREATININE0.67QUESTAnion Gap8<=30 mmol/VPDOENRFON50SDUWLVIQPORP93VNATECNT63.0 QUESTBUN/CREATININE RATIO19.1GONXDLHY79VKQJBMJLX/WZX00LHJILVGGJQQU6.6QUESTSodium 159BAVBLNPLHGPEIA3.2QUESTTOTAL PROTEIN6.9QUESTALBUMIN LEVEL4.4XWOTPFDQWIGEL9.9 QUESTSpecimen (Source)Anatomical Location / LateralityCollection Method / Volume Collection TimeReceived TimeBloodVenous blood specimen / Fdtjwfd2004/25/2023 Narrative Authorizing ProviderResult TypeResult StatusCriselda Barger [facility] HospitalAB BLOOD ORDERABLESEdited Result - FinalPerforming OrganizationAddressCity/State/ZIP Code Phone Number [facility] * PAP TEST, EXTERNAL (11/01/2022 12:00 AM EST) Narrative Authorizing ProviderResult TypeResult StatusFazio Nurse [facility] ObLAB CYTOLOGY ORDERABLESFinal ResultPerforming OrganizationAddressCity/State/ZIP CodePhone Number EXTERNAL LAB * THINPREP TIS PAP REFLEX HPV MRNA E6/E7 ([id number]) (11/01/2022) Only the most recent of2 resultswithin the time period is included. ComponentValueRef RangeTest MethodAnalysis TimePerformed AtPathologist Signature CLINICAL INFORMATION:None givenNOMS LEGACY EXTERNAL LABLMP:10/13/22[facility] EXTERNAL LABPREV. PAP:12/22/2019[facility] EXTERNAL LABPREV. BX:None givenNOMS LEGACY EXTERNAL LABSOURCE:Cervix, EndocervixNOMS LEGACY EXTERNAL LABSTATEMENT OF ADEQUACY:SEE COMMENTNOMS LEGACY EXTERNAL LABComment: Satisfactory for evaluation. Endocervical/transformation zone component present. INTERPRETATION/RESULT:Negative for intraepithelial lesion or malignancy.[facility] EXTER[facility] LABCOMMENT:This Pap test has been evaluated with computer assisted technology.[facility] EXTERNAL LABCYTOTECHNOLOGIST:SEE COMMENTSee Note:[facility] EXTERNAL LABComment: Reference Range: ZL, CT(ASCP) CT screening location: [facility], [address] [place] [address]. COMMENTSEE COMMENTNOMS [facility] EXTERNAL LABComment: EXPLANATORY NOTE: The Pap is a screening test for cervical cancer. It is not a diagnostic test and is subject to false negative and false positive results. It is most reliable when a satisfactory sample, regularly obtained, is submitted with relevant clinical findings and history, and when the Pap result is evaluated along with historic and current clinical information. NO COLLECTION DATE RECEIVED. WE HAVE USED THE DATE THE SPECIMEN WAS RECEIVED BY THIS LABORATORY THE COLLECTION DATE. IF THIS IS INCORRECT, PLEASE CONTACT CLIENT SERVICES. PHONE NUMBER: [phone] Specimen (Source)Anatomical Location / LateralityCollection Method / Volume Collection TimeReceived Time11/01/2022 Narrative Authorizing ProviderResult TypeResult StatusDenice Luke DOMETHODIST [facility] LABSFinal ResultPerforming OrganizationAddressCity/State/ZIP CodePhone Number [facility] * Bilateral screening mammogram with tomosynthesis (10/31/2022 12:00 PM EST) Only the most recent of2 resultswithin the time period is included. Anatomical RegionLateralityModalityBreastBilateralMammographySpecimen (Source) Anatomical Location / LateralityCollection Method / VolumeCollection Time Received Time Narrative 10/31/2022 12:00 PM EST PERFORMED AT [facility] LOCATION:[id number] Procedure Note CONVERSION, GENERIC - 03/28/2023 PERFORMED AT [facility] LOCATION:[id number] Authorizing ProviderResult TypeResult StatusDenice Luke [facility] PROCEDURESFinal Result * TROPONIN, HIGH SENSITIVITY (06/16/2022)ComponentValueRef RangeTest Method Analysis TimePerformed AtPathologist SignatureHSTROP5.04.0 - 51.3NOMS [facility] EXTERNAL LABComment: CUT-OFF POINTS HAVE BEEN ESTABLISHED BASED ON THE FOURTH UNIVERSAL DEFINITIONS OF MYOCARDIAL INFARCTION. THE UPPER REFERENCE LIMIT (URL) OF TROPONIN, DEFINED THE 99TH PERCENTILE OF cTnI DISTRIBUTION IN A REFERENCE POPULATION, HAS BEEN CONFIRMED THE DECISION THRESHOLD FOR CO DIAGNOSIS. PERFORMING LAB:see noteNOFORMERLY [facility] EXTERNAL LABComment:[address] [facility] - [address] [place], [place] [address] ,Ext. [phone] Specimen (Source)Anatomical Location / LateralityCollection Method / VolumeCollection TimeReceived Time06/16/2022 Narrative Authorizing ProviderResult TypeResult StatusAlethea Mckeon [facility] LABSFinal Result Performing OrganizationAddressCity/State/ZIP CodePhone Number [facility] * (ABNORMAL) CARDIAC MARIE ADMIT (06/16/2022)ComponentValueRef RangeTest Method Analysis TimePerformed AtPathologist FzlugjqkcHW098(HH)26 - 192[facility] EX[facility] LABCKMB3.74(HH)<=3.60[facility] PXBPTI32(HH)9 - 82[facility] EX[facility] LABHSTROP4.94.0 - 51.3N[facility] EXTERNAL LABComment: CUT-OFF POINTS HAVE BEEN ESTABLISHED BASED ON THE FOURTH UNIVERSAL DEFINITIONS OF MYOCARDIAL INFARCTION. THE UPPER REFERENCE LIMIT (URL) OF TROPONIN, DEFINED THE 99TH PERCENTILE OF cTnI DISTRIBUTION IN A REFERENCE POPULATION, HAS BEEN CONFIRMED THE DECISION THRESHOLD FOR CO DIAGNOSIS. PERFORMING LAB:see noteUT[facility] LEGACY EXTERNAL LABComment:[address] [facility] - [address] [place], [place] [address] ,Ext. [phone] Specimen (Source)Anatomical Location / LateralityCollection Method / VolumeCollection TimeReceived Time06/16/2022 Narrative Authorizing ProviderResult TypeResult StatusAlethea Mckeon MDMETHODIST [facility] LABSFinal Result Performing OrganizationAddressCity/State/ZIP CodePhone Number [facility] * D-DIMER (06/16/2022)ComponentValueRef RangeTest MethodAnalysis TimePerformed AtPathologist SignatureD-DIMER0.28<=0.59N[facility] EXTERNAL LABD-DIMER COMMENTSSEE BELOWNOMS LEGACY EXTERNAL LABComment:Increases in D-Dimer concentration observed with thromboembolic events can be variable due to localization, size, and age of the thrombus. Therefore, a thromboembolic event cannot be diagnosed with certainty on the basis of the reference range. D- Dimers may also be elevated for a variety of disorders including: advanced age, , coronary disease, cancer, liver disease, infection, inflammati on, hematoma, DIC, trauma, post-surgery, diabetes, thrombolytic or anticoagulant therapy, stress, and generalized hospitalization.PERFORMING LAB: see noteNOMS LEGACY EXTERNAL LABComment:[address] Laboratory - [address] [place] [address] ,Ext. 9331 specimen (Source)Anatomical Location / LateralityCollection Method / VolumeCollection TimeReceived Time06/16/2022 Narrative Authorizing ProviderResult TypeResult StatusAlethea AMADOR LABSFinal Result Performing OrganizationAddressCity/State/ZIP CodePhone Number [facility] * (ABNORMAL) CBC auto differential (06/16/2022) Only the most recent of5 resultswithin the time period is included. ComponentValueRef RangeTest MethodAnalysis TimePerformed AtPathologist Signature WBC6.64.0 - 11.0[facility] EXTERNAL LABRED BLOOD COUNT4.15(LL)4.20 - 5.40[facility] TENJFF95.112.0 - 16.0[facility] DVRWKFNTMPMPG15.036.0 - 48.0[facility] USHAUI67.781.0 - 99.0[facility]TER[facility] LABMEAN CORPUSCULAR INSOPLAGXB89.226.7 - 34.0[facility] EXTERNAL LABMEAN CORPUSCULAR HGB CONC33.629.9 - 35.2[facility] LABRED CELL DISTRI WIDTH14.011.0 - 15.0[facility] UOSDXWTHAUM423253 - 450[facility]TER[facility] LABMEAN PLT VOL10.09.5 - 13.5[facility] LABNEUT%71.843.0 - 75.0[facility] LABLYMPH %16.5(LL)20.5 - 60.0[facility] LABMONO%9.71.7 - 12.0 [facility] LABEOSINOPHILS % (AUTO)0.90.9 - 7.0[facility] LAB BAS0 %0.90.2 - 2.0[facility] LABIG %0.20.0 - 0.5[facility] LABNEUT#4.71.4 - 6.5[facility] EXTER[facility] LABLYMPH #1.1(LL)1.2 - 3.8[facility] LABMONO#0.60.3 - 0.8[facility] LABEOSINOPHILS # (AUTO)0.10.0 - 0.7[facility] EX[facility] LABBASO#0.10.0 - 0.1[facility] LABIG #0.01 0.00 - 0.03N[facility] EXTERNAL LABMANUAL DIFF REQNONOMS LEGACY EXTERNAL LAB PERFORMING LAB:see noteNOMS LEGACY EXTERNAL LABComment:[address] [facility] - [address] [place] [address] ,Ext. [phone] specimen (Source)Anatomical Location / LateralityCollection Method / VolumeCollection TimeReceived Time06/16/2022 Narrative Authorizing ProviderResult TypeResult StatusAlethea Mckeon MDLAB BLOOD ORDERABLES Final ResultPerforming OrganizationAddressCity/State/ZIP CodePhone Number [facility] * (ABNORMAL) Basic metabolic panel (06/16/2022)ComponentValueRef RangeTest MethodAnalysis TimePerformed AtPathologist DfonaksrkUG293527 - 145[facility] LABK3.4(LL)3.5 - 5.1[facility] DJMMO12800 - 107[facility] LABBANDS,ZPVPEHGO36.021.0 - 32.0[facility] SLCTKIR3826 - 106[facility] YHRSAI64.07.0 - 18.0[facility] LABCREA0.71 0.55 - 1.02[facility] LABEGFR-NON AF MICRONESIAN>60>=60N[facility] EXTERNAL LABEST GLOM FILT >60>=60[facility] EXTER[facility] LABCA8.8 8.5 - 10.1[facility] EXTERNAL LABANION GAP10.4NOWY LEGACY EXTERNAL LAB BUN/CREA RATIO16.9NOFORMERLY [facility] EXTERNAL LABPERFORMING LAB:see kaelaSKAGIT REGIONAL HEALTH EXTERNAL LABComment:[address] [facility] - [address] [place] [id number] ,Ext. [phone] Specimen (Source)Anatomical Location / LateralityCollection Method / Volume Collection TimeReceived Time06/16/2022 Narrative Authorizing ProviderResult TypeResult StatusAlethea Mckeon MDLAB BLOOD ORDERABLES Final ResultPerforming OrganizationAddressCity/State/ZIP CodePhone Number [facility] * (ABNORMAL) HUMAN HERPESVIRUS 6 ABS, IGG (05/07/2022)ComponentValueRef Range Test MethodAnalysis TimePerformed AtPathologist SignatureHHV 6 IGG ANTIBODIES 3.63(HH)N[facility] EXTERNAL LABComment: Negative <0.90 ? Equivocal ??0.90 - 1.10 Positive >1.10 ? Results of this test are labeled for research purposes ? only by the assay's carton liner. The performance ? characteristics of this assay have not been ? established by the carton liner. The result should not ? be used for treatment or for diagnostic purposes ? without confirmation of the diagnosis by another ? medically established diagnostic product or procedure. ? The performance characteristics were determined by ? [facility]. PERFORMING LAB:see kaelaSKAGIT REGIONAL HEALTH EXTERNAL LABComment:[address] [facility] - [address] [place] [id number] ,Ext. 4249 specimen (Source)Anatomical Location / LateralityCollection Method / VolumeCollection TimeReceived Time05/07/2022 Narrative Authorizing ProviderResult TypeResult StatusAlethea Charbel Staci DURBINECJoan LABSFinal Result Performing OrganizationAddressCity/State/ZIP CodePhone Number [facility] * (ABNORMAL) MYCOPLASMA PNEUMONIA IGG/IGM (05/07/2022)ComponentValueRef Range Test MethodAnalysis TimePerformed AtPathologist SignatureM PNEUMONIAE IGG ABS 382(HH)0 - 99N[facility] EXTERNAL LABComment: Negative: <100 ?Indeterminate: 100 - 320 Positive: >320 ? The reference interval established is intended as a baseline only. Values >100 may indicate a recent ? infection with Mycoplasma pneumoniae and need to be ? confirmed either by a positive IgM result and/or an ? additional specimen drawn 2-4 weeks later showing a ? significant increase in antibody levels. M PNEUMONIAE IGM ABS<7700 - 769NOMS LEGACY EXTERNAL LABComment: Negative <770 ? Clinically significant amount of M. pneumoniae antibody ? not detected. ?Low Positive ?? 770 - 950 ? M. pneumoniae specific IgM presumptively detected. ??It ? is recommended that another sample be collected 1-2 ? weeks later to assure reactivity. Positive >950 ? Highly significant amount of M. pneumoniae specific ? IgM antibody detected. PERFORMING LAB:see noteNOFORMERLY [facility] EXTERNAL LABComment:[address] [facility] - [address] [place] [id number] ,Ext. [phone] Specimen (Source)Anatomical Location / LateralityCollection Method / VolumeCollection TimeReceived Time05/07/2022 Narrative Authorizing ProviderResult TypeResult StatusAlethea Mckeon [facility] LABSFinal Result Performing OrganizationAddressCity/State/ZIP CodePhone Number [facility] * CHLAMYDIA PNEUMONIAE ABS IGG/M (05/07/2022)ComponentValueRef RangeTest Method Analysis TimePerformed AtPathologist SignatureCHLAMYDIA PNEUMONIAE IGG<1:16 Neg:<1:16N[facility] EXTERNAL LABCHLAMYDIA PNEUMONIAE IGM<1:10Neg:<1:10[facility] EXTERNAL LABPERFORMING LAB:see noteNOFORMERLY [facility] EXTERNAL LABComment:[address] [facility] - [address] [place] [phone] ,Ext. [phone] Specimen (Source)Anatomical Location / LateralityCollection Method / VolumeCollection TimeReceived Time 05/07/2022 Narrative Authorizing ProviderResult TypeResult StatusAlethea Mckeon MDMETHODIST [facility] LABSFinal Result Performing OrganizationAddressCity/[facility]/ZIP CodePhone Number [facility] * ANTI-DNASE ANTIBODIES (05/07/2022)ComponentValueRef RangeTest MethodAnalysis TimePerformed AtPathologist SignatureANTI-DNASE B STREP NLVXERFQNF2528 - 120 [facility] EXTERNAL LABPERFORMING LAB:see noteSKAGIT REG[facility] EXTERNAL LAB Comment:[address] [facility] - [address] [place] [phone] ,Ext. 4245 Specimen (Source) Anatomical Location / LateralityCollection Method / VolumeCollection Time Received Time05/07/2022 Narrative Authorizing ProviderResult TypeResult StatusAlethea Charbel Staci [place] LABSFinal Result Performing OrganizationAddressCity/State/ZIP CodePhone Number [facility] * (ABNORMAL) EBV EARLY ANTIGEN (IGG) (05/07/2022)ComponentValueRef RangeTest MethodAnalysis TimePerformed AtPathologist SignatureEBV EARLY ANTIGEN AB, IGG 51.9(HH)0.0 - 8.9N[facility] EXTERNAL LABComment: Hepatitis A, Hepatitis C and HIV antibodies may cross-react with this assay. Negative < 9.0 ?Equivocal ??9.0 - 10.9 Positive >10.9 PERFORMING LAB:see noteNOMS LEGACY EXTERNAL LABComment:[address] [facility] - [address] [place], [place] [address] ,Ext. 3737 Specimen (Source)Anatomical Location / LateralityCollection Method / VolumeCollection TimeReceived Time05/07/2022 Narrative Authorizing ProviderResult TypeResult StatusAlethea [place] LABSFinal Result Performing OrganizationAddressCity/State/ZIP CodePhone Number [facility] * ANTISTREPTOLYSIN O AB (ASO) (05/07/2022)ComponentValueRef RangeTest Method Analysis TimePerformed AtPathologist SignatureANTISTREPTOLYSIN O AB132.00.0 - 200.0[facility] EXTERNAL LABPERFORMING LAB:see noteNOFORMERLY [facility] EXTERNAL LAB Comment:[address] [facility] - [address] [place], [place] [address] ,Ext. [phone] specimen (Source) Anatomical Location / LateralityCollection Method / VolumeCollection Time Received Time05/07/2022 Narrative Authorizing ProviderResult TypeResult StatusAlethea Mckeon MDMETHODIST [facility] LABSFinal Result Performing OrganizationAddressCity/State/ZIP CodePhone Number [facility] * (ABNORMAL) HERPES SIMPLEX 1/2 IGM (05/07/2022)ComponentValueRef RangeTest MethodAnalysis TimePerformed AtPathologist SignatureHSV, IGM I/II COMBINATION 1.30(HH)0.00 - 0.90N[facility] EXTERNAL LABComment: Negative <0.91 ?Equivocal 0.91 - 1.09 Positive >1.09 ? Effective June 17, 2022 HSV, IgM I/II ? Combination will be made non-orderable. [facility] ? offers [id number] HSV 1 and 2-Spec Ab, IgG w/Rfx ? and [id number] [facility] [place]. PERFORMING LAB:see [facility] EXTERNAL LABComment:[address] [facility] - [address] [place], [place] [address] ,Ext. [phone] Specimen (Source)Anatomical Location / LateralityCollection Method / VolumeCollection TimeReceived Time05/07/2022 Narrative Authorizing ProviderResult TypeResult StatusAlethea AMADOR LABSFinal Result Performing OrganizationAddressCity/State/ZIP CodePhone Number [facility] * BOX TEST SENT OUT (05/07/2022)ComponentValueRef RangeTest MethodAnalysis Time Performed AtPathologist SignatureTHIS TEST SENT TO05/07/2022[facility] EXTERNAL LABPERFORMING LAB:see [facility]aSK[facility] EXTERNAL LABComment:[address] [facility] - [address] [place], [place] [address] ,Ext. 424 Specimen (Source)Anatomical Location / LateralityCollection Method / VolumeCollection TimeReceived Time 05/07/2022 Narrative Authorizing ProviderResult TypeResult StatusAlethea Mckeon MDECW LABSFinal Result Performing OrganizationAddressCity/State/ZIP CodePhone Number [facility] * (ABNORMAL) HERPES SIMPLEX 1/2 IGG (05/07/2022)ComponentValueRef RangeTest MethodAnalysis TimePerformed AtPathologist SignatureHSV 1 IGG, TYPE SPEC4.70 (HH)0.00 - 0.90[facility] EXTERNAL LABComment: Negative <0.91 ?Equivocal 0.91 - 1.09 Positive >1.09 ?Note: Negative indicates no antibodies detected to ?HSV-1. Equivocal may suggest early infection. ??If ?clinically appropriate, retest at later date. Positive ?indicates antibodies detected to HSV-1. HSV 2 IGG TYPE SPEC<0.910.00 - 0.90[facility] EXTERNAL LABComment: Negative <0.91 ?Equivocal 0.91 - 1.09 Positive >1.09 ?Note: Negative indicates no HSV-2 antibodies detected. ?Positive indicates HSV-2 antibodies detected. ?Equivocal and low positive HSV-2 screens ?(Index 0.91-5.00) may be false positive and are ?reflexed to supplemental testing in accordance with ?CDC guidelines. PERFORMING LAB:see noteNOMS LEGACY EXTERNAL LABComment:[address] [facility] - [address] [place] [address] ,Ext. [phone] specimen (Source)Anatomical Location / LateralityCollection Method / VolumeCollection TimeReceived Time05/07/2022 Narrative Authorizing ProviderResult TypeResult StatusAlethea Mckeon MDECW LABSFinal Result Performing OrganizationAddressCity/State/ZIP CodePhone Number [facility] * (ABNORMAL) CA-ZIEGLER VIRUS (EBV) AB PROFILE (05/07/2022)ComponentValueRef RangeTest MethodAnalysis TimePerformed AtPathologist SignatureEBV AB VCA, IGM <36.00.0 - 35.9[facility] EXTERNAL LABComment: Negative <36.0 ?Equivocal 36.0 - 43.9 Positive >43.9 EBV AB VCA, ZAC011.0(HH)0.0 - 17.9[facility] EXTERNAL LABComment: Negative <18.0 ?Equivocal 18.0 - 21.9 Positive >21.9 EBV NUCLEAR ANTIGEN AB, HFV455.0(HH)0.0 - 17.9[facility] EXTERNAL LABComment: Negative <18.0 ?Equivocal 18.0 - 21.9 Positive >21.9 INTERPRETATION:CommentNOMS LEGACY EXTERNAL LABComment: ?EBV Interpretation Chart ? Sosa: Antibody Present + ?Antibody Absent - ? Interpretation ? VCA-IgM ?? VCA-IgG ??EBNA-IgG ?. ? No previous infection/ ?- ? - ? - ? Susceptible ? Primary infection (new ?+ ? + ? - ? or recent) ? Past Infection ? +or- ? + ? + ? See comment below* ?+ ? - ? - ? *Results indicate infection with EBV at some time ?however cannot predict the timing of the infection ?since antibodies to EBNA usually develop after ?primary infection or, alternatively, approximately ?5-10% of patients with EBV never develop antibodies ?to EBNA. PERFORMING LAB:see noteNOMS LEGACY EXTERNAL LABComment:[address] [facility] - [address] [place], [place] [address] ,Ext. 4245 Specimen (Source)Anatomical Location / LateralityCollection Method / VolumeCollection TimeReceived Time05/07/2022 Narrative Authorizing ProviderResult TypeResult StatusAlethea MIDDLETON LABSFinal Result Performing OrganizationAddressCity/State/ZIP CodePhone Number [facility] * C-REACTIVE PROTEINS (HS) (05/07/2022)ComponentValueRef RangeTest Method Analysis TimePerformed AtPathologist SignatureC-REACTIVE PROTEIN, CARDIAC0.41 0.00 - 3.00[facility] EXTERNAL LABComment: ?Relative Risk for Future Cardiovascular Event Low <1.00 ?Average ? 1.00 - 3.00 High >3.00 PERFORMING LAB:see noteSKAGIT [facility] EXTERNAL LABComment:[address] [facility] - [address] [place] [phone] ,Ext. [phone] Specimen (Source)Anatomical Location / LateralityCollection Method / VolumeCollection TimeReceived Time05/07/2022 Narrative Authorizing ProviderResult TypeResult StatusAlethea Mckeon [facility] LABSFinal Result Performing OrganizationAddressCity/State/ZIP CodePhone Number [facility] * MANDY W/REFELX (05/07/2022)ComponentValueRef RangeTest MethodAnalysis Time Performed AtPathologist SignatureANA DIRECTNegativeNegativeNOMS [facility]GAC[facility] EXTERNAL LABPERFORMING LAB:see noteSKAGIT REGION[facility] EXTERNAL LABComment:[address] [facility] - [address] [place], [place] [address] ,Ext. 4240 Specimen (Source)Anatomical Location / LateralityCollection Method / VolumeCollection TimeReceived Time 05/07/2022 Narrative Authorizing ProviderResult TypeResult StatusAlvertojony Charbel Staci [facility] LABSFinal Result Performing OrganizationAddressCity/State/ZIP CodePhone Number [facility] * CPK (05/07/2022)ComponentValueRef RangeTest MethodAnalysis TimePerformed At Pathologist OpfwaxujoOE8822 - 192[facility] EXTERNAL LABPERFORMING LAB:see noteNOMS LEGACY EXTERNAL LABComment:[address] [facility] - [address] [place] [phone] ,Ext. 4245 Specimen (Source)Anatomical Location / LateralityCollection Method / VolumeCollection TimeReceived Time05/07/2022 Narrative Authorizing ProviderResult TypeResult StatusAlethea Charbel Staci [facility] LABSFinal Result Performing OrganizationAddressCity/State/ZIP CodePhone Number [facility] * ZINC (05/07/2022)ComponentValueRef RangeTest MethodAnalysis TimePerformed At Pathologist SignatureZINC, PLASMA OR [id number] - 115[facility] Comment:Detection Limit = 5PERFORMING LAB:see noteN[facility]S [facility] EXTERNAL LAB Comment:[address] [facility] - [address] [place] [phone] ,Ext. 4245 Specimen (Source) Anatomical Location / LateralityCollection Method / VolumeCollection Time Received Time05/07/2022 Narrative Authorizing ProviderResult TypeResult StatusAlethea Barger Staci [facility] LABSFinal Result Performing OrganizationAddressCity/State/ZIP CodePhone Number [facility] * COPPER (05/07/2022) Only the most recent of2 resultswithin the time period is included. ComponentValueRef RangeTest MethodAnalysis TimePerformed AtPathologist Signature COPPER, [id number] - 158[facility] EXTERNAL LABComment:Detection Limit = 5 PERFORMING LAB:see noteNOMS LEGAC[facility] EXTERNAL LABComment:[address] [facility] - [address] [place] [phone] ,Ext. 4245 Specimen (Source)Anatomical Location / LateralityCollection Method / VolumeCollection TimeReceived Time05/07/2022 Narrative Authorizing ProviderResult TypeResult StatusAlethea Barger [place] [facility] LABSFinal Result Performing OrganizationAddressCity/State/ZIP CodePhone Number [facility] * METHYLMALONIC ACID (05/07/2022)ComponentValueRef RangeTest MethodAnalysis Time Performed AtPathologist SignatureMETHYLMALONIC ACID, [id number] - 378[facility] EXTERNAL LABPERFORMING LAB:see noteNOMS LEGAC[facility] EXTERNAL LABComment:[address] [facility] - [address] [place] [address] ,Ext. 4248 Specimen (Source)Anatomical Location / LateralityCollection Method / VolumeCollection TimeReceived Time 05/07/2022 Narrative Authorizing ProviderResult TypeResult StatusAlethea Charbel Staci [facility] LABSFinal Result Performing OrganizationAddressCity/State/ZIP CodePhone Number [facility] * HOMOCYSTEINE (05/07/2022)ComponentValueRef RangeTest MethodAnalysis Time Performed AtPathologist SignatureHOMOCYST(E)INE, PLASMA7.20.0 - 14.5[facility] EXTERNAL LABPERFORMING LAB:see noteNOMS LEGACY EXTERNAL LABComment:[address] [facility] - [address] [place], [place] [address] ,Ext. 4241 Specimen (Source)Anatomical Location / LateralityCollection Method / VolumeCollection TimeReceived Time 05/07/2022 Narrative Authorizing ProviderResult TypeResult StatusAlethea Charbel Staci [facility] LABSFinal Result Performing OrganizationAddressCity/State/ZIP CodePhone Number [facility] * SED RATE (05/07/2022)ComponentValueRef RangeTest MethodAnalysis TimePerformed AtPathologist SignatureESR (SED RATE)4<=20[facility] EXTERNAL LABPERFORMING LAB:see noteNOMS LEGAC[facility] EXTERNAL LABComment:[address] [facility] - [address] [place] [address] ,Ext. 4243 Specimen (Source)Anatomical Location / LateralityCollection Method / VolumeCollection TimeReceived Time05/07/2022 Narrative Authorizing ProviderResult TypeResult StatusAlethea MIDDLETONW LABSFinal Result Performing OrganizationAddressCity/State/ZIP CodePhone Number [facility] * Vitamin B12 (05/07/2022)ComponentValueRef RangeTest MethodAnalysis Time Performed AtPathologist HkjvwllxjT33346.0193.0 - 986.0[facility] PERFORMING LAB:see noteNOMS LEGACY EXTERNAL LABComment:[address] [facility] - [address] [place], [place] [id number] , Ext. 4244 Specimen (Source)Anatomical Location / Laterality Collection Method / VolumeCollection TimeReceived Time05/07/2022 Narrative Authorizing ProviderResult TypeResult Mahogany BAKER BLOOD ORDERABLES Final ResultPerforming OrganizationAddressCity/State/ZIP CodePhone Number [facility] * VITAMIN B12/FOLATE, SERUM PANEL (7065) (04/05/2022)ComponentValueRef RangeTest MethodAnalysis TimePerformed AtPathologist SignatureVITAMIN [id number] - 1,100 [facility] EXTERNAL LABFOLATE, SERUM12.4[facility] EXTERNAL LABComment: ?Reference Range Low: <3.4 ?Borderline: ?3.4-5.4 Normal: >5.4 NO COLLECTION DATE RECEIVED. WE HAVE USED THE DATE THE SPECIMEN WAS RECEIVED BY THIS LABORATORY THE COLLECTION DATE. IF THIS IS INCORRECT, PLEASE CONTACT CLIENT SERVICES. PHONE NUMBER: [phone] Specimen (Source)Anatomical Location / LateralityCollection Method / Volume Collection TimeReceived Time04/05/2022 Narrative Authorizing ProviderResult TypeResult StatusCriselda Leos PAEW LABSFinal ResultPerforming OrganizationAddressCity/State/ZIP CodePhone Number [facility] * VITAMIN D,25-OH,TOTAL,IA ([id number]) (04/05/2022)ComponentValueRef RangeTest MethodAnalysis TimePerformed AtPathologist SignatureVITAMIN D,25-OH,TOTAL,IA50 30 - 100N[facility] EXTERNAL LABComment: Vitamin D Status ? 25-OH Vitamin D: Deficiency: <20 ng/mL Insufficiency: ? 20 - 29 ng/mL Optimal: > or = 30 ng/mL For 25-OH Vitamin D testing on patients on D2-supplementation and patients for whom quantitation of D2 and D3 fractions is required, the QuestAssureD(TM) 25-OH VIT D, (D2,D3), LC/MS/MS is recommended: order code 69792 (patients >2yrs). See Note 1 NO COLLECTION DATE RECEIVED. WE HAVE USED THE DATE THE SPECIMEN WAS RECEIVED BY THIS LABORATORY THE COLLECTION DATE. IF THIS IS INCORRECT, PLEASE CONTACT CLIENT SERVICES. PHONE NUMBER: [phone] Note 1 For additional information, please refer to http://education.[employer]yra/faq/NBE403 (This link is being provided for informational/ educational purposes only.) Specimen (Source)Anatomical Location / LateralityCollection Method / Volume Collection TimeReceived Time04/05/2022 Narrative Authorizing ProviderResult TypeResult StatusCriselda Leos PAECW LABSFinal ResultPerforming OrganizationAddressCity/State/ZIP CodePhone Number [facility] * Tsh+free t4 (04/04/2022) Only the most recent of2 resultswithin the time period is included. ComponentValueRef RangeTest MethodAnalysis TimePerformed AtPathologist Signature TSH W/REFLEX TO FT43.21[facility] EXTERNAL LABComment: ?Reference Range > or = 20 Years 0.40-4.50 ? Ranges ?First trimester ?0.26-2.66 ?Second trimester ?? 0.55-2.73 ?Third trimester ?0.43-2.91 Specimen (Source)Anatomical Location / LateralityCollection Method / Volume Collection TimeReceived Time04/04/2022 Narrative Authorizing ProviderResult TypeResult StatusCriselda Barger Lisandrojelani PALAB BLOOD ORDERABLESFinal ResultPerforming OrganizationAddressCity/State/ZIP CodePhone Number [facility] * XR HAND RT 2 V (02/28/2022)Anatomical RegionLateralityModalityRadiographic ImagingSpecimen (Source)Anatomical Location / LateralityCollection Method / VolumeCollection TimeReceived Time02/28/2022 Narrative 02/28/2022 12:00 AM EDT PERFORMED AT [facility] LOCATION:[place] [address] PROCEDURE: XR HAND RT 2 V COMPARISON: None. HISTORY: Hand pain FINDINGS: BONES:No fracture acute abnormality or significant arthropathy. SOFT TISSUES:Negative. No visible soft tissue swelling. EFFUSION:None visible. OTHER: Negative. IMPRESSION: No acute fracture Electronically authenticated by: GINA COTTON ?? Date: 2022-03-01 07:33 Procedure Note CONVERSION, GENERIC - 02/06/2023 PERFORMED AT [facility] LOCATION:[place] 112 [address] PROCEDURE: XR HAND RT 2 V COMPARISON: None. HISTORY: Hand pain FINDINGS: BONES:No fracture acute abnormality or significant arthropathy. SOFT TISSUES:Negative. No visible soft tissue swelling. EFFUSION:None visible. OTHER: Negative. IMPRESSION: No acute fracture Electronically authenticated by: GINA COTTON Date: 2022-03-01 07:33 Authorizing ProviderResult TypeResult StatusAlethea Mckeon MDIMG XR PROCEDURES Final Result * XR HAND MARIUM MIN 3V (09/13/2021)Anatomical RegionLateralityModalityRadiographic ImagingSpecimen (Source)Anatomical Location / LateralityCollection Method / VolumeCollection TimeReceived Time09/13/2021 Narrative 09/13/2021 12:00 AM EST PERFORMED AT [facility] LOCATION:[place] 112 [address] EXAMINATION: XR HAND MARIUM MIN 3V HISTORY: [...] suggest rheumatoid arthritis. Electronically authenticated by: [place] ?? Date: 2021-09-14 07:21 Procedure Note CONVERSION, GENERIC - 02/06/2023 PERFORMED AT [facility] LOCATION:[place] [address] EXAMINATION: XR HAND MARIUM MIN 3V HISTORY: Disorder of soft tissue ; chronic bilateral hand pain andswelling COMPARISON: No relevant comparison available. FINDINGS: RIGHT FINDINGS: BONES: No significant arthropathy or acute abnormality. SOFT TISSUES: No visible soft tissue swelling. OTHER: Negative. LEFT FINDINGS: BONES: No significant arthropathy or acute abnormality. SOFT TISSUES: No visible soft tissue swelling. OTHER: Negative. IMPRESSION: RIGHT CONCLUSION: 1. No abnormal findings. No erosive changes to suggest rheumatoidarthritis. LEFT CONCLUSION: 1. No abnormal findings. No erosive changes to suggest rheumatoidarthritis. Electronically authenticated by: [place] Date: 2021-09-14 07:21 Authorizing ProviderResult TypeResult StatusAlethea Mckeon MDIMG XR PROCEDURES Final Result * URINALYSIS, DIPSTICK (06/05/2021 12:00 PM EDT)ComponentValueRef RangeTest MethodAnalysis TimePerformed AtPathologist SignatureGENERIC LEGACY COMPONENT INTERNALlargeECW NONXML LABSGENERIC LEGACY COMPONENT INTERNALnegECW NONXML LABSGENERIC LEGACY COMPONENT INTERNALnegECW NONXML LABSGENERIC LEGACY COMPONENT INTERNALtraceECW NONXML LABSPH6.0ECW NONXML LABSGENERIC LEGACY COMPONENT INTERNALmoderateECW NONXML LABSGENERIC LEGACY COMPONENT INTERNAL 1.020ECW NONXML LABSGENERIC LEGACY COMPONENT INTERNALnegECW NONXML LABSGENERIC LEGACY COMPONENT INTERNALnegECW NONXML LABSGENERIC LEGACY COMPONENT INTERNAL negECW NONXML LABSSpecimen (Source)Anatomical Location / LateralityCollection Method / VolumeCollection TimeReceived Time09/ 12:00 PM EDT Narrative Authorizing ProviderResult TypeResult StatusAlethea Mckeon MDECW LABSFinal Result Performing OrganizationAddressCity/State/ZIP CodePhone Number [facility] NONXML LABS * (ABNORMAL) Urine culture (06/05/2021) Only the most recent of2 resultswithin the time period is included. ComponentValueRef RangeTest MethodAnalysis TimePerformed AtPathologist Signature CULTURE, URINE, ROUTINESEE NOTE(A)[facility] EXTERNAL LABComment: ??CULTURE, URINE, ROUTINE ??Micro Number: ?[id number] ??Test Status: ? Final ??Specimen Source: ?? Urine ??Specimen Quality: ??Adequate ??Result: ?10,000-49,000 CFU/mL of Escherichia coli ?E.coli ?INT ?? GAMALIEL AMOX/CLAVULANATE S <=2 AMPICILLIN S <=2 AMP/SULBACTAM S <=2 CEFAZOLIN NR <=4 2 CEFEPIME S <=1 CEFTRIAXONE S <=1 CIPROFLOXACIN S <=0.25 ERTAPENEM S <=0.5 GENTAMICIN S <=1 IMIPENEM S <=0.25 LEVOFLOXACIN S <=0.12 ?? NITROFURANTOIN ? S ? 32 PIP/TAZOBACTAM S <=4 TOBRAMYCIN S <=1 TRIMETHOPRIM/SULFA R >=320 S=Susceptible ??I=Intermediate ??R=Resistant ??* = Not Tested NR = Not Reported ??NN = See Therapy Comments THERAPY COMMENTS ?Note 1: ?For infections other than uncomplicated UTI ?caused by E. coli, K. pneumoniae or P. mirabilis: Cefazolin is resistant if GAMALIEL > or = 8 mcg/mL. ?(Distinguishing susceptible versus intermediate for isolates with GAMALIEL < or = 4 mcg/mL requires ?additional testing.) ?Note 2: ?For uncomplicated UTI caused by E. coli, ?K. pneumoniae or P. mirabilis: Cefazolin is susceptible if GAMALIEL <32 mcg/mL and predicts ?susceptible to the oral agents cefaclor, cefdinir, ?cefpodoxime, cefprozil, cefuroxime, cephalexin ?and loracarbef. Specimen (Source)Anatomical Location / LateralityCollection Method / Volume Collection TimeReceived Time06/05/2021 Narrative Authorizing ProviderResult TypeResult StatusAlethea BAKER MICROBIOLOGY - GENERAL ORDERABLESFinal ResultPerforming OrganizationAddressCity/State/ZIP Code Phone Number [facility] * VITAMIN D TOTAL (03/16/2021)ComponentValueRef RangeTest MethodAnalysis Time Performed AtPathologist SignatureVIT D 25 OH64>29[facility] EX[facility]NAL LAB Comment: Vitamin D Status Deficiency <20 ng/mL Insufficiency 20-29 ng/mL Optimal 30-100 ng/mL Possible Toxicity >=150 ng/mL Specimen (Source)Anatomical Location / LateralityCollection Method / Volume Collection TimeReceived Time03/16/2021 Narrative Authorizing ProviderResult TypeResult StatusCriselda Leos [facility] LABSFinal ResultPerforming OrganizationAddressty/State/ZIP CodePhone Number [facility] * (ABNORMAL) VITAMIN B12/FOLATE (03/16/2021)ComponentValueRef RangeTest Method Analysis TimePerformed AtPathologist SignatureVITAMIN B121,115(H)211 - 946[facility] EXTERNAL WNCVKGJVW49.3>4.7N[facility] LEGAC[facility] EXTERNAL LABComment:Reference range change 08/08/2017. Prior reference range F 4.8-37.3 ng/mL, M 4.5-32.2 ng/mL.Specimen (Source)Anatomical Location / LateralityCollection Method / VolumeCollection TimeReceived Time03/16/2021 Narrative Authorizing ProviderResult TypeResult StatusCriselda Leos [facility] LABSFinal ResultPerforming OrganizationAddressCity/State/ZIP CodePhone Number [facility] * Q - LUPUS ANTICOAGULANT EVAL W/RFL (10/17/2020)ComponentValueRef RangeTest MethodAnalysis TimePerformed AtPathologist SignatureLUPUS ANTICOAGULANTsee noteNOMS LEGACY EXTERNAL LABComment: A Lupus Anticoagulant is not detected. Reference Range: ??Not Detected For additional information, please refer to [email or web address].[employer]/faq/WBE89a9 (This link is being provided for informational/ educational purposes only.) This interpretation is based on the following test results. PTT-LA NJJPTV06<=40[facility] EXTERNAL LABDRVVT ICZTUW63<=45[facility] EXTERNAL LABDRVVT MIX INTERPRETATIONNot IndicatedN[facility]S LEGAC[facility] EXTERNAL LAB Specimen (Source)Anatomical Location / LateralityCollection Method / Volume Collection TimeReceived Time10/17/2020 Narrative Authorizing ProviderResult TypeResult StatusAlethea Mckeon [facility] LABSFinal Result Performing OrganizationAddressCity/State/ZIP CodePhone Number [facility] * RHEUMATOID FACTOR (10/17/2020)ComponentValueRef RangeTest MethodAnalysis Time Performed AtPathologist SignatureRF<10N[facility] EXTERNAL LABSpecimen (Source)Anatomical Location / LateralityCollection Method / VolumeCollection TimeReceived Time10/17/2020 Narrative Authorizing ProviderResult TypeResult StatusAlethea AMADOR LABSFinal Result Performing OrganizationAddressCity/State/ZIP CodePhone Number [facility] * RBC SEDIMENTATION RATE (10/17/2020)ComponentValueRef RangeTest MethodAnalysis TimePerformed AtPathologist SignatureESR (SED RATE)2< OR = 20[facility] EXTERNAL LABSpecimen (Source)Anatomical Location / LateralityCollection Method / VolumeCollection TimeReceived Time10/17/2020 Narrative Authorizing ProviderResult TypeResult StatusAlethea MIDDLETON LABSFinal Result Performing OrganizationAddressCity/State/ZIP CodePhone Number [facility] * AMNISURE(PAMG-1) (07/15/2020)ComponentValueRef RangeTest MethodAnalysis Time Performed AtPathologist SignatureAMNISURENegativeNegativeNOMS LEGACY EXTERNAL LABSpecimen (Source)Anatomical Location / LateralityCollection Method / Volume Collection TimeReceived Time07/15/2020 Narrative Authorizing ProviderResult TypeResult StatusDenice Luke [facility] LABSFinal ResultPerforming OrganizationAddressCity/State/ZIP CodePhone Number [facility] * OB URINE DRUG SCREEN (NO THC) (07/15/2020)ComponentValueRef RangeTest Method Analysis TimePerformed AtPathologist SignatureAMPHETAMINE SCREEN,URINENegative NegativeNOMS LEGACY EXTERNAL LABBARBITURATE SCREEN,URINENegativeNegativeNOMS LEGACY EXTERNAL LABBENZODIAZEPINES SCREEN,URINENegativeNegativeNOMS LEGACY EXTERNAL LABCOCAINE SCREEN,URINENegativeNegativeN[facility]S [facility] EXTERNAL LABOPIATE SCREEN,URINENegativeNegativeN[facility]S [facility] EXTERNAL LABPHENCYCLIDINE SCREEN, URINENegativeNegativeNOMS LEGACY EXTERNAL LABComment: These are unconfirmed results and should not be used for legal purposes. ??Drug Cut-Off Concentration: ? AMPH 1000 ng/mL ? NICOLE ??200 ng/mL ? TYREL ??200 ng/mL ? COCM ??300 ng/mL ? OP ?300 ng/mL ? PCP ?25 ng/mL Specimen (Source)Anatomical Location / LateralityCollection Method / Volume Collection TimeReceived Time07/15/2020 Narrative Authorizing ProviderResult TypeResult StatusDenice Luke [facility] LABSFinal ResultPerforming OrganizationAddressCity/State/ZIP CodePhone Number [facility] * Urinalysis with microscopic (07/15/2020)ComponentValueRef RangeTest Method Analysis TimePerformed AtPathologist SignatureCOLOR,URINEYellowYellowNOMS LEGACY EXTERNAL LABU APPEARClearClearNOMS LEGACY EXTERNAL LABSPEC. GRAVITY,UR 1.0081.001 - 1.030[facility] EXTERNAL LABPH,UR7.55.0 - 9.0N[facility] EXTERNAL LABLEUCKOCYTE ESTERASENegativeNegativeNOMS LEGACY EXTERNAL LABURINE NITRITESNegativeNegativeNOMS LEGACY EXTERNAL LABPROTEIN,URINENegativeNegative [facility] EXTERNAL LABGLUCOSE,URINE (UA)NormalNormalNOMS [facility] EXTERNAL LAB KETNegativeNegativeNOMS LEGACY EXTERNAL LABURONormalNormalNOMS LEGACY EXTERNAL LABBILIRUBIN,URINENegativeNegativeNOMS [facility] EXTERNAL LABOCCULT BLOOD,URINE NegativeNegativeNOMS LEGACY EXTERNAL LABSpecimen (Source)Anatomical Location / LateralityCollection Method / VolumeCollection TimeReceived Time07/15/2020 Narrative Authorizing ProviderResult TypeResult StatusKathlsejal E Keniakevyn DOLAB URINE ORDERABLESFinal ResultPerforming OrganizationAddressCity/State/ZIP CodePhone Number [facility] * ULTRASOUND : OB COMPLETE F/U AFTER 1ST TRI (06/13/2020 12:00 PM EDT)Anatomical RegionLateralityModalityRadiographic ImagingSpecimen (Source)Anatomical Location / LateralityCollection Method / VolumeCollection TimeReceived Time 06/13/2020 12:00 PM EDT Narrative 06/14/2020 12:00 PM EDT PERFORMED AT [facility] LOCATION:[id number] Procedure Note CONVERSION, GENERIC - 02/05/2023 PERFORMED AT [facility] LOCATION:[id number] Authorizing ProviderResult TypeResult StatusKatjaquelin Luke DOIMG XR PROCEDURESFinal Result * STREP B CULTURE (06/13/2020)ComponentValueRef RangeTest MethodAnalysis Time Performed AtPathologist SignatureGENERIC LEGACY COMPONENTStrep. agalactiae Grp BNOMS LEGACY EXTERNAL LABSpecimen (Source)Anatomical Location / Laterality Collection Method / VolumeCollection TimeReceived Time06/13/2020 Narrative Authorizing ProviderResult TypeResult StatusKathleen E Rinkes DOECW LABSFinal ResultPerforming OrganizationAddressty/State/ZIP CodePhone Number [facility] * COVID-19 DRIVE THRU (05/30/2020)ComponentValueRef RangeTest MethodAnalysis TimePerformed AtPathologist SignatureCOVID-19 LAB CORPNot DetectedNot Detected [facility] LABComment: This nucleic acid amplification test was developed and its performance characteristics determined by [email or web address]. Nucleic acid amplification tests include PCR and TMA. This test has not been FDA cleared or approved. This test has been authorized by FDA under an Emergency Use Authorization (EUA). This test is only authorized for the duration of time the declaration that circumstances exist justifying the authorization of the emergency use of in vitro diagnostic tests for detection of SARS-CoV-2 virus and/or diagnosis of COVID-19 infection under section 564(b)(1) of the Act, 21 U.S.C. 360bbb-3(b) (1), unless the authorization is terminated or revoked sooner. When diagnostic testing is negative, the possibility of a false negative result should be considered in the context of a patient's recent exposures and the presence of clinical signs and symptoms consistent with COVID-19. An individual without symptoms of COVID-19 and who is not shedding SARS-CoV-2 virus would expect to have a negative (not detected) result in this assay. Specimen (Source)Anatomical Location / LateralityCollection Method / Volume Collection TimeReceived Time05/30/2020 Narrative Authorizing ProviderResult TypeResult StatusKatmedical center [facility]bour E FreeBrieECW LABSFinal ResultPerforming OrganizationAddressCity/State/ZIP CodePhone Number [facility] * Q - GLUCOSE,GESTATIONAL SCREEN(50G)-135 CUTOFF (04/03/2020)ComponentValueRef RangeTest MethodAnalysis TimePerformed AtPathologist SignatureGLUCOSE, GESTATIONAL SCREEN (50G)-135 WYVDBT839<135[facility] LABSpecimen (Source)Anatomical Location / LateralityCollection Method / VolumeCollection TimeReceived Time04/03/2020 Narrative Authorizing ProviderResult TypeResult StatusKatmedical center [facility]bour E [employer]inChannel[employer] DOECW LABSFinal ResultPerforming OrganizationAddressty/State/ZIP CodePhone Number [facility] * Q - HEMOGLOBIN AND HEMATOCRIT (04/03/2020)ComponentValueRef RangeTest Method Analysis TimePerformed AtPathologist WwqgbxeieEXEHORXXOO42.911.7 - 15.5[facility] NNYAXUUBAKJUT39.935.0 - 45.0[facility] LABSpecimen (Source)Anatomical Location / LateralityCollection Method / VolumeCollection TimeReceived Time04/03/2020 Narrative Authorizing ProviderResult TypeResult StatusKatmedical center [facility]bour E RinHandangoW LABSFinal ResultPerforming OrganizationAddressty/State/ZIP CodePhone Number [facility] * Inpatient consult to Diagnostic Radiology (03/22/2020)Specimen (Source) Anatomical Location / LateralityCollection Method / VolumeCollection Time Received Time03/22/2020 [facility] RADIOLOGY SYSTEM - 03/22/2020 12:00 AM EDT PERFORMED AT [facility] LOCATION:[place] [address] RESULTS BELOW OBSTETRICS REPORT ?(Signed Final 03/22/2020 11:59) PATIENT INFO: ID #: ? [id number] ?: ??[birth year] (40 yrs)(F) Name: ? JENNYFER SALDIVAR ?Visit Date: 03/22/2020 09:13 PERFORMED BY: Performed By: ? Layla Cates RDMS Attending: ?Vivien Baker MD Referred By: ?Jackeline Luke DO Ref. Address: ? [address] ? [place] [address] Location: ? [facility] SERVICE(S) PROVIDED: ??Comprehensive Anatomic Survey ?81520 ?? Echocardiogram-complete ?20293 INDICATIONS: ??Other suspected or known abnormality ? O35.8XX0 ??and damage single fetus ??Supervision of elderly (over 35 years) ?O09.522 ??second trimester ??Hypothyroidism second trimester: ?O99.282 ??thyroidectomy ?? screening abnormal ultrasonic ? O28.3 ??finding: Left [employer]AGE [employer] VITAL SIGNS: Weight (lb): 165 Height: ?5''7 ? BMI: ? 25.84 EVALUATION: Num Of Fetuses: ? 1 Heart Rate(bpm): ??142 Cardiac Activity: ? Present ??appears normal Presentation: ? Breech Placenta: ? Posterior away from cervical os P. Cord Insertion: Eccentric (>2cm from edge) Amniotic Fluid JACY FV: ?Subjectively within normal limits JACY Sum(cm) ? %Tile ? Largest Pocket(cm) 13.95 ? 43 ?5.41 RUQ(cm) ? RLQ(cm) ? LUQ(cm) ?LLQ(cm) 3.64 ?1.98 ?2.92 ? 5.41 BIOMETRY: BPD: ?59.1 ??mm ? G.Age: ?? 24w 1d ?34 ??% OFD: ?85.2 ??mm HC: ?231.3 ??mm ? G.Age: ?? 25w 1d ?58 ??% AC: ?196.8 ??mm ? G.Age: ?? 24w 3d ?39 ??% FL: ? 44 ??mm ? G.Age: ?? 24w 4d ?39 ??% HUM: ?42 ??mm ? G.Age: ?? 25w 2d ?63 ??% CER: ?28.1 ??mm ? G.Age: ?? 25w 0d ?66 ??% LV: ?3.1 ??mm CM: ?4.8 ??mm TIB: ?38.5 ??mm ? G.Age: ?? 24w 5d ?52 ??% CI: ?69.4 ??% ? 70 - 86 FL/HC: ? 19.0 ??% ? 18.7 - 20.9 HC/AC: ? 1.18 ?1.05 - 1.21 FL/BPD: ?74.5 ??% ? 71 - 87 FL/AC: ? 22.4 ??% ? 20 - 24 Est. FW: ? 699 ??gm ?1 lb 9 oz ?47 ??% OB HISTORY: : ?5 ? Term: ?? 4 Living: ? 4 GESTATIONAL AGE: LMP: ? 24w 3d ?Date: ??10/03/19 ? ROSALEE: ?? 07/09/20 U/S Today: ? 24w 4d ?ROSALEE: ?? 07/08/20 Best: ?24w 3d ?? Det. By: ??LMP ??(10/03/19) ?ROSALEE: ?? 07/09/20 TARGETED ANATOMY: Central Nervous System Calvarium/Cranial V.: ??Appears normal Intracranial Tiera: ? Appears normal Cavum: ? Appears normal Lateral Ventricles: ?Appears normal Choroid Plexus: ?Left [employer]OR Cereb./Vermis: ? Appears normal Cisterna Magna: ?Appears normal Midline Falx: ?Appears Normal Spine Cervical: ?Appears normal Thoracic: ?Appears normal Lumbar: ?Appears normal Sacral: ?Appears normal Shape/Curvature: ? Appears Normal Head/Neck Face: ?Appears normal Lips: ?Appears normal Neck: ?Appears normal Nuchal Fold: ? Not evaluated d/t GA Nasal Bone: ?Present Palate: ?Appears normal Profile: ? Appears normal Orbits/Eyes: ? Appears normal Mandible: ?Appears Normal Maxilla: ? Appears normal Thorax Thoracic Contour: ?Appears normal Lungs: ? Appears normal 4 Chamber View: ?Appears normal Cardiac Motion: ?Appears normal Cardiac Rhythm: ?Normal Rt Outflow Tract: ?Appears normal Lt Outflow Tract: ?Appears normal Aortic Arch: ? Abnormal see bel Ductal Arch: ? Appears normal SVC: ? Appears Normal Cardiac [place]: ?Normal Diaphragm: ? Appears normal 3 Vessel View: ? Appears normal IVC: ? Appears normal Crossing: ?Appears normal Abdomen Ventral Wall: ?Appears normal Cord Insertion: ?Appears normal Situs: ? Appears normal Stomach: ? Appears normal Lt Kidney: ? Appears normal Rt Kidney: ? Appears normal Bladder: ? Appears normal Bowel: ? Appears normal Extremities Lt Humerus: ?Appears normal Rt Humerus: ?Appears normal Lt Forearm: ?Appears normal Rt Forearm: ?Appears normal Lt Hand: ? Appears normal Rt Hand: ? Appears normal Lt Femur: ?Appears normal Rt Femur: ?Appears normal Lt Lower Leg: ?Appears normal Rt Lower Leg: ?Appears normal Lt Foot: ? Appears normal Rt Foot: ? Appears normal Other Umbilical Cord: ?Appear normal Masses: ?None visualized Genitalia: ? Male CERVIX UTERUS ADNEXA: Cervix Normal appearance by abdominal scan Uterus Gravid uterus Left Ovary Size(cm) ? 3.22 ?? x ?? 1.95 ?? x ??1.71 ?Vol(ml): 5.62 Visualized Right Ovary Size(cm) ? 3.17 ?? x ?? 2.3 ?x ??1.07 ?Vol(ml): 4.08 Visualized Cul De Sac No fluid seen Adnexa No adnexal masses identified COMMENTS: 1. Obstetrical ultrasound while an excellent imaging modality for the fetus cannot detect all structural abnormalities all of the time. RECOMMENDATIONS: Please see recommendations per office note. ?Vivien Baker MD Electronically Signed Final Report ?? 03/22/2020 11:59 IMPRESSION: 1. Single intrauterine size consistent with dates. 2. Left choroid plexus cyst identified which measures 2.8 mm. 3. Narrowing of the transverse aortic arch noted and measures 2.9 mm. 4. No other sonographic evidence of gross structural abnormality disclosed. 5. Amniotic fluid index is normal. The copy-to physician of this order is Dr. MARLY Singh The ordering physician of this order is Dr. DAX Singh Procedure Note CONVERSION, GENERIC - 02/05/2023 PERFORMED AT [facility] LOCATION:[place] [address] RESULTS BELOW OBSTETRICS REPORT (Signed Final 03/22/2020 11:59) PATIENT INFO: ID #: [id number] : [birth year] (40 yrs)(F) Name: JENNYFER SALDIVAR Visit Date: 03/22/2020 09:13 PERFORMED BY: Performed By: Layla Cates RDMS Attending: Vivien Baker MD Referred By: Jackeline Luke DO Ref. Address: [address] [place] [address] [address] [place] [address] Location: [facility] SERVICE(S) PROVIDED: Comprehensive Anatomic Survey 93122 Echocardiogram-complete 95395 INDICATIONS: Other suspected or known abnormality O35.8XX0 and damage single fetus Supervision of elderly (over 35 years) O09.522 second trimester Hypothyroidism second trimester: O99.282 thyroidectomy screening abnormal ultrasonic O28.3 finding: Left [employer] VITAL SIGNS: Weight (lb): 165 Height: 5''7 BMI: 25.84 EVALUATION: Num Of Fetuses: 1 Heart Rate(bpm): 142 Cardiac Activity: Present appears normal Presentation: Breech Placenta: Posterior away from cervical os P. Cord Insertion: Eccentric (>2cm from edge) Amniotic Fluid JACY FV: Subjectively within normal limits JACY Sum(cm) %Tile Largest Pocket(cm) 13.95 43 5.41 RUQ(cm) RLQ(cm) LUQ(cm) LLQ(cm) 3.64 1.98 2.92 5.41 BIOMETRY: BPD: 59.1 mm G.Age: 24w 1d 34 % OFD: 85.2 mm HC: 231.3 mm G.Age: 25w 1d 58 % AC: 196.8 mm G.Age: 24w 3d 39 % FL: 44 mm G.Age: 24w 4d 39 % HUM: 42 mm G.Age: 25w 2d 63 % CER: 28.1 mm G.Age: 25w 0d 66 % LV: 3.1 mm CM: 4.8 mm TIB: 38.5 mm G.Age: 24w 5d 52 % CI: 69.4 % 70 - 86 FL/HC: 19.0 % 18.7 - 20.9 HC/AC: 1.18 1.05 - 1.21 FL/BPD: 74.5 % 71 - 87 FL/AC: 22.4 % 20 - 24 Est. FW: 699 gm 1 lb 9 oz 47 % OB HISTORY: : 5 Term: 4 [place] GESTATIONAL AGE: LMP: 24w 3d Date: 10/03/19 ROSALEE: 07/09/20 U/S Today: 24w 4d ROSALEE: 07/08/20 Best: 24w 3d Det. By: LMP (10/03/19) ROSALEE: 07/09/20 TARGETED ANATOMY: Central Nervous System Calvarium/Cranial V.: Appears normal Intracranial Tiera: Appears normal Cavum: Appears normal Lateral Ventricles: Appears normal Choroid Plexus: Left [employer] Cereb./Vermis: Appears normal Cisterna Magna: Appears normal Midline Falx: Appears Normal Spine Cervical: Appears normal Thoracic: Appears normal Lumbar: Appears normal Sacral: Appears normal Shape/Curvature: Appears Normal Head/Neck Face: Appears normal Lips: Appears normal Neck: Appears normal Nuchal Fold: Not evaluated d/t GA Nasal Bone: Present Palate: Appears normal Profile: Appears normal Orbits/Eyes: Appears normal Mandible: Appears Normal Maxilla: Appears normal Thorax Thoracic Contour: Appears normal Lungs: Appears normal 4 Chamber View: Appears normal Cardiac Motion: Appears normal Cardiac Rhythm: Normal Rt Outflow Tract: Appears normal Lt Outflow Tract: Appears normal Aortic Arch: Abnormal see bel Ductal Arch: Appears normal SVC: Appears Normal Cardiac [place]: Normal Diaphragm: Appears normal 3 Vessel View: Appears normal IVC: Appears normal Crossing: Appears normal Abdomen Ventral Wall: Appears normal Cord Insertion: Appears normal Situs: Appears normal Stomach: Appears normal Lt Kidney: Appears normal Rt Kidney: Appears normal Bladder: Appears normal Bowel: Appears normal Extremities Lt Humerus: Appears normal Rt Humerus: Appears normal Lt Forearm: Appears normal Rt Forearm: Appears normal Lt Hand: Appears normal Rt Hand: Appears normal Lt Femur: Appears normal Rt Femur: Appears normal Lt Lower Leg: Appears normal Rt Lower Leg: Appears normal Lt Foot: Appears normal Rt Foot: Appears normal Other Umbilical Cord: Appear normal Masses: None visualized Genitalia: Male CERVIX UTERUS ADNEXA: Cervix Normal appearance by abdominal scan Uterus Gravid uterus Left Ovary Size(cm) 3.22 x 1.95 x 1.71 Vol(ml): 5.62 Visualized Right Ovary Size(cm) 3.17 x 2.3 x 1.07 Vol(ml): 4.08 Visualized Cul De Sac No fluid seen Adnexa No adnexal masses identified COMMENTS: 1. Obstetrical ultrasound while an excellent imaging modality for the fetus cannot detect all structural abnormalities all of the time. RECOMMENDATIONS: Please see recommendations per office note. Vivien Baker MD Electronically Signed Final Report 03/22/2020 11:59 IMPRESSION: 1. Single intrauterine size consistent with dates. 2. Left choroid plexus cyst identified which measures 2.8 mm. 3. Narrowing of the transverse aortic arch noted and measures 2.9 mm. 4. No other sonographic evidence of gross structural abnormality disclosed. 5. Amniotic fluid index is normal. The copy-to physician of this order is Dr. MARLY Singh The ordering physician of this order is Dr. DAX Singh Authorizing ProviderResult TypeResult StatusDenice Luke DOINPATIENT CONSULT ORDERABLESFinal ResultPerforming OrganizationAddressCity/State/ZIP Code Phone Number [facility] RADIOLOGY SYSTEM [address] [id number], * (ABNORMAL) IRON PROFILE (FE, TIBC) (03/17/2020)ComponentValueRef RangeTest MethodAnalysis TimePerformed AtPathologist AiwymjgvjLH407(H)50 - 170[facility] LABTOT.IRON BIND.CAP.546(H)250 - 425[facility] IRON BPDRCNWYQE8998 - 50[facility] EXTERNAL LABComment: ?? PERFORMED AT [facility] [address],[place] [address] The copy-to physician of this order is DENICE Velásquez ??; , ; The ordering physician of this order is RODRIGUE Blair Specimen (Source)Anatomical Location / LateralityCollection Method / Volume Collection TimeReceived Time03/17/2020 Narrative Authorizing ProviderResult TypeResult StatusDenice Luke DOECW LABSFinal ResultPerforming OrganizationAddressty/State/ZIP CodePhone Number [facility] * TORCH IGM PROFILE (03/17/2020)ComponentValueRef RangeTest MethodAnalysis Time Performed AtPathologist SignatureTOXOPLASMA IGM0.15<0.55N[facility]GACY EXTERNAL LABComment: NEGATIVE: Antibody not detected. A negative result does not exclude the possibility of infection. Early in the course of the disease or in reactivation an IgM response may be absent or below detectable limits. CYTOMEGALOVIRUS IGM<0.2<0.9[facility] EXTERNAL LABComment: Interpretation-------- <0.9 Negative 0.9 - 1.0 ?Equivocal >1.0 Positive ?? PERFORMED AT [facility] [address],[place] [address] The copy-to physician of this order is DENICE Velásquez ??; , ; The ordering physician of this order is RODRIGUE Blair Specimen (Source)Anatomical Location / LateralityCollection Method / Volume Collection TimeReceived Time03/17/2020 Narrative Authorizing ProviderResult TypeResult Jenn SONGW LABSFinal ResultPerforming OrganizationAddPaladin Healthcare/State/ZIP CodePhone Number [facility] * (ABNORMAL) TORCH IGG PROFILE (03/17/2020)ComponentValueRef RangeTest Method Analysis TimePerformed AtPathologist SignatureTOXOPLASMA IGG<3<10[facility] LE[facility] EXTERNAL LABComment: Interpretation-------- <10 Negative 10 - 11 ?Equivocal >11 Positive RUBELLA SWM29BLOH LEGACY EXTERNAL LABComment: Interpretation-------- <8 NEGATIVE-considered Not Immune 8-9 EQUIVOCAL-consider retesting with new specimen >9 POSITIVE-considered Immune CYTOMEGALOVIRUS IGG<0.2<0.9[facility] EXTERNAL LABComment: Interpretation-------- <0.9 Negative 0.9 - 1.0 ?Equivocal >1.0 Positive HERPES 1 IGG0.6<0.9[facility] EXTERNAL LABComment: Interpretation-------- <0.9 Negative 0.9 - 1.0 ?Equivocal >1.0 Positive HERPES 2 IGG3.7(H)<0.9[facility] EXTERNAL LABComment: Interpretation-------- <0.9 Negative 0.9 - 1.0 ?Equivocal >1.0 Positive ?? PERFORMED AT [facility] [address],[place] [address] The copy-to physician of this order is DENICE Velásquez ??; , ; The ordering physician of this order is RODRIGUE Blair Specimen (Source)Anatomical Location / LateralityCollection Method / Volume Collection TimeReceived Time03/17/2020 Narrative Authorizing ProviderResult TypeResult StatusDenice Luke DOECW LABSFinal ResultPerforming OrganizationAddressty/[facility] CodePhone Number [facility] * SMOOTH MUSCLE AB PANEL (03/17/2020)ComponentValueRef RangeTest MethodAnalysis TimePerformed AtPathologist SignatureSMOOTH MUSCLE AB PNLSee BelowNOMS LEGACY EXTERNAL LABComment: NOTE TEST ?RESULT ? FLAG ?? UNIT ?REF.RANGE Smooth Muscle Ab Pnl ?Negative ? NEGATIVE Normal range : negative at a 1:20 serum dilution. ??Test Performed by ??[facility] ??[address] [place] [address] ??[place] [address] ??Feltmaker: ??Wilmer Burch III, M.D. ?? PERFORMED AT [address] [place] [address] The copy-to physician of this order is DENICE Velásquez ??; , ; The ordering physician of this order is RODRIGUE Blair Specimen (Source)Anatomical Location / LateralityCollection Method / Volume Collection TimeReceived Time03/17/2020 Narrative Authorizing ProviderResult TypeResult StatusDenice Luke DOMETHODIST [facility] LABSNewyork-Presbyterian Lower [facility] Hospitalal ResultPerforming OrganizationAddPaladin Healthcare/[facility] CodePhone Number [facility] * MITOCHONDRIAL AB PANEL (03/17/2020)ComponentValueRef RangeTest MethodAnalysis TimePerformed AtPathologist SignatureMITOCHONDRIAL AB PNLSee BelowNOMS LEGACY EXTERNAL LABComment: NOTE TEST ?RESULT ? FLAG ?? UNIT ?REF.RANGE Mitochondrial Ab Pnl ?Negative ? NEGATIVE Normal range : negative at a 1:20 serum dilution. ??Test Performed by ??[facility] ??[address] [place] [address] ??[place] [address] ??Feltmaker: ??Wilmer Burch III, M.D. ?? PERFORMED AT [address] [place] [address] The copy-to physician of this order is DENICE Velásquez ??; , ; The ordering physician of this order is RODRIGUE Blair Specimen (Source)Anatomical Location / LateralityCollection Method / Volume Collection TimeReceived Time03/17/2020 Narrative Authorizing ProviderResult TypeResult StatusDenice AMIN LABSFinal ResultPerforming OrganizationAddressCity/State/ZIP CodePhone Number [facility] * CERULOPLASMIN (03/17/2020)ComponentValueRef RangeTest MethodAnalysis Time Performed AtPathologist KrqoxcckoCWDCGWRZVQBQV7917 - 58N[facility] LEGACY EXTERNAL LABComment: ?? PERFORMED AT [facility] [address],[place] [address] The copy-to physician of this order is DENICE Velásquez ??; , ; The ordering physician of this order is RODRIGUE Blair Specimen (Source)Anatomical Location / LateralityCollection Method / Volume Collection TimeReceived Time03/17/2020 Narrative Authorizing ProviderResult TypeResult StatusDenice SONGW LABSFinal ResultPerforming OrganizationAddressCity/State/ZIP CodePhone Number [facility] * AMMONIA LEVEL (03/17/2020)ComponentValueRef RangeTest MethodAnalysis Time Performed AtPathologist BeijeyayyICVOPUE2814 - 35[facility] Comment: ?? PERFORMED AT [address] [place] [address] The copy-to physician of this order is DENICE Velásquez ??; , ; The ordering physician of this order is RODRIGUE Blair (Source)Anatomical Location / LateralityCollection Method / Volume Collection TimeReceived Time03/17/2020 Narrative Authorizing ProviderResult TypeResult StatusDenice SONGW LABSFinal ResultPerforming OrganizationAddressCity/State/ZIP CodePhone Number [facility] * (ABNORMAL) THYROID PROFILE (03/17/2020)ComponentValueRef RangeTest Method Analysis TimePerformed AtPathologist SignatureTSH W/OUT REFLEX8.44(H)0.49 - 4.67[facility] LABFREE T40.690.61 - 1.60[facility] Comment: ?? PERFORMED AT [address],[place] [id number] The copy-to physician of this order is DENICE Velásquez ??; , ; The ordering physician of this order is RODRIGUE Blair (Source)Anatomical Location / LateralityCollection Method / Volume Collection TimeReceived Time03/17/2020 Narrative Authorizing ProviderResult TypeResult StatusDenice AMIN LABSFinal ResultPerforming OrganizationAddressCity/State/ZIP CodePhone Number [facility] * AMYLASE LEVEL (03/17/2020)ComponentValueRef RangeTest MethodAnalysis Time Performed AtPathologist IhaqluhxvILGUOLM9052 - 100[facility] Comment: ?? PERFORMED AT [place] [address],[place] [address] The copy-to physician of this order is DENICE Velásquez ??; , ; The ordering physician of this order is RODRIGUE Blair Specimen (Source)Anatomical Location / LateralityCollection Method / Volume Collection TimeReceived Time03/17/2020 Narrative Authorizing ProviderResult TypeResult StatusDenice SONGW LABSFinal ResultPerforming OrganizationAddressCity/State/ZIP CodePhone Number [facility] * LIPASE (03/17/2020)ComponentValueRef RangeTest MethodAnalysis TimePerformed At Pathologist SignatureLIPOPROTEIN(A)2411 - 82N[facility] LEGACY EXTERNAL LABComment: ?? PERFORMED AT [facility] [address],[place] [address] The copy-to physician of this order is DENICE Velásquez ??; , ; The ordering physician of this order is RODRIGUE Blair Specimen (Source)Anatomical Location / LateralityCollection Method / Volume Collection TimeReceived Time03/17/2020 Narrative Authorizing ProviderResult TypeResult StatusKatjaquelin Luke DOECW LABSFinal ResultPerforming OrganizationAddressCity/State/ZIP CodePhone Number [facility] * (ABNORMAL) CBC AND AUTOMATED DIFFERENTIAL (03/17/2020)ComponentValueRef Range Test MethodAnalysis TimePerformed AtPathologist SignatureWBC6.44.8 - 10.8N[facility] LEGACY EXTERNAL LABRED BLOOD COUNT3.853.80 - 5.20[facility] EX[facility] LABHGB 11.911.7 - 15.5[facility]NAL TFEEAEUVKSTUJ65.435 - 47[facility] ICILRR7883 - 100[facility] EXTERNAL LABMEAN CORPUSCULAR HEMOGLOBIN 30.826 - 33.5[facility] EXTERNAL LABMEAN CORPUSCULAR HGB CONC33.532 - 37[facility]Y EXTERNAL LABRED CELL DISTRI WIDTH15.0(H)11.5 - 14.7[facility] EXTERNAL LABPLATELET ESMSC322378 - 450[facility]GACY EXTERNAL LABMEAN PLT VOL8.67 - 12[facility]% BTRIAHKOHEA52.1[facility]% KHQHOYXOOYQ10.7 [facility]% MONOCYTES8.6[facility] EXTERNAL LABEOSINOPHIL COUNT 1.2[facility]Y EXTERNAL LABBASOPHIL0.4[facility] EXTERNAL LABABSOLUTE NEUTROPHIL4.81.5 - 6.6[facility] EXTERNAL LABABSOLUTE LYMPHOCYTE0.9(L)1.0 - 3.5[facility]GACY EXTERNAL LABABS. MONOCYTE0.50 - 0.9[facility] EXTERNAL LABABS EOS0.10.0 - 0.4[facility]Y EXTERNAL LABABS. BASOPHIL0.00 - 0.9N[facility] LEGACY EXTERNAL LABComment: ?? PERFORMED AT [facility] [address],[place] [address] The copy-to physician of this order is DENICE Velásquez. ??; , ; The ordering physician of this order is RODRIGUE Blair Specimen (Source)Anatomical Location / LateralityCollection Method / Volume Collection TimeReceived Time03/17/2020 Narrative Authorizing ProviderResult TypeResult StatusDenice Luke DOECW LABSFinal ResultPerforming OrganizationAddressCity/State/ZIP CodePhone Number [facility] * US abdomen limited (03/17/2020)Anatomical RegionLateralityModalityAbdomen UltrasoundSpecimen (Source)Anatomical Location / LateralityCollection Method / VolumeCollection TimeReceived Time03/17/2020 Narrative 03/17/2020 12:00 AM EDT PERFORMED AT [facility] LOCATION:[place] [address] [address] RESULTS BELOW Abdominal ultrasound: HISTORY: Abdominal pain. Elevated liver function tests. Ultrasound of the abdomen was obtained with attention to the right upper quadrant. No focal hepaticabnormality is seen. Portal venous flow is unremarkable. Common bile duct measures 4 mm within normal limits. There is no intrahepatic biliary dilatation. No splenic abnormality is appreciated. Hepatic parenchyma appears homogeneous. Visualized aspect of the pancreas is unremarkable. Patient status post cholecystectomy. No ascites. IMPRESSION: Negative exam. Finalized by Dawood Rockwell MD on 03/17/2020 8:27 AM The copy-to physician of this order is Dr. MARLY Singh The ordering physician of this order is Dr. MARCELLA HUSAIN Procedure Note CONVERSION, GENERIC - 02/05/2023 PERFORMED AT [facility] LOCATION:[place] 2500 210 RESULTS BELOW Abdominal ultrasound: HISTORY: Abdominal pain. Elevated liver function tests. Ultrasound of the abdomen was obtained with attention to the right upper quadrant. No focal hepatic abnormality is seen. Portal venous flow is unremarkable. Common bile duct measures 4 mm within normal limits. There is no intrahepatic biliary dilatation. Nosplenic abnormality is appreciated. Hepatic parenchyma appears homogeneous. Visualized aspect of the pancreasis unremarkable. Patient status post cholecystectomy. No ascites. IMPRESSION: Negative exam. Finalized by Dawood Rockwell MD on 03/17/2020 8:27 AM The copy-to physician of this order is Dr. MARLY Singh The ordering physician of this order is Dr. MARCELLA HUSAIN Authorizing ProviderResult TypeResult Jenn SUERO US PROCEDURESFinal Result * ULTRASOUND : OB COMPLETE AFTER 1ST TRIMES 1ST GEST (02/22/2020 12:00 PM EDT) Anatomical RegionLateralityModalityRadiographic ImagingSpecimen (Source) Anatomical Location / LateralityCollection Method / VolumeCollection Time Received Time02/22/2020 12:00 PM EDT Narrative 02/29/2020 12:00 PM EDT PERFORMED AT [facility] LOCATION:[id number] Procedure Note CONVERSION, GENERIC - 02/05/2023 PERFORMED AT [facility] LOCATION:[id number] Authorizing ProviderResult TypeResult Jenn Luke DOIMG XR PROCEDURESFinal Result * HEPATITIS PANEL, ACUTE (02/18/2020) Only the most recent of2 resultswithin the time period is included. ComponentValueRef RangeTest MethodAnalysis TimePerformed AtPathologist Signature HEP A AB, IGMNegativeNegativeNOMS LEGACY EXTERNAL LABHBSAG SCREENNegative NegativeNOMS LEGACY EXTERNAL LABHEP B CORE AB, IGMNegativeNegativeNOMS LEGACY EXTERNAL LABHEP C VIRUS AB<0.10.0 - 0.9NOMS LEGACY EXTERNAL LABComment: Negative: < 0.8 ?Indeterminate: 0.8 - 0.9 Positive: > 0.9 ? . ?The CDC recommends that a positive HCV antibody result ?be followed up with a HCV Nucleic Acid Amplification ?test (017859). PERFORMING LAB:see noteNOWY LEGACY EXTERNAL LABComment:[address] [facility] - Geriatric Assistant Criselda Alexis,[place] [phone] ,[address]. [phone] Specimen (Source) Anatomical Location / LateralityCollection Method / VolumeCollection Time Received Time02/18/2020 Narrative Authorizing ProviderResult TypeResult StatusKathllegacy [facility] E Marly DOECW LABSFinal ResultPerforming OrganizationAddressCity/State/ZIP CodePhone Number [facility] * PROTEIN 24HR URINE (02/18/2020)ComponentValueRef RangeTest MethodAnalysis Time Performed AtPathologist SignatureRENAL TUBULAR7.6<=12.0NOMS LEGACY EXTERNAL LABUR TOT VOL2,900N[facility] LABT PROT, 24 HR UR220.442.0 - 225.0 N[facility] LEGACY EXTERNAL LABPERFORMING LAB:see noteNOWY LEGACY EXTERNAL LAB Comment:[address] [facility] - Geriatric Assistant Criselda Alexis,[place] [phone] ,[address]. [phone] Specimen (Source)Anatomical Location / LateralityCollection Method / VolumeCollection TimeReceived Time02/18/2020 Narrative Authorizing ProviderResult TypeResult StatusKathleen E Marly DOECW LABSFinal ResultPerforming OrganizationAddressCity/State/ZIP CodePhone Number [facility] * TSH W REFLEX TO FREE T4 (02/11/2020 12:00 PM EDT)ComponentValueRef RangeTest MethodAnalysis TimePerformed AtPathologist SignatureTSH2.94ECW NONXML LABS GENERIC LEGACY COMPONENT INTERNAL0.91ECW NONXML LABSSpecimen (Source) Anatomical Location / LateralityCollection Method / VolumeCollection Time Received Time02/11/2020 12:00 PM EDT Narrative Authorizing ProviderResult TypeResult StatusAlethea Mckeon MDECW LABSFinal Result Performing OrganizationAddressCity/State/ZIP CodePhone Number ECW NONXML LABS * UA W/O MICRO (02/11/2020)ComponentValueRef RangeTest MethodAnalysis Time Performed AtPathologist SignatureCOLORYELLOWYELLOWNOMS LEGACY EXTERNAL LAB CLARITYCLEARNOMS LEGACY EXTERNAL LABSPEC GRAVITY1.0151.005-<=1.025NOMS LEGACY EXTERNAL LABPH7.05 - 9NOMS LEGACY EXTERNAL LABUA PROTEINNEGATIVENOMS LEGACY EXTERNAL LABGLUCOSENEGATIVENEGATIVENOMS LEGACY EXTERNAL LABENTEROCOCCUS FAECALIS (S)NEGATIVENEGATIVENOMS LEGACY EXTERNAL LABMALBNEGATIVENEGATIVENOMS LEGACY EXTERNAL LABSTREP PYOGENES (GROUP A)NEGATIVENEGATIVENOMS LEGACY EXTERNAL LABINFLUENZA ANEGATIVENEGATIVENOMS LEGACY EXTERNAL LABMALB/CREAT RATI 0.2N[facility]S LE[facility] EXTERNAL LABLEUKOCYTESNEGATIVENEGATIVENOMS LEGACY EXTERNAL LAB PERFORMING LAB:see noteNOMS LEGACY EXTERNAL LABComment:[address] [facility] - Geriatric Assistant Criselda Alexis,[place] [phone] ,Ext. [phone] specimen (Source)Anatomical Location / LateralityCollection Method / VolumeCollection TimeReceived Time02/11/2020 Narrative Authorizing ProviderResult TypeResult StatusKatjaquelin Luke DOECW LABSFinal ResultPerforming OrganizationAddressCity/State/ZIP CodePhone Number [facility] * (ABNORMAL) CBC AUTO DIFF (02/11/2020)ComponentValueRef RangeTest Method Analysis TimePerformed AtPathologist SignatureWBC6.64.0 - 11.0NOMS LEGACY EXTERNAL LABRED BLOOD COUNT4.02(L)4.20 - 5.40N[facility] TBFKWZ40.1 12.0 - 16.0[facility] OZPEAAKUENNIX99.136.0 - 48.0[facility] VOIDSW64.381.0 - 99.0[facility]TER[facility] LABMEAN CORPUSCULAR OFTVFSRSZN41.126.7 - 34.0N[facility] LEGACY EXTERNAL LABMEAN CORPUSCULAR HGB CONC32.6 29.9 - 35.2N[facility] EXTERNAL LABRED CELL DISTRI WIDTH14.011.0 - 15.0[facility] QNDHZKAPTTU784750 - 450N[facility] LE[facility] EXTERNAL LABMEAN PLT VOL 10.59.5 - 13.5[facility] LABNEUT%72.043.0 - 75.0[facility] LABLYMPH %17.0(L)20.5 - 60.0[facility] LABMONO%8.41.7 - 12.0[facility] LABEOSINOPHILS % (AUTO)1.20.9 - 7.0[facility] LAB BAS0 %0.60.2 - 2.0[facility] LABIG %0.8(H)0.0 - 0.5N[facility] EXTER[facility] LABNEUT#4.81.4 - 6.5N[facility]S LEGACY EXTERNAL LABLYMPH #1.1(L)1.2 - 3.8 [facility] LABMONO#0.60.3 - 0.8N[facility] EXTERNAL LABEOSINOPHILS # (AUTO)0.10.0 - 0.7N[facility] LEGACY EXTERNAL LABBASO#0.00.0 - 0.1N[facility] LEGACY EXTERNAL LABIG #0.05(H)0.00 - 0.03N[facility] EXTERNAL LABMANUAL DIFF REQNO N[facility] LEGACY EXTERNAL LABPERFORMING LAB:see noteNOMS LEGACY EXTERNAL LAB Comment:[facility] - Geriatric Assistant Criselda Alexis,[place] [phone] ,Ext. [phone] specimen (Source)Anatomical Location / LateralityCollection Method / VolumeCollection TimeReceived Time02/11/2020 Narrative Authorizing ProviderResult TypeResult StatusKathleen E Rinkes DOECW LABSFinal ResultPerforming OrganizationAddressCity/State/ZIP CodePhone Number [facility] * TSH (02/11/2020) Only the most recent of3 resultswithin the time period is included. ComponentValueRef RangeTest MethodAnalysis TimePerformed AtPathologist Signature TSH2.9140.470 - 4.680NOMS LEGAC[facility] EXTERNAL LABTSH RANGESEE BELOWNOMS LEGACY EXTERNAL LABComment:<0.34 UIU/ml HYPERTHYROID 0.34-5.60 UIU/ml EUTHYROID >5.60 UIU/ml HYPOTHYROIDPERFORMING LAB:see noteNOMS LEGACY EXTERNAL LABComment:[address] [facility] - Geriatric Assistant Criselda Alexis,[place] [phone] ,[address]. [phone] Specimen (Source)Anatomical Location / LateralityCollection Method / Volume Collection TimeReceived Time02/11/2020 Narrative Authorizing ProviderResult TypeResult StatusKat81st Medical GroupChannelsoft ([place]) Technology [facility] BLOOD ORDERABLESFinal ResultPerforming OrganizationAddressCity/State/ZIP CodePhone Number [facility] * T4, free (02/11/2020)ComponentValueRef RangeTest MethodAnalysis TimePerformed AtPathologist SignatureFT4 REFLEX0.910.78 - 2.19N[facility] LAB PERFORMING LAB:see noteNOMS LEGACY EXTERNAL LABComment:[address] [facility] - Geriatric Assistant Criselda Alexis,[place] [phone] ,[address]. [address]241 specimen (Source)Anatomical Location / LateralityCollection Method / VolumeCollection TimeReceived Time02/11/2020 Narrative Authorizing ProviderResult TypeResult StatusKatMadison [facility] BLOOD ORDERABLESFinal ResultPerforming OrganizationAddressCity/State/ZIP CodePhone Number [facility] * (ABNORMAL) T3, FREE (01/27/2020)ComponentValueRef RangeTest MethodAnalysis TimePerformed AtPathologist SignatureFREE T31.93(L)2.77 - 5.27NOMS LEGACY EXTERNAL LABPERFORMING LAB:see noteNOMS LEGACY EXTERNAL LABComment:[address] [facility] - Geriatric Assistant Criselda Alexis,[place] [phone] ,Ext. [address]245 specimen (Source)Anatomical Location / LateralityCollection Method / VolumeCollection TimeReceived Time01/27/2020 Narrative Authorizing ProviderResult TypeResult StatusAlvertojony Mckeon MDECW LABSFinal Result Performing OrganizationAddressty/State/ZIP CodePhone Number [facility] * CHLAMYDIA/N. GONORRHOEAE RNA, TMA, UROGENITAL ([phone]) (12/22/2019)Component ValueRef RangeTest MethodAnalysis TimePerformed AtPathologist Signature CTRACHOMATISRNA, TMA, UROGNOT DETECTEDNOT DETECTEDNOMS LEGACY EXTERNAL LAB NEISSERIA GONORRHOEAE RNA, TMA, UROGENITALNOT DETECTEDNOT DETECTEDNOMS LEGACY EXTERNAL LABCOMMENTSEE COMMENTNOMS LEGACY EXTERNAL LABComment: The analytical performance characteristics of this assay, when used to test SurePath(TM) specimens have been determined by [employer]. The modifications have not been cleared or approved by the FDA. This assay has been validated pursuant to the CLIA regulations and is used for clinical purposes. For additional information, please refer to https://education.[employer]/faq/WVI609 (This link is being provided for information/ educational purposes only.) Specimen (Source)Anatomical Location / LateralityCollection Method / Volume Collection TimeReceived Time12/22/2019 Narrative Authorizing ProviderResult TypeResult StatusKatkaelasejal Singh Keniakevyn DOECW LABSFinal ResultPerforming OrganizationAddressCity/State/ZIP CodePhone Number [facility] * OBSTETRIC PANEL () (12/09/2019)ComponentValueRef RangeTest MethodAnalysis TimePerformed AtPathologist SignatureWHITE BLOOD CELL COUNT7.03.8 - 10.8NOMS LEGACY EXTERNAL LABRED BLOOD CELL COUNT4.633.80 - 5.10[facility] LAB TXELWDPGDR89.711.7 - 15.5[facility]TERNAL DUWKOWKJSTNPB10.135.0 - 45.0[facility] BOWCIM79.880.0 - 100.0[facility] GERPYH66.627.0 - 33.0[facility] EUVTEXU91.332.0 - 36.0[facility] VBLGOC02.4 11.0 - 15.0N[facility]TER[facility] LABPLATELET JOBGV346855 - 400[facility] XWXQZA40.37.5 - 12.5N[facility] EXTERNAL LABABSOLUTE NEUTROPHILS4,837 1,500 - 7,800N[facility]S LEGAC[facility] EXTERNAL LABABSOLUTE LYMPHOCYTES1,132067 - 3,900N[facility] LEGAC[facility] EXTERNAL LABABSOLUTE VRYWBGKLN262610 - 950[facility] LAB ABSOLUTE IACHKAYRWFG9233 - 500NOMS LEGACY EXTERNAL LABABSOLUTE GCSPNRXFU360 - 200N[facility]S [facility] EXTERNAL UFXRTFQKGQDKMS39.1NOMS LEGACY EXTERNAL LABLYMPHOCYTES 20.1N[facility]S [facility] EXTERNAL LABMONOCYTES9.0N[facility]S [facility] EXTERNAL LABEOSINOPHILS1.1 [facility] LABBASOPHILS0.7NOMS LEGACY EXTERNAL LABANTIBODY SCREEN, RBC W/REFL ID, TITER AND AGNO ANTIBODIES DETECTEDNOMS LEGACY EXTERNAL LAB Comment: ?Reference range ?No antibodies detected This assay is a screening test for the detection of red blood cell antibodies. The test is not to be used for pretransfusion screening or for the medical management of an alloimmunized . ABO GROUPANOMS LEGACY EXTERNAL LABRH TYPERH(D) POSITIVENOMS LEGACY EXTERNAL LAB Comment: For additional information, please refer to http://education.[employer]/faq/GGD834 (This link is being provided for informational/ educational purposes only.) RPR (DX) W/REFL TITER AND CONFIRMATORY AGCKWZEYQH-WRCROBOWRXW-LKXOIDWKHBZN LEGACY EXTERNAL LABHEPATITIS B SURFACE IXHYNOEMVY-DAMAGFIKRBH-NYNEAKNLREVH LEGACY EXTERNAL LABRUBELLA ANTIBODY (IGG)10.90NOMS LEGACY EXTERNAL LABComment: ?Index ?Interpretation ?----- ? <0.90 Not consistent with Immunity ?0.90-0.99 ?Equivocal > or = 1.00 Consistent with Immunity The presence of rubella IgG antibody suggests immunization or past or current infection with rubella virus. Specimen (Source)Anatomical Location / LateralityCollection Method / Volume Collection TimeReceived Time12/09/2019 Narrative Authorizing ProviderResult TypeResult StatusDenice Francisco Marly SONGW LABSFinal ResultPerforming OrganizationAddressCity/State/ZIP CodePhone Number [facility] * Q - TSH WITH REFLEX TO FREE T4 (12/24/2018)ComponentValueRef RangeTest Method Analysis TimePerformed AtPathologist SignatureTSH1.500.40 - 4.50NOMS LEGACY EXTERNAL LABComment: REFERENCE RANGES BELOW ARE APPLICABLE TO FEMALES ?FIRST TRIMESTER - ?0.26 - 2.66 mIU/L ?SECOND TRIMESTER - ?? 0.55 - 2.73 mIU/L ?THIRD TRIMESTER - ?0.43 - 2.91 mIU/L Specimen (Source)Anatomical Location / LateralityCollection Method / Volume Collection TimeReceived Time12/24/2018 Narrative Authorizing ProviderResult TypeResult StatusAlethea Mckeon MDECW LABSFinal Result Performing OrganizationAddressCity/State/ZIP CodePhone Number [facility] Visit Diagnoses DiagnosisStart Date Other fatigue 2018 Thyrotoxicosis, unspecified without thyrotoxic crisis or storm 2018 Thyrotoxicosis, unspecified without thyrotoxic crisis or storm 02/09/2018 Hypothyroidism, unspecified 01/05/2019 Migraine, unspecified, not intractable, without status migrainosus 02/22/2019 Migraine, unspecified, not intractable, without status migrainosus 06/15/2019 Chronic sinusitis, unspecified 01/04/2020 Hypothyroidism, unspecified 01/28/2020 Tachycardia, unspecified 02/08/2020 19 weeks gestation of ([facility]) 02/16/2020 Abnormal levels of other serum enzymes 02/16/2020 19 weeks gestation of ([facility]) 02/16/2020 Abnormal levels of other serum enzymes 02/16/2020 Abnormal levels of other serum enzymes 02/17/2020 Tachycardia, unspecified 02/17/2020 Hypothyroidism, unspecified 03/10/2020 Abnormal levels of other serum enzymes 03/13/2020 Upper abdominal pain, unspecified 03/13/2020 24 weeks gestation of ([facility]) 03/21/2020 Encounter for screening for diabetes mellitus 03/21/2020 Cough 05/30/2020 Encounter for screening for other viral diseases 05/30/2020 36 weeks gestation of ([facility]) 06/13/2020 Encounter for screening for Streptococcus B ([facility]) 06/13/2020 Abnormal levels of other serum enzymes 06/27/2020 Cervicalgia 03/16/2021 Pain in unspecified joint 03/16/2021 Acute cystitis without hematuria 06/05/2021 Pain in unspecified hand 02/28/2022 Bipolar disorder, current episode hypomanic ([facility]) 04/05/2022 Migraine, unspecified, not intractable, without status migrainosus 04/05/2022 Essential (primary) hypertension Unspecified essential hypertension 04/05/2022 Premenstrual tension syndrome Premenstrual tension syndromes 04/05/2022 Chronic fatigue, unspecified 04/05/2022 Hypothyroidism, unspecified 04/05/2022 Gastro-esophageal reflux disease without esophagitis 04/05/2022 Pain in unspecified joint 04/05/2022 Personal history of other endocrine, nutritional and metabolic disease 04/05/2022 Encounter for general adult medical examination without abnormal findings 04/05/2022 Pure hypercholesterolemia, unspecified 04/05/2022 Myalgia, unspecified site 04/05/2022 Encounter for screening mammogram for malignant neoplasm of breast 04/05/2022 Bipolar disorder, current episode hypomanic (HCC) 04/05/2022 Migraine, unspecified, not intractable, without status migrainosus 04/05/2022 Essential (primary) hypertension Unspecified essential hypertension 04/05/2022 Premenstrual tension syndrome Premenstrual tension syndromes 04/05/2022 Chronic fatigue, unspecified 04/05/2022 Hypothyroidism, unspecified 04/05/2022 Gastro-esophageal reflux disease without esophagitis 04/05/2022 Pain in unspecified joint 04/05/2022 Personal history of other endocrine, nutritional and metabolic disease 04/05/2022 Encounter for general adult medical examination without abnormal findings 04/05/2022 Pure hypercholesterolemia, unspecified 04/05/2022 Myalgia, unspecified site 04/05/2022 Encounter for screening mammogram for malignant neoplasm of breast 04/05/2022 Bipolar disorder, current episode hypomanic (HCC) 04/05/2022 Migraine, unspecified, not intractable, without status migrainosus 04/05/2022 Essential (primary) hypertension Unspecified essential hypertension 04/05/2022 Premenstrual tension syndrome Premenstrual tension syndromes 04/05/2022 Chronic fatigue, unspecified 04/05/2022 Hypothyroidism, unspecified 04/05/2022 Gastro-esophageal reflux disease without esophagitis 04/05/2022 Pain in unspecified joint 04/05/2022 Personal history of other endocrine, nutritional and metabolic disease 04/05/2022 Encounter for general adult medical examination without abnormal findings 04/05/2022 Pure hypercholesterolemia, unspecified 04/05/2022 Myalgia, unspecified site 04/05/2022 Encounter for screening mammogram for malignant neoplasm of breast 04/05/2022 Bipolar disorder, current episode hypomanic (HCC) 04/05/2022 Migraine, unspecified, not intractable, without status migrainosus 04/05/2022 Essential (primary) hypertension Unspecified essential hypertension 04/05/2022 Premenstrual tension syndrome Premenstrual tension syndromes 04/05/2022 Chronic fatigue, unspecified 04/05/2022 Hypothyroidism, unspecified 04/05/2022 Gastro-esophageal reflux disease without esophagitis 04/05/2022 Pain in unspecified joint 04/05/2022 Personal history of other endocrine, nutritional and metabolic disease 04/05/2022 Encounter for general adult medical examination without abnormal findings 04/05/2022 Pure hypercholesterolemia, unspecified 04/05/2022 Myalgia, unspecified site 04/05/2022 Encounter for screening mammogram for malignant neoplasm of breast 04/05/2022 Bipolar disorder, current episode hypomanic (HCC) 04/05/2022 Migraine, unspecified, not intractable, without status migrainosus 04/05/2022 Essential (primary) hypertension Unspecified essential hypertension 04/05/2022 Premenstrual tension syndrome Premenstrual tension syndromes 04/05/2022 Chronic fatigue, unspecified 04/05/2022 Hypothyroidism, unspecified 04/05/2022 Gastro-esophageal reflux disease without esophagitis 04/05/2022 Pain in unspecified joint 04/05/2022 Personal history of other endocrine, nutritional and metabolic disease 04/05/2022 Encounter for general adult medical examination without abnormal findings 04/05/2022 Pure hypercholesterolemia, unspecified 04/05/2022 Myalgia, unspecified site 04/05/2022 Encounter for screening mammogram for malignant neoplasm of breast 04/05/2022 Bipolar disorder, current episode hypomanic (HCC) 04/05/2022 Migraine, unspecified, not intractable, without status migrainosus 04/05/2022 Essential (primary) hypertension Unspecified essential hypertension 04/05/2022 Premenstrual tension syndrome Premenstrual tension syndromes 04/05/2022 Chronic fatigue, unspecified 04/05/2022 Hypothyroidism, unspecified 04/05/2022 Gastro-esophageal reflux disease without esophagitis 04/05/2022 Pain in unspecified joint 04/05/2022 Personal history of other endocrine, nutritional and metabolic disease 04/05/2022 Encounter for general adult medical examination without abnormal findings 04/05/2022 Pure hypercholesterolemia, unspecified 04/05/2022 Myalgia, unspecified site 04/05/2022 Encounter for screening mammogram for malignant neoplasm of breast 04/05/2022 Essential (primary) hypertension Unspecified essential hypertension 04/18/2022 Essential (primary) hypertension Unspecified essential hypertension 05/14/2022 Essential (primary) hypertension Unspecified essential hypertension 05/28/2022 Hypokalemia Hypopotassemia 06/19/2022 Dizziness and giddiness 06/19/2022 Syncope and collapse 06/19/2022 Abnormal electrocardiogram (ECG) (EKG) 06/19/2022 Pain in unspecified joint 07/29/2022 Cervicalgia 10/31/2022 Pain in unspecified joint 11/06/2022 Wellness examination 02/27/2023 Generalized anxiety disorder 02/27/2023 MDD (major depressive disorder), recurrent episode, mild 02/27/2023 Panic disorder Panic disorder without agoraphobia 02/27/2023 Chronic idiopathic constipation Unspecified constipation 02/27/2023 Chronic bilateral low back pain with bilateral sciatica 02/27/2023 Urine frequency 02/27/2023 Finding of above normal blood pressure 02/27/2023 Shortened [place] interval 02/27/2023 Gastroesophageal reflux disease without esophagitis Esophageal reflux 02/27/2023 Myalgia Unspecified myalgia and myositis 02/27/2023 Polyarthralgia Pain in joint, multiple sites 02/27/2023 Acquired hypothyroidism Unspecified hypothyroidism 02/27/2023 Chronic fatigue Other malaise and fatigue 02/27/2023 Hypokalemia Hypopotassemia 02/27/2023 Elevated LDL cholesterol level 02/27/2023 Chronic migraine without aura without status migrainosus, not intractable 02/27/2023 PMDD (premenstrual dysphoric disorder) Premenstrual tension syndromes 02/27/2023 Premenstrual tension syndrome Premenstrual tension syndromes 02/27/2023 Chronic idiopathic constipation Unspecified constipation 03/03/2023 Chronic idiopathic constipation Unspecified constipation 03/03/2023 Finding of above normal blood pressure 03/24/2023 Acquired hypothyroidism Unspecified hypothyroidism 03/24/2023 Acquired hypothyroidism Unspecified hypothyroidism 04/28/2023 Myalgia Unspecified myalgia and myositis 05/21/2023 Acute cystitis with hematuria 06/19/2023 Dysuria 06/19/2023 Primary hypertension Unspecified essential hypertension 06/19/2023 Acute URI Acute upper respiratory infections of unspecified site 06/19/2023 Chronic idiopathic constipation Unspecified constipation 06/19/2023 Acute cystitis with hematuria 06/20/2023 Chronic idiopathic constipation Unspecified constipation 06/23/2023 Primary hypertension Unspecified essential hypertension 06/30/2023 Primary hypertension Unspecified essential hypertension 07/21/2023 Polyarthralgia Pain in joint, multiple sites 08/27/2023 Primary hypertension Unspecified essential hypertension 09/18/2023 Primary hypertension Unspecified essential hypertension 09/24/2023 Persistent cough 09/24/2023 Dizziness Dizziness and giddiness 09/24/2023 Primary hypertension Unspecified essential hypertension 11/26/2023 Polyarthralgia Pain in joint, multiple sites 01/22/2024 Wellness examination 03/17/2024 Encounter for screening mammogram for malignant neoplasm of breast 03/17/2024 Primary hypertension Unspecified essential hypertension 03/17/2024 Shortened [place] interval 03/17/2024 Chronic idiopathic constipation Unspecified constipation 03/17/2024 Gastroesophageal reflux disease without esophagitis Esophageal reflux 03/17/2024 Persistent cough 03/17/2024 Myalgia Unspecified myalgia and myositis 03/17/2024 Polyarthralgia Pain in joint, multiple sites 03/17/2024 Acquired hypothyroidism Unspecified hypothyroidism 03/17/2024 Chronic bilateral low back pain with bilateral sciatica 03/17/2024 Chronic fatigue Other malaise and fatigue 03/17/2024 Dizziness Dizziness and giddiness 03/17/2024 Elevated LDL cholesterol level 03/17/2024 Generalized anxiety disorder 03/17/2024 History of hyperthyroidism 03/17/2024 Hypokalemia Hypopotassemia 03/17/2024 MDD (major depressive disorder), recurrent episode, mild 03/17/2024 Chronic migraine without aura without status migrainosus, not intractable 03/17/2024 Panic disorder Panic disorder without agoraphobia 03/17/2024 PMDD (premenstrual dysphoric disorder) Premenstrual tension syndromes 03/17/2024 Premenstrual tension syndrome Premenstrual tension syndromes 03/17/2024 Pure hypercholesterolemia 03/17/2024 Bipolar disorder, current episode hypomanic (HCC) 03/17/2024 Psoriasis of scalp 03/17/2024 Urticaria Unspecified urticaria 03/17/2024 Acquired hypothyroidism Unspecified hypothyroidism 06/30/2024 Primary hypertension Unspecified essential hypertension 07/28/2024 Pure hypercholesterolemia 07/28/2024 Elevated LDL cholesterol level 07/28/2024 Acquired hypothyroidism Unspecified hypothyroidism 07/28/2024 Acquired hypothyroidism Unspecified hypothyroidism 08/12/2024 Myalgia Unspecified myalgia and myositis 09/16/2024 Persistent cough 09/23/2024 Polyarthralgia Pain in joint, multiple sites 10/21/2024 Seborrheic keratosis 11/01/2024 Lentigines 11/01/2024 Psoriasis vulgaris Other psoriasis 11/01/2024 Common wart Other specified viral warts 11/01/2024 Pain, generalized Generalized pain 11/01/2024 Primary hypertension Unspecified essential hypertension 01/21/2025 Dysuria 02/16/2025 Burning with urination Dysuria 02/16/2025 Polyarthralgia Pain in joint, multiple sites 03/23/2025 Wellness examination 03/30/2025 Rhus dermatitis 03/30/2025 Shortness of breath 03/30/2025 Acquired hypothyroidism Unspecified hypothyroidism 03/30/2025 Chronic fatigue Other malaise and fatigue 03/30/2025 Elevated LDL cholesterol level 03/30/2025 Gastroesophageal reflux disease without esophagitis Esophageal reflux 03/30/2025 Hypokalemia Hypopotassemia 03/30/2025 Chronic migraine without aura without status migrainosus, not intractable 03/30/2025 Myalgia Unspecified myalgia and myositis 03/30/2025 PMDD (premenstrual dysphoric disorder) Premenstrual tension syndromes 03/30/2025 Polyarthralgia Pain in joint, multiple sites 03/30/2025 Premenstrual tension syndrome Premenstrual tension syndromes 03/30/2025 Shortened [place] interval 03/30/2025 Generalized anxiety disorder 03/30/2025 MDD (major depressive disorder), recurrent episode, mild 03/30/2025 Panic disorder Panic disorder without agoraphobia 03/30/2025 Chronic idiopathic constipation Unspecified constipation 03/30/2025 Chronic bilateral low back pain with bilateral sciatica 03/30/2025 History of hyperthyroidism 03/30/2025 Primary hypertension Unspecified essential hypertension 03/30/2025 Dizziness Dizziness and giddiness 03/30/2025 Persistent cough 03/30/2025 Bipolar disorder, current episode hypomanic (HCC) 03/30/2025 Psoriasis of scalp 03/30/2025 Persistent cough 04/07/2025 Primary hypertension Unspecified essential hypertension 04/20/2025 Left foot pain Pain in soft tissues of limb 04/20/2025 Closed displaced fracture of proximal phalanx of lesser toe of left foot, initial encounter 04/20/2025 Primary hypertension Unspecified essential hypertension 04/21/2025 Closed displaced fracture of proximal phalanx of lesser toe of left foot with routine healing, subsequent encounter 04/21/2025 Panic disorder Panic disorder without agoraphobia 04/21/2025 Persistent cough 04/21/2025 Persistent cough 05/12/2025 Left foot pain Pain in soft tissues of limb 05/18/2025 Closed displaced fracture of proximal phalanx of lesser toe of left foot with routine healing, subsequent encounter 05/18/2025 Acute non-recurrent pansinusitis 06/21/2025 Intractable migraine with aura with status migrainosus Migraine with aura, with intractable migraine, so stated, with status migrainosus 07/11/2025 Intractable migraine with aura with status migrainosus Migraine with aura, with intractable migraine, so stated, with status migrainosus 07/13/2025 Primary hypertension Unspecified essential hypertension 07/22/2025 Acquired hypothyroidism Unspecified hypothyroidism 07/22/2025 Allergic conjunctivitis of both eyes and rhinitis 08/23/2025 Primary hypertension Unspecified essential hypertension 08/23/2025 Myalgia Unspecified myalgia and myositis 08/23/2025 Acquired hypothyroidism Unspecified hypothyroidism 08/23/2025 Elevated LDL cholesterol level 08/23/2025 Chronic fatigue Other malaise and fatigue 08/23/2025 Hypokalemia Hypopotassemia 08/23/2025 Well woman exam with routine gynecological exam Routine gynecological examination 08/31/2025 Encounter for screening mammogram for malignant neoplasm of breast 08/31/2025 Hormone disorder Unspecified endocrine disorder 08/31/2025 Menorrhagia with regular cycle 08/31/2025 Care Teams Team MemberRelationshipSpecialtyStart DateEnd Date Alethea Mckeon MD [address] [facility] [address] [place] [address] PCP - GeneralFamily Medicine02/20/23 Arnold Oro PA [address] [place] [address] PCP - Medical [place] [employer]02/19/2012
--- OUTSIDE RECORDS SUMMARY | 2025-08-31 20:39 | XMS_ITS | Encounter Summary ---
Author Organization [facility] Address [address] [place] [address] Care Team Providers Care Retrimmer Name Role Phone Carolin Small MD Primary Care Provider [phone] Arnold Oro Unavailable [phone] Encounter Details DateTypeDepartmentCare Team (Latest Contact Info)Ovkylhrwooh35/10/2025linisync Result Encounter [facility] External Department Unsolicited Criselda Gutierres PA [address] [facility] [address] [place] [address] Social History Tobacco UseTypesPacks/DayYears UsedDateSmoking Tobacco: NeverSmokeless Tobacco: NeverAlcohol UseStandard Drinks/WeekCommentsNot Currently5 (1 standard drink = 0.6 oz pure alcohol)Caffeine intake: 2-3 cups per day; 1 cup coffee qdPHQ-2 AnswerDate RecordedPatient Health Questionnaire-2 Bwlug66510/24/2024 CommentsUnknownSex and Gender InformationValueDate RecordedSex Assigned at Skogsz4006/17/2023 1:51 PM EDTLegal FrjBbvzmg50/15/2023 7:04 PM EDTGender Identity Iaqgaw9506/17/2023 1:51 PM EDTSexual RvhoojolpzeDawuzypv13/26/2023 1:51 PM EDT 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 Start DateJob End DateDoctor of veterinary medicineNot on fileNot on fileNot on filedocumented as of this encounter Plan of Treatment DateTypeDepartmentCare Team (Latest Contact Info)Bwwtxqytlud06/07/2026 10:40 AM ESTOffice Visit [facility] [place] [facility] [address] [place] [address] Simon Barba MD [address] [place] [address] 10/05/2025 1:00 PM ESTAncillary Procedure [facility] [address] [facility] [place] [address] 10/18/2025 10:20 AM ESTOffice Visit [facility] [place] [facility] [address] [place] [phone] Debby Jeffery MD [address] [place] [address] 11/08/2025 9:30 AM ESTProcedure Visit [facility] [address] [facility] [place] [address] Dharmesh Milner DO [address] [facility] [place] [address] documented as of this encounter Procedures Procedure NamePriorityDate/TimeAssociated DiagnosisCommentsTBH VITAMIN D 25 [place] Lychrac2308/31/2025 6:47 AM EST [facility] CMP (CMP) (FOR REMOTE [facility] USE)Eixqwlf4508/31/2025 6:47 AM EST ALL THYROXINE (T4) IRAIWnqemny36/10/2025 6:47 AM EST ALL THYROID STIM XBSRAKLOcznour59/10/2025 6:47 AM EST ALL LIPID PROFILE (FASTING)Vpdfkor3708/31/2025 6:47 AM EST ALL CBC WITH AUTO OPTYPcepmnp15/10/2025 6:47 AM EST documented in this encounter Results * ALL THYROXINE (T4) FREE (08/31/2025 6:47 AM EST)ComponentValueRef RangeTest MethodAnalysis TimePerformed AtPathologist SignatureFREE T40.940.76 - 1.46 ng/dLTBHSpecimen (Source)Anatomical Location / LateralityCollection Method / VolumeCollection TimeReceived Time08/31/2025 6:47 AM EST08/31/2025 6:48 AM EST Narrative CLINISYNC - 08/31/2025 10:48 AM EST Authorizing ProviderResult TypeResult StatusCriselda Barger Hemmer PACLINISYNCFinal ResultPerforming OrganizationAddressCity/State/ZIP CodePhone Number [facility] * TBH VITAMIN D 25 [place] (08/31/2025 [...] 10:48 AM EST Authorizing ProviderResult TypeResult StatusCriselda Barger [facility] PACLINISYNCFinal ResultPerforming OrganizationAddressCity/State/ZIP CodePhone Number [facility] * ALL THYROID STIM HORMONE (08/31/2025 6:47 AM EST)ComponentValueRef RangeTest MethodAnalysis TimePerformed AtPathologist SignatureTHYROID STIMULATING HORMONE1.3590.358 - 3.740 uIU/mLTBHSpecimen (Source)Anatomical Location / LateralityCollection Method / VolumeCollection TimeReceived Time08/31/2025 6:47 AM EST08/31/2025 6:48 AM EST Narrative CLINISYNC - 08/31/2025 7:48 AM EST Authorizing ProviderResult TypeResult StatusCriselda Barger Hemmer PACLINISYNCFinal ResultPerforming OrganizationAddressCity/State/ZIP CodePhone Number [facility] * ALL LIPID PROFILE (FASTING) (08/31/2025 6:47 AM EST)ComponentValueRef Range Test MethodAnalysis TimePerformed AtPathologist YjarmtasnMEWYVOYLKWRMP41<=150 mg/zFEVNKDWTINAPNHE847<=200 mg/dLTBHHDL IUUXYTBWLLS0724 - 60 mg/dLTBHComment: > or =60 mg/dl - LOW CARDIOVASCULAR RISK <40 mg/dl - HIGH CARDIOVASCULAR RISK LDL CHOLESTEROL GWNBYWWYPV922.2mg/dLTBHComment: <100 mg/dl OPTIMAL 100-129 mg/dl NEAR OR [...] 7:48 AM EST Authorizing ProviderResult TypeResult StatusCriselda Gutierres PACLINISYNCFinal ResultPerforming OrganizationAddressCity/State/ZIP CodePhone Number [facility] * (ABNORMAL) CCF CMP (CMP) (FOR REMOTE [facility] USE) (08/31/2025 6:47 AM EST) ComponentValueRef RangeTest MethodAnalysis TimePerformed AtPathologist UojmuwqerPBXZNR739269 - 145 mmol/LTBHPOTASSIUM4.43.5 - 5.1 mmol/LTBHCHLORIDE 76838 - 107 mmol/LTBHCARBON JIDSDVB10.121.0 - 32.0 mmol/LTBHANION GAP10.3TBH DMNHVGO9336 - 106 mg/dLTBHBLOOD UREA MLGBZBRP80.07.0 - 18.0 mg/dLTBHCREATININE 0.820.55 - 1.02 mg/dLTBHTBH EGFR-AF SAUDI ARABIAN>60>=60 mL/min/1.73m 2TBHTBH EGFR- NON AF SAUDI ARABIAN>60>=60 mL/min/1.73m 2TBHBUN CREATININE RATIO18.7ADYRTDAMPB9.0 8.5 - 10.1 mg/dLTBHBILIRUBIN TOTAL0.40.2 - 1.0 mg/dLTBHASPARTATE AMINO PXNAPVHADMB99(L)15 - 37 U/LTBHALANINE UUGPVUCRCJBBXLYN5888 - 59 U/LTBHALKALINE TWOYJVXBQLS5157 - 116 U/LTBHTOTAL PROTEIN7.26.4 - 8.2 g/dLTBHALBUMIN LEVEL3.9 3.4 - 5.0 g/dLTBHGLOBULIN3.3g/dLTBHALBUMIN GLOBULIN RATIO1.2TBHSpecimen (Source)Anatomical Location / LateralityCollection Method / VolumeCollection TimeReceived Time08/31/2025 6:47 AM EST08/31/2025 6:48 AM EST Narrative CLINISYNC - 08/31/2025 7:48 AM EST Authorizing ProviderResult TypeResult StatusCriselda Barger Hemmer PACLINISYNCFinal ResultPerforming OrganizationAddressCity/State/ZIP CodePhone Number [facility] * (ABNORMAL) ALL CBC WITH AUTO DIFF (08/31/2025 6:47 AM EST)ComponentValueRef RangeTest MethodAnalysis TimePerformed AtPathologist SignatureTBH WBC5.24.0 - 11.0 10 3/uLTBHTBH RBC4.684.20 - 5.40 10 6/uLTBHTBH HGB14.412.0 - 16.0 g/dLTBH TBH HCT41.836.0 - 48.0 %TBHTBH MCV89.381.0 - 99.0 fLTBHTBH MCH30.826.7 - 34.0 pgTBHTBH MCHC34.429.9 - 35.2 g/dLTBHTBH RDW12.511.0 - 15.0 %TBHTBH BYZ850000 - 450 10 3/uLTBHTBH MPV9.79.5 - 13.5 fLTBHNEUTROPHILS PERCENT AUTO56.143.0 - 75.0 %TBHLYMPHOCYTES PERCENT AUTO26.320.5 - 60.0 %TBHMONOCYTES PERCENT AUTO 13.4(H)1.7 - 12.0 %TBHTBH EO %3.20.9 - 7.0 %TBHBASOPHILS PERCENT AUTO0.80.2 - 2.0 %TBHIMMATURE GRANULOCYTES PCT AUTO0.20.0 - 0.5 %TBHNEUTROPHILS ABSOLUTE AUTO2.91.4 - 6.5 10 3/uLTBHLYMPHOCYTES ABSOLUTE AUTO1.41.2 - 3.8 10 3/uLTBH MONOCYTES ABSOLUTE AUTO0.70.3 - 0.8 10 3/uLTBHTBH EO #0.20.0 - 0.7 10 3/uLTBH BASOPHILS ABSOLUTE AUTO0.00.0 - 0.1 10 3/uLTBHIMMATURE GRANULOCYTES ABS AUTO 0.010.00 - 0.03 10 3/uLTBHSpecimen (Source)Anatomical Location / Laterality Collection Method / VolumeCollection TimeReceived Time08/31/2025 6:47 AM EST 08/31/2025 6:48 AM EST Narrative CLINISYNC - 08/31/2025 7:02 AM EST Authorizing ProviderResult TypeResult StatusKaren M Hemmer PACLINISYNCFinal ResultPerforming OrganizationAddressCity/State/ZIP CodePhone Number [facility] documented in this encounter Visit Diagnoses Not on filedocumented in this encounter Care Teams Team MemberRelationshipSpecialtyStart DateEnd Date Carolin Small MD [address] [place] [address] PCP - GeneralFamily Medicine02/20/23 Arnold Oro PA [address] [place] [address] PCP - Medical [place] [employer]02/19/2012documented as of this encounter
--- OUTSIDE RECORDS SUMMARY | 2025-08-31 20:39 | XMS_ITS | Encounter Summary ---
Author Organization [facility] Address [address] [facility] [place] [address] Care Team Providers Care Engineering Systems Analyst Name Role Phone Carolin Small MD Primary Care Provider [phone] Arnold Oro PA Unavailable [phone] Encounter Details DateTypeDepartmentCare Team (Latest Contact Info)Swoeerhjnhv82/10/2025bstract [facility] [place] [facility] [address] [place] [address] Carolin Small MD [address] [place], [place] [phone] Social History Tobacco UseTypesPacks/DayYears UsedDateSmoking Tobacco: NeverSmokeless Tobacco: NeverAlcohol UseStandard Drinks/WeekCommentsNot Currently5 (1 standard drink = 0.6 oz pure alcohol)Caffeine intake: 2-3 cups per day; 1 cup coffee qdPHQ-2 AnswerDate RecordedPatient Health Questionnaire-2 Ttokw99910/24/2024 CommentsUnknownSex and Gender InformationValueDate RecordedSex Assigned at Arqjfr3106/17/2023 1:51 PM EDTLegal UcxGfgswu21/15/2023 7:04 PM EDTGender Identity Dwranv0306/17/2023 1:51 PM EDTSexual PdixnvsbtypQwpzosei64/26/2023 1:51 PM EDT 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 [place] [phone] 10/18/2025 10:20 AM ESTOffice Visit [facility] [address] [place] [address] Debby Jeffery MD [address] [place] [address] 11/08/2025 9:30 AM ESTProcedure Visit NOMPeyman [facility]GA [address] [facility] [place] [address] Dharmesh Milner DO [address] [facility] [address] [place], [place] [phone] documented as of this encounter Visit Diagnoses Not on filedocumented in this encounter Care Teams Team MemberRelationshipSpecialtyStart DateEnd Date Carolin Small MD [address] [place] [address] PCP - GeneralFamily Medicine02/20/23 Arnold Oro PA [address] [place] [address] PCP - Medical [place] [employer]02/19/2012documented as of this encounter
--- OUTSIDE RECORDS SUMMARY | 2025-08-31 20:39 | XMS_ITS | Encounter Summary ---
Author Organization [facility] Address [address] [facility] [place] [address] Care Team Providers Care Advertising Sales Manager Name Role Phone Carolin Small MD Primary Care Provider [phone] Arnold Oro PA Unavailable [phone] Encounter Details DateTypeDepartmentCare Team (Latest Contact Info)Tztmelgouil15/10/2025bstract [facility] [place] [facility] [address] [place] [address] Carolin Small MD [address] [place], [place] [phone] Social History Tobacco UseTypesPacks/DayYears UsedDateSmoking Tobacco: NeverSmokeless Tobacco: NeverAlcohol UseStandard Drinks/WeekCommentsNot Currently5 (1 standard drink = 0.6 oz pure alcohol)Caffeine intake: 2-3 cups per day; 1 cup coffee qdPHQ-2 AnswerDate RecordedPatient Health Questionnaire-2 Eeept14910/24/2024 CommentsUnknownSex and Gender InformationValueDate RecordedSex Assigned at Zompcp6606/17/2023 1:51 PM EDTLegal WdzOpxdll42/15/2023 7:04 PM EDTGender Identity Ijqgiq1106/17/2023 1:51 PM EDTSexual TvxwxluprjcJfigwvkw43/26/2023 1:51 PM EDT 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 Start DateJob End DateDoctor of veterinary medicineNot on fileNot on fileNot on filedocumented as of this encounter Plan of Treatment DateTypeDepartmentCare Team (Latest Contact Info)Jmsvrecobbi01/07/2026 10:40 AM ESTOffice Visit [facility] [place] [facility] [address] [place] [address] Simon Barba MD [address] [place] [address] 10/05/2025 1:00 PM ESTAncillary Procedure [facility] [address] [facility] [place] [address] 10/18/2025 10:20 AM ESTOffice Visit [facility] [address] [place] [address] Debby Jeffery MD [address] [place] [address] 11/08/2025 9:30 AM ESTProcedure Visit NOMPe[facility] [address] [facility] [place] [address] Dharmesh Milner DO [address] [facility] [address] [place], [place] [address] documented as of this encounter Visit Diagnoses Not on filedocumented in this encounter Care Teams Team MemberRelationshipSpecialtyStart DateEnd Date Carolin Small MD [address] [place] [address] PCP - GeneralFamily Medicine02/20/23 Arnold Oro PA [address] [place] [address] PCP - Medical [place] [employer]02/19/2012documented as of this encounter
--- OUTSIDE RECORDS SUMMARY | 2025-08-31 20:39 | XMS_ITS | Clinical Summary ---
Author Organization [facility] [facility] Address [facility] [id number] [address] [place] [address] Care Team Providers Care Safety Deposit Supervisor Name Role Phone Carolin Small MD Primary Care Provider [phone] Allergies Active AllergyReactionsCriticalityNoted DateCommentsAmoxicillin-Pot Clavulanate Ssbvrkur74/26/2023 Medications MedicationSigDispense QuantityRefillsLast FilledStart DateEnd DateStatus buPROPion XL (WELLBUTRIN XL) 300 mg 24 hr tablet Take 1 tablet (300 mg total) by mouth in the morning.Active buPROPion XL (WELLBUTRIN XL) 150 mg 24 hr tablet Take 1 tablet (150 mg total) by mouth in the morning.Active verapamil SR (CALAN-SR) 240 mg CR tablet Take 375 mg by mouth in the morning.Active naproxen (NAPROSYN) 500 mg tablet Take 1 tablet (500 mg total) by mouth in the morning and 1 tablet (500 mg total) in the evening. Take with meals.Active loratadine (CLARITIN REDITABS) 10 mg disintegrating tablet Dissolve 1 tablet (10 mg total) on tongue in the morning.Active acidophilus-pectin, citrus 25 million cell -100 mg tablet Take by mouth 3 (three) times a day with meals.Active lamoTRIgine (LaMICtal) 100 mg tablet 1.5 dcczkdk6104/22/2023ctive tiZANidine (ZANAFLEX) 4 mg tablet TAKE ONE TABLET THREE TIMES A DAY NEEDED FOR 30 DAYS05/21/2023ctive levothyroxine (SYNTHROID, LEVOTHROID) 137 MCG tablet Take 1 tablet (137 mcg total) by mouth in the morning. 90 tablet ctive olmesartan (BENICAR) 20 mg tablet TAKE 1 TABLET (20 MG) BY MOUTH IN THE MORNING.Active ALPRAZolam (XANAX) 0.25 mg tablet TAKE ONE TABLET BY MOUTH THREE TIMES A DAYActive ALPRAZolam (XANAX) 1 mg tablet TAKE ONE TABLET BY MOUTH DAILY AT BEDTIME ALONG WITH THE 0.25MG TABLETActive Active Problems Patient Care Coordination No te Formatting of this note migh t be different from the original. Per NICU High Risk Meeting on 04/11/20 held in the [facility] and via skype with Dr. Peyman Hernandez, Dr. Smith, Dr. Sol, Silvia Barber CNM, Franny Koehler [facility], Key Brownlee RDDC, RVT, Mary Interiano RN, Dr. Lakshmi Chappell, Dr. Denis, Dr. Vargas, Dr. Phillips, Dr. Savage, Alice Martin, and Rosa Gomez RN, the following recommendations were made: Félix Luke patient/[place] patient. Peds Cardiology saw patient on 04/07 see consult note in epic. Per Dr. Smith, patient has small VSD. Can deliver with Dr. Luke Please see [facility] notes for further recommendations No known active problems Resolved Problems ProblemNoted DateDiagnosed DateResolved DatePregnancy complicated by congenital heart disease, fetus 107 Family History Medical HistoryRelationNameCommentsAsthmaBrother 1Mental illnessBrother 1 Multiple sclerosisBrother 1AsthmaBrother 2DiabetesFatherHeart diseaseFatherHigh CholesterolFatherHyperlipidemiaFatherHypertensionFatherHeart attackMaternal GrandfatherHeart diseaseMaternal GrandfatherSudden deathMaternal Grandfather StrokeMaternal GrandmotherAsthmaMotherDepressionMotherHeart attackMotherHeart diseaseMotherHyperlipidemiaMotherHypertensionMotherOtherMotherCathHeart disease Paternal GrandfatherArrhythmiaNeg HxClotting disorderNeg HxHeart defectNeg Hx SeizuresNeg HxThyroid IssuesNeg HxRelationNameStatusCommentsBrother 1Alive Brother 2FatherAliveMaternal GrandfatherDeceasedMaternal GrandmotherAliveMother AlivePaternal GrandfatherDeceased Social History Tobacco UseTypesPacks/DayYears UsedDateSmoking Tobacco: NeverPassive Smoke Exposure: NeverSmokeless Tobacco: Never Tobacco Cessation:Counseling Given: Not Answered Alcohol UseStandard Drinks/WeekCommentsYes0 (1 standard drink = 0.6 oz pure alcohol)3 drinks a weekChildcareAnswerDate GjwdblwlHafqutcnzDtarltl87/28/2020 EmploymentAnswerDate LnvwrjtyGfwzanndayRyzreem05/28/2020Hunger ScreeningAnswer Date RecordedWithin the past 12 months we worried whether our food would run out before we got money to buy more.Never True08/06/2023Within the past 12 months the food we bought just didn't last and we didn't have money to get more.Never True08/06/2023urpose - LifeAnswerDate RecordedPurpose and direction in life Fyovuuv4811/02/2020CommentsNoSex and Gender InformationValueDate Recorded Sex Assigned at BirthNot on fileLegal JrzOgstlo30/28/2020 10:37 AM EDTGender IdentityNot on fileSexual OrientationNot on file Last Filed Vital Signs Vital SignReadingTime TakenCommentsBlood Tezwizec807/7408/06/2023 1:15 PM EST Itdrk705407/02/2023 1:02 PM EDTTemperature--Respiratory Rate--Oxygen Enihoumbub06% 04/07/2020 11:07 AM EDThr - 104Inhaled Oxygen Concentration--Ipbnoe37.4 kg (137 lb 8 oz)08/06/2023 1:15 PM EMVJrcmcv845.2 cm (5' 7 )08/06/2023 1:15 PM ESTBody Mass Index21.5408/06/2023 1:15 PM EST Plan of Treatment Health MaintenanceDue DateLast DoneCommentsDepression Jmgmnptzr17/16/1994Tobacco Boovhqfik96/16/1994Pap Smear2003DTaP,Tdap and Td Vaccines (2 - Td or Tdap) dult BMI Elfmpsloj58OVID-19 Vaccine (1 - 5- season)2025Influenza Cdeppdq00/, 06/28/2020, 07/01/2019, Additional history exists Medical Devices Not on file Insurance Care Teams Team MemberRelationshipSpecialtyStart DateEnd Date Carolin Small MD [address] [place] [phone] PCP - GeneralFamily Medicine02/28/20
--- OUTSIDE RECORDS SUMMARY | 2025-08-31 20:39 | XMS_ITS | Encounter Summary ---
Author Organization [facility] Address [address] [place] [address] Care Team Providers Care Rag Grader Name Role Phone Carolin Small MD Primary Care Provider [phone] Arnold Oro Unavailable [phone] Encounter Details DateTypeDepartmentCare Team (Latest Contact Info)Mwtbdmwfwqx67/02/2025Travel Social History Tobacco UseTypesPacks/DayYears UsedDateSmoking Tobacco: NeverSmokeless Tobacco: NeverAlcohol UseStandard Drinks/WeekCommentsNot Currently5 (1 standard drink = 0.6 oz pure alcohol)Caffeine intake: 2-3 cups per day; 1 cup coffee qdPHQ-2 AnswerDate RecordedPatient Health Questionnaire-2 Fgfxc70210/24/2024 CommentsUnknownSex and Gender InformationValueDate RecordedSex Assigned at Fqqsnm2606/17/2023 1:51 PM EDTLegal RigYanylt39/15/2023 7:04 PM EDTGender Identity Klelgs4906/17/2023 1:51 PM EDTSexual ZjcnwtazaewSxqyjsbk34/26/2023 1:51 PM EDT 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 Start DateJob End DateDoctor of veterinary medicineNot on fileNot on fileNot on filedocumented as of this encounter Functional Status * Over the past 2 weeks, how often have you been bothered by any of the following problems?QuestionAnswerDate of AssessmentAuthorLittle interest or pleasure in doing thingsNot at all08/23/2025 1:29 PM ESTVoss, Arabella, NEW CAR INSPECTOR Feeling down, depressed, or hopelessNot at all08/23/2025 1:29 PM Arabella Lyman LPNPatient Health Questionnaire-2 Mzayv35810/24/2024 1:29 PM Arabella Lyman LPN documented as of this encounter Plan of Treatment DateTypeDepartmentCare Team (Latest Contact Info)Ghqrpdkjnog61/07/2026 10:40 AM ESTOffice Visit [facility] [place] [facility] [address] [place] [address] Simon Barba MD [address] [place] [address] 10/05/2025 1:00 PM ESTAncillary Procedure [facility] [address] [facility] [place] [address] 10/18/2025 10:20 AM ESTOffice Visit [facility] [place] [facility] [address] [place] [address] Debby Jeffery MD [address] [place], [place] [phone] 11/08/2025 9:30 AM ESTProcedure Visit NOMPeyman AL[facility]ENGA [address] [facility] [place] [address] Dharmesh Milner, [address] [facility] [address] [place], [place] [phone] documented as of this encounter Visit Diagnoses Not on filedocumented in this encounter Care Teams Team MemberRelationshipSpecialtyStart DateEnd Date Carolin Small MD [address] [facility] [address] [place] [address] PCP - GeneralFamily Medicine02/20/23 Arnold Oro PA [address] [place] [address] PCP - Medical [place] [employer]02/19/2012/documented as of this encounter
--- OUTSIDE RECORDS SUMMARY | 2025-08-31 20:52 | XMS_ITS | CCD ---
Author Organization [facility] Care Team Providers Care Bird Tender Name Role Phone MISC, DR DOTSON Admitting [...] WEST, DR GINA Boyd Consulting Unavailable MIKE, [facility] Primary Care Physician STEPHANIE POON Admitting UnavailSTEPHANIE Rodriguez Attending Unavailabl e WILL OSEI Referring Unavailable MIKE, [facility] Primary Care Unavailable OKINWILL Referring Unavailable MIKE, [facility] Primary Care Unavailable OKINWILL Referring Unavailable MIKE, [facility] Primary Care Unavailable OKINWILL R Referring Unavailable MIKE, [facility] Primary Care Unavailable OKIN, WILL R Referring Unavailable MIKE, [facility] Primary Care Unavailable OKDENISE, WILL R Referring Unavailable MIKE, [facility] Primary Care Unavailable OKDENISE, WILL R Referring Unavailable MIKE, [facility] Primary Care Unavailable OKIN, WILL R Referring Unavailable MIKE, [facility] Primary Care Unavailable OKIN, WILL R Referring Unavailable ALETHEA MCKEON Primary Care Unavailable OKIN, WILL R Referring Unavailable ALETHEA MCKEON Primary Care Unavailable OKIN, WILL R Referring Unavailable ALETHEA MCKEON Primary Care Unavailable SRAVANIN, WILL R Referring Unavailable ALETHEA MCKEON Primary Care Unavailable SRAVANIN, WILL R Referring Unavailable ALETHEA MCKEON Primary Care Unavailable Alethea Mckeon MD Primary Care Provider Trung Marcelo MD Unavailable Alethea Mckeon MD Primary Care Provider Anita Peralta APRN Attending Provider [phone] PABLO MONTES Attending Unavailable CRISELDA LEOS Attending Unavailable JANEY ORO Attending Unavailable JANEY ORO Referring Unavailable CRISELDA LEOS Attending Unavailable JANEY ORO Attending Unavailable JANEY ORO Referring Unavailable JANEE CALVERT Attending Unavailable Criselda Jones Unavailable Allergies Allergy ClassificationReported Allergen(s)Allergy TypeDate of OnsetReaction(s) Facility (20 sources)AMOXICILLIN-POT CLAVULANATE; Translations: [AMOXICILLIN-POT CLAVULANATE]Propensity to adverse reactions to drug (disorder)50-22-3849MW intoleranceProMedica Repository (3 sources)AmoxicillinDrug Jsgoias31-81-3443KiqienyaEtwkazbliSelect Medical Specialty Hospital - [facility], Inc (3 sources)ClavulanateDrug Taujksl15-05-5268UnuwexzkAuulkvzarSt. John of God Hospital Medications Current Medications MedicationDrug Class(es)DatesSig (Normalized)Sig (Original)[id number] 200 actuat albuterol 0.09 mg/actuat metered dose inhaler (8 sources)beta2-Adrenergic AgonistStart: 03-30-2025 End: 87-26-9297zcpv 2 puff(s) by inhalation every four hours for wheezing albuterol HFA (ProAir HFA) 90 mcg/act inhaler Indications: Shortness of breath Inhale 2 puffs every4 (four) hours if needed for wheezing or shortness of breath 8.5 g 03/30/2025 04/21/2025 Discontinued (Therapy completed)Albuterol-Budesonide (Airsupra) 90-80 MCG/ACT aerosol (11 sources)Start: 04-21-2025 End: 79-46-8326mgvp 2 puff(s) by inhalation every four hoursAlbuterol-Budesonide (Airsupra) 90-80 MCG/ACT aerosol Indications: Persistent cough Inhale 2 puffs e very 4 (four) hours if needed (SOB or Wheeze) 32.1 g 3 04/21/2025 04/21/2025 DiscontinuedStart: 62-85-2335ydnp 2 puff(s) by inhalation every four hours Albuterol-Budesonide (Airsupra) 90-80 MCG/ACT aerosol Indications: Persistent cough Inhale 2 puffs every 4 (four) hours if needed (SOB or Wheeze) 32.1 g 3 04/21/2025 ActiveALPRAZolam 0.25 mg oral tablet (20 sources)BenzodiazepineStart: 06-10-2023 End: 48-56-9471RMLUCVztrp (Xanax) 1 MG tablet Take 1 mg by mouth as needed at bedtime for sleep. Along with the 0.25 mg tablet 06/10/2023 03/30/2025 Discontinued (Therapy completed)Start: 01-43-2580zztx 1 tablet by mouth in the morning, then take 1 tablet by mouth in the evening, then take 1 tablet by mouth at bedtimeALPRAZolam (Xanax) 0.25 MG tablet Take 0.25 mg by mouth in the morning and 0.25 mg in the evening and 0.25 mg before bedtime. 04/22/2023 Grsqey87 actuat budesonide 0.16 mg/actuat / formoterol fumarate 0.0045 mg/actuat metered dose inhaler (13 sources)Corticosteroid, beta2-Adrenergic AgonistStart: 05-12-2025 End: 64-20-1981xatf 2 puff(s) by inhalation in the morningbudesonide-formoterol (Symbicort) 160-4.5 MCG/ACT inhaler Indications: Persistent cough Inhale 2 puffs in the morning and 2 puffs before bedtime. Do all this for 14 days. Rinse mouth with water afteruse to reduce aftertaste and incidence of candidiasis. Do not swallow. 1 each 2 05/12/2025 ActiveStart: 04-07-2025 End: 52-25-4326vigj 2 puff(s) by inhalation in the morningbudesonide-formoterol (Symbicort) 160-4.5 MCG/ACT inhaler Indications: Persistent cough Inhale 2 puffs in the morning and 2 puffs before bedtime. Do all this for 14 days. Rinse mouth with water afteruse to reduce aftertaste and incidence of candidiasis. Do not swallow. 1 each 04/07/2025 Futhoh29 hr buPROPion hydrochloride 300 mg extended release oral tablet (20 sources)AminoketoneStart: 63-64-0987erfj 1 tablet by mouth once daily Bupropion Hcl 300 mg tablet extended release 24 hr Active 300 MG PO Daily March 14, 2024 12:00am Complies with drug therapyStart: 03-14-2024 End: 26-64-8953etmc 1 tablet by mouth once dailyBupropion Hcl 150 mg tablet extended release 24 hr Discontinued 150 MG PO Daily March 14, 2024 12:00am June 15, 2025 5:13pmtake 1 tablet by mouth every twenty-four hours in the morningbuPROPion XL (Wellbutrin XL) 300 MG 24 hr tablet Take 300 mg by mouth in the morning. Do not crush,chew, or split. . Active End: 15-39-1475brmd 1 tablet by mouth every twenty-four hours in the morning buPROPion XL (Wellbutrin XL) 150 MG 24 hr tablet Take 150 mg by mouth in the morning. Do not crush,chew, or split. . 03/30/2025 Discontinued (Therapy completed)cefdinir 300 mg oral capsule (1 source)Cephalosporin AntibacterialStart: 46-25-3218gkaw 1 capsule by mouth every twelve hoursCefdinir 300 mg capsule Active 300 MG PO Every 12 hours 11 07June 15, 2025 12:00am Complieswith drug therapyHormone Cream Base (HRT Base) cream (9 sources)Start: 92-30-7815Khyepri Cream Base (HRT Base) cream Apply 0.5 mL topically Daily W-Biest/Prog Crm 3/150 mg/mL, Estradiol/Estriol/Progesterone Cream 04/06/2025 ActivelamoTRIgine 100 mg oral tablet (20 sources)Mood Stabilizer, Anti-epileptic AgentStart: 44-71-0080aqrj 2 tablets by mouth once daily at bedtimeLamotrigine 100 mg tablet Active 200 MG PO Daily at bedtime March 14, 2024 12:00am Complies with drug therapyStart: 03-14-2024 take 200 mg by mouth once daily at bedtimeLamotrigine Active 200 MG PO Daily at bedtime March 14, 2024 12:00amlevothyroxine sodium 0.137 mg oral tablet (20 sources)l-ThyroxineStart: 28-73-3494ajff 1 tablet by mouth once daily Levothyroxine 137 mcg tablet Active 137 MCG PO Daily March 13, 2024 11:00pm Start: 04-03-3642qkpz 137 ug by mouth once dailyLevothyroxine Active 137 MCG PO Daily March 14, 2024 12:00amStart: 48-59-4700oefq 1 tablet by mouth before mealtimelevothyroxine (Synthroid, Levoxyl) 137 MCG tablet Indications: Acquired hypothyroidism Take 137 mcgby mouth in the morning. Take before meals. 100 tablet 3 08/12/2024 Activelurasidone hydrochloride 40 mg oral tablet (20 sources)Atypical AntipsychoticStart: 78-53-5672augk 1 tablet by mouth at mealtimelurasidone (Latuda) 40 MG tablet Take 40 mg by mouth in the morning. Take with meals. 02/19/2024 Activeolmesartan medoxomil 20 mg oral tablet (20 sources)Angiotensin 2 Receptor BlockerStart: 41-98-1151qctz 10 mg by mouth once dailyOlmesartan 20 mg tablet Active 10 MG PO Daily October 29, 2024 1:00am Complies with drug therapyStart: 03-17-2024 End: 75-93-7982asgn 0.5 tablet by mouth once dailyolmesartan (BENIcar) 20 MG tablet Indications: Primary hypertension TAKE 1/2 TABLET (10MG) BY MOUTHONCE DAILY 15 tablet 2 04/21/2025 Activerimegepant 75 mg disintegrating oral tablet (1 source)Start: 98-63-3176qycj 1 tablet by mouth once daily as neededRimegepant Sulfate (Nurtec) 75 MG tablet dispersible Indications: Intractable migraine with aura with status migrainosus Take 1 tablet by mouth Daily as needed (migraine) 15 tablet 07/12/2025 ActiveStart: 21-74-3669mnve 1 tablet by mouth once daily as [...] oral tablet (20 sources)Central alpha-2 Adrenergic AgonistStart: 10-50-4325obse 1 tablet by mouth every eight hours as neededTizanidine 4 mg tablet Active 4 MG PO Every 8 hours as needed October 29, 2024 1:00am Complies with drug therapyStart: 70-02-7891enGFHitjjf (Zanaflex) 4 MG tablet Indications: Myalgia TAKE ONE TABLET THREE TIMES A DAY NEEDED FOR 30 DAYS 90 tablet 09/16/2024 ActiveStart: 87-94-5990tcNHEbfqhg (Zanaflex) 4 MG tablet Indications: Myalgia TAKE ONE TABLET THREE TIMES A DAY NEEDED FOR 30 DAYS 90 tablet 05/21/2023 Active Completed/Discontinued Medications MedicationDrug Class(es)DatesSig (Normalized)Sig (Original)Amino Acids (8 sources) End: 20-06-3875ozws 1 tablet by mouth once dailyAMINO ACIDS PO Take 1 tablet by mouth 1 (one) time each day 03/30/2025 Discontinued (Therapy completed)take 1 tablet by mouth once dailyAMINO ACIDS PO Take 1 tablet by mouth 1 (one) time each day Activeclobetasol propionate 0.5 mg/ml medicated shampoo (2 sources)CorticosteroidStart: 10-29-2024 End: 89-55-1382Ijuwuxquni 0.05 % shampoo Discontinued TOPICAL October 29, 2024 1:00am June 15, 2025 5:13pmibuprofen 600 mg oral tablet (3 sources)Nonsteroidal Anti-inflammatory DrugStart: 07-16-2020 End: 77-15-7482cnhs 1 tablet by mouth every six hours as needed for pain Ibuprofen 600 mg tablet Discontinued 600 MG PO Q6H as needed for pain July 16, 2020 12:00amS2024 5:13pmmirtazapine 15 mg oral tablet (3 sources)Start: 07-15-2020 End: 45-14-2021sqse 1 tablet by mouth once dailyMirtazapine (Remeron) 15 mg Tablet Discontinued 15 MG PO Daily July 15, 2020 12:00am October 29, 2024 3:25pmMultiple Vitamin (MULTIVITAMINS PO) (8 sources) End: 80-34-0620kdag 1 tablet by mouth once dailyMultiple Vitamin (MULTIVITAMINS PO) Take 1 tablet by mouth 1 (one) time each day. 03/30/2025 Discontinued (Other)take 1 tablet by mouth once dailyMultiple Vitamin (MULTIVITAMINS PO) Take 1 tablet by mouth 1 (one) time each day. Activenaproxen 500 mg oral tablet (11 sources)Nonsteroidal Anti-inflammatory DrugStart: 01-22-2024 End: 12-76-8392fttc 1 tablet by mouth once daily at mealtime as needed for pain naproxen (Naprosyn) 500 MG tablet Indications: Polyarthralgia TAKE ONE TABLET BY MOUTH ONCE DAILY WITH FOOD NEEDED FOR MILD PAIN 30 tablet 5 03/23/2025 03/30/2025 Discontinued (Therapy completed)predniSONE 50 mg oral tablet (3 sources)Start: 03-14-2024 End: 50-22-1650ywxn 1 tablet by mouth once dailyPrednisone 50 mg tablet Discontinued 50 MG PO Daily 5 March 14, 2024 12:00am October 29, 2024 3 :25pm1 ml triamcinolone acetonide 40 mg/ml prefilled syringe (4 sources)CorticosteroidStart: 03-30-2025 End: 87-76-0238hyiumfzywgdxi acetonide (Kenalog-40) injection 40 mgStart: 03-30-2025 End: 29-75-3470auychh 40 mg by intramuscular injection once40 mg, Intramuscular, Once, On Fri03/30/25 at 1415, For 1 dose Problems Active Problems Problem ClassificationProblemDateDocumented DateEpisodic/ChronicAllergic reactions (6 sources)Urticaria; Translations: [Urticaria, unspecified]49-43-4106Mhrtrign Anxiety disorders (20 sources)Generalized anxiety disorder; Translations: [Generalized anxiety disorder]Onset: 241405-51-9831LtwjwbvQokajmdyc of lipid metabolism (20 sources)Raised low density lipoprotein cholesterol; Translations: [Pure hypercholesterolemia, unspecified]Onset: 03-20-2021 Resolved: 422943-29-6414AwreaqkZsdpoqaaqc disorders (20 sources)Gastroesophageal reflux disease without esophagitis; Translations: [Gastro-esophageal reflux disease without esophagitis]Onset: 02-26-2023 54-05-6690UaqohaqSkuizhcew hypertension (20 sources)Essential hypertension; Translations: [Essential (primary) hypertension]Onset: 938952-73-3056XgacurlToibcyri of lower limb (6 sources)Closed fracture proximal phalanx, toe ; Translations: [Displaced fracture of proximal phalanx of left lesser toe(s), initial encounter for closed fracture]60-97-7429HjvrhzffKhlkdspwxyyck symptoms and ill-defined conditions (1 source)Stress incontinence (female) (male); Translations: [Stress incontinence (female) (male)]Onset: 93-04-7971AqozazmNzmjjzqrlpymc symptoms and ill-defined conditions (1 source)Scalding pain on urination ; Translations: [Dysuria]19-83-7341Zhgoroeg Headache; including migraine (20 sources)Migraine; Translations: [Migraine, unspecified, not intractable, without status migrainosus]Onset: 629352-71-3542OapmneaWbhtsgvgbibu complicating ; childbirth and the puerperium (3 sources)-induced hypertension; Translations: [Gestational [-induced] hypertension withoutsignificant proteinuria, unspecified trimester]05-87-3728YpeumtktOivnzkq and fatigue (20 sources)Chronic fatigue, unspecified; Translations: [Fatigue]Onset: 14-76-0983IweetbwYeqe disorders (20 sources)Premenstrual dysphoric disorder; Translations: [Premenstrual dysphoric disorder]Onset: 02-26-2023 Resolved: 420470-66-8400UuhsuloPddhhecloet deficiencies (1 source)Vitamin D deficiency, unspecified; Translations: [VITAMIN D DEFICIENCY UNSPECIFIED]Onset: 93-04-4415EnzhdhmIhyyl connective tissue disease (1 source)Myalgia, unspecified site; Translations: [MYALGIA UNSPECIFIED SITE] Onset: 61-54-1677RfdeyaitPeqax connective tissue disease (4 sources)Pain in left foot; Translations: [Pain in left foot]04-19-2025 EpisodicOther female genital disorders (20 sources)Premenstrual tension syndrome; Translations: [Premenstrual tension syndrome]Onset: 910716-61-0384OruuyyvMwkmw gastrointestinal disorders (20 sources)Chronic idiopathic constipation; Translations: [Chronic idiopathic constipation]Onset: 848963-04-9296JbuxesqHfoan gastrointestinal disorders (1 source)Fecal urgency; Translations: [Fecal urgency]Onset: 03-27-3622Dqkefyzv Other inflammatory condition of skin (20 sources)Scalp psoriasis; Translations: [Psoriasis, unspecified]Onset: 501132-45-6063JdyqhsbFmaty inflammatory condition of skin (2 sources)Psoriasis vulgaris; Translations: [Psoriasis vulgaris]11-01-2024 ChronicOther lower respiratory disease (2 sources)Dyspnea; Translations: [Shortness of breath]13-20-1434KjisdkzbZhwzz non-traumatic joint disorders (1 source)Pain in unspecified joint; Translations: [PAIN IN UNSPECIFIED JOINT] Onset: 94-14-5024EsjohstfZrsju skin disorders (2 sources)Seborrheic keratosis; Translations: [Other seborrheic keratosis] 23-00-6059UlzjvywfQtttt skin disorders (2 sources)Lentiginosis; Translations: [Other melanin hyperpigmentation] 70-94-8241DroehmzpEgdfl upper respiratory infections (3 sources)Viral upper respiratory tract infection; Translations: [Acute upper respiratory infection, unspecified]30-19-3514NvlzfoxgTztsxfic (3 sources)Vaginal delivery following previous section; Translations: [Maternal care for unspecified type scar from previous delivery] 00-80-7925WwiuatczJebadmhx codes; unclassified (1 source)Family history of malignant neoplasm of breast; Translations: [FAMILY HX MALIG NEOPLASM OF BREAST]Onset: 66-44-5915BpsbrwnqEerfmbfo codes; unclassified (2 sources)Generalized aches and pains; Translations: [Pain, unspecified] 52-86-2112QqypgsbpQohzhdvabfs; intervertebral disc disorders; other back problems (1 source)Unspecified thoracic, thoracolumbar and lumbosacral intervertebral disc disorder; Translations: [UNS THORACIC TL AND LS IV DISC D/O]Onset: 21-28-9904UnyrcrlMaabtei disorders (20 sources)Acquired hypothyroidism; Translations: [Hypothyroidism, unspecified] Onset: 011317-23-1911MozaixnEwuhp infection (2 sources)Verruca vulgaris; Translations: [Other viral warts]26-82-9844Eygeesan Past or Other Problems Problem ClassificationProblemDateDocumented DateEpisodic/ChronicConditions associated with dizziness or vertigo (20 sources)Dizziness; Translations: [Dizziness and giddiness]Onset: 09-24-2023 11-91-1469DrjcenouNtvra and electrolyte disorders (20 sources)Hypokalemia; Translations: [Hypokalemia]Onset: EpisodicOther circulatory disease (20 sources)Elevated blood pressure; Translations: [Elevated blood-pressure reading, without diagnosis of hypertension]Onset: 02-26-2023 Resolved: 706660-21-9131ZlozzpyaGmfjb complications of ; puerperium affecting management of mother (20 sources)Complication occurring during ; Translations: [ complicated by congenital heart disease, fetus 1]Onset: 03-28-2020 Resolved: 867248-00-6971ZerhxjcnKmipg connective tissue disease (4 sources)Pain in right hand; Translations: [PAIN IN RIGHT HAND]Onset: 29-51-5958RhtasoglSymws connective tissue disease (4 sources)Other specified soft tissue disorders; Translations: [OTHER SPEC SOFT TISSUE DISORDERS]Onset: 08-15-0258LdpyubflIeroz connective tissue disease (20 sources)Muscle pain; Translations: [Myalgia, unspecified site]Onset: 565024-63-5269NztppiujThmmf lower respiratory disease (20 sources)Persistent cough; Translations: [Persistent cough]Onset: 09-24-2023 77-76-5964WkqlvohwQwuzj non-traumatic joint disorders (20 sources)Multiple joint pain; Translations: [Pain in unspecified joint]Onset: 714965-23-1916CtutrqvxFwodj nutritional; endocrine; and metabolic disorders (20 sources)H/O: hyperthyroidism; Translations: [Personal history of other endocrine, nutritional and metabolicdisease]Onset: 359161-83-1186Ugcigqhw Other screening for suspected conditions (not mental disorders or infectious disease) (20 sources)Encounter for screening mammogram for malignant neoplasm of breast; Translations: [Shortened IA interval]Onset: 87-10-1229WnvefvleGcdfjslnl (except that caused by tuberculosis or sexually transmitted disease) (20 sources)Mycoplasma pneumonia; Translations: [Pneumonia due to Mycoplasma pneumoniae]Onset: 02-26-2023 Resolved: 749220-66-9765SgplvttcOwxegoltyjo; intervertebral disc disorders; other back problems (20 sources)Chronic low back pain; Translations: [Lumbago with sciatica, left side]Onset: 910632-37-6720DzpyzsvcEjtdwuh disorders (20 sources)Disorder of thyroid gland; Translations: [Disorder of thyroid, unspecified]Onset: 06-19-2016 Resolved: 417266-56-9669Nqhxvuyo Results Test NameValueInterpretationReference RangeFacilityXR Foot - left 3 Viewson 20-66-9560Nlpzdie Result: AP Lateral and oblique left foot, Oblique fracture midshaft of 3rd proximal phalanx with evidence of bridging callus. Unchanged position and alignment. No new fracture seen. No soft tissue swelling. remaining foot with appropriate bony alignment Impression: healing 3rd toe proximal phalanx fracture.[facility] HealthcareRadiology Study observation (narrative)[facility] TOMOSYNTHESIS SCREENING BIon 97-04-[address]30[address] [address] Mammography Report Signed Patient: JENNYFER PETER MR#: [id number] : 1980 Acct:[id number] Age/Sex: 45 / F ADM Date: 04/20/25 Loc: MAMMO Attending Dr: CRISELDA LEOS Ordering Physician: CRISELDA LEOS Results: Date of Service: 04/20/25 Follow Up: Procedure(s): MM tomosynthesis screening BI Accession Number(s): [id number] cc: MIKEALETHEA ; CRISELDA LEOS Patient Name: JENNYFER PETER MR#: [id number] : 1980 Exam Date: 04/20/2025 Ordering Doctor: DR CRISELDA LEOS PA RADIOLOGY REPORT PROCEDURE: MM TOMOSYNTHESIS SCREENING BI COMPARISON: MM TOMOSYNTHESIS SCREENING BI, 04/25/2023. MG MAMM SCREEN 3D MARIUM CAD, 04/16/2022. INDICATIONS: screening for malignant neoplasm of breast Calculator Name [facility] Breast Cancer Risk Assessment Tool 5 Year Breast Cancer Risk 0.60% Lifetime Breast Cancer Risk 8.00% Personal Breast Cancer No Personal Ovarian Cancer No Treatments None Family Cancers Grandmother-paternal with breast cancer at age 53. LOCATION: [facility] [place] BREAST COMPOSITION: The breasts are heterogeneously dense, [...] Signed By: 04/20/25 1625 DD/ 1624 TD/TT: Housing Grant Analyst:TBHRadiology, Radiologist, MD - 04/20/2025 [place] [address] Mammography Report Signed Patient: JENNYFER PETER MR#: [id number] : 1980 Acct:[id number] Age/Sex: 45 / F ADM Date: 04/20/25 Loc: MAMMO Attending Dr: CRISELDA LEOS Ordering Physician: CRISELDA LEOS Results: Date of Service: 04/20/25 Follow Up: Procedure(s): MM tomosynthesis screening BI Accession Number(s): [id number] cc: ALETHEA MCKEON ; CRISELDA LEOS Patient Name: JENNYFER PETER MR#: [id number] : 1980 Exam Date: 04/20/2025 Ordering Doctor: [...] breast cancer at age 55. LOCATION: [facility] [place] BREAST COMPOSITION: The breasts are heterogeneously dense, [...] M.D. Signed By: 04/20/255 DD/ 23 TD/TT: Housing Grant Analyst: RADHA HealthcareRadiology Study observation (narrative)[facility] Healthcare TOMOSYNTHESIS SCREENING BIOrdered By: Radiologist Radiology on 13-86-3788JAJENevada Regional Medical Center Work Phone: No [facility] Informationon 80-06-1329TvcgnlcGEETHA Graves 04/20/2025 9:38 PM Cast / Splint / Fx Date/Time: 04/20/2025 3:59 PM Performed by: GEETHA Graves Authorized by: GEETHA Graves Consent given by: patient Timeout: Immediately prior to procedure a time out was called to verify the correct patient, procedure, equipment, instructional support technician and site/side marked as required Injury Location details: left third toe Fracture type: proximal phalanx fracture Pre-procedure assessment neurovascularly intact Range of motion: normal Procedure Manipulation performed? no manipulation performed Immobilization: splint Splint/Brace type: cam boot Post-procedure assessment neurovascularly intact Range of motion: unchanged Patient tolerance: patient tolerated the procedure well with no immediate complicationsFormerly [facility]owell HospitalXR [facility] - left 3 Viewson 04-20-2025 Imaging Result: AP Lateral and oblique left foot, Oblique fracture midshaft of 3rd proximal phalanx, does not appear to intersect there articular cartilage Mild soft tissue swelling to 3rd digit. Remaining foot bone with appropriate alignment Impression: 3rd toe proximal phalanx fracture.[facility] Radiology Study observation (narrative)[facility] CenterUrinalysis macro (dipstick) panel (U)on 56-87-2447Uflwmhmna, UANegativeNegative - 4(70) +++ mg/dL [facility] HealthcareBlood, UANegativeNegative - 50 Emir/[facility] CenterNONM HealthcareGlucose, UA NegativeNegative - 1999(110) ++++ mg/dLNONM HealthcareInterpretation and review of laboratory resultsNormalNONM HealthcareKetones, UANegativeNegative - 160(16) ++++ mg/dLNONM HealthcareLeukocytes, UANegativeNegative - 500+++ Baldo/mcLNONM HealthcareNitrite, UANegativeNegative - PositiveNOMS HealthcarepH, UA6.55 - 9 [facility] HealthcareProtein, UANegativeNegative - 2000(20) ++++ mg/dLMOAB REGIONAL [facility]PITAL Healthcare Spec Grav, UA1.011 - 1.03NONM HealthcareUrobilinogen, UA1.00.2 - 12 mg/dLNevada Regional Medical CenterNONM HealthcareNo Panel Informationon 86-66-2156QLEE HealthcareALL CBC WITH AUTO DIFFon 70-45-1029DHYPYAJCU ABSOLUTE TWVI3ZFCK HealthcareBasophils/100 WBC (Bld)0.7 %0.2 - 2.0 %[facility] HealthcareEosinophils/100 WBC (Bld)2.5 %0.9 - 7.0 %[facility] HealthcareErythrocyte distribution width (RBC) [Ratio]12.4 %11.0 - 15.0 % [facility] Medical CenterHematocrit (Bld) [Volume fraction]38.6 %36.0 - 48.0 %[facility] CenterHemoglobin (Bld) [Mass/Vol]13.3 g/dL12.0 - 16.0 g/dLNevada Regional Medical Center IMMATURE GRANULOCYTES ABS AUTO0.01NOMissouri Delta Medical CenterImmature granulocytes/100 WBC (Bld)0.2 %0.0 - 0.5 %[facility] CenterInterpretation and review of laboratory resultsAbnormalNevada Regional Medical CenterLYMPHOCYTES ABSOLUTE AUTO1.2NOMS [facility] Lymphocytes/100 WBC (Bld)27.4 %20.5 - 60.0 %[facility] CenterH (RBC) [Entitic mass]30.6 pg26.7 - 34.0 pgUniversity Health Lakewood Medical CenterHC (RBC) [Mass/Vol]34.5 g/dL29.9 - 35.2 g/dLNevada Regional Medical CenterMCV (RBC) [Entitic vol]88.9 fL81.0 - 99.0 fLNevada Regional Medical CenterMONOCYTES ABSOLUTE AUTO0.4NOMissouri Delta Medical CenterMonocytes/100 WBC (Bld)9.6 % 1.7 - 12.0 %[facility] CenterNEUTROPHILS ABSOLUTE AUTO2.7NOMS [facility] Neutrophils/100 WBC (Bld)59.6 %43.0 - 75.0 %[facility] CenterPlatelet mean volume (Bld) [Entitic vol]9.4 fLLow9.5 - 13.5 fLNevada Regional Medical CenterTBH EO #0.1N[facility] HospitalTB BMH614BEGN [facility] RBC4.34NOMS [facility] WBC4.5NOMissouri Delta Medical CenterCLINISYNCNChristian HospitalLab Miscellaneous-LCon 15-86-0532Zga MiscellaneousCOMMENTInvalid Interpretation [facility] Comment on above:Result Comment: Test Ordered: [id number] Q Fever IgG/IgM Antibody Scrn Q Fever IgG Phase I Negative E= Reference Range: Negative Q Fever IgG Phase II Positive [A ] E= Reference Range: Negative Q Fever IgM Phase I Negative E= Reference Range: Negative Q Fever IgM Phase II Negative E= Reference Range: Negative The performance characteristics of the listed assay was validated by [facility]. The [place] FDA has not approved or cleared this test. The results of this assay can be used for clinical diagnosis without FDA approval. [facility] is a CLIA certified, CAP accredited laboratory for performing high complexity assays such as this one. Testing Performed at: [facility] [address] [place] [address] Q Fever Phase II IgG Antibody 1:256 [A ] E= Reference Range: < 1:16 The performance characteristics of the listed assay was validated by [facility]. The [place] FDA has not approved or cleared this test. The results of this assay can be used for clinical diagnosis without FDA approval. [facility] is a CLIA certified, CAP accredited laboratory for performing high complexity assays such as this one. Testing Performed at: [facility] [address] [place] [address] Performed at: [facility] [id number] PhD Anuradha Chappellformed By: #### [id number] #### [facility] [address] [place], [place] [address]JNZUOaj 46-39-9037OQHJM gene targeted mutation analysis [facility] Centergen Nom (Bld/Tiss)CommentInvalid Interpretation CodeFisher [facility] Comment on above:Result Comment: Result: c.665C>T (p. 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 Vqv392Raf), legacy name: [id number] - Not Detected Interpretation: This result may [...] that can decrease enzyme activity; c.665C>T (p. Qgs753Hrx), legacy name C677T, and c.1286A>C (p. Ukk401Hdf), legacy name [id number]. These variants do not independently increase risk [...] to limited evidence of clinical utility (PMID: 74474544). Comments: Genetic Coordinators are available for health care providers to discuss results at [phone] Test Details: Variants Analyzed: c.665C>T (p. Kpn207Sdy), legacy name: C677T and c.1286A>C (p. Zbl548Nda), legacy name: [id number] Methods/Limitations: DNA analysis of the MTHFR gene [...] developed and its performance characteristics determined by [employer]. It has not been cleared or approved by the Food and Drug Administration. References: Nicolás SE, Matt CJ, Jaclyn DACOSTA. ACMG Practice Guideline: lack of evidence for MTHFR polymorphism testing. Stormy Med. 2012;15(2):153-6. doi: 10.1038/gim.2012.165. Epub 2012Sep 24. PMID: 26287761. [place] [employer]' Committee on Practice Bulletins-Obstetrics. ACOG Practice Bulletin No. 197: Inherited Thrombophilias in . Obstet Gynecol. 2018 Mar;132(1):e18-e34. doi: 10.1097/AOG.2825008103940080. Erratum in: Obstet Gynecol. 2018 Jun;132(4):1069. PMID: 52007422. Latha Vasques, PhD, [facility] Dario Moya, PhD Jake Cornejo, PhD, [facility] Wade Mercer, PhD, [facility] Jack Foster, PhD, [facility] Joan Peoples, PhD, [employer] Nanci Mchugh, PhD, [employer] Yuliet Gonzalez, PhD, [facility] Performed at: [facility] [address] [facility] [place], [place] [id number] [facility] Ganga Chandlerformed By: #### [id number] #### [facility] [address] [place] [address] Jackelyn [place], [place] [address]Dlxakw Summary.on 10-49-0698Jnbshl Summary. CD:[id number] PK3UHhnL0KkidAo [file] bGxh (more content not included)...[facility] Medical CenterCoding Summary. CD:[id number]:[id number]+PGhlYWQ+[id number] TK1FFysF3TtwiWq [file] bGxh (more content not included)...NormalUniversity Hospitals Cleveland Medical CenterLab Miscellaneous-LCon 41-49-4794Ngp MiscellaneousCOMMENTInvalid Interpretation Code [facility] Medical CenterComment on above:Result Comment: Test Ordered: [id number] Complement C4a Complement C4a 502.4 ng/mL BN Reference Range: 0.0-650.0 Results for this test are for research purposes only by the assay's staff auditor. The performance characteristics of this product have not been established. Results should not be used as a diagnostic procedure without confirmation of the diagnosis by another medically established diagnostic product or procedure. Performed at: [facility] [id number] PhD Anuradha Chappellformed By: #### [id number] #### [facility] [address] [place] [address] 564[address]Uil [facility] Medical CentercellaneousCOMMENTInvalid Interpretation [facility] HospitalComment on above:Result Comment: Test Ordered: [id number] Dengue Virus IgG and IgM Dengue IgM [...] Certain sera from patients infected with Zika, Bengali Encephalitis, West Nile, and/or Martin Viruses may [...] Certain sera from patients infected with Zika, Bengali Encephalitis, West Nile, and/or Martin Viruses may give false positive results. The performance characteristics of this test have been determined by [employer]. This test has not been cleared or approved for diagnostic use by the U.S. Food and Drug Administration. Performed at: [address] [id number] PhD Anuradha Chappellformed By: #### [id number] #### [facility] [address] [place] [address] 629[address]Rfi MiscellaneousCOMMENTInvalid Interpretation [facility] HospitalComment on above:Result Comment: Test Ordered: [id number] Trans. Growth Fact. beta 1* Trans. Growth Fact. beta 1* 4033 pg/mL [facility] Reference Range: 867-6662 The result is reported in pg/mL. The assay range is approximately 150 to 50,000. The reference range for a healthy population is 867-6662. However it should be noted that these ranges are obtained from a limited population of apparently healthy adults and are not diagnostic thresholds. *This test was developed and its performance characteristics determined by [employer]. It has not been cleared or approved by the U.S. Food and Drug Administration. Performed at: [address] [id number] PhD Anuradha SeayPerformed By: #### [id number] #### [facility] [address] [place] [address] 77286Vcb Miscellaneous-LCon 08-43-3788Svv MiscellaneousCOMMENT Invalid Interpretation [facility] HospitalComment on above:Result Comment: Test Ordered: [id number] West Nile Virus Antibody,Serum West Nile Virus, [...] for testing within 7-14 days. Performed at: [address] [id number] PhD Anuradha SeayPerformed By: #### [id number] #### [facility] [address] [place] [address] 12389Eqq MiscellaneousCOMMENTInvalid Interpretation [facility] HospitalComment on above:Result Comment: Test Ordered: [id number] Ehrlichia Ab Panel E. chaffeensis (HME) IgG [...] approximately 30 to 60 days. Performed at: [address] [id number] PhD Anuradha Chappellformed By: #### [id number] #### [facility] [address] [place] [address] 26262Lxo MiscellaneousCOMMENTInvalid Interpretation [facility] HospitalComment on above:Result Comment: Test Ordered: [id number] Peter Mtn Spotted Fev, IgG, Qn RMSF, IgG, EIA Negative Reference Range: Negative Performed at: [address] [id number] PhD Anuradha Chappellformed By: #### [id number] #### [facility] [address] [place] [address] 08717Ojpgsw Comment: Test Ordered: [id number] Peter Mtn Spotted Fever, IgM Peter Mtn Spotted Fever, IgM 0.98 [H ] index BN Reference Range: 0.00-0.89 Negative <0.90 Equivocal 0.90 - 1.10 Positive >1.10 Performed at: [address] [id number] PhD Anuradha Mariecellaneous-LCon 65-07-6728Sni MiscellaneousCOMMENTInvalid Interpretation [facility] Comment on above:Result Comment: Test Ordered: [id number] Bartonella Antibody Panel B. henselae IgG Negative [...] developed and its performance characteristics determined by [employer]. It has not been cleared or approved by the Food and Drug Administration. The FDA has determined that such clearance or approval is not necessary. Performed at: [address] [id number] PhD Anuradha Chappellformed By: #### [id number] #### [facility] [address] [place] [address] 20784Uvuznh Comment: Test Ordered: [id number] Babesia microti Antibody Panel Babesia microti IgM <1:10 BN Reference Range: Neg:<1:10 Babesia microti IgG <1:10 BN Reference Range: Neg:<1:10 This test was developed and its performance characteristics determined by [employer]. It has not been cleared or approved by the U.S. Food and Drug Administration. The FDA has determined that such clearance or approval is not necessary. This test is used for clinical purposes. It should not be regarded as investigational or research. Performed at: [address] [id number] PhD Anuradha Skaggs MiscellaneousCOMMENTInvalid Interpretation [facility] HospitalComment on above:Result Comment: Test Ordered: [id number] Brucella Antibody IgM, EIA Brucella Antibody IgM, EIA Negative BN Reference Range: Negative This assay detects antibodies to Brucella abortus, melitensis, and suis. Performed at: [address] [id number] PhD Anuradha Chappellformed By: #### [id number] #### [facility] [address] [place], [place] [address]Ldcqga Comment: Test Ordered: [id number] Brucella Antibody IgG, EIA Brucella Antibody IgG, EIA Negative BN Reference Range: Negative This assay detects antibodies to Brucella abortus, melitensis, and suis. Performed at: [address] [id number] PhD Anuradha Samaniego Comment: Test Ordered: [id number] Coxsackie A IgG/IgM Antibody Coxsackie A7 IgG [...] titer BN Reference Range: Neg:<1:10 Performed at: [address] [id number] PhD Anuradha Skaggs Miscellaneous-LCon 13-04-1120Ifv MiscellaneousCOMMENTInvalid Interpretation [facility] Comment on above:Result Comment: Test Ordered: [id number] Human Granulocytic Samantha-HGE HGE IgG Titer Negative [...] approximately 30 to 60 days. Performed at: [address] [place] [id number] PhD Anuradha SeayPerformed By: #### [id number] #### [facility] [address] [place] [address] 60147Iiy Miscellaneous-LCon 53-95-2009Qcz MiscellaneousCOMMENT Invalid Interpretation CodeUniversity Hospitals Cleveland Medical CenterComment on above:Result Comment: Test Ordered: [id number] Coxsackie Virus Group B Ab Coxsackie B-1 Ab 1:8 [H ] BN Reference Range: Neg:<1:8 Coxsackie B-2 Ab Negative BN Reference Range: Neg:<1:8 Coxsackie B-3 Ab Negative BN Reference Range: Neg:<1:8 Coxsackie B-4 Ab Negative BN Reference Range: Neg:<1:8 Coxsackie B-5 Ab Negative BN Reference Range: Neg:<1:8 Coxsackie B-6 Ab 1:16 [H ] BN Reference Range: Neg:<1:8 Performed at: [address] [id number] PhD Anuradha SeayPerformed By: #### [id number] #### [facility] [address] [place] [address] 78510TYO IgGon 27-64-0038CED IgG IA Qn<0.60Invalid Interpretation Code0.00-0.59University [facility]als Cleveland Medical CenterComment on above:Result Comment: Negative <0.60 Equivocal 0.60 - 0.69 Positive >0.69 Performed at: [address] [id number] PhD Anuradha SeayPerformed By: #### [id number] #### [facility] [address] [place] [address] 62399VQM IgMon 60-89-8817IEK IgM IA Qn<30.0Invalid Interpretation Code0.0-29.9[facility] Cleveland Medical CenterComment on above:Result Comment: Negative <30.0 Equivocal 30.0 - 34.9 Positive >34.9 A positive result is generally indicative of acute infection, reactivation or persistent IgM production. Performed at: [facility] [address] [id number] PhD Anuradha Chappellformed By: #### [id number] #### [facility] [address] [place], [place] [address]Fhu Miscellaneous-LCon 21-74-5021Sxg MiscellaneousCOMMENT Invalid Interpretation CodeFisher Sinai Hospital Of BaltimoreComment on above:Result Comment: Test Ordered: [id number] HNK1 (CD57) Panel % CD8-/CD57+ Lymphs 8.9 % BN Reference Range: 2.0-17.0 This test was developed and its performance characteristics determined by [employer]. It has not been cleared or approved [...] Reference Range: 0.0-0.1 Performed at: [facility] [address] [id number] PhD Anuradha SeayPerformed By: #### [id number] #### [facility] [address] [place] [address] 43546Qvc Miscellaneous-LCon 85-97-7663Umvs Hjxr903480Rzfsyky Interpretation [facility] HospitalComment on above:Performed By: #### [id number] #### [facility] [address] [place] [address] 562[address]Vbzm IvmxE5fChilwjb Interpretation [facility] HospitalComment on above:Performed By: #### [id number] #### [facility] [address] [place] [address] 33671Spmi Xihj616842Iylkkcr Interpretation [facility] HospitalComment on above:Performed By: #### [id number] #### [facility] [address] [place], [place] [address]Fums Mdsh457156Ildclpz Interpretation [facility] HospitalComment on above:Performed By: #### [id number] #### [facility] [address] [place], [place] [address]Wxod Hwbx991517Qozopxq Interpretation [facility] HospitalComment on above:Performed By: #### [id number] #### [facility] [address] [place], [place] [address]Skav Fzqw350274Hjspeyq Interpretation [facility] HospitalComment on above:Performed By: #### [id number] #### [facility] [address] [place], [place] [address]Kzqn Xbbi115809Askvawv Interpretation [facility] HospitalComment on above:Performed By: #### [id number] #### [facility] [address] [place], [place] [address]Yayu Gabh251053Snudrez Interpretation [facility] HospitalComment on above:Performed By: #### [id number] #### [facility] [address] [place], [place] [address]Brxa Nfsd729862Lcqgxjw Interpretation [facility] HospitalComment on above:Performed By: #### [id number] #### [facility] [address] [place], [place] [address]Knls Slsz759231Xaynrlm Interpretation [facility] HospitalComment on above:Performed By: #### [id number] #### [facility] [address] [place], [place] [address]Lvge Wieh704439Dubhfww Interpretation [facility] HospitalComment on above:Performed By: #### [id number] #### [facility] [address] [place], [place] [address]Kdlv Wppj434985Xtnsqev Interpretation [facility] HospitalComment on above:Performed By: #### [id number] #### [facility] [address] [place], [place] [address]Jnhy NameRMSF IGGInvalid Interpretation [facility] HospitalComment on above:Performed By: #### [id number] #### [facility] [address] [place], [place] [address]Bkcd NameEHRLICHIOSISInvalid Interpretation [facility] HospitalComment on above:Performed By: #### [id number] #### [facility] [address] [place], [place] [address]Dpfl NameBRUCELLA IGMInvalid Interpretation [facility] HospitalComment on above:Performed By: #### [id number] #### [facility] [address] [place], [place] [address]Ysqn NameWEST NILEInvalid Interpretation [facility] HospitalComment on above:Performed By: #### [id number] #### [facility] [address] [place], [place] [address]Hozc NameRMSF IGMInvalid Interpretation [facility] HospitalComment on above:Performed By: #### [id number] #### [facility] [address] [place], [place] [address]Osjv NameTRNS GR BETA 1Invalid Interpretation [facility] HospitalComment on above:Performed By: #### [id number] #### [facility] [address] [place], [place] [address]Ivtb NameDENGUE FEVERInvalid Interpretation [facility] HospitalComment on above:Performed By: #### [id number] #### [facility] [address] [place], [place] [address]Buit NameBRUCELLA IGGInvalid Interpretation [facility] HospitalComment on above:Performed By: #### [id number] #### [facility] [address] [place], [place] [address]Spye NameQ FEVER IGG/IGMInvalid Interpretation [facility] HospitalComment on above:Performed By: #### [id number] #### [facility] [address] [place], [place] [address]Wibw NameHNK1 (CD57)Invalid Interpretation [facility] HospitalComment on above:Performed By: #### [id number] #### [facility] [address] [place], [place] [address]Zlfs Rcmy767489Qxiglpi Interpretation [facility] HospitalComment on above:Performed By: #### [id number] #### [facility] [address] [place], [place] [address]Eify Atma327637Lpyqoeo Interpretation [facility] HospitalComment on above:Performed By: #### [id number] #### [facility] [address], [place] [address]Euuz Getz717558Rlglcsy Interpretation [facility] HospitalComment on above:Performed By: #### [id number] #### [facility] [address] [place], [place] [address]Rphv Baey681486Cxirpmi Interpretation [facility] HospitalComment on above:Performed By: #### [id number] #### [facility] [address] [place], [place] [address]Orgm Rtzq955731Bhgpdaw Interpretation [facility] HospitalComment on above:Performed By: #### [id number] #### [facility] [address] [place], [place] [address]Ipvo NameBARTONELLAInvalid Interpretation [facility] HospitalComment on above:Performed By: #### [id number] #### [facility] [address], [place] [address]Opfr NameCOXSACKIE AInvalid Interpretation [facility] HospitalComment on above:Performed By: #### [id number] #### [facility] [address] [place], [place] [address]Biga NameCOXSACKIE BInvalid Interpretation [facility] HospitalComment on above:Performed By: #### [id number] #### [facility] [address] [place], [place] [address]Sjrq NameHGEInvalid Interpretation [facility] HospitalComment on above:Performed By: #### [id number] #### [facility] [address] [place], [place] [address]Fxtm NameBABESIA ABInvalid Interpretation [facility] HospitalComment on above:Performed By: #### [id number] #### [facility] [address] [place], [place] [address]Lbazlep for Treatmenton 51-72-7985Hztbfgt for Treatment [id number]#1.00CD:127[facility] CenterPhysician Orderon 19-04-6082Ffgjppjtz Order [id number]#1.00CD:127[facility] HERPESVIRUS 6 ABS, IGMon 49-98-1791Kksvl Herpes Virus Type 6 IgM CANRGTNoParkview HealthComhelen newberry joy hospital on above:Result Comment: Test not performed. Unable to perform test due to current unavailability of reagents or discontinuation of test. Test not performed. Unable to perform test due to current unavailability of reagents or discontinuation of test. This test was developed and its performance characteristics determined by [employer]. It has not been cleared or approved by the Food and Drug Administration.Performed By: #### HHV6, [id number] #### [facility] [address] [place] [address] Dr. Dionte OmalleyMETHYLMALONIC ACID (MMA)on 38-57-5629Oynfjsxrhyaul Acid, Eedfu294 nmol/LNormal0-378[facility] on above:Performed By: #### MMA2 #### [facility] [address] [place] [address] Dr. Dionte OmalleyCOPBASSEM, SERUM or PLASMAon 56-73-0538Pwnxsq, Serum98 ug/dLNormal 80-158[facility] on above:Result Comment: Detection Limit = 5 Performed By: #### COPPER #### [facility] [address] [place] [address] Dr. Dionte Lowe HERPESVIRUS 6 ABS, IGGon 44-98-8548MZB-6 IgG Antibodies3.63 indexCritically highLake County Memorial Hospital [facility] on above:Result Comment: Negative <0.90 Equivocal 0.90 - 1.10 Positive >1.10 Results of this test are labeled for research purposes only by the assay's staff auditor. The performance characteristics of this assay have not been established by the staff auditor. The result should not be used for treatment or for diagnostic purposes without confirmation of the diagnosis by another medically established diagnostic product or procedure. The performance characteristics were determined by [employer].Performed By: #### HHV6, [id number] #### [facility] [address] [place] [address] Dr. Dionte Aguilar SERUM OR PLASMAon 90-55-5907Hxpv, Plasma or Serum77 ug/dL Tbduqp19-486BcdRegency Hospital Toledoment on above:Result Comment: Detection Limit = 5Performed By: #### HSVIGM #### [facility] [address] [place] [address] Dr. Dionte OmalleyANTI-DNASE ANTIBODIESon 92-95-6891Ghmb-DNase B Strep Antibodies 115 U/mLNormal0-120The [facility] Hospital, AvonComment on above:Performed By: #### HSVIGM #### [facility] [address] [place] [address] Dr. Dionte OmalleyCHLAMYDIA PNEUMONIAE IGG/IGMon 17-29-5167Lioshyfzf pneumoniae IgG <1:16NormalNeg:<1:16The [facility] Hospital, AvonComment on above:Performed By: #### HSVIGM #### [facility] [address] [place] [address] Dr. Dionte OmalleyChlamydia pneumoniae IgM<1:10NormalNeg:<1:10The [facility] Comment on above:Performed By: #### HSVIGM #### [facility] [address] [place] [address] Dr. Dionte OmalleyMYCOPLASMA PNEUMONIA IGG/IGMon 05-09-2022M pneumoniae IgG Dqt550 U/mLCritically high0-99[facility] on above:Result Comment: Negative: <100 Indeterminate: 100 - 320 Positive: >320 The reference interval established is intended as a baseline only. Values >100 may indicate a recent infection with Mycoplasma pneumoniae and need to be confirmed either by a positive IgM result and/or an additional specimen drawn 2-4 weeks later showing a significant increase in antibody levels.Performed By: #### ASOAB #### [facility] [address] [place] [address] Dr. Dionte OmalleyM pneumoniae IgM Abs<436Wpvukz0-655Qqm [facility], AvonComment on above:Result Comment: Negative <770 Clinically significant amount of M. pneumoniae antibody not detected. Low Positive 770 - 950 M. pneumoniae specific IgM presumptively detected. It is recommended that another sample be collected 1-2 weeks later to assure reactivity. Positive >950 Highly significant amount of M. pneumoniae specific IgM antibody detected.Performed By: #### ASOAB #### [facility] [address] [place] [address] Dr. Dionte Otero EIA W/REFLEX 5 BIOMARKERSon 99-07-1529HTI DirectNegative NormalNegativeThe [facility] AvonComment on above:Performed By: #### HSVIGM #### [facility] [address] [place] [address] Dr. Dionte OmalleyANTISTREPTOLYSIN O AB (ASO)on 37-71-1663Sujfqlghbalgjiqt O Ab 132.0 IU/mLNormal0.0-200.0The [facility] AvonComment on above:Performed By: #### ASOAB #### [facility] [address] [place] [address] Dr. Dionte OmalleyC-REACTIVE PROTEINS (HS)on 61-99-8909B-Reactive Protein, Cardiac 0.41 mg/LNormal0.00-3.00The [facility] AvonComment on above:Result Comment: Relative Risk for Future Cardiovascular Event Low <1.00 Average 1.00 - 3.00 High >3.00Performed By: #### CRPHS #### [facility] [address] [place] [address] Dr. Dionte CaceresBV EARLY ANTIGEN (IgG)on 76-73-2329ZUB Early Antigen Ab, IgG51.9 U/mLCritically high0.0-8.9The [facility]onComment on above:Result Comment: Hepatitis A, Hepatitis C and HIV antibodies may cross-react with this assay. Negative < 9.0 Equivocal 9.0 - 10.9 Positive >10.9Performed By: #### HSVIGM #### [facility] [address] [place] [address] Dr. Dionte CaceresPSTEIN-ZIEGLER VIRUS (EBV) AB PROFILEon 22-76-2247BJM Ab VCA, IgG 585.0 U/mLCritically high0.0-17.9The [facility] Centerment on above:Result Comment: Negative <18.0 Equivocal 18.0 - 21.9 Positive >21.9Performed By: #### ASOAB #### [facility] [address] [place] [address] Dr. Dionte Catalan Ab VCA, IgM<36.0Pbhssg9.0-35.9The [facility] on above:Result Comment: Negative <36.0 Equivocal 36.0 - 43.9 Positive >43.9Performed By: #### ASOAB #### [facility] [address] [place] [address] Dr. Dionte Catalan Nuclear Antigen Ab, PfA878.0 U/mLCritically high0.0-17.9The [facility] on above:Result Comment: Negative <18.0 Equivocal 18.0 - 21.9 Positive >21.9Performed By: #### ASOAB #### [place] [address] [address] Dionte OmalleyInterpretation:CommentNormalThe [facility] on above:Result Comment: EBV Interpretation Chart [...] antibodies to EBNA.Performed By: #### ASOAB #### [facility] [address] [place] [address] Dr. Dionte OmalleyHERPES SIMPLEX 1/2 IGGon 42-25-6318SSH 1 IgG, Type Spec4.70 index Critically high0.00-0.90The [facility] on above:Result Comment: Negative <0.91 Equivocal 0.91 - 1.09 Positive >1.09 Note: Negative indicates no antibodies detected to HSV-1. Equivocal may suggest early infection. If clinically appropriate, retest at later date. Positive indicates antibodies detected to HSV-1.Performed By: #### HSVIGM #### [facility] [address] [place] [address] Dr. Dionte SpearV 2 IgG Type Spec<0.42Ebenps8.00-0.90The [facility] Comment on above:Result Comment: Negative <0.91 Equivocal 0.91 - 1.09 Positive >1.09 Note: Negative indicates no HSV-2 antibodies detected. Positive indicates HSV-2 antibodies detected. Equivocal and low positive HSV-2 screens (Index 0.91-5.00) may be false positive and are reflexed to supplemental testing in accordance with CDC guidelines.Performed By: #### HSVIGM #### [facility] [address] [place] [address] Dr. Dionte OmalleyHERPES SIMPLEX 1/2 IGMon 10-02-4475ORR, IgM I/II Combination1.30 RatioCritically high0.00-0.90The [facility] AvonComment on above:Result Comment: Negative <0.91 Equivocal 0.91 - 1.09 Positive >1.09 Effective June 17, 2022 HSV, IgM I/II Combination will be made non-orderable. [facility] offers [id number] HSV 1 and 2-Spec Ab, IgG w/Rfx and [id number] HSV [place].Performed By: #### HSVIGM #### [facility] [address] [place] [address] Dr. Dionte OmalleyHOMOCYSTEINEon 64-40-9561Kztwaiky(e)ine, Plasma7.2 umol/LNormal 0.0-14.5The [facility] AvonComment on above:Performed By: #### HOMCY #### [facility] [address] [place] [address] Dr. Dionte OmalleyBOX TEST SENT OUTon 89-85-6912RAPD TO REF LAB05/07/2022NormalThKindred Hospital DaytonComment on above:Performed By: #### ASOAB #### [facility] [address] [place] [address] Dr. Dionte OmalleyCPKon 05-12-8544II [Catalytic activity/Vol]67 U/WUmhxvo82-073Bwd [facility] AvonComment on above:Performed By: #### CK #### [facility] [address] [address] [address] Dionte OmalleySED RATE WESTERGRENon 24-63-9484VQZ RATE4 mm/hrNormal<=20The [facility] AvonComment on above:Performed By: #### HSVIGM #### [facility] [address] [address] [address] Dionte OmalleyVITAMIN B12on 13-56-2573Hvdgksxbz (Vitamin B12) [Mass/Vol]803.0 pg/oKUnolgr205.0-986.0The [facility] AvonComment on above:Performed By: #### VITB12 #### [facility] [address] [address] [address] Dionte OmalleyMG MAMM SCREEN 3D MARIUM CADon 10-77-7660OO MAMM SCREEN 3D MARIUM CAD Patient: JENNYFER PETER Exam Date: 04/16/2022 : 1980 Gender:F Ordering : DR CRISELDA LEOS PA Admission #: [id number] Family : Order #: [id number] CLICK HERE TO VIEW EXAM RADIOLOGY REPORT PROCEDURE: MAMMOGRAM SCREENING 3D BILATERAL CAD COMPARISON: None. INDICATIONS: Screening for malignant neoplasm of breast Calculator Name NCI Breast Cancer Risk Assessment Tool 5 Year Breast Cancer Risk 0.50% Lifetime Breast Cancer Risk 8.30% Personal Breast Cancer No Personal Ovarian Cancer No Treatments None Family Cancers Grandmother-paternal with breast cancer at age 53. LOCATION: The [facility] BREAST COMPOSITION: Heterogeneously dense,which may obscure small [...] by: [place] Owens M.D. on 04/17/2022 at 12:41NormalThKindred Hospital DaytonXR HAND MARIUM MIN 3Von 23-59-1625WZ HAND MARIUM MIN 3VEXAMINATION: XR HAND MARIUM [...] Electronically authenticated by: [place] Date: 2021-09-14 07:21[facility] Vital Signs Date TimeVital SignValuePerforming NabgpxhjvMxguxpsw48-62-3802 09:01-0400Body zohubt312.2 cmSjumana Calvert USER EXPERIENCE TEAM LEAD Work Phone: [phone] CenterFiyjaniksc35-42-9056 09:01-0400Body mass index (BMI) [Ratio]21.93 kg/m4RwoifiJanee Calvert USER EXPERIENCE TEAM LEAD Work Phone: [phone] CenterFyyjtuzisu93-30-9815 09:01-0400Body swruym50.5 kg Janee Calvert USER EXPERIENCE TEAM LEAD Work Phone: [phone] CenterRtdvkkjfxu87-58-1526 09:01-0400Diastolic blood esradinl42 mm[Hg]Janee Calvert USER EXPERIENCE TEAM LEAD Work Phone: [phone] CenterUhyhkmifdz72-94-4569 09:01-0400Heart rate70 /min Janee Calvert USER EXPERIENCE TEAM LEAD Work Phone: [phone] [facility] Medical CenterFbtkjfeboo53-50-2412 09:01-0400Respiratory rate16 /minSjumana Calvert USER EXPERIENCE TEAM LEAD Work Phone: [phone] Delta Medical CenterSrtpyoxjog87-55-7357 09:01-3268XmI6% (BldA) [Mass fraction]98 %Janee Calvert USER EXPERIENCE TEAM LEAD Work Phone: [phone] Delta Medical CenterIyhsyveyrz98-57-6841 09:01-0400Systolic blood irzerfgw346 mm[Hg]Janee Calvert USER EXPERIENCE TEAM LEAD Work Phone: [phone] Medical CenterIcnkvjhflp17-86-3388 17:10-0400Body igfxmq590.18 Filemon Mckeon MD Work Phone: [phone] [place], [place] 2933209-24-2025 17:10-0400 Body mass index (BMI) [Ratio]22.1 kg/n1VwpcnAlethea Mckeon MD Work Phone: [phone] [place], [place] 2933209-24-2025 17:10-0400 Body dmidxgyykvv96.4 [degF]Alethea Mckeon MD Work Phone: [phone] [place], [place] 2933209-24-2025 17:10-0400 Body .95 kgAlethea Mckeon MD Work Phone: [phone] [place], [place] 2933209-24-2025 17:10-0400 Diastolic blood remowbkk74 mm[Hg]Alethea Mckeon MD Work Phone: [phone] [place], [place] 2933209-24-2025 17:10-0400 Heart rate62 /minAlethea Mckeon MD Work Phone: [phone] [place], [place] 2933209-24-2025 17:10-0400 Respiratory rate16 /minAlethea Mckeon MD Work Phone: [phone] [place], [place] 2933209-24-2025 17:10-0400 SaO2% (BldA) [Mass fraction]98 %Alethea Mckeon MD Work Phone: [phone] [place], [place] 2933209-24-2025 17:10-0400 Systolic blood rrmhauoc479 mm[Hg]Alethea Mckeon MD Work Phone: [phone] [place], [place] 2933207-31-2025 08:03-0400 Body .2 cmCriselda INIGUEZ Work Phone: [phone] [place], [place] 5134507-31-2025 08:03-0400Body mass index (BMI) [Ratio]22.71 kg/i7CcrrtCriselda INIGUEZ Work Phone: [phone] [place], [place] 5134507-31-2025 08:03-0400Body .77 kgCriselda INIGUEZ Work Phone: [phone] [place], [place] 5134507-31-2025 08:03-0400Diastolic blood aqoswnca12 mm[Hg]Criselda Hemmer PA Work Phone: noMiss[facility] CenterQiohurtfwc99-10-9812 08:03-0400Heart rate67 /min Criselda Hemmer PA Work Phone: no[facility] CenterOnkgvgnyaa17-88-3218 08:03-0400Respiratory rate16 /minKaren Hemmer PA Work Phone: no[facility] CenterSufazvwnlo94-62-8015 08:03-9065PhN0% (BldA) [Mass fraction]98 %Criselda Hemmer PA Work Phone: no[facility] CenterSjwaogjprb46-15-1186 08:03-0400Systolic blood ljefsigw296 mm[Hg]Criselda Hemmer PA Work Phone: [facility] CenterDzawomrexp40-28-8275 14:01-0400Body dwwzxa673.2 cmEden Hemmer PA Work Phone: [phone] CenterWortmjczti80-30-5304 14:01-0400Body mass index (BMI) [Ratio]21.65 kg/u1Fucdv Hemmer PA Work Phone: no[facility] CenterZbiudzlwez14-39-3518 14:01-0400Body temperature 98.29 [degF]Criselda Hemmer PA Work Phone: [facility] CenterTmjweljvbi35-07-8862 14:01-0400Body vlkyxk73.69 kgEden Hemmer PA Work Phone: no[facility] CenterNuxjirfmwh86-68-9101 14:01-0400Diastolic blood hwfymvwk31 mm[Hg]Criselda Hemmer PA Work Phone: no[facility] CenterVmdoicpaxk96-18-6421 14:01-0400Heart rate70 /min Criselda Hemmer PA Work Phone: no[facility] CenterZaailonwaz46-69-0301 14:01-0400Respiratory rate16 /minKaren Hemmer PA Work Phone: noMiss[facility] CenterDrsmfejnhx45-74-5972 14:01-9631HiN8% (BldA) [Mass fraction]96 %Criselda Hemmer PA Work Phone: [facility] CenterTeukilcrzh77-44-3470 14:01-0400Systolic blood ybonvtuv780 mm[Hg]Criselda INIGUEZ Work Phone: [facility] CenterXdebgdrmlo14-12-5491 14:23-0500Body zamebf200.18 cm[facility]02-[facility]20[facility] 14:23-0500Body mass index (BMI) [Ratio]21.1 kg/r1FyxujwrscMartin Memorial Hospital02-07-2025 14:23-0500Body .6 [degF][facility]02-07-2025 14:23-0500Body yetrvc60.23 kgMartin [facility] Hospital02-07-2025 14:23-0500Diastolic blood wefybnhg72 mm[Hg][facility]02-07-2025 14:23-0500 Heart rate78 /[facility]02-07-2025 14:23-0500 Respiratory rate16 /[facility]02-07-2025 14:23-0500 SaO2% (BldA) [Mass fraction]97 %[facility]02-07-2025 14:23-0500Systolic blood fpnixrvh696 mm[Hg][facility] 03-14-2024 12:53-0400Body oootzt053.18 cm[facility] 03-14-2024 12:53-0400Body mass index (BMI) [Ratio]21.3 kg/h3NdlqtkgyoMartin Memorial Hospital06-23-2024 12:53-0400Body boihazgjhuk34.7 [degF][facility]06-23-2024 12:53-0400Body koolhp42.85 kgMartin [facility] Hospital06-23-2024 12:53-0400Diastolic blood ftnwnbax99 mm[Hg][facility]06-23-2024 12:53-0400Heart rate66 /[facility]06-23-2024 12:53-0400Respiratory rate16 /[facility]06-23-2024 12:53-3744EgX6% (BldA) [Mass fraction]97 %[facility]06-23-2024 12:53-0400Systolic blood pnguwnqb059 mm[Hg] [facility] Encounters Encounter DateEncounter TypeCare ProviderFacilityStart: 07-11-2025 End: 56-28-2828Zpsdhqfto encounterSjumana Calvert USER EXPERIENCE TEAM LEAD Work Phone: NOIP [place] [facility] MedinceStart: 06-21-2025 End: 32-63-4573Cweuac flowsRain Calvert USER EXPERIENCE TEAM LEAD Work Phone: NOML [place] Vaughn MedinceStart: 06-21-2025 End: 66-62-0577Joxqkz Rhona Calvert USER EXPERIENCE TEAM LEAD Work Phone: NOHR [place] [facility] MedinceStart: 06-21-2025 End: 89-74-0405Hctjjp outpatient visit 15 minutesJanee Calvert USER EXPERIENCE TEAM LEAD Work Phone: noms [place] Vaughn MedinceComment on above:Acute non- recurrent pansinusitis (Primary Dx)Start: 06-21-2025 End: 68-85-2740ndyetsgympNRGVVO M SHIVELYNot AvailableStart: 06-15-2025 End: 65-97-9763ueblmkqtugPngcd M Alda MD Work Phone: [facility] Work Phone: Start: 06-15-2025 End: 73-20-8766Jaogidv encounter procedureLaalfred Barger LEAD MASSAGE THERAPIST-[facility] [place] Work Phone: Start: 05-18-2025 End: 98-95-9415iiizxausrpSHVFENF J MEYERNot AvailableStart: 05-18-2025 End: 47-41-9212Vqxiwa outpatient visit 10 minutesJaney INIGUEZ Work Phone: noms [facility] OrthopaedicsComment on above:Left foot pain (Primary Dx); Closed displaced fracture of proximal phalanx of lesser toe of left foot with routine healing, subsequent encounterStart: 05-18-2025 End: 39-24-5258Aezvdmmiryam INIGUEZ Work Phone: NOHT [facility]opaedicsStart: 05-18-2025 End: 60-88-8725Zkcsmz Portillo INIGUEZ Work Phone: NOSK [facility] OrthopaedicsStart: 04-21-2025 End: 26-30-8215Duqbtw outpatient visit 15 minutesCriselda INIGUEZ Work Phone: NOWV [facility] MedinceComment on above:Primary hypertension (Primary Dx); Closed displaced fracture of proximal phalanx of lesser toe of left foot with routine healing, subsequent encounter; Panic disorder ; Persistent coughStart: 04-21-2025 End: 98-25-1293qmtogqhkcxGGKJB M HEMMERNot AvailableStart: 04-20-2025 End: 46-25-0433Nqehgx outpatient new 30 minutesMatthaylie INIGUEZ Work Phone: NOQP [facility] OrthopaedicsComment on above:Left foot pain (Primary Dx); Closed displaced fracture of proximal phalanx of lesser toe of left foot, initial encounterStart: 04-20-2025 End: 78-00-8071cfqcdkprtmRHIFQML J MEYERNot AvailableStart: 04-20-2025 End: 24-16-7321Qgmvpn Portillo INIGUEZ Work Phone: NOAB [facility]opaedicsStart: 04-20-2025 End: 11-88-1544Ajezgmmiryam INIGUEZ Work Phone: NOYD [facility] OrthopaedicsStart: 04-20-2025 End: 54-55-1885Ibozzfegc Result EncounterCriselda INIGUEZ Work Phone: [facility]OM[facility] External Department UnsolicitedStart: 03-30-2025 End: 82-94-1295Igxwqv Sharyn INIGUEZ Work Phone: [facility] CI FMStart: 03-30-2025 End: 70-31-7859Kvxgsj Sharyn INIGUEZ Work Phone: [facility] CI FMStart: 03-30-2025 End: 41-30-4609Igzwkir encounter statusCriselda INIGUEZ Work Phone: [facility] Work Phone: Start: 03-30-2025 End: 01-87-3954Cvaczcwj preventive med est patient 40-64yrsKbrian Charbel INIGUEZ Work Phone: noms CI FMComment on above:Wellness examination (Primary Dx); Rhus dermatitis; Shortness of breath; Acquired hypothyroidism ; Chronic fatigue; Elevated LDL cholesterol level ; Gastroesophageal reflux disease without esophagitis; Hypokalemia; Chronic migraine without aura without status migrainosus, not intractable ; Myalgia; PMDD (premenstrual dysphoric disorder) ; Polyarthralgia; Premenstrual tension syndrome; Shortened IA interval; Generalized anxiety disorder ; MDD (major depressive disorder), recurrent episode, mild ; Panic disorder ; Chronic idiopathic constipation; Chronic bilateral low back pain with bilateral sciatica; History of hyperthyroidism; Primary hypertension ; Dizziness; Persistent cough; Bipolar disorder, current episode hypomanic (HCC); Psoriasis of scalpStart: 03-30-2025 End: 62-27-1876oazdqhvqviTEBOE M HEMMERNot AvailableStart: 02-16-2025 End: 09-44-4698Zcqdfby encounter procedureNoms Ci Fm Ls NurseNOMS CI FMComment on above:Burning with urinationStart: 02-16-2025 End: 06-55-0031lmoqluqxarKIKFB PETITTINot AvailableStart: 01-21-2025 End: 28-86-1941RhaggbAmdlwih Voss LPN Work Phone: [facility] CI FMComment on above:Primary hypertension (CMS/HCC)Start: 11-01-2024 End: 36-36-2062Eqipfm outpatient visit 15 minutesEmily Gabriella Montes MD Work Phone: NOVB SWS DERMComment on above:Seborrheic keratosis (Primary Dx); Lentigines; Psoriasis vulgaris (CMS/HCC); Common wart; Pain, generalizedStart: 11-01-2024 End: 17-81-1407adzbsdvcjgQJPZO A PETITTINot AvailableStart: 10-29-2024 End: 76-73-6626cambzutfauYmfjkyuwzUniversity Hospitals Health System Work Phone: Start: 10-29-2024 End: 07-08-2042Xfosaqs encounter procedureUn[facility] [place] Work Phone: Start: 08-11-2024 End: 58-65-5972Umlnckxhf Result EncounterAlethea Mckeon MD Work Phone: noms External Department UnsolicitedStart: 08-11-2024 End: 96-80-1029Hozqsphir Result EncounterAlethea Mckeon MD Work Phone: noms External Department UnsolicitedStart: 03-14-2024 End: 92-67-2244ucwtrulijaDwpxvtszeUniversity Hospitals Health System Work Phone: Start: 03-14-2024 End: 89-00-6805Hipmzcc encounter procedureUnc Health [facility] [place] Work Phone: Start: 12-22-2023 End: 78-12-7833iayfeqpnqcDYWJATT R [facility] HospitalStart: 12-22-2023 End: 24-73-7646suzwjrfndpXVVODOT R [facility] HospitalStart: 11-24-2023 End: 23-06-3051ekipcvvvaxRIIKNPJ R [facility] HospitalStart: 11-24-2023 End: 71-41-9252owiigvsgjvQHIMRPP R [facility]INL[facility] HospitalStart: 11-21-2023 End: 91-63-9172hcitrzsnafGAIZSHK R [facility] HospitalStart: 11-13-2023 End: 58-76-9648hivaoyfaqjYDQFJSS R [facility] HospitalStart: 10-23-2023 End: 04-31-6559azccyxfhzwRFNSZVE R [facility] HospitalStart: 09-26-2023 End: 84-10-7699adurogaaccMYVFXBU R OKINProMari[facility] HospitalStart: 09-23-2023 End: 85-95-9637nmhcvozkwmDWNWTPE R [facility]INL[facility] Hospital HospitalStart: 09-17-2023 End: 31-23-3634qzlfcfvfzzZEZFBUZ R [facility]INLima [facility] Hospital HospitalStart: 08-26-2023 End: 85-91-2255cceiyhujsdGMKOUTF R OKINLima [facility] Hospital HospitalStart: 08-22-2023 End: 90-81-6999wqyvyxvjbgLAVBLYM R [facility]INLima [facility] Hospital HospitalStart: 07-25-2022 End: 44-94-3293tetuawrrjaKUUBYRL L BAZYLEWICZFacility:FTMCStart: 07-11-2022 End: 79-94-4929Ysivlft encounter procedureWEISMAN CHILDREN'S REHABILITATION HOSPITALFrancisco Luna RosaESSENTIA HEALTHRICKEYSelect Medical [facility] Start: 70-13-2230cqnxxvniiqAB DOCTOR MISCFacility:H1 Start: 05-07-2022 End: 47-88-7767bncnxvuxqiNC DOCTOR MISCFacility:O1Vslug: 04-16-2022 End: 73-84-0222grdzplowqxRZ CRISELDA LEOSFacility:A4Kvopd: 02-28-2022 End: 65-01-8638zumoftzvtoWT RUGEN ALDAFacility:O0Nmced: 09-13-2021 End: 87-87-4175crowvipqglFN RUGEN ALDAFacility:H1 Procedures DateProcedureProcedure DetailPerforming ClinicianStart: 25-06-3517Lvweo foot complete minimum 3 viewsJaney INIGUEZ Work Phone: Start: 08-37-5559ON TOMOSYNTHESIS SCREENING Malik INIGUEZ Work Phone: Start: 85-48-4875AAXD / SPLINT / FXJaney INIGUEZ Work Phone: Start: 43-79-1068Rxdlo foot complete minimum 3 views Janey INIGUEZ Work Phone: Start: 03-08-3336JqhoheoyjseKlefj Hemmer PA Work Phone: Start: 98-27-8527Yhfpk dip stick/tablet rgnt non-auto w/o micrscpCriselda Charbel Bhavik INIGUEZ Work Phone: Start: 37-45-1876RWYHOBRSYXO SKIN LESIONEmily A Jose D DURBIN Work Phone: Start: 49-89-9397HXF CBC WITH AUTO DIFFRugen Charbel Mckeon MD Work Phone: Start: 23-96-1494QrlvypezocyXqeag Alda MD Work Phone: Plan of Treatment DateCare ActivityDetailAuthorStart: 83-68-9048Qdswzmedw for malignant neoplasm of cervixNOMS HealthcareStart: 12-05-8800Anxirzaov for malignant neoplasm of breastMammogramNOMS HealthcareStart: 06-21-2025 End: 48-24-5251Xauomce encounter olzrcyeva68/30/2025 9:00 AM EDT Office Visit [facility]Pem[facility] [address] [place] [phone] Janee Calvert, USER EXPERIENCE TEAM LEAD [address] [place] [address] [facility]MOAB [facility] [place] Family MedinceComment on above:ArrivedStart: 93-96-9339Nbynkzqqy vaccinationNOMS HealthcareStart: 05-18-2025 End: 44-04-2977Ugumnco encounter /27/2025 3:00 PM EDT Office Visit [facility] [address] [place] [phone] Janey Oro PA [address] [place] [address] NOMPeyman Pelayo OrthopaedicsStart: 04-21-2025 End: 98-10-4804Ispexne encounter vnuiembdm60/31/2025 8:00 AM EDT Office Visit RADHA [facility] [address] [facility] [address] [place] [phone] Criselda Leos PA [address] [facility] [address] [place] [address] RADHA Vaughn MedinceStart: 04-20-2025 End: 96-09-0192Ihxqbxh encounter plovayaca64/30/2025 3:00 PM EDT Office Visit [facility] [address] [place] [phone] Janey Oro PA [address] [facility] [place] [address] Left foot pain (Primary Dx)NOMFabiola Hospital OrthopaedicsComment on above:Left foot pain (Primary Dx)Start: 03-30-2025 End: 415861-wmlsfgewjenakg D3 [Mass/volume] in Serum or PlasmaVitamin D 25 hydroxy Total Lab Routine Wellness examination Chronic fatigue Myalgia Polyarthralgia Expected: 03/30/2025 (Approximate), Expires: 08/15/2025NONM HealthcareComment on above:Expected: 03/30/2025 (Approximate), Expires: 08/15/2025Start: 03-30-2025 End: 41-17-8097POH W Auto Differential panel - BloodCBC and differential Lab Routine Wellness examination Primary hypertension Dizziness Expected: 03/30/2025 (Approximate), Expires: 08/15/2025[facility] Work Phone: Comment on above:Expected: 03/30/2025 (Approximate), Expires: 08/15/2025Start: 03-30-2025 End: 32-51-7918Zrncnggnbjzdl metabolic 2000 panel - Serum or PlasmaComprehensive metabolic panel Lab Routine Wellness examination Elevated LDL cholesterol level Hypokalemia Primary hypertension Expected: 03/30/2025 (Approximate), Expires: 08/15/2025NOMS HealthcareComment on above:Expected: 03/30/2025 (Approximate), Expires: 08/15/2025Start: 03-30-2025 End: 10-24-4206Rldbh 1996 panel - Serum or PlasmaLipid panel Lab Routine Wellness examination Elevated LDL cholesterol level Primary hypertension Exp ected: 03/30/2025 (Approximate), Expires: 08/15/2025NONM HealthcareComment on above:Expected: 03/30/2025 (Approximate), Expires: 08/15/2025Start: 03-30-2025 End: 31-48-5005Chlyhrk encounter procedureNONM CI FMComment on above:Arrived Start: 03-30-2025 End: 01-83-7516UQV W/REFLEX TO FT4TSH W/REFLEX TO FT4 Lab Routine Wellness examination Acquired hypothyroidism Chronic fatigue History of hyperthyroidism Dizziness Expected: 03/30/2025 (Approximate), Expires: 08/15/2025[facility] Comment on above:Expected: 03/30/2025 (Approximate), Expires: 08/15/2025Start: 12-14-2024 End: 46-82-1283Ukpvddn encounter ltipnmwte81/25/2025 2:15 PM EDT Office Visit [facility] [address] [place] [id number] Pablo Montes MD [address] [place] [address] [facility] DERMStart: 96-92-9524Lxnirgciy vaccination Influenza Vaccine (#1)NOM HealthcareStart: 72-46-4823Remdyqdzy for malignant neoplasm of breastMammogramMOAB REGIONAL HOSPITAL HealthcareStart: 09-72-5757Mnnusrhpk for malignant neoplasm of cervixPap SmearNevada Regional Medical Center Immunizations Immunization DateImmunizationNotesCare DcnumnztOhpduvth37-62-7149uxsfgdvaj, injectable, quadrivalent, preservative Kelsea Mckeon MD Work Phone: [facility] CenterKjljtwlrhg71-34-9296VSKS-PHP-6 (COVID-19) vaccine, mRNA, spike protein, LNP, PF, 50 mcg/0.5 Soco Mckeon MD Work Phone: [phone] [place], [place] [address]Cdsrwbliob90-25-9714yznryhrlr virus vaccine, unspecified formulationAlethea Mckeon MD Work Phone: [phone] [place], [place] [address]Qrcdxrzhrj70-69-2539hjnwfgtyj, injectable, quadrivalent, preservative freeAlethea Mckeon MD Work Phone: [phone] [place], [place] [address]Zvkxavyujg56-80-6804foruqvunh, injectable, quadrivalent, preservative freeAlethea Mckeon MD Work Phone: [phone] [place], [place] [address]Gmhnseshbx07-28-1406nodvparm influenza, intradermal, preservative freeAlethea Mckeon MD Work Phone: [phone] [place], [place] [address]Lsqgnvfrgd46-81-6789sdkwxnkz influenza, intradermal, preservative freeAlethea Mckeon MD Work Phone: [phone] [place], [place] [address]Gsagjdirzm25-51-2253pusuodxkz, injectable, quadrivalent, preservative freeAlethea Mckeon MD Work Phone: [phone] [place], [place] [address]Tohijxbpcg09-13-4098gnrthwe toxoid, reduced diphtheria toxoid, and acellular pertussis vaccine, adsorbedAlethea Mckeon MD Work Phone: [phone] [place] [address] Payers DatePayer CategoryPayerPolicy [id number] Health InsuranceMEDICAL MUTUAL [id number] .[id number] .1.130917.3.57[id number] 2.840.1.533317.3.57[id number] 2.840.1.274916.3.57[id number] 2.840.1.375375.3.57[id number] 2.840.1.009482.3.57[id number] 2..1.214464.3.57[id number] 2..1.408611.3.57[id number] 2..1.909529.3.57[id number] 2..1.537585.3.57[id number] 2..1.538000.3.57[id number] 2..1.075247.3.57[id number] 2..1.907982.3.57[id number] 2..1.031326.3.57[id number] 2.840.1.503086.3.57[id number] 2.0.1.945605.3.57[id number] 2.840.1.379376.3.57[id number] 2..840.1.822560.3.57[id number] 2..840.1.615672.3.57[id number] 2..0.1.705989.3.57[id number] 2..0.1.457764.3.57[id number] 2.840.1.796148.3.57[id number] 2.0.1.621621.3.57[id number]-bibQypp Pay [id number]-[id number] / [id number] Social History DateTypeDetailFacilityTobacco smoking statusGuernsey Memorial Hospitaltart: 03-17-2024 End: 66-70-7435Mdb Assigned At [facility] HospitalFeOhioHealth Doctors Hospital CenterStart: 02-26-2023 End: 47-43-5714Kstjxwd smoking status NHISNever smoked tobacco (finding) [facility] Ohiotart: 82-36-8096Fai Assigned At [facility] Centertart: 58-41-3222Gihsixs use and exposure Smokeless tobacco non-userNOMS HealthcareStart: 03-17-2024 End: 48-15-1382Epinokdpn beverage intakeEx-drinker (finding)[facility] Healthcare Start: 03-17-2024 End: 26-23-3982Qtohpbk of Social functionNOMS HealthcareStart: 16-08-2435Podluxh CommentCaffeine intake: 2-3 cups per day; 1 cup coffee qdMOAB REGIONAL HOSPITAL HealthcareStart: 55-30-4068Pncflx identityIdentifies as female gender (finding)[facility] Start: 84-25-9080Xjokau orientationHeterosexual (finding)[facility] CenterStart: 87-40-4395TcwCxyraj (finding)[facility] Ohiotart: 12-04-2022 [facility] Functional Status IreiGwqunhebbuUppeddGkjswmdo88-66-1813Soyjsdm Health Questionnaire 2 item (PHQ- 2) [Reported][facility] CenterDmutbmmvvo10-14-3708Dpedfug Health Questionnaire 2 item (PHQ- 2) [Reported][facility] Medical CenterEggfggpkos73-27-2236Sfzzaaf Health Questionnaire 2 item (PHQ- 2) [Reported][facility] Clinical Notes 03-01-2022 to 07-11-2025 Note Date & WuuqNgpvJomeeqqq11-72-4575 Telephone encounter Note* Telephone Encounter - TORSTEN MCKEON - 07/11/2025 3:05 PM EDT Patient called asking for an RX or the migraine medication that you gave her a sample of. She states that it worked really good for her. Please send to [facility] in [place]. [facility] CenterDcecziiafq20-40-8180 Miscellaneous Notes* Telephone Encounter - TORSTEN MCKEON - 07/11/2025 3:05 PM EDT Patient called asking for an RX or the migraine medication that you gave her a sample of. She states that it worked really good for her. Please send to [facility] in [place]. documented in this encounterNevada Regional Medical CenterVgvwcyebzp65-76-2897 History of Present illness Narrative* Janee Calvert [...] complicated by congenital heart disease, fetus 1 ([facility]) 03/28/2020 Suspected COVID-19 virus infection 09/26/2021 Suspected COVID J and J and Moderna Booster was positive Thyroid nodule Past Surgical History: Procedure Laterality Date SECTION, LOW TRANSVERSE 2008 ESOPHAGOGASTRODUODENOSCOPY 2017 IR FINE NEEDLE ASPIRATION THYROID 07/23/2016 IA LAP,CHOLECYSTECTOMY 2017 TOTAL THYROIDECTOMY 11/19/2016 VAGINAL AFTER [...] Sinus: Frontal sinus tenderness present. Mouth/Throat: Lips: [place]. Mouth: Mucous membranes are moist. Pharynx: Posterior [...] No follow-ups on file. documented in this encounterNevada Regional Medical CenterNkdzfrxspf55-07-7687 History of Present illness Narrative* GEETHA Graves [...] requiring urgent evaluation. Visit was preformed using [employer]-engine pilot speech recognition. documented in this encounterNevada Regional Medical CenterLdeqprnmsd14-19-3900 History of Present illness Narrative* GEETHA Carlton [...] complicated by congenital heart disease, fetus 1 ([facility]) 03/28/2020 Suspected COVID-19 virus infection 09/26/2021 Suspected COVID J and J and Moderna Booster was positive Thyroid nodule Past Surgical History: Procedure Laterality Date SECTION, LOW TRANSVERSE 2008 ESOPHAGOGASTRODUODENOSCOPY 2016 IR FINE NEEDLE ASPIRATION THYROID 07/23/2016 IA LAP,CHOLECYSTECTOMY 2017 TOTAL THYROIDECTOMY 11/19/2016 VAGINAL AFTER [...] for Medication Follow Up. documented in this encounterNevada Regional Medical CenterUfpzdalebj70-65-9438 History of Present illness Narrative* GEETHA Graves [...] to verify the correct patient, procedure, equipment, instructional support technician and site/side marked as required Injury Location [...] possible was discussed. 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 Visit was preformed using [employer]-engine pilot speech recognition. documented in this encounterNevada Regional Medical CenterCnrqjgzkwi85-48-1520 History of Present illness Narrative* GEETHA Carlton [...] complicated by congenital heart disease, fetus 1 ([facility]) 03/28/2020 Suspected COVID-19 virus infection 09/26/2021 Suspected COVID J and J and Moderna Booster was positive Thyroid nodule Past Surgical History: Procedure Laterality Date SECTION, LOW TRANSVERSE 2007 ESOPHAGOGASTRODUODENOSCOPY 2016 IR FINE NEEDLE ASPIRATION THYROID 07/23/2016 IA LAP,CHOLECYSTECTOMY 2017 TOTAL THYROIDECTOMY 11/19/2016 VAGINAL AFTER [...] disorder) The patient is seeing a medical sociologist for this condition, treatment is deferred to that specialist. Correspondence from that specialist and any available testing were reviewed during today's visit. Polyarthralgia This is a chronic medical condition that is stable since last assessment. Premenstrual tension syndrome The patient is seeing a medical sociologist for this condition, treatment is deferred to that specialist. Correspondence from that specialist and any available testing were reviewed during today's visit. Shortened IA interval This is a chronic medical condition [...] (around 03/30/2026) for Wellness. documented in this [facility]05-28-2025 History of Present illness Narrative* Khloe Frank MA - 02/16/2025 1:00 PM EDT Pt came in due to having UTI symptoms burning , hurts to sit for too long urgency documented in this [facility]05-06-2025 Telephone encounter Note* Telephone Encounter - Sydni Sutton - 01/25/2025 10:26 AM EDT Appt scheduled [facility] CenterPsflqqmqnd02-99-6833 Miscellaneous Notes* Telephone Encounter - Sydni Sutton [...] refills of her medication. documented in this encounterNevada Regional Medical CenterRbbdfdvgoh74-78-2050 Telephone encounter Note* Telephone Encounter - Arabella Banks LPN - 01/21/2025 8:49 AM EDT Sent. Please let pt know that a 90 day supply of her BP med was sent to [facility] but will bedue for wellness appt sometime after 03/17/25 and will need that appt for further refills of her medication. [facility] CenterLqxomikedl55-04-0032 History of Present illness Narrative* Pablo Montes [...] limited to risks of scarring, darker or advanced practice nurse psychotherapist pigmentary changes, recurrence, incomplete removal and infection. [...] weeks, wart follow up documented in this encounterNevada Regional Medical CenterVuursucbrs63-27-5285 NotePROCEDURE: XR HAND RT 2 V COMPARISON: None. HISTORY: Hand pain FINDINGS: BONES:No fracture, acute abnormality, or significant arthropathy. SOFT TISSUES:Negative. No visible soft tissue swelling. EFFUSION:None visible. OTHER: Negative. IMPRESSION: No acute fracture Electronically authenticated by: GINA COTTON Date: 2022-03-01 07:33[facility] + [facility] note No data available for this section [facility]Evaluation [facility]* Diagnosis Onset Date Resolution Status Hives acute [facility] Work Phone: Evaluation noteNo assessment information available [facility] Work Phone: Evaluation note* Diagnosis Seborrheic keratosis- [...] Premenstrual tension syndrome Premenstrual tension syndromes Shortened IA interval Generalized anxiety disorder Generalized anxiety disorder [...] agoraphobia Persistent cough documented in this encounter [facility] HealthcareEvaluation note* Diagnosis Left foot pain- Primary Pain in soft tissues of limb Closed displaced fracture of proximal phalanx of lesser toe of left foot with routine healing, subsequent encounter documented in this encounter [facility] HealthcareEvaluation note* Diagnosis Acute non-recurrent pansinusitis- Primary documented in this encounter [facility] HealthcareEvaluation note* Diagnosis Intractable migraine with aura with status migrainosus- Primary Migraine with aura, with intractable migraine, so stated, with status migrainosus documented in this encounter [facility] HealthcareHospital Discharge instructions No data available for this section [facility] IncProgress note No data available for this section [facility] IncReason for referral (narrative)No reason for referral information availableMercer County Community Hospital Work Phone: Summary Purpose Family History No [...] and content) DATE CREATED AUTHOR 06/03/2022 [facility] DATE CREATED AUTHOR AUTHOR'S ORGANIZ ATION 08/07/2022 [facility] DATE CREATED AUTHOR AUTHOR'S ORGANIZ ATION 01/21/2024 [facility] DATE CREATED AUTHOR AUTHOR'S ORGANIZ ATION 06/26/2025 [facility] EPIC Patient Care team [...] MemberRelationshipSpecialtyStart DateEnd Date Alethea Mckeon MD [address] [place] [address] [facility]CP - [facility]02/20/23 Trung Marcelo MD [address] [place] [address] [facility]02/19/2012 Team Status: Inactive Member Role Status Dates Alethea Mckeon MD Primary Care Provider Active S tart: October 29, 2024 End: October 29adrian Ferraro APRNAtpatricio ProviderActiveStart: October 29, 2024 End: October 29, 2024Team MemberRelationshipSpecialtyStart DateEnd Date Alethea Mckeon MD [address] [place] [address] [facility] - [facility]02/20/23 Trung Marcelo MD [address] [place] [address] [facility] - [facility]02/19/2012Team MemberRelationshipSpecialty Start DateEnd Date Alethea Mckeon MD [address] [place] [address] [facility] - [facility]02/20/23 Trung Marcelo MD [address] [place] [address] [facility] - [facility]02/19/2012Team MemberRelationshipSpecialty Start DateEnd Date Alethea Mckeon MD [address] [place] [address] PCP - [facility]02/20/23 Trung Marcelo MD [address] [place] [address] PCP - [facility]02/19/2012Team MemberRelationshipSpecialty Start DateEnd Date Alethea Mckeon MD [address] [place] [address] PCP - [facility]02/20/23 Trung Marcelo MD [address] [place] [address] PCP - [facility]02/19/2012Team MemberRelationshipSpecialty Start DateEnd Date Alethea Mckeon MD [address] [place] [address] PCP - [facility]02/20/23 Trung Marcelo MD [address] [place] [address] PCP - [facility]02/19/2012Team MemberRelationshipSpecialty Start DateEnd Date Alethea Mckeon MD [address] [place] [address] PCP - [facility]02/20/23 Trung Marcelo MD [address] [place] [address] PCP - [facility]02/19/2012Team MemberRelationshipSpecialty Start DateEnd Date Alethea Mckeon MD [address] [place] [address] PCP - [facility]02/20/23 Trung Marcelo MD [address] [facility] [address] [place] [address] [facility] - [facility]02/19/2012 Team Status: Inactive Member Role Status Dates Alethea Mckeon MD Primary Care Provider Active S tart: June 15, 2025 End: June 15, 2025Anita Peralta APRNAtpatricio ProviderActiveStart: June 15, 2025 End: June 15, 2025Team MemberRelationshipSpecialtyStart DateEnd Date Alethea Mckeon MD [address] [place] [address] PCP - [facility]02/20/23 Criselda Leos PA [address] [place] [address] [facility] - [facility]02/19/2012 Goals (unrecognized section and content) Goals may be documented in a n alternate section Reason for Visit (unrecogniz ed section and content) ReasonCommentsSkin CheckRashSuspicious Skin LesionReasonOnset DateCommentsMed Bfidai2301/21/2025ReasonCommentsurine sampleReasonCommentsPain FOR RECORDS PERTAINING TO PATIENTS WHO [...] BE BASED ON THE PRIMARY CLINICAL RECORDS. [employer] [facility]. provides no warranty or guarantee of the accuracy or completeness of information in this document.
== END 2025-08-31 20:33 | disposition home or self-care (01) ==
LOC: LAB 20:32
PROVIDERS: PCP Family Medicine; Visit Provider Physician Assistant
DX: Z01.419 Encounter for gynecological examination (general) (routine) without abnormal findings (principal)